=== PATIENT | female | born 1985 | race Caucasian/White ===

== ENCOUNTER 2023-01-08 09:32 | Outpatient (OUT) | payer OTHER, SELFPAY ==
[2023-01-08 10:30] LABS: Free T4 0.72 ng/dL (0.76-1.46)
[2023-01-08 10:34] LABS: Thyroid Stimulating Hormone 1.223 uIU/mL (0.358-3.740)
== END 2023-01-08 09:33 ==
PROVIDERS: PCP Obstetrics & Gynecology; Visit Provider Obstetrics & Gynecology
DX: N92.0 Excessive and frequent menstruation with regular cycle (principal)
CPT/HCPCS: 36415; 84439; 84443

== ENCOUNTER 2023-01-09 14:28 | Outpatient (REF) | payer OTHER, SELFPAY | END 2023-06-14 14:29 | disposition home or self-care (01) | LOC: LAB 14:28 | PROVIDERS: PCP Obstetrics & Gynecology; Visit Provider Obstetrics & Gynecology | DX: N92.0 Excessive and frequent menstruation with regular cycle (principal) | CPT/HCPCS: 88305 ==

== ENCOUNTER 2023-01-17 12:12 | Outpatient (OUT) | payer OTHER, SELFPAY ==
--- NOTE | 2023-01-17 13:17 | PM.PRESUREVA ---
History of Present Illness History of Present Illness Chief complaint: menorrhagia, abnormal uterine bleeding, pelvic abigail Narrative: Patient presents for preadmission testing. The patient states she has heavy painful menstrual periods. She states this started after she had her tubes tied and stopped taking control about 2-1/2 years ago. She denies fever, nausea, vomiting, or any other complaints. Review of Systems ROS Narrative REVIEW OF SYSTEMS: Negative except as stated in HPI, ten or more systems reviewed. Constitutional: No fever , chills, weakness ENT: No sore throat or epistaxis Cardiovascular: No edema, chest pain, palpitations, or activity intolerance Respiratory: No shortness of breath, cough, or wheezing Musculoskeletal: No joint pain or swelling Genitourinary: No dysuria or hematuria Neurological: No numbness, tingling, weakness, or headache Psychiatric: No mood changes PFSH PFSH Medical History (Updated 01/17/23 @ 12:57 by Torie Savage NP) Surgical History (Updated 01/17/23 @ 12:57 by Torie Savage NP) Family History (Updated 01/17/23 @ 12:57 by Torie Savage NP) Other Bladder cancer Delayed recovery from anesthesia Family history of aneurysm Family history of colon cancer Family history of diabetes mellitus Family history of heart disease Family history of hypertension Family history of liver cancer Family history of myocardial infarction Family history of stroke Social History (Updated 01/17/23 @ 12:49 by Torie Savage NP) Within the past year, how often did you have a drink containing alcohol: monthly or less Smoking status: Former smoker Non-prescribed substance use: denies use Previous occupational history: Teacher Highest level of school completed/degree received: Master's degree Meds Home Medications and Allergies Home Medications Medication Instructions Recorded Confirmed Type cetirizine 10 mg tablet (24Hour 10 mg PO DAILY PRN allergy symptoms 01/17/23 01/17/23 History Allergy) escitalopram oxalate 20 mg tablet 20 mg PO QDAY 01/17/23 01/17/23 History metformin 500 mg tablet,extended 500 mg PO QDAY 01/17/23 01/17/23 History release 24 hr montelukast 10 mg tablet 10 mg PO QDAY 01/17/23 01/17/23 History Allergies Allergy/AdvReac Type Severity Reaction Status Date / Time alcohol Allergy skin Verified 01/17/23 12:46 [From Mastisol Adhesive] infection gum mastic Allergy skin Verified 01/17/23 12:46 [From Mastisol Adhesive] infection methyl salicylate Allergy skin Verified 01/17/23 12:46 [From Mastisol Adhesive] infection prochlorperazine Allergy tremor Verified 01/17/23 12:46 [From Compazine] storax Allergy skin Verified 01/17/23 12:46 [From Mastisol Adhesive] infection Exam Narrative Exam Narrative: Constitutional: Awake, alert, comfortable, well-appearing, nontoxic, interactive, vital signs as charted Head: Normocephalic, atraumatic Neck: Supple, normal appearance, normal range of motion, no meningeal signs, no lymphadenopathy Respiratory: No respiratory distress, breath sounds clear Cardiovascular: Regular rate and rhythm, strong and regular heart tones Abdomen: Nontender, normal bowel sounds, soft, no CVA tenderness Musculoskeletal: Normal gait, no swelling or edema Skin: No rashes or induration, no lesions, only visible skin inspected Neuro: No neurological deficits, normal sensation Psychiatric: Oriented ?3, normal affect Assessment and Plan Assessment and Plan (1) Abnormal uterine bleeding (AUB): (2) Menorrhagia: (3) Pelvic pain: Plan Endometrial ablation/Krupa scheduled with Dr. Conde 01/31/2023.
== END 2023-01-17 12:13 ==
LOC: PST 12:13
PROVIDERS: PCP Obstetrics & Gynecology
DX: Z01.818 Encounter for other preprocedural examination (principal); N92.1 Excessive and frequent menstruation with irregular cycle; N93.9 Abnormal uterine and vaginal bleeding, unspecified; R10.2 Pelvic and perineal pain
CPT/HCPCS: G0463

== ENCOUNTER 2023-01-31 07:04 | Day surgery (SDC) | payer OTHER, SELFPAY ==
[2023-01-17 12:50] VITALS: BP 140/95; PULSE 75; RESP 18; TEMP 36.4; O2SAT 98; BMI 34.2
[2023-01-31] VITALS (10 sets, daily range): BP systolic 106–137; BP diastolic 64–87; PULSE 69–86; RESP 12–22; TEMP 36.4–36.6; O2SAT 96–98; BMI 34.7
[2023-01-31 07:13] LABS: Basophils Absolute Auto 0.1 10^3/uL (0.0-0.1); Basophils Percent Auto 0.9 % (0.2-2.0); Eosinophils Absolute Auto 0.3 10^3/uL (0.0-0.7); Eosinophils Percent Auto 4.3 % (0.9-7.0); Hematocrit 38.8 % (36.0-48.0); Hemoglobin 12.7 g/dL (12.0-16.0); Immature Granulocytes Abs Auto 0.02 10^3/uL (0.00-0.03); Immature Granulocytes Pct Auto 0.3 % (0.0-0.5); Lymphocytes Absolute Auto 2.5 10^3/uL (1.2-3.8); Lymphocytes Percent Auto 37.4 % (20.5-60.0); Mean Corpuscular HGB Conc 32.7 g/dL (29.9-35.2); Mean Corpuscular Hemoglobin 27.9 pg (26.7-34.0); Mean Corpuscular Volume 85.1 fL (81.0-99.0); Mean Platelet Volume 9.9 fL (9.5-13.5); Monocytes Absolute Auto 0.6 10^3/uL (0.3-0.8); Monocytes Percent Auto 9.5 % (1.7-12.0); Neutrophils Absolute Auto 3.2 10^3/uL (1.4-6.5); Neutrophils Percent Auto 47.6 % (43.0-75.0); Platelet Count 217 10^3/uL (150-450); Red Blood Count 4.56 10^6/uL (4.20-5.40); Red Cell Distribution Width 12.8 % (11.0-15.0); White Blood Count 6.7 10^3/uL (4.0-11.0)
[2023-01-31 07:34] LABS: HCG Quantitative <1 mIU/mL
[2023-01-31] MEDS: LACTATED RINGER'S SOLUTION 1,000 ML 50 ML IV (08:03)
--- NOTE | 2023-01-31 09:34 | PM.ONB ---
Brief Operative Note Date of procedure: 01/31/23 Pre-op diagnosis: menorrhagia Post-op diagnosis: same Procedure: The patient was taken back to the OR where she was prepped and draped in the normal sterile fashion after being placed in the dorsal lithotomy position, after being placed under general anesthesia without difficulty. The anterior lip was grasped with a single tooth tenaculum. The patient was then gently sounds. The patient was gently sounded using Hegar dilators and the hysteroscope was passed through the cervix into the uterus where both ostia were seen. No gross evidence of polyps, fibroids or malignancy. A weighted speculum was placed in the patient?s vagina, the anterior tip of the cervix was identified and grasped with a single tooth tenaculum. The patient was gently sounded to roughly 10 cm. The cervical length was noted to be 5 cm. The Krupa ablation apparatus was set to approximately 5 in length. This was placed in through the cervix and into the uterus. After the seal was tested, at that time the total ablation of 120 seconds was performed with the Krupa without difficulty. All instruments were removed from the vagina. Surgeon: Justice Conde Estimated blood loss (mL): 5 Pathology: none sent Condition: stable Disposition: PACU
--- NOTE | 2023-01-31 09:42 | PC.NURSE ---
PATIENT HAD A 16 RUSSIAN RED RUBBER INSERTED AND HER BLADDER WAS DRAINED. PATIENT HAD CATHETER REMOVED PRIOR TO CASE STARTING. PATIENT HAD 200 ML DRAINED FROM HER BLADDER.
--- NOTE | 2023-01-31 09:53 | PC.NURSE ---
Peripad dry and intact; heat pack applied to abdomen
[2023-01-31] MEDS: LACTATED RINGER'S SOLUTION 1,000 ML 100 ML IV (10:08)
== END 2023-01-31 11:52 | disposition home or self-care (01) ==
PROVIDERS: PCP Obstetrics & Gynecology; Visit Provider Obstetrics & Gynecology
PROC: (CPT 58563; principal; 2023-01-31 08:20)
DX: N92.1 Excessive and frequent menstruation with irregular cycle (principal); N93.9 Abnormal uterine and vaginal bleeding, unspecified; R10.2 Pelvic and perineal pain; Z87.891 Personal history of nicotine dependence; J45.909 Unspecified asthma, uncomplicated; K21.9 Gastro-esophageal reflux disease without esophagitis
CPT/HCPCS: 58563; 36415; 84702; 85025; J2704

== ENCOUNTER 2024-03-17 09:57 | Outpatient (OUT) | payer OTHER, SELFPAY ==
[2024-03-17 10:17] LABS: Basophils Percent Auto 0.5 % (0.2-2.0); Eosinophils Absolute Auto 0.1 10^3/uL (0.0-0.7); Eosinophils Percent Auto 1.2 % (0.9-7.0); Hematocrit 43.5 % (36.0-48.0); Hemoglobin 14.3 g/dL (12.0-16.0); Immature Granulocytes Abs Auto 0.02 10^3/uL (0.00-0.03); Immature Granulocytes Pct Auto 0.3 % (0.0-0.5); Lymphocytes Absolute Auto 2.1 10^3/uL (1.2-3.8); Lymphocytes Percent Auto 35.6 % (20.5-60.0); Mean Corpuscular HGB Conc 32.9 g/dL (29.9-35.2); Mean Corpuscular Hemoglobin 28.9 pg (26.7-34.0); Mean Corpuscular Volume 88.1 fL (81.0-99.0); Mean Platelet Volume 9.6 fL (9.5-13.5); Monocytes Absolute Auto 0.6 10^3/uL (0.3-0.8); Monocytes Percent Auto 10.1 % (1.7-12.0); Neutrophils Absolute Auto 3.1 10^3/uL (1.4-6.5); Neutrophils Percent Auto 52.3 % (43.0-75.0); Platelet Count 201 10^3/uL (150-450); Red Blood Count 4.94 10^6/uL (4.20-5.40); Red Cell Distribution Width 12.1 % (11.0-15.0)
--- OUTSIDE RECORDS SUMMARY | 2024-03-17 10:18 | XMS_ITS | CCD ---
Author Organization [facility] Care Team Providers Care Host Name Role Phone DONTRELL RAMON Unavailable Unavailable DONTRELLDAVIDEA Unavailable Unavailable NONE, XXXX Unavailable Unavailable MD Flores Jha Attending Provider DONTRELL ., RAMON Primary Care Unavailable [facility] [place], DR BERNSTEIN Consulting Unavailable DIAN JAVIER Admitting Unavailable DIAN JAVIER Attending Unavailable FAMILIA ., DR ANTOINE Consulting Unavailable FAMILIA ., DR ANTOINE Admitting Unavailable FAMILIA ., DR ANTOINE Attending Unavailable JON ., RAMON Primary Care Unavailable FAMILIA ., DR ANTOINE Consulting Unavailable FAMILIA ., DR ANTOINE Admitting Unavailable FAMILIA ., DR ANTOINE Attending Unavailable JON ., RAMON Primary Care Unavailable ANTOINE, DR VALENTINA Oliveira Consulting Unavailable JON ., RAMON Primary Care Unavailable JAVIER, DIAN Attending Unavailable [facility] [place], DR BERNSTEIN Consulting Unavailable DIAN JAVIER Admitting Unavailable Catia Mcdowell Unavailable Filomena Delgado Unavailable CAMILLE GALLAGHER Attending Unavailable RITESH DORANTES Attending Unavailable CAMILLE GALLAGHER Attending Unavailable RITESH DORANTES Referring Unavailable CAMILLE GALLAGHER Attending Unavailable FLORES JHA Attending Unavailable ELINA BARBOSA Attending Unavailable SY FERREIRA Attending Unavailable WONDERLY, LAURY B Referring Unavailable WONDERLY, LAURY B Primary Care Unavailable DMITRIY WATKINS Attending Unavailable DMITRIY WATKINS Referring Unavailable WONDERLY, LAURY B Primary Care Unavailable DMITRIY WATKINS Admitting Unavailable DMITRIY WATKINS Attending Unavailable WONDERLY, LAURY B Referring Unavailable WONDERLY, LAURY B Primary Care Unavailable GADIEL CARLOS Attending Unavailable WONDERLY, LAURY B Primary Care Unavailable SY FERREIRA Attending Unavailable LAURY MARTINEZ Referring Unavailable LAURY MARTINEZ Primary Care Unavailable Allergies Allergy Classification Reported Allergen(s) Allergy Type Date of Onset Reaction(s) Facility (3 sources) Prochlorperazine Drug Allergy [address] [facility] Repository (1 source) Prochlorperazine; Translations: [PROCHLORPERAZINE] Drug Allergy 05-20-20 [facility] Repository (1 source) OTHER; Translations: [OTHER] Propensity to adverse reactions (disorder) 11-30-19 [facility] Repository (1 source) GUM [id number]-[id number]- ALCOHOL; Translations: [GUM FPLRUA-UOGCNO-EVDZ- ALCOHOL] Propensity to adverse reactions to drug (disorder) 05-20-20 [facility] Repository Medications Current Medications Medication Drug Class(es) Dates Sig (Normalized) Sig (Original) cetirizine hydrochloride 10 mg oral tablet (2 sources) Histamine-1 Receptor Antagonist take 1 tablet by mouth once daily ZyrTEC 10 MG 1 tablet Orally Once a day Active escitalopram 20 mg oral tablet (2 sources) Serotonin Reuptake Inhibitor take 1 tablet by mouth every twenty-four hours Lexapro 20 MG 1 tablet Orally Once a day Active metFORMIN hydrochloride 500 mg oral tablet (2 sources) Biguanide take 1 tablet by mouth every twenty-four hours metFORMIN HCl 500 MG 1 tablet with a meal Orally Once a day Active montelukast (2 sources) Leukotriene Receptor Antagonist Singulair Active olopatadine 2 mg/ml ophthalmic solution (2 sources) Histamine-1 Receptor Inhibitor take 1 drop(s) into the eye(s) once daily Pataday 0.2 % 1 drop(s) each eye Once a day for 7 days Active phentermine hydrochloride 37.5 mg oral tablet (2 sources) Sympathomimetic Amine Anorectic take 1 tablet by mouth once daily before breakfast Adipex-P 37.5 MG 1 tablet before breakfast Orally Once a day Active predniSONE 20 mg oral tablet (1 source) Start: 05-08-2023 take 1 tablet by mouth every twelve hours prednisone 20 MG 1 tablet Orally BID for 5 Apr, Active Completed/Discontinued Medications Medication Drug Class(es) Dates Sig (Normalized) Sig (Original) [id number] 200 actuat albuterol 0.09 mg/actuat metered dose inhaler (2 sources) beta2-Adrenergic Agonist Ventolin HFA 108 (90 Base) MCG/ACT 2 puffs as needed Inhalation PRN Not-Taking gabapentin 100 mg oral capsule (2 sources) Anti-epileptic Agent Start: 04-01-2020 take 1 capsule by mouth three times daily as needed Gabapentin 100 MG 1 capsule Orally three times a day as needed for 7 days Mar, Not-Taking loratadine 10 mg oral tablet (2 sources) take 1 tablet by mouth once daily Loratadine 10 MG 1 tablet Orally Once a day for 30 day(s) Not-Taking sertraline 50 mg oral tablet (2 sources) Serotonin Reuptake Inhibitor take 1 tablet by mouth every twenty-four hours Zoloft 50 MG 1 tablet Orally Once a day for 30 day(s) Not-Taking valACYclovir 1000 mg oral tablet (2 sources) Herpesvirus Nucleoside Analog DNA Polymerase Inhibitor, Herpes Simplex Virus Nucleoside Analog DNA Polymerase Inhibitor, Herpes Zoster Virus Nucleoside Analog DNA Polymerase Inhibitor Start: 04-01-2020 take 1 tablet by mouth every eight hours valACYclovir HCl 1 GM 1 tablet Orally three times a day for 7 days Mar, Not-Taking Problems Active Problems Problem Classification Problem Date Documented Da te Episodic/Chronic Abdominal pain (4 sources) Abdominal pain; Translations: [Abdominal pain] Onset: 02-22-2024 Episodic Asthma (1 source) Unspecified asthma, uncomplicated; Translations: [UNSPECIFIED ASTHMA UNCOMPLICATED] Onset: 01-07-2022 Chronic Inflammation; infection of eye (except that caused by tuberculosis or sexually transmitteddisease) (1 source) Acute atopic conjunctivitis, bilateral Episodic Menstrual disorders (4 sources) Excessive and frequent menstruation with regular cycle; Translations: [EXCESS FREQ MENSTRUATION W/REG CYCL] Onset: 11-01-2022 Chronic Nausea and vomiting (2 sources) Nausea; Translations: [Nausea] Episodic Other gastrointestinal disorders (2 sources) Irritable bowel syndrome; Translations: [Irritable bowel syndrome] Chronic Other gastrointestinal disorders (2 sources) Constipation; Translations: [Constipation] Episodic Other gastrointestinal disorders (2 sources) Diarrhea; Translations: [Diarrhea] Episodic Other nutritional; endocrine; and metabolic disorders (1 source) Obesity, unspecified; Translations: [OBESITY UNSPECIFIED] Onset: 01-07-2022 Chronic Other screening for suspected conditions (not mental disorders or infectious disease) (4 sources) Encounter for screening for malignant neoplasm of cervix; Translations: [ENC SCREENING MALIG NEOPLASM CERV] Onset: 10-30-2022 Episodic Other upper respiratory disease (2 sources) Allergic rhinitis; Translations: [Allergic rhinitis, unspecified] Chronic Other upper respiratory infections (2 sources) Acute pharyngitis, unspecified; Translations: [Acute sinusitis, unspecified] Episodic Residual codes; unclassified (4 sources) Obstructive sleep apnea (adult) (pediatric); Translations: [OBSTRUCTIVE SLEEP APNEA] Onset: 01-31-2022 Chronic Spondylosis; intervertebral disc disorders; other back problems (2 sources) Sacrococcygeal disorders, not elsewhere classified; Translations: [Backache] Onset: 01-02-2024 Episodic Viral infection (1 source) Other viral agents as the cause of diseases classified elsewhere Episodic Past or Other Problems Problem Classification Problem Date Documented Da te Episodic/Chronic Other lower respiratory disease (1 source) Snoring; Translations: [SNORING] Onset: 01-07-2022 Episodic Results Test Name Value Interpretation Reference Range Facility US THYROIDon 11-20-2023 US THYROID FINDINGS: Right Lobe: 4.7 x 1.3 x 1.6 cm Left Lobe: 5.2 x 1.4 x 1.1 cm Isthmus (Thickness) 2mm Normal echotexture involves the thyroid gland. No significant enlargement is identified. No suspicious cystic or solid mass lesions are seen. IMPRESSION: Normal thyroid ultrasound. RECOMMENDATIONS CANCER RISK (ACR TI-RADS 2018) TR1: no FNA required TR1: 0.3% TR2: no FNA required TR2: 1.5 % TR3>: 1.5 cm follow up, >2.5 cm FNA TR3: 4.8 % Follow up 1, 3, 5 years TR4:>1.0 cm follow up >1.5 cm FNA TR4: 9.1 % Follow up: 1, 2, 3 and 5 years TR5:> 0.5 cm follow up, >1.0 cm FNA TR5: 35% Annual follow up for up to 5 years Biopsy is recommended for suspicious lesions (TR3-TR5) with the above size criteria. If there are multiple nodules, the two with the highest ACR TI-RADS grades should be sampled (rather than the two largest) Interval enlargement on follow up is felt to be significant if there is a increase of 20% and 2 mm in two dimensions, or a 50% increase in volume. If the ACR TI-RAD level increases between scans, and interval scan the following year is again recommended. TRANSCRIBED BY: ELECTRONICALLY SIGNED BY: Edmond Conway MD Normal Not Available Quick Strepon 05-08-2023 S. pyogenes Org specific cx Ql (Throat) Negative Precision Biopsy [facility] [employer] Other Quick Strep Precision Biopsy [facility] [employer] Other PAP ACOG PANEL 2: 30 to 65on 11-06-2022 . . Normal [facility] Comment on above: Result Comment: Perf ormed at: WB Performed By: #### [id number] #### [facility] [address] [address] [address] Emanuel Castillo Age Gdln ACOG Testing - [facility] Comment on above: Performed By: #### [id number] #### [facility] [address] [address] [address] Emanuel Castillo DIAGNOSIS: Comment Normal [facility] Comment on above: Result Comment: NEGA TIVE FOR INTRAEPITHELIAL LESION OR MALIGNANCY. Performed at: WB Performed By: #### [id number] #### [facility] [address] [address] [address] Emanuel Castillo HPV Aptima Negative Normal Negative [facility] Comment on above: Result Comment: This nucleic acid amplification test detects fourteen high-risk HPV types (16,18,31,33,35,39,45,51,52,56,58,59,66,68) without differentiation. Performed at: =G Performed By: #### [id number] #### [facility] [address] [address] [address] Emanuel Castillo HPV Genotype Reflex Comment Normal [facility] Comment on above: Result Comment: Crit eria not met, HPV Genotype not performed. Performed at: WB Performed By: #### [id number] #### [facility] [address] [address] [address] Emanuel Castillo Methodology: Comment Normal [facility] Comment on above: Result Comment: This liquid based ThinPrep(R) pap test was screened with the use of an image guided system. Performed at: WB Performed By: #### [id number] #### [facility] [address] [place] [address] Dr. Emanuel Castillo Note: Comment Normal [facility] Comment on above: Result Comment: The Pap smear is a screening test designed to aid in the detection of premalignant and malignant conditions of the uterine cervix. It is not a diagnostic procedure and should not be used as the sole means of detecting cervical cancer. Both false-positive and false-negative reports do occur. . Performed at: WB Performed By: #### [id number] #### [facility] [address] [place] [address] Dr. Emanuel Castillo Performed by: Comment Normal [facility] Comment on above: Result Comment: Jennifer Vallecillo, Metrology Specialist (ASCP) Performed at: WB Performed By: #### [id number] #### [facility] [address] [place] [address] Dr. Emanuel Castillo Specimen adequacy: Comment Normal [facility] Comment on above: Result Comment: Sati sfactory for evaluation. Performed at: WB Performed By: #### [id number] #### [facility] [address] [place] [address] Dr. Emanuel Castillo CBC AUTO DIFFon 11-01-2022 BASO # 0.0 103/ul Normal 0.0-0.1 [facility] Comment on above: Performed By: #### C BC #### [facility] [address] [place] [address] Dr. Emanuel Castillo Basophils/100 WBC (Bld) 0.6 % Normal 0.2-2.0 [facility] Comment on above: Performed By: #### C BC #### [facility] [address] [place] [address] Dr. Emanuel Castillo EO # 0.3 103/ul Normal 0.0-0.7 [facility] Comment on above: Performed By: #### C BC #### [facility] [address] [place] [address] Dr. Emanuel Castillo Eosinophils/100 WBC (Bld) 3.7 % Normal 0.9-7.0 [facility] Comment on above: Performed By: #### C BC #### [facility] [address] [place] [address] Dr. Emanuel Castillo Erythrocyte distribution width (RBC) [Ratio] 12.9 % Normal 11.0-15.0 [facility] Comment on above: Performed By: #### C BC #### [facility] [address] [place] [address] Dr. Emanuel Castillo Hematocrit (Bld) [Volume fraction] 42.1 % Normal 36.0-48.0 [facility] Comment on above: Performed By: #### C BC #### [facility] [address] [place] [address] Dr. Emanuel Castillo Hemoglobin (Bld) [Mass/Vol] 13.8 g/dL Normal 12.0-16.0 [facility] Comment on above: Performed By: #### C BC #### [facility] [address] [place] [address] Dr. Emanuel Castillo IG # 0.02 10e3/ul Normal 0.00-0.03 [facility] Comment on above: Performed By: #### C BC #### [facility] [address] [place] [address] Dr. Emanuel Castillo IG % 0.3 % Normal 0.0-0.5 [facility] Comment on above: Performed By: #### C BC #### [facility] [address] [place] [address] Dr. Emanuel Castillo LYMPH # 2.4 103/ul Normal 1.2-3.8 [facility] Comment on above: Performed By: #### C BC #### [facility] [address] [place] [address] Dr. Emanuel Castillo Lymphocytes/100 WBC (Bld) 35.0 % Normal 20.5-60.0 [facility] Comment on above: Performed By: #### C BC #### [facility] [address] [place] [address] Dr. Emanuel Castillo MANUAL DIFF REQ NO Normal [facility] Comment on above: Performed By: #### C BC #### [facility] [address] [address] [address] Emanuel Castillo MCH (RBC) [Entitic mass] 27.8 pg Normal 26.7-34.0 [facility] Comment on above: Performed By: #### C BC #### [facility] [address] [place] [address] Dr. Emanuel Castillo MCHC (RBC) [Mass/Vol] 32.8 g/dL Normal 29.9-35.2 [facility] Comment on above: Performed By: #### C BC #### [facility] [address] [place] [address] Dr. Emanuel Castillo MCV (RBC) [Entitic vol] 84.9 fL Normal 81.0-99.0 [facility] Comment on above: Performed By: #### C BC #### [facility] [address] [place] [address] Dr. Emanuel Castillo MONO # 0.6 103/ul Normal 0.3-0.8 [facility] Comment on above: Performed By: #### C BC #### [facility] [address] [place] [address] Dr. Emanuel Castillo Monocytes/100 WBC (Bld) 9.2 % Normal 1.7-12.0 [facility] Comment on above: Performed By: #### C BC #### [facility] [address] [place] [address] Dr. Emanuel Castillo NEUT # 3.4 103/ul Normal 1.4-6.5 [facility] Comment on above: Performed By: #### C BC #### [facility] [address] [place] [address] Dr. Emanuel Castillo Neutrophils/100 WBC (Bld) 51.2 % Normal 43.0-75.[address] [facility] Comment on above: Performed By: #### C BC #### [facility] [address] [place] [address] Dr. Emanuel Castillo Platelet mean volume (Bld) [Entitic vol] 10.0 fL Normal 9.5-13.5 [facility] Comment on above: Performed By: #### C BC #### [facility] [address] [place] [address] Dr. Emanuel Castillo PLT 214 103/ul Normal 150-450 [facility] Comment on above: Performed By: #### C BC #### [facility] [address] [place] [address] Dr. Emanuel Castillo RBC 4.96 106/ul Normal 4.20-5.40 [facility] Comment on above: Performed By: #### C BC #### [facility] [address] [place] [address] Dr. Emanuel Castillo WBC 6.7 103/ul Normal 4.0-11.0 [facility] Comment on above: Performed By: #### C BC #### [facility] [address] [place] [address] Dr. Emanuel Castillo FREE T4on 11-01-2022 Free T4 [Mass/Vol] 0.72 ng/dL Critically low 0.76-1.[address] [facility] Comment on above: Performed By: #### F T4 #### [facility] [address] [place] [address] Dr. Emanuel Castillo GLYCOHEMOGLOBIN A1Con 2022 ADA RECOMMENDATION SEE BELOW Normal [facility] Comment on above: Result Comment: ADA RECOMMENDED LIMIT 4.0 - 6.0 ADA THERAPEUTIC TARGET < 7.0 ACTION SUGGESTED > 7.0 Performed By: #### A 1C #### [facility] [address] [place] [address] Dr. Emanuel Castillo Glucose [Mass/Vol] 108 mg/dL Normal [facility] Comment on above: Performed By: #### A 1C #### [facility] [address] [place] [address] Dr. Emanuel Castillo HbA1c (Bld) [Mass fraction] 5.4 % Normal 4.5-6.2 [facility] Comment on above: Performed By: #### A 1C #### [facility] [address] [place] [address] Dr. Emanuel Castillo PREG QUANT HCGon 11-01-2022 HCG QUANT <[address] [facility] Comment on above: Performed By: #### T SH, PREGQNT #### [facility] [address] [place] [address] Dr. Emanuel Castillo HCG RANGE SEE BELOW Normal [facility] Comment on above: Result Comment: 5-50 0.2-1 WEEK 50-500 1-2 WEEKS 100-5,000 2-3 WEEKS 500-10,000 3-4 WEEKS 1,000-50,000 4-5 WEEKS 10,000-100,000 5-6 WEEKS 15,000-200,000 6-8 WEEKS 10,000-100,000 2-3 MONTHS Performed By: #### T SH, PREGQNT #### [facility] [address] [place] [address] Dr. Emanuel Castillo PROTIMEon 11-01-2022 INR Coag (PPP) [Relative time] 0.95 {INR} Normal [facility] Comment on above: Performed By: #### P TT, PT #### [facility] [address] [place] [address] Dr. Emanuel Castillo INR GUIDELINES SEE BELOW Normal [facility] Comment on above: Result Comment: DOT RED INR: 2.0 - 3.0 CONDITIONS NOT LISTED BELOW 2.5 - 3.5 FOR PROSTHETIC HEART VALVE REPLACEMENT 2.5 - 3.5 RECURRENT THROMBOSIS Performed By: #### P TT, PT #### [facility] [address] [place] [address] Dr. Emanuel Castillo PT Coag (PPP) [Time] 10.1 s Normal 9.0-11.6 [facility] Comment on above: Performed By: #### P TT, PT #### [facility] [address] [place] [address] Dr. Emanuel Castillo PTTon 11-01-2022 aPTT Coag (Bld) [Time] 31.3 s Normal 22.3-36.2 [facility] Comment on above: Performed By: #### P TT, PT #### [facility] [address] [place] [address] Dr. Emanuel Castillo TSHon 11-01-2022 TSH 2.217 uIU/mL Normal 0.358-3.740 [facility] Comment on above: Performed By: #### T SH, PREGQNT #### [facility] [address] [address] [address] Emanuel Castillo US PELVIS AND TRANSVAGon US PELVIS AND TRANSVAG EXAMINATION: US PELVIS AND TRANSVAG HISTORY: Excessive and frequent menstruation ; menorrhagia COMPARISON: No relevant comparison available. TECHNIQUE: Transabdominal and transvaginal sonographic examination. FINDINGS: UTERUS: Normal size and appearance. Uterus size: 8.5 x 5.2 x 3.9 cm ENDOMETRIUM: Normal homogeneous appearance. Endometrial thickness: 13 mm RIGHT OVARY: Contains a 1.9 cm dominant follicle versus benign-appearing cyst. Duplex Doppler demonstrates normal waveform and flow; resistive index 0.5. Ovary size: 3.2 x 3.0 x 2.5 cm LEFT OVARY: Normal size and appearance. Duplex Doppler demonstrates normal waveform and flow; resistive index 0.6. Ovary size: 3.2 x 2.4 x 1.8 cm CUL-DE-SAC: Unremarkable. No significant free fluid. BLADDER: Unremarkable. OTHER: None. IMPRESSION: 1. No abnormal or suspicious findings to account for patient's symptoms. Electronically authenticated by: VALENTINA SCHULTZ Date: 2022-11-01 10:40 Normal [facility] Complete Blood Counton 11-11 Erythrocyte distribution width (RBC) [Ratio] 12.2 % Normal 11.0-15.0 [facility] Comment on above: Performed By: #### F T4, CMP, TSH, LIPD, CBC #### [facility] [address], [place] [id number] Hematocrit (Bld) [Volume fraction] 43.6 % Normal 35.0-47.0 [facility] Comment on above: Performed By: #### F T4, CMP, TSH, LIPD, CBC #### [facility] [address], [place] [id number] Hemoglobin (Bld) [Mass/Vol] 13.8 g/dL Normal 11.6-15.5 [facility] Comment on above: Performed By: #### F T4, CMP, TSH, LIPD, CBC #### [facility] [address], [place] [id number] MCH (RBC) [Entitic mass] 27.5 pg Normal 27.0-33.0 [facility] Comment on above: Performed By: #### F T4, CMP, TSH, LIPD, CBC #### [facility] [address], [place] [id number] MCHC (RBC) [Mass/Vol] 31.7 g/dL Low 32.0-36.0 [facility] Comment on above: Performed By: #### F T4, CMP, TSH, LIPD, CBC #### [facility] [address], [place] [id number] MCV (RBC) [Entitic vol] 87 fL Normal 80-100 [facility] Comment on above: Performed By: #### F T4, CMP, TSH, LIPD, CBC #### [facility] [address], [place] [id number] Platelet mean volume (Bld) [Entitic vol] 10.70 fL Normal 7.50-12.50 [facility] Comment on above: Performed By: #### F T4, CMP, TSH, LIPD, CBC #### [facility] [address], [place] [id number] Platelets (Bld) [#/Vol] 206 10*3/uL Normal 140-400 [facility] Comment on above: Performed By: #### F T4, CMP, TSH, LIPD, CBC #### [facility] [address], [place] [id number] RBC (Bld) [#/Vol] 5.02 10*6/uL Normal 3.90-5.20 [facility] Comment on above: Performed By: #### F T4, CMP, TSH, LIPD, CBC #### [facility] [address], [place] [id number] RDW-SD 39.0 fL Normal 37.0-50.0 [facility] Comment on above: Performed By: #### F T4, CMP, TSH, LIPD, CBC #### [facility] [address], [place] [id number] WBC (Bld) [#/Vol] 5.8 10*3/uL Normal 3.8-11.0 Yoselin hernandez [place] [facility] Comment on above: Performed By: #### F T4, CMP, TSH, LIPD, CBC #### [facility] [address], [place] [id number] Comprehensive Metabolic Pane misty 11-11-2021 Albumin [Mass/Vol] 4.7 g/dL Normal 3.6-5.1 Yoselin rn [place] [facility] Comment on above: Performed By: #### F T4, CMP, TSH, LIPD, CBC #### [facility] [address], [place] [id number] Albumin/Globulin [Mass ratio] 2.4 {ratio} Normal 1.0-2.5 [facility] Comment on above: Performed By: #### F T4, CMP, TSH, LIPD, CBC #### [facility] [address], [place] [id number] ALP [Catalytic activity/Vol] 48 U/L Normal 35-119 [facility] Comment on above: Performed By: #### F T4, CMP, TSH, LIPD, CBC #### [facility] [address], [place] [id number] ALT [Catalytic activity/Vol] 19 U/L Normal 6-33 [facility] Comment on above: Result Comment: 06/29 Female reference range changed. Performed By: #### F T4, CMP, TSH, LIPD, CBC #### [facility] [address], [place] [id number] Anion gap [Moles/Vol] 17 mmol/L Normal 12-20 [facility] Comment on above: Result Comment: Effe ctive 08/04/2019 reference range changed. Performed By: #### F T4, CMP, TSH, LIPD, CBC #### [facility] [address], [place] [id number] AST [Catalytic activity/Vol] 17 U/L Normal 9-34 [facility] Comment on above: Performed By: #### F T4, CMP, TSH, LIPD, CBC #### [facility] [address], [place] [id number] BUN/CREA 16 Ratio Normal 6-22 [facility] [facility] Comment on above: Performed By: #### F T4, CMP, TSH, LIPD, CBC #### [facility] [address], [place] [id number] Calcium [Mass/Vol] 9.5 mg/dL Normal 8.6-10.2 [facility] Comment on above: Performed By: #### F T4, CMP, TSH, LIPD, CBC #### [facility] [address], [place] [id number] Chloride [Moles/Vol] 104 mmol/L Normal 98-107 [facility] Comment on above: Performed By: #### F T4, CMP, TSH, LIPD, CBC #### [facility] [address], [place] [id number] CO2 [Moles/Vol] 23 mmol/L Normal 20-31 [facility] Comment on above: Performed By: #### F T4, CMP, TSH, LIPD, CBC #### [facility] [address], [place] [id number] Creatinine [Mass/Vol] 0.6 mg/dL Normal 0.6-1.4 [facility] Comment on above: Performed By: #### F T4, CMP, TSH, LIPD, CBC #### [facility] [address], [place] [id number] eGFRAA 137 mL/min/1.73m2 Normal >60 [facility] Comment on above: Performed By: #### F T4, CMP, TSH, LIPD, CBC #### [facility] [address], [place] [id number] eGFRNAA 113 mL/min/1.73m2 Normal >60 [facility] Comment on above: Performed By: #### F T4, CMP, TSH, LIPD, CBC #### [facility] [address], [place] [id number] Globulin (S) [Mass/Vol] 2.0 g/dL Normal 1.9-3.7 [facility] Comment on above: Performed By: #### F T4, CMP, TSH, LIPD, CBC #### [facility] [address], [place] [id number] Glucose [Mass/Vol] 95 mg/dL Normal 65-99 Yoselin hernandez [place] [facility] Comment on above: Result Comment: For FASTING Glucose --- ADA reference ranges: Normal 65-99 mg/dl Prediabetes 100-125 Diabetes >/= 126 Performed By: #### F T4, CMP, TSH, LIPD, CBC #### [facility] [address], [place] [id number] Potassium [Moles/Vol] 4.4 mmol/L Normal 3.5-5.5 [facility] Comment on above: Performed By: #### F T4, CMP, TSH, LIPD, CBC #### [facility] [address], [place] [id number] Protein [Mass/Vol] 6.7 g/dL Normal 6.1-8.1 [facility] Comment on above: Performed By: #### F T4, CMP, TSH, LIPD, CBC #### [facility] [address], [place] [id number] Sodium [Moles/Vol] 140 mmol/L Normal 135-146 [facility] [place] [facility] Comment on above: Performed By: #### F T4, CMP, TSH, LIPD, CBC #### [facility] [address], [place] [id number] TBIL <0.3 Normal [facility] Comment on above: Performed By: #### F T4, CMP, TSH, LIPD, CBC #### [facility] [address], [place] [id number] Urea nitrogen [Mass/Vol] 10 mg/dL Normal 7-25 [facility] Comment on above: Performed By: #### F T4, CMP, TSH, LIPD, CBC #### [facility] [address], [place] [id number] Free T4on 11-11-2021 Free T4 [Mass/Vol] 0.98 ng/dL Normal 0.80-1.80 [facility] Comment on above: Performed By: #### F T4, CMP, TSH, LIPD, CBC #### [facility] [address], [place] [id number] Lipid Panelon 11-11-2021 Cholesterol [Mass/Vol] 189 mg/dL Normal 125-200 [facility] Comment on above: Result Comment: Low risk < 200mg/dL Borderline risk 201-239 mg/dl High risk > or equal to 240 Performed By: #### F T4, CMP, TSH, LIPD, CBC #### [facility] [address], [place] [id number] Cholesterol in HDL [Mass/Vol] 55 mg/dL Normal >40 [facility] Comment on above: Result Comment: High Cardiovascular Risk HDL <40 mg/dL Low Cardiovascular Risk HDL > or equal to 60 mg/dl Performed By: #### F T4, CMP, TSH, LIPD, CBC #### [facility] [address], [place] [id number] Cholesterol in LDL [Mass/Vol] 110 mg/dL Normal [facility] Comment on above: Result Comment: LDL ATP III CLASSIFICATION LDL less than 100 mg/dl Optimal LDL 100-129 mg/dl Near or above optimal LDL 130-159 Borderline high LDL 160-189 High LDL greater than 189 mg/dl Very High Performed By: #### F T4, CMP, TSH, LIPD, CBC #### [facility] [address], [place] [id number] Cholesterol in VLDL [Mass/Vol] 24 mg/dL Normal [facility] Comment on above: Performed By: #### F T4, CMP, TSH, LIPD, CBC #### [facility] [address], [place] [id number] Cholesterol.total/Ch olesterol in HDL [Mass ratio] 3 {ratio} Normal [facility] Comment on above: Performed By: #### F T4, CMP, TSH, LIPD, CBC #### [facility] [address], [place] [id number] Triglyceride [Mass/Vol] 120 mg/dL Normal 30-150 [facility] Comment on above: Result Comment: TRIG ATPIII CLASSIFICATIONS TRIG less than 150 mg/dl Normal TRIG 150-199 mg/dl Borderline High TRIG 200-500 mg/dl High TRIG greather than 500 mg/dl Very High Performed By: #### F T4, CMP, TSH, LIPD, CBC #### [facility] [address], [place] [id number] TSHon 11-11-2021 TSH 2.100 uIU/mL Normal 0.400-4.500 [facility] Comment on above: Performed By: #### F T4, CMP, TSH, LIPD, CBC #### [facility] [address], [place] [id number] Superficial Wound Cultureon 03-10-2021 Superficial Wound Culture RIGHT NASAL ALA ORGANISM: Staphylococcus aureus (O:STAAUR) Quantity of Growth Moderate Growth Aerobic SUE Charge (PC45) ---- SUSCEPTIBILITY --- ORGANISM: O:STAAUR ANTIBIOTIC INTERPRETATION SUE Amoxacillin/K Clavulanate S <4/2 Ampicillin FORREST >8 Ampicillin/Sulbactam S <8/4 Azithromycin R >4 Cefazolin S <8 Ceftaroline S <0.5 Ceftriaxone S <8 Ciprofloxacin S <1 Clindamycin R <0.5 Daptomycin S <1 Erythromycin R >4 Levofloxacin S <1 Linezolid S <2 Meropenem S <4 Oxacillin S 0.5 Penicillin FORREST >8 Piperacillin/Tazobact am S <4 Rifampin S <1 Tetracycline S <4 Trimethoprim/Sulfamet hoxazole S <0.5/9.5 Vancomycin S 1 S = SUSCEPTIBLE I = INTERMEDIATE R = RESISTANT BLANK = DATA NOT AVAILABLE, OR DRUG NOT ADVISABLE OR TESTED R* = RESISTANCE DUE TO EXTENDED SPECTRUM BETA-LACTAMASES ESBL = EXTENDED SPECTRUM BETA-LACTAMASE TFG = THYMIDINE-DEPENDENT STRAIN FORREST = BETA-LACTAMASE POSITIVE IB = INDUCIBLE BETA-LACTAMASE. APPEARS IN PLACE OF 'S' WITH SPECIES KNOWN TO POSSESS INDUCIBLE BETA-LACTAMASES. POTENTIALLY THEY MAY BECOME RESISTANT TO ALL B-LACTAM DRUGS. PERFORMED BY: [facility] [address] [place] [address] PATHOLOGIST GOLF BALL MARKER SP TRUJILLO M.D. Normal [facility] Comment on above: Performed By: #### C USUP #### [place] [id number] [facility] Vital Signs Date Time Vital Sign Value Performing Clinician Facility 05-08-2023 18:00-0400 Body height 162.56 cm Filomena Delgado Other [facility] Other 05-08-2023 18:00-0400 Body mass index (BMI) [Ratio] 33.33 kg/m2 Filomena Delgado Other [facility] Other 05-08-2023 18:00-0400 Body temperature 98 [degF] Filomena Delgado Other [facility] Other 05-08-2023 18:00-0400 Body weight 88.09 kg Filomena Delgado Other [facility] Other 05-08-2023 18:00-0400 Respiratory rate 18 /min Filomena Delgado Other [facility] Other 05-08-2023 18:00-0400 SaO2% (BldA) [Mass fraction] 97 % Filomena Delgado Other [facility] Other 05-02-2023 15:45-0400 Body height 162.56 cm Catia Mcdowell Other [facility] Other 05-02-2023 15:45-0400 Body mass index (BMI) [Ratio] 33.47 kg/m2 Catia Mcdowell Other [facility] Other 05-02-2023 15:45-0400 Body temperature 97.4 [degF] Catia Mcdowell Other [facility] Other 05-02-2023 15:45-0400 Body weight 88.45 kg Catia Mcdowell Other [facility] Other 05-02-2023 15:45-0400 Respiratory rate 18 /min Catia Mcdowell Other [facility] Other 05-02-2023 15:45-0400 SaO2% (BldA) [Mass fraction] 98 % Catia Mcdowell Other [facility] Other Encounters Encounter Date Encounter Type Care Provider Facility Start: 03-12-2024 End: 03-12-2024 ambulatory [facility] Start: 02-23-2024 End: 02-23-2024 ambulatory GADIEL CARLOS [facility] Start: 02-22-2024 End: 02-22-2024 ambulatory DMITRIY Snyder WATKINS [facility] Start: 01-23-2024 End: 01-23-2024 ambulatory ELINA FINLEYZIO Not Available Start: 01-14-2024 End: 01-14-2024 ambulatory FLORES Harris PETNATALIEI Not Available Start: 01-02-2024 End: 01-02-2024 ambulatory [facility] Start: 01-01-2024 End: 01-01-2024 ambulatory CAMILLE AILEEN Not Available Start: 11-20-2023 End: 11-20-2023 ambulatory RITESH A JOSE E Not Available Start: 11-13-2023 End: 11-13-2023 ambulatory RITESH A JOSE E Not Available Start: 07-26-2023 End: 07-26-2023 ambulatory CAMILLE AILEEN Not Available Start: 06-27-2023 End: 06-27-2023 ambulatory CAMILLE AILEEN Not Available Start: 05-08-2023 End: 05-08-2023 ambulatory Filomena Delgado Other [facility] Other Start: 05-08-2023 Office outpatient visit 25 minutes Filomena Delgado [facility] [place] Start: 05-02-2023 End: 05-02-2023 ambulatory Catia Mcdowell Other [facility] Other Start: 05-02-2023 Office outpatient ne w 20 minutes Catia Mcdowell [facility] [place] Start: 11-01-2022 End: 11-02-[address] ELINA BARBOSA . Facility:[facility] Start: 10-30-2022 End: 10-30-[address] ELINA BARBOSA . Facility:[facility] Start: 01-31-2022 End: 02-01-2022 ambulatory RAMON JON . Facility:[facility] Start: 01-04-2022 End: 01-05-2022 ambulatory RAMON JON . Facility:[facility] Start: 03-10-2021 End: 03-10-2021 Departed Referred MD Flores Jha Work Phone: [facility] [address] [place] Start: 10-21-2017 End: 10-22-2017 Ambulatory RAMON JON Facility:[facility] Start: 10-14-2017 End: 10-15-2017 Ambulatory RAMON JON Facility:[facility] Plan of Treatment Date Care Activity Detail Author Start: 03-10-2021 Superficial Wound Culture Superficial Wound Culture [facility] Payers Date Payer Category Payer Unknown [id number] 2.16.84 [id number] 1985 Unknown [id number] 1985 Unknown [id number] .16.84 [id number] 1985 Unknown [id number] 2.16.84 0.1.361563.3.579.2.593 1985 Unknown [id number] 2.16.84 0.1.577399.3.579.2.1259 1985 Unknown [id number] .16.84 0.1.966257.3.579.2.1259 1985 Unknown [id number] 2.16.84 0.1.255708.3.579.2.1259 1985 Unknown [id number] 2.16.84 0.1.075772.3.579.2.1259 1985 Unknown [id number] 2.16.84 0.1.518112.3.579.2.1259 1985 Unknown [id number] 2.16.840 .1.516583.3.579.2.9 1985 Unknown [id number] 2.16.840 .1.192772.3.579.2.1259 1985 Unknown [id number] 2.16.8 40.1.611034.3.579.2.1285 1985 Unknown [id number] 2.16.8 40.1.294382.3.579.2.1285 1985 Unknown [id number] 2.16.8 40.1.610994.3.579.2.1285 1985 Unknown [id number] 2.16.8 40.1.374527.3.579.2.128 1985 Unknown [id number] 2.16.8 40.1.704068.3.579.2.1285 1985 Unknown [id number] 2.16.8 40.1.226964.3.579.2.1286 1959 Unknown [id number] Self-pay Self Pay [id number] Social History Date Type Detail Facility Tobacco smoking status OHIS Unknown if ever smoked [facility] Start: 1985 Sex Assigned At Female F [facility] Sex Assigned At Sex Assigned At [facility] th [facility] Other Evaluation note 05-08-2023 Note Date & Type Note Facility 05-08-2023 Evaluation note Encounter Date Diagnosis Assessment Notes Apr, Sore throat (ICD-10 - J02.9) Apr, Acute sinusitis, unspecified (ICD-10 - J01.90) Advised patient that rapid strep test was negative today in office. No other testing performed at this time. Discussed diagnosis with patient today. Will treat as viral at this time based on physical exam and duration of symptoms. Advised patient viral syndromes last 7-10 days. If symptoms do not improve in the next 3-4 days patient may call UC and I will send antibiotic. Use Rx of prednisone as directed. Encouraged supportive care as directed today. Push fluids/rest, nasal saline washes as directed, may use Tylenol as needed for discomfort, OTC plain Mucinex D. Patient to follow up with PCP or UC for any new or worsening symptoms. Immediate eval if SOB, wheezing, difficulty breathing, or other concerning symptoms. Patient verbalizes understanding and is agreeable to treatment plan Apr, Other viral agents as the cause of diseases classified elsewhere (ICD-10 - B97.89) [facility] Other Evaluation note 05-02-2023 Note Date & Type Note Facility 05-02-2023 Evaluation note Encounter Date Diagnosis Assessment Notes Apr, Allergic conjunctiviti s, bilateral (ICD-10 - H10.13) Eye allergic reaction home care material was printed Drink plenty fluids, get plenty of rest. Continue home medications as prescribed. Use the eyedrops as prescribed until your symptoms improved. You may take a dose of Benadryl at bedtime for itching and swelling of your eyes. You may return to school tomorrow. Follow-up with your family physician or eye doctor if no improvement in 2 to 3 days [facility] Other Evaluation note Note Date & Type Note Facility Evaluation note No assessment information availa [facility] History general Narrative - Reported Note Date & Type Note Facility History general Narrative - Reported Type Medical History depression Medical History IBS Medical History seasonal allergies Medical History insulin resistant Surgical History C section x2 Surgical History tubal ligation Surgical History uterine ablation [facility] Other Summary Purpose Family History No Family History Records FoundNo Family History Records FoundNo Family History Records FoundNo Family History Records FoundNo Family History Records FoundNo Family History Records Found Advance Directives No Advanced Directives Records FoundNo Advanced Directives Records FoundNo Advanced Directives Records FoundNo Advanced Directives Records FoundNo Advanced Directives Records FoundNo Advanced Directives Records Found Additional Source Comments INFORMATION SOURCE (unrecogn ized section and content) DATE CREATED AUTHOR 01/31/2018 Juwan Yap [facility] DATE CREATED AUTHOR AUTHOR'S ORGANIZ ATION 03/20/2021 [facility] DATE CREATED AUTHOR AUTHOR'S ORGANIZ ATION 11/12/2021 [facility] DATE CREATED AUTHOR AUTHOR'S ORGANIZ ATION 11/11/2022 [facility] DATE CREATED AUTHOR AUTHOR'S ORGANIZ ATION 01/24/2024 [facility] DATE CREATED AUTHOR AUTHOR'S ORGANIZ ATION 03/14/2024 [facility] Goals (unrecognized section and content) Goals may be documented in a n alternate sectionNo InformationNo Information REASON FOR VISIT (unrecogniz ed section and content) PINK EYE? ITCHYPLUGGED EARS, SORE THROAT FOR RECORDS PERTAINING TO PATIENTS WHO ARE OR HAVE BEEN ENROLLED IN A CHEMICAL DEPENDENCY/SUBSTANCEABUSE PROGRAM, SOME INFORMATION MAY BE OMITTED. This clinical summary was aggregated from multiple sources. Caution should be exercised in using it in the provision of clinical care. This summary normalizes information from multiple sources, and as a consequence, information in this document may materially change the coding, format and clinical context of patient data. In addition, data may be omitted in some cases. CLINICAL DECISIONS SHOULD BE BASED ON THE PRIMARY CLINICAL RECORDS. [employer] provides no warranty or guarantee of the accuracy or completeness of information in this document.
[2024-03-17 11:17] LABS: Alanine Aminotransferase 33 U/L (14-59); Albumin Level 3.5 g/dL (3.4-5.0); Alkaline Phosphatase 54 U/L (46-116); Anion Gap 7.6; Aspartate Amino Transferase 15 U/L (15-37); BUN Creatinine Ratio 18.1; Bilirubin Total 0.4 mg/dL (0.2-1.0); Calcium 8.7 mg/dL (8.5-10.1); Carbon Dioxide 32.3 mmol/L (21.0-32.0); Chloride 101 mmol/L (98-107); Estimated GFR (African America >60 (>=60); Estimated GFR (Non-African Ame >60 (>=60); Globulin 3.4 g/dL; Glucose 84 mg/dL (74-106); Potassium 3.9 mmol/L (3.5-5.1); Sodium 137 mmol/L (136-145); Total Protein 6.9 g/dL (6.4-8.2)
== END 2024-03-17 09:58 | disposition home or self-care (01) ==
LOC: LAB 10:00
PROVIDERS: PCP Obstetrics & Gynecology; Visit Provider Physician Assistant
DX: Z79.899 Other long term (current) drug therapy (principal)
CPT/HCPCS: 36415; 80053; 85025

== ENCOUNTER 2024-05-17 09:23 | Emergency (ER) | payer OTHER, SELFPAY ==
[2024-05-17 09:33] VITALS: BP 128/100; PULSE 105; TEMP 36.7; O2SAT 98
[2024-05-17] MEDS: ONDANSETRON PF 4 MG/2 ML VIAL IV (10:11)
[2024-05-17] MEDS: FAMOTIDINE/PF 20 MG/2 ML VIAL IV (10:11)
[2024-05-17 10:14] LABS: Basophils Percent Auto 0.1 % (0.2-2.0); Eosinophils Absolute Auto 0.2 10^3/uL (0.0-0.7); Eosinophils Percent Auto 2.4 % (0.9-7.0); Hematocrit 42.4 % (36.0-48.0); Hemoglobin 14.2 g/dL (12.0-16.0); Immature Granulocytes Abs Auto 0.01 10^3/uL (0.00-0.03); Immature Granulocytes Pct Auto 0.1 % (0.0-0.5); Lymphocytes Absolute Auto 1.7 10^3/uL (1.2-3.8); Lymphocytes Percent Auto 23.1 % (20.5-60.0); Mean Corpuscular HGB Conc 33.5 g/dL (29.9-35.2); Mean Corpuscular Hemoglobin 29.3 pg (26.7-34.0); Mean Corpuscular Volume 87.4 fL (81.0-99.0); Mean Platelet Volume 10.1 fL (9.5-13.5); Monocytes Absolute Auto 0.7 10^3/uL (0.3-0.8); Monocytes Percent Auto 9.3 % (1.7-12.0); Neutrophils Absolute Auto 4.7 10^3/uL (1.4-6.5); Platelet Count 207 10^3/uL (150-450); Red Blood Count 4.85 10^6/uL (4.20-5.40); Red Cell Distribution Width 11.8 % (11.0-15.0); White Blood Count 7.2 10^3/uL (4.0-11.0)
[2024-05-17 10:27] LABS: Bilirubin Urine NEGATIVE (NEGATIVE); Blood Urine NEGATIVE (NEGATIVE); Clarity Urine CLEAR (CLEAR); Color Urine YELLOW (YELLOW); Glucose Urine UA NEGATIVE (NEGATIVE); Ketones Urine NEGATIVE (NEGATIVE); Leukocyte Esterase Urine NEGATIVE (NEGATIVE); Nitrite Urine NEGATIVE (NEGATIVE); Protein Urine NEGATIVE (NEG/TRACE); Urobilinogen Urine 0.2 EU/dL (0.2-1.0)
[2024-05-17 10:27] LABS: HCG Qualitative NEGATIVE (NEGATIVE); Internal Control Within Normal Limits
[2024-05-17 10:28] LABS: Urine Microscopic Indicated NO
[2024-05-17 10:33] LABS: Alanine Aminotransferase 22 U/L (14-59); Albumin Level 3.4 g/dL (3.4-5.0); Alkaline Phosphatase 47 U/L (46-116); Anion Gap 12.3; Aspartate Amino Transferase 14 U/L (15-37); BUN Creatinine Ratio 8.8; Bilirubin Total 0.4 mg/dL (0.2-1.0); Calcium 8.9 mg/dL (8.5-10.1); Carbon Dioxide 26.3 mmol/L (21.0-32.0); Chloride 106 mmol/L (98-107); Estimated GFR (African America >60 (>=60 mL/min/1.73m^2); Estimated GFR (Non-African Ame >60 (>=60 mL/min/1.73m^2); Globulin 3.5 g/dL; Glucose 100 mg/dL (74-106); Potassium 3.6 mmol/L (3.5-5.1); Sodium 141 mmol/L (136-145); Total Protein 6.9 g/dL (6.4-8.2)
--- NOTE | 2024-05-17 10:38 | ED_ITS ---
HPI - Abdominal Pain General Chief Complaint: Abdominal Pain Stated Complaint: EPIGASTRIC PAIN, N&V Time Seen by Provider: 05/17/24 09:54 Source: patient Mode of arrival: walk-in History of Present Illness HPI narrative: The patient is coming to the ER with epigastric discomfort associate with nausea vomiting and diarrhea for the last 2 to 3 days She mentioned that he have a history of IBS and she have sometimes episode like this where she have diarrhea but she did had some nausea vomiting with that to and she is wondering because she had some rash on her left breast as well as the face that was itchy that she could be having allergic reaction The patient denies any other complaints or any exposure to any new medication or any new foods Related Data Home Medications ?Medication ?Instructions ?Recorded ?Confirmed escitalopram oxalate 20 mg tablet 20 mg PO QDAY 01/17/23 05/17/24 metformin 500 mg tablet,extended 500 mg PO QDAY 01/17/23 05/17/24 release 24 hr montelukast 10 mg tablet 10 mg PO QDAY 01/17/23 05/17/24 semaglutide (weight loss) 0.25 mg subcut 05/17/24 mg/0.5 mL subcutaneous pen injector (Arungovelisabeth) Previous Rx's ?Medication ?Instructions ?Recorded diphenhydramine HCl 25 mg tablet 25 mg PO Q8H PRN allergic reaction 05/17/24 (Benadryl Allergy) #10 tabs famotidine 20 mg tablet (Pepcid) 20 mg PO BID #20 tabs 05/17/24 Allergies Allergy/AdvReac Type Severity Reaction Status Date / Time alcohol (From Mastisol Allergy skin Verified 01/17/23 12:46 Adhesive) infection gum mastic (From Mastisol Allergy skin Verified 01/17/23 12:46 Adhesive) infection methyl salicylate (From Allergy skin Verified 01/17/23 12:46 Mastisol Adhesive) infection prochlorperazine (From Allergy tremor Verified 01/17/23 12:46 Compazine) storax (From Mastisol Allergy skin Verified 01/17/23 12:46 Adhesive) infection Review of Systems ROS Status of ROS 10 or more systems reviewed and unremark able except as noted in history and below [facility] Medical History (Updated 05/17/24 @ 10:44 by Constance Blanco MD) Anemia ?D64.9 - Anemia, unspecified (ICD-10) Depression ?F32.A - Depression, unspecified (ICD-10) Anxiety ?F41.9 - Anxiety disorder, unspecified (ICD-10) COVID-19 ?U07.1 - COVID-19 (ICD-10) Sleep apnea ?G47.30 - Sleep apnea, unspecified (ICD-10) Migraine ?G43.909 - Migraine, unspecified, not intractable, without status migrainosus (ICD-10) IBS (irritable bowel syndrome) ?K58.9 - Irritable bowel syndrome without diarrhea (ICD-10) Insulin resistance ?E88.81 - Metabolic syndrome (ICD-10) Abnormal uterine bleeding (AUB) ?N93.9 - Abnormal uterine and vaginal bleeding, unspecified (ICD-10) Menorrhagia ?N92.0 - Excessive and frequent menstruation with regular cycle (ICD-10) Pelvic pain ?R10.2 - Pelvic and perineal pain (ICD-10) Pre-eclampsia ?O14.90 - Unspecified pre-eclampsia, unspecified trimester (ICD-10) Staph infection ?B95.8 - Unspecified staphylococcus as the cause of diseases classified elsewhere (ICD-10) Seasonal allergic rhinitis ?J30.2 - Other seasonal allergic rhinitis (ICD-10) Surgical History (Updated 01/17/23 @ 12:57 by Torie Savage NP) H/O oral surgery ?Z98.890 - Other specified postprocedural states (ICD-10) History of colonoscopy ?Z98.890 - Other specified postprocedural states (ICD-10) History of section ?Z98.891 - History of uterine scar from previous surgery (ICD-10) History of section ?Z98.891 - History of uterine scar from previous surgery (ICD-10) History of wisdom tooth extraction ?K08.409 - Partial loss of teeth, unspecified cause, unspecified class (ICD- 10) History of bilateral salpingectomy ?Z90.79 - Acquired absence of other genital organ(s) (ICD-10) Family History (Updated 01/17/23 @ 12:57 by Torie Savage NP) Other Bladder cancer Delayed recovery from anesthesia Family history of aneurysm Family history of colon cancer Family history of diabetes mellitus Family history of heart disease Family history of hypertension Family history of liver cancer Family history of myocardial infarction Family history of stroke Social History (Updated 01/31/23 @ 07:44 by Stephanie Sandhu) Within the past year, how often did you have a drink containing alcohol: monthly or less Smoking status: Never smoker Non-prescribed substance use: denies use Previous occupational history: Teacher Highest level of school completed/degree received: Master's degree Little interest or pleasure in doing things: not at all Feeling down, depressed, or hopeless: not at all Exam Narrative Exam Narrative: Nurses notes and vital signs reviewed and patient is not hypoxic. General: Well-appearing and in no apparent distress. Skin: Warm, dry, no pallor noted. No rash. Head: Normocephalic, atraumatic. Neck: Supple, non-tender. Eye: Pupils are equal, round and EOMI. No scleral icterus. Ears, Nose, Mouth, and Throat: TM are clear, no nasal mucosal hypertrophy. Oral mucosa is moist, no posterior oropharynx erythema, uvula is mid-line Cardiovascular: Regular Rate and Rhythm without murmur, gallop or rub. Respiratory: No accessory muscle use or respiratory distress. Lungs are clear to auscultation, no wheezing, rales or rhonchi Chest Wall: no tenderness Back: No midline thoracic or lumbar vertebral tenderness. No CVA tenderness Musculoskeletal: normal ROM, no calf or popliteal tenderness, no lower extremity edema/swelling GI: Abdomen is soft, non-distended. Normal bowel sounds. No masses appreciated. No tenderness to palpation. No rebound, guarding, or rigidity noted. Neurological: A&O x4. No cranial nerve dysfunction observed. No truncal ataxia. Moves all extremities. Sensation intact. Psychiatric: Cooperative and interactive. Normal mood and affect. Constitutional Vital Signs, click to edit/add: Last Vital Signs Temp 98.1 F 05/17/24 09:33 Pulse 97 H 05/17/24 11:08 Resp 18 05/17/24 11:08 BP 127/96 H 05/17/24 11:08 Pulse Ox 98 05/17/24 11:08 O2 Del Method Room Air 05/17/24 11:08 Course Vital Signs Vital signs: Vital Signs Temperature 98.1 F 05/17/24 09:33 Pulse Rate 105 H 05/17/24 09:33 Respiratory Rate 20 05/17/24 09:33 Blood Pressure 128/100 H 05/17/24 09:33 Pulse Oximetry 98 05/17/24 09:33 Oxygen Delivery Method Room Air 05/17/24 09:33 Temperature 98.1 F 05/17/24 09:33 Pulse Rate 97 H 05/17/24 11:08 Respiratory Rate 18 05/17/24 11:08 Blood Pressure 127/96 H 05/17/24 11:08 Pulse Oximetry 98 05/17/24 11:08 Oxygen Delivery Method Room Air 05/17/24 11:08 MDM - Abdominal Pain MDM Narrative Medical decision making narrative: The patient CBC and chemistry showed no acute pathology and her presentation was mostly secondary to gastroenteritis Did had this rash that look like allergic and she recently increased her weight loss medication she was instructed that right now hydration and rest and the she need to monitor his symptoms in case of continuous symptoms or increasing rash she is to come back to the ER The patient also had to take Benadryl for the allergic reaction when she gets home as she was driving home and no one to give her the Benadryl in the ER In case of continuous rash the patient to discuss this with her primary care doctor regarding the increase in her weight loss medications The patient is to follow up with primary care physician in next 2-3 days or to return to the emergency department should any of the signs or symptoms worsen or new symptoms develop. The patient agrees with the following Diagnosis and Treatment plan and the patient will be discharged home. Lab Data Labs: Lab Results 05/17/24 05/17/24 Range/Units 10:04 10:16 WBC 7.2 (4.0-11.0) 10^3/uL RBC 4.85 (4.20-5.40) 10^6/uL Hgb 14.2 (12.0-16.0) g/dL Hct 42.4 (36.0-48.0) % MCV 87.4 (81.0-99.0) fL MCH 29.3 (26.7-34.0) pg MCHC 33.5 (29.9-35.2) g/dL RDW 11.8 (11.0-15.0) % Plt Count 207 (150-450) 10^3/uL MPV 10.1 (9.5-13.5) fL Neut % (Auto) 65.0 (43.0-75.0) % Lymph % (Auto) 23.1 (20.5-60.0) % [place] % (Auto) 9.3 (1.7-12.0) % Eos % (Auto) 2.4 (0.9-7.0) % Baso % (Auto) 0.1 L (0.2-2.0) % Neut # (Auto) 4.7 (1.4-6.5) 10^3/uL Lymph # (Auto) 1.7 (1.2-3.8) 10^3/uL [place] # (Auto) 0.7 (0.3-0.8) 10^3/uL Eos # (Auto) 0.2 (0.0-0.7) 10^3/uL Baso # (Auto) 0.0 (0.0-0.1) 10^3/uL Abs Immat Gran (auto) 0.01 (0.00-0.03) 10^3/uL Imm/Tot Granulo (auto) 0.1 (0.0-0.5) % Sodium 141 (136-145) mmol/L Potassium 3.6 (3.5-5.1) mmol/L Chloride 106 (98-107) mmol/L Carbon Dioxide 26.3 (21.0-32.0) mmol/L Anion Gap 12.3 BUN 7.0 (7.0-18.0) mg/dL Creatinine 0.80 (0.55-1.02) mg/dL Est GFR ( Amer) >60 (>=60 mL/min/1.73m^2) Est GFR (Non-Af Amer) >60 (>=60 mL/min/1.73m^2) BUN/Creatinine Ratio 8.8 Glucose 100 (74-106) mg/dL Calcium 8.9 (8.5-10.1) mg/dL Total Bilirubin 0.4 (0.2-1.0) mg/dL AST 14 L (15-37) U/L ALT 22 (14-59) U/L Alkaline Phosphatase 47 (46-116) U/L Total Protein 6.9 (6.4-8.2) g/dL Albumin 3.4 (3.4-5.0) g/dL Globulin 3.5 g/dL Albumin/Globulin Ratio 1.0 Lipase 27.0 (16.0-77.0) U/L Serum HCG, Qual Negative (NEGATIVE) Urine Color Yellow (YELLOW) Urine Clarity Clear (CLEAR) Urine pH 6.0 (5.0-9.0) Ur Specific [place] 1.020 (1.005-1.025) Urine Protein Negative (NEG/TRACE) mg/dL Urine Glucose (UA) Negative (NEGATIVE) mg/dL Urine Ketones Negative (NEGATIVE) mg/dL Urine Occult Blood Negative (NEGATIVE) Urine Nitrite Negative (NEGATIVE) Urine Bilirubin Negative (NEGATIVE) Urine Urobilinogen 0.2 (0.2-1.0) EU/dL Ur Leukocyte Esterase Negative (NEGATIVE) Discharge Plan Discharge Chief Complaint: Abdominal Pain Clinical Impression: Gastroenteritis, Rash Patient Disposition: Home, Self-Care Time of Disposition Decision: 10:44 Condition: Good Prescriptions / Home Meds: New diphenhydramine HCl [Benadryl Allergy] 25 mg tablet 25 mg PO Q8H PRN (Reason: allergic reaction) Qty: 10 0RF famotidine [Pepcid] 20 mg tablet 20 mg PO BID Qty: 20 0RF Discontinued cetirizine [24Hour Allergy] 10 mg tablet 10 mg PO DAILY PRN (Reason: allergy symptoms) No Action metformin 500 mg tablet extended release 24 hr 500 mg PO QDAY montelukast 10 mg tablet 10 mg PO QDAY escitalopram oxalate 20 mg tablet 20 mg PO QDAY Wegovy 0.25 mg/0.5 mL pen injector SUBCUT Print Language: Frisian Instructions: Acute Nausea and Vomiting (DC), Acute Rash (ED) Referrals: LAURY MARTINEZ [Primary Care Provider] - 1 week Discharge Date/Time: 05/17/24 11:11
--- OUTSIDE RECORDS SUMMARY | 2024-05-17 11:04 | XMS_ITS | CCD ---
Author Organization [facility] Care Team Providers Care Senior Data Integration Developer Name Role Phone RAMON JON Unavailable Unavailable RAMON JON Unavailable Unavailable NONE, XXXX Unavailable Unavailable MD Flores Jha Attending Provider RAMON VASQUEZ Primary Care Unavailable [facility], DR BERNSTEIN Consulting Unavailable DIAN JAVIER Admitting [...] Unavailable ANTOINE, DR VALENTINA Oliveira Consulting Unavailable DONTRELL ., RAMON Primary Care Unavailable DIAN JAVIER Attending Unavailable DANIEL, DR BERNSTEIN Consulting Unavailable YAYA DIAN Admitting Unavailable Catia Mcdowell Unavailable Filomena Delgado Unavailable SY FERREIRA Attending Unavailable WONDERLY, SAMANTHA B Referring Unavailable WONDERLY, SAMANTHA B Primary Care Unavailable WATKINS, DMITRIY E Attending Unavailable WATKINS, DMITRIY E Referring Unavailable WONDERLY, SAMANTHA B Primary Care Unavailable WATKINS, DMITRIY E Admitting Unavailable WATKINS, DMITRIY E Attending Unavailable WONDERLY, SAMANTHA B Referring Unavailable WONDERLY, SAMANTHA B Primary Care Unavailable GADIEL CARLOS Attending Unavailable WONDERLY, SAMANTHA B Primary Care Unavailable SY FERREIRA Attending Unavailable WONDERLY, SAMANTHA B Referring Unavailable WONDERLY, SAMANTHA B Primary Care Unavailable TAMARA GALLAGHER Attending Unavailable RITESH DORANTES Attending Unavailable TAMARA GALLAGHER Attending Unavailable RITESH DORANTES Referring Unavailable TAMARA GALLAGHER Attending Unavailable FLORES JHA Attending Unavailable ELINA BARBOSA Attending Unavailable TAMARA GALLAGHER Attending Unavailable TAMARA GALLAGHER Attending Unavailable Samantha Posey MD Primary Care Provider Samantha Posey MD Unavailable Allergies Allergy Classification Reported Allergen(s) Allergy Type Date of Onset Reaction(s) Facility (3 sources) Prochlorperazine Drug Allergy 24 hour parkinsons [facility] Repository (4 sources) Prochlorperazine; Translations: [PROCHLORPERAZINE] Drug Allergy 05-20-20 19 [facility] Repository (1 source) OTHER; Translations: [OTHER] Propensity to adverse reactions (disorder) 11-30-19 [facility] Repository (1 source) GUM [id number]- ALCOHOL; Translations: [GUM FLUDFH-[id number]-BUCL- ALCOHOL] Propensity to adverse reactions to drug (disorder) 05-20-20 [facility] Repository (3 sources) Doxycycline Drug Allergy 01-14-20 24 GI intolerance [facility] Healthcare (3 sources) Wound Dressing Adhesive Propensity to adverse reactions 01-10-20 23 [facility] Healthcare Medications Current Medications Medication Drug Class(es) Dates Sig (Normalized) Sig (Original) cetirizine hydrochloride 5 mg oral tablet (5 sources) Histamine-1 Receptor Antagonist take 2 tablets by mouth in the morning cetirizine (ZyrTEC) 5 MG tablet Take 10 mg by mouth in the morning. Active take 1 tablet by mouth once asuncion y ZyrTEC 10 MG 1 tablet Orally Once a day Active chlorhexidine gluconate 40 mg/ml medicated liquid soap (3 sources) Start: 01-14-2024 Chlorhexidine Gluconate (Hibiclens) 4 % solution Indications: Bacterial folliculitis Apply from the neck down as body wash, use 2-3 times a weeks, 30 day supply 473 mL 01/14/2024 Active clindamycin 10 mg/ml topical lotion (3 sources) Lincosamide Antibacterial Start: 01-14-2024 clindamycin (Cleocin T) 1 % lotion Indications: Bacterial folliculitis Apply thin later to affected areas on the body during flares, 30 day supply 60 mL 01/14/2024 Active escitalopram 20 mg oral tablet (5 sources) Serotonin Reuptake Inhibitor Start: 02-10-2024 take 1 tablet by mouth once daily escitalopram (Lexapro) 20 MG tablet Indications: Major depressive disorder, single episode, moderate (HCC) (CMS/HCC) take 1 tablet by mouth once daily 90 tablet 02/10/2024 Active take 1 tablet by momo th every twenty-four hours Lexapro 20 MG 1 tablet Orally Once a day Active 24 hr metFORMIN hydrochloride 500 mg extended release oral tablet (5 sources) Biguanide Start: 03-11-2024 take 1 tablet by mouth once daily metFORMIN XR (Glucophage-XR) 500 MG 24 hr tablet Indications: Insulin resistance Take 1 tablet by mouth daily 30 tablet 11 03/11/2024 Active take 1 tablet by momo th every twenty-four hours metFORMIN HCl 500 MG 1 tablet with a meal Orally Once a day Active montelukast 10 mg oral tablet (5 sources) Leukotriene Receptor Antagonist take 1 tablet by mouth in the morning montelukast (Singulair) 10 MG tablet Take 10 mg by mouth in the morning. Active Singulair Active olopatadine 2 mg/ml ophthalmic solution [...] 20 mg oral tablet (1 source) Start: 023 take 1 tablet by mouth every twelve hours prednisone 20 MG 1 tablet Orally BID for 5 Apr, Active Semaglutide-Weight Management (Wegovy) 1 MG/0.5ML solution auto-injector (3 sources) Start: 024 inject 1 mg by subcutaneous injection every week Semaglutide-Weigh t Management (Wegovy) 1 MG/0.5ML solution auto-injector Indications: Encounter for weight management Inject 1 mg under the skin 1 (one) time per week 4 mL 04/29/2024 Active Completed/Discontinued Medications Medication Drug Class(es) Dates Sig (Normalized) Sig (Original) [id number] 200 actuat albuterol 0.09 mg/actuat metered dose [...] sources) Abdominal pain; Translations: [Abdominal pain] Onset: 4 Episodic Anxiety disorders (3 sources) Generalized anxiety disorder; Translations: [Generalized anxiety disorder] Onset: 4 11-13-2023 Chronic Asthma (4 sources) Unspecified asthma, uncomplicated; Translations: [Asthma] Onset: 2 05-16-2023 Chronic Esophageal disorders (3 sources) Gastroesophageal reflux disease; Translations: [Gastro-esophageal reflux disease without esophagitis] Onset: 3 05-16-2023 Chronic Essential hypertension (3 sources) Hypertensive disorder; Translations: [Essential (primary) hypertension] Onset: 8 05-16-2023 Chronic Inflammation; infection of eye (except that caused by tuberculosis or sexually transmitteddisease) (1 source) Acute atopic conjunctivitis, bilateral Episodic Menstrual disorders (4 sources) Excessive and frequent menstruation with regular cycle; Translations: [EXCESS FREQ MENSTRUATION W/REG CYCL] Onset: 3 Chronic Mood disorders (3 sources) Moderate major depression, single episode; Translations: [Major depressive disorder, single episode, moderate] Onset: 3 05-16-2023 Chronic Nausea and vomiting (2 sources) Nausea; Translations: [Nausea] Episodic Other gastrointestinal disorders (2 sources) Irritable bowel syndrome; Translations: [Irritable bowel syndrome] Chronic Other gastrointestinal disorders (2 sources) Constipation; Translations: [Constipation] Episodic Other gastrointestinal disorders (2 sources) Diarrhea; Translations: [Diarrhea] Episodic Other nutritional; endocrine; and metabolic disorders (1 source) Obesity, unspecified; Translations: [OBESITY UNSPECIFIED] Onset: 2 Chronic Other nutritional; endocrine; and metabolic disorders (2 sources) Weight increased; Translations: [Abnormal weight gain] 05-14-2024 Episodic Other screening for suspected conditions (not mental disorders or infectious disease) (4 sources) Encounter for screening for malignant neoplasm of cervix; Translations: [ENC SCREENING MALIG NEOPLASM CERV] Onset: 3 Episodic Other upper respiratory disease (5 sources) Allergic rhinitis; Translations: [Allergic rhinitis, unspecified] Onset: 3 11-02-2023 Chronic Other upper respiratory disease (3 sources) Chronic rhinitis; Translations: [Chronic rhinitis] Onset: 4 11-02-2023 Chronic Other upper respiratory infections (2 sources) Acute pharyngitis, unspecified; Translations: [Acute sinusitis, unspecified] Episodic Residual codes; unclassified (4 sources) Obstructive sleep apnea (adult) (pediatric); Translations: [OBSTRUCTIVE SLEEP APNEA] Onset: 2 Chronic Residual codes; unclassified (3 sources) Obstructive sleep apnea syndrome; Translations: [Obstructive sleep apnea (adult) (pediatric)] Onset: 3 05-16-2023 Chronic Spondylosis; intervertebral disc disorders; other back problems (2 sources) Sacrococcygeal disorders, not elsewhere classified; Translations: [Backache] Onset: 4 Episodic Viral infection (1 source) Other viral agents as the cause of diseases classified elsewhere Episodic Past or Other Problems Problem Classification Problem Date Documented Da te Episodic/Chronic Cancer of cervix (3 sources) Atypical squamous cells of undetermined significance on cervical Papanicolaou smear; Translations: [Atypical squamous cells of undetermined significance on cytologic smear of cervix (ASC-US)] Onset: 05-16-2023 3 Episodic Mood disorders (3 sources) Mood disorders Onset: 11-13-2023 11-13-2023 Other lower respiratory disease (1 source) Snoring; Translations: [SNORING] Onset: 01-07-2022 Episodic Polyhydramnios and other problems of amniotic cavity (3 sources) Oligohydramnios; Translations: [Oligohydramnios, unspecified trimester, not applicable or unspecified] Onset: 11-20-2017 05-16-2023 Episodic Results Test Name Value Interpretation Reference [...] pyogenes Org specific cx Ql (Throat) Negative [employer] Other Quick Strep [employer] Other PAP ACOG PANEL 2: 30 to 65on 11-06-2022 . . Normal [facility] Comment on above: Result Comment: Perf ormed at: WB Performed By: #### [id number] #### [facility] [address] [place] [address] Dr. Emanuel Castillo Age Gdln ACOG Testing 30-65 Normal [facility] Comment on above: Performed By: #### [id number] #### [facility] [address] [address] [address] Emanuel Castillo DIAGNOSIS: Comment Normal [facility] Comment on above: Result Comment: NEGA TIVE FOR INTRAEPITHELIAL LESION OR MALIGNANCY. Performed at: WB Performed By: #### [id number] #### [facility] [address] [place] [address] Dr. Emanuel Castillo HPV Aptima Negative Normal Negative [facility] Comment on above: Result Comment: This nucleic acid amplification test detects fourteen high-risk HPV types (16,18,31,33,35,39,45,51,52,56,58,59,66,68) without differentiation. Performed at: =G Performed By: #### [id number] #### [facility] [address] [place] [address] Dr. Emanuel Castillo HPV Genotype Reflex Comment Normal [facility] Comment on above: Result Comment: Crit eria not met, HPV Genotype not performed. Performed at: WB Performed By: #### [id number] #### [facility] [address] [place] [address] Dr. Emanuel Castillo Methodology: Comment Normal [facility] Comment on above: Result Comment: This liquid based ThinPrep(R) pap test was screened with the use of an image guided system. Performed at: WB Performed By: #### [id number] #### [facility] [address] [place] [address] Dr. Emanuel Castillo Note: Comment Normal [facility] Comment on above: Result Comment: The Pap smear is a screening test designed to aid in the detection of premalignant and malignant conditions of the uterine cervix. It is not a diagnostic procedure and should not be used as the sole means of detecting cervical cancer. Both false-positive and false-negative reports do occur. . Performed at: WB Performed By: #### [id number] #### [facility] [address] [place] [address] Dr. Emanuel Castillo Performed by: Comment Normal [facility] Comment on above: Result Comment: Jennifer Vallecillo, Sales Outfitter (ASCP) Performed at: WB Performed By: #### [id number] #### [facility] [address] [place] [address] Dr. Emanuel Castillo Specimen adequacy: Comment Normal [facility] Comment on above: Result Comment: Sati sfactory for evaluation. Performed at: WB Performed By: #### [id number] #### [facility] [address] [place] [address] Dr. Emanuel Castillo CBC AUTO DIFFon 11-01-2022 BASO # 0.0 103/ul Normal 0.0-0.1 [facility] Comment on above: Performed By: #### C BC #### [facility] [address] [place] [address] Dr. Emanuel Castillo Basophils/100 WBC (Bld) 0.6 % Normal 0.2-2.0 [facility] Comment on above: Performed By: #### C BC #### [facility] [address] [place] [address] Dr. Emanuel Castillo EO # 0.3 103/ul Normal 0.0-0.7 [facility] Comment on above: Performed By: #### C BC #### [facility] [address] [place] [address] Dr. Emanuel Castillo Eosinophils/100 WBC (Bld) 3.7 % Normal 0.9-7.0 [facility] Comment on above: Performed By: #### C BC #### [facility] [address] [place] [address] Dr. Emanuel Castillo Erythrocyte distribution width (RBC) [Ratio] 12.9 % Normal 11.0-15.0 [facility] Comment on above: Performed By: #### C BC #### [facility] [address] [place] [address] Dr. Emanuel Castillo Hematocrit (Bld) [Volume fraction] 42.1 % Normal 36.0-48.0 [facility] Comment on above: Performed By: #### C BC #### [facility] [address] [place] [address] Dr. Emanuel Castillo Hemoglobin (Bld) [Mass/Vol] 13.8 g/dL Normal 12.0-16.0 [facility] Comment on above: Performed By: #### C BC #### [facility] [address] [place] [address] Dr. Emanuel Castillo IG # 0.02 10e3/ul Normal 0.00-0.03 [facility] Comment on above: Performed By: #### C BC #### [facility] [address] [place] [address] Dr. Emanuel Castillo IG % 0.3 % Normal 0.0-0.5 [facility] Comment on above: Performed By: #### C BC #### [facility] [address] [place] [address] Dr. Emanuel Castillo LYMPH # 2.4 103/ul Normal 1.2-3.8 [facility] Comment on above: Performed By: #### C BC #### [facility] [address] [place] [address] Dr. Emanuel Castillo Lymphocytes/100 WBC (Bld) 35.0 % Normal 20.5-60.0 [facility] Comment on above: Performed By: #### C BC #### [facility] [address] [place] [address] Dr. Emanuel Castillo MANUAL DIFF REQ NO Normal [facility] Comment on above: Performed By: #### C BC #### [facility] [address] [place] [address] Dr. Emanuel Castillo MCH (RBC) [Entitic mass] 27.8 pg Normal 26.7-34.0 [facility] Comment on above: Performed By: #### C BC #### [facility] [address] [place] [address] Dr. Emanuel Castillo MCHC (RBC) [Mass/Vol] 32.8 g/dL Normal 29.9-35.[address] [facility] Comment on above: Performed By: #### C BC #### [facility] [address] [place] [address] Dr. Emanuel Castillo MCV (RBC) [Entitic vol] 84.9 fL Normal 81.0-99.0 [facility] Comment on above: Performed By: #### C BC #### [facility] [address] [place] [address] Dr. Emanuel Castillo MONO # 0.6 103/ul Normal 0.3-0.[address] [facility] Comment on above: Performed By: #### C BC #### [facility] [address] [place] [address] Dr. Emanuel Castillo Monocytes/100 WBC (Bld) 9.2 % Normal 1.7-12.0 [facility] Comment on above: Performed By: #### C BC #### [facility] [address] [place] [address] Dr. Emanuel Castillo NEUT # 3.4 103/ul Normal 1.4-6.5 [facility] Comment on above: Performed By: #### C BC #### [facility] [address] [place] [address] Dr. Emanuel Castillo Neutrophils/100 WBC (Bld) 51.2 % Normal 43.0-75.[address] [facility] Comment on above: Performed By: #### C BC #### [facility] [address] [place] [address] Dr. Emanuel Castillo Platelet mean volume (Bld) [Entitic vol] 10.0 fL Normal 9.5-13.[address] [facility] Comment on above: Performed By: #### C BC #### [facility] [address] [place] [address] Dr. Emanuel Castillo PLT 214 103/ul Normal 150-[address] [facility] Comment on above: Performed By: #### C BC #### [facility] [address] [place] [address] Dr. Emanuel Castillo RBC 4.96 106/ul Normal 4.20-5.40 [facility] Comment on above: Performed By: #### C BC #### [facility] [address] [place] [address] Dr. Emanuel Castillo WBC 6.7 103/ul Normal 4.0-11.0 [facility] Comment on above: Performed By: #### C BC #### [facility] [address] [place] [address] Dr. Emanuel Castillo FREE T4on 11-01-2022 Free T4 [Mass/Vol] 0.72 ng/dL Critically low 0.76-1.[address] [facility] Comment on above: Performed By: #### F T4 #### [facility] [address] [place] [address] Dr. Emanuel Castillo GLYCOHEMOGLOBIN A1Con 2022 ADA RECOMMENDATION SEE BELOW Normal [facility] Comment on above: Result Comment: ADA RECOMMENDED LIMIT 4.0 - 6.0 ADA THERAPEUTIC TARGET < 7.0 ACTION SUGGESTED > 7.0 Performed By: #### A 1C #### [facility] [address] [place] [address] Dr. Emanuel Castillo Glucose [Mass/Vol] 108 mg/dL Normal [facility] Comment on above: Performed By: #### A 1C #### [facility] [address] [place] [address] Dr. Emanuel Castillo HbA1c (Bld) [Mass fraction] 5.4 % Normal 4.5-6.2 [facility] Comment on above: Performed By: #### A 1C #### [facility] [address] [place] [address] Dr. Emanuel Castillo PREG QUANT HCGon 11-01-2022 HCG QUANT <1 Normal [facility] Comment on above: Performed By: #### T SH, PREGQNT #### [facility] [address] [place] [address] Dr. Emanuel Castillo HCG RANGE SEE BELOW Normal [facility] Comment on above: Result Comment: 5-50 0.2-1 WEEK 50-500 1-2 WEEKS 100-5,000 2-3 WEEKS 500-10,000 3-4 WEEKS 1,000-50,000 4-5 WEEKS 10,000-100,000 5-6 WEEKS 15,000-200,000 6-8 WEEKS 10,000-100,000 2-3 MONTHS Performed By: #### T SH, PREGQNT #### [facility] [address] [place] [address] Dr. Emanuel Castillo PROTIMEon 11-01-2022 INR Coag (PPP) [Relative time] 0.95 {INR} Normal [facility] Comment on above: Performed By: #### P TT, PT #### [facility] [address] [place] [address] Dr. Emanuel Castillo INR GUIDELINES SEE BELOW Normal [facility] Comment on above: Result Comment: DOT RED INR: 2.0 - 3.0 CONDITIONS NOT LISTED BELOW 2.5 - 3.5 FOR PROSTHETIC HEART VALVE REPLACEMENT 2.5 - 3.5 RECURRENT THROMBOSIS Performed By: #### P TT, PT #### [facility] [address] [place] [address] Dr. Emanuel Castillo PT Coag (PPP) [Time] 10.1 s Normal 9.0-11.[address] [facility] Comment on above: Performed By: #### P TT, PT #### [facility] [address] [place] [address] Dr. Emanuel Castillo PTTon 11-01-2022 aPTT Coag (Bld) [Time] 31.3 s Normal 22.3-36.2 [facility] Comment on above: Performed By: #### P TT, PT #### [facility] [address] [place] [address] Dr. Emanuel Castillo TSHon 11-01-2022 TSH 2.217 uIU/mL Normal 0.358-3.740 [facility] Comment on above: Performed By: #### T SH, PREGQNT #### [facility] [address] [place] [address] Dr. Emanuel Castillo US PELVIS AND TRANSVAGon [...] by: VALENTINA SCHULTZ Date: 2022-11-01 10:[address] [facility] Complete Blood Counton 11-11 Erythrocyte distribution width (RBC) [Ratio] 12.2 % Normal 11.0-15.0 [facility] Comment on above: Performed By: #### F T4, CMP, TSH, LIPD, CBC #### [facility] [address], [place] [id number] Hematocrit (Bld) [Volume fraction] 43.6 % Normal 35.0-47.0 [facility] Comment on above: Performed By: #### F T4, CMP, TSH, LIPD, CBC #### [facility] [address], [place] [id number] Hemoglobin (Bld) [Mass/Vol] 13.8 g/dL Normal 11.6-15.5 [facility] Comment on above: Performed By: #### F T4, CMP, TSH, LIPD, CBC #### [facility] [address], [place] [id number] MCH (RBC) [Entitic mass] 27.5 pg Normal 27.0-33.0 [facility] Comment on above: Performed By: #### F T4, CMP, TSH, LIPD, CBC #### [facility] [address], [place] [id number] MCHC (RBC) [Mass/Vol] 31.7 g/dL Low 32.0-36.0 [facility] Comment on above: Performed By: #### F T4, CMP, TSH, LIPD, CBC #### [facility] [address], [place] [id number] MCV (RBC) [Entitic vol] 87 fL Normal 80-100 [facility] Comment on above: Performed By: #### F T4, CMP, TSH, LIPD, CBC #### [facility] [address], [place] [id number] Platelet mean volume (Bld) [Entitic vol] 10.70 fL Normal 7.50-12.50 [facility] Comment on above: Performed By: #### F T4, CMP, TSH, LIPD, CBC #### [facility] [address], [place] [id number] Platelets (Bld) [#/Vol] 206 10*3/uL Normal 140-400 [facility] Comment on above: Performed By: #### F T4, CMP, TSH, LIPD, CBC #### [facility] [address], [place] [id number] RBC (Bld) [#/Vol] 5.02 10*6/uL Normal 3.90-5.20 [facility] Comment on above: Performed By: #### F T4, CMP, TSH, LIPD, CBC #### [facility] [address], [place] [id number] RDW-SD 39.0 fL Normal 37.0-50.0 [facility] Comment on above: Performed By: #### F T4, CMP, TSH, LIPD, CBC #### [facility] [address], [place] [id number] WBC (Bld) [#/Vol] 5.8 10*3/uL Normal 3.8-11.0 [facility] Comment on above: Performed By: #### F T4, CMP, TSH, LIPD, CBC #### [facility] [address], [place] [id number] Comprehensive Metabolic Pane misty 11-11-2021 Albumin [Mass/Vol] 4.7 g/dL Normal 3.6-5.1 Yoselin hernandez [place] [employer] Comment on above: Performed By: #### F T4, CMP, TSH, LIPD, CBC #### [facility] [address], [place] [id number] Albumin/Globulin [Mass ratio] 2.4 {ratio} Normal 1.0-2.5 [facility] [employer] Comment on above: Performed By: #### F T4, CMP, TSH, LIPD, CBC #### [facility] [address], [place] [id number] ALP [Catalytic activity/Vol] 48 U/L Normal 35-119 [facility] [employer] Comment on above: Performed By: #### F T4, CMP, TSH, LIPD, CBC #### [facility] [address], [place] [id number] ALT [Catalytic activity/Vol] 19 U/L Normal 6-33 [facility] [employer] Comment on above: Result Comment: 06/29 Female reference range changed. Performed By: #### F T4, CMP, TSH, LIPD, CBC #### [facility] [address], [place] [id number] Anion gap [Moles/Vol] 17 mmol/L Normal 12-20 [facility] [employer] Comment on above: Result Comment: Effe ctive 08/04/2019 reference range changed. Performed By: #### F T4, CMP, TSH, LIPD, CBC #### [facility] [address], [place] [id number] AST [Catalytic activity/Vol] 17 U/L Normal 9-34 [facility] [employer] Comment on above: Performed By: #### F T4, CMP, TSH, LIPD, CBC #### [facility] [address], [place] [id number] BUN/CREA 16 Ratio Normal 6-22 [facility] [employer] Comment on above: Performed By: #### F T4, CMP, TSH, LIPD, CBC #### [facility] [address], [place] [id number] Calcium [Mass/Vol] 9.5 mg/dL Normal 8.6-10.2 Yoselin hernandez [place] [employer] Comment on above: Performed By: #### F T4, CMP, TSH, LIPD, CBC #### [facility] [address], [place] [id number] Chloride [Moles/Vol] 104 mmol/L Normal 98-107 [facility] Comment on above: Performed By: #### F T4, CMP, TSH, LIPD, CBC #### [facility] [address], [place] [id number] CO2 [Moles/Vol] 23 mmol/L Normal 20-31 [facility] Comment on above: Performed By: #### F T4, CMP, TSH, LIPD, CBC #### [facility] [address], [place] [id number] Creatinine [Mass/Vol] 0.6 mg/dL Normal 0.6-1.4 [facility] Comment on above: Performed By: #### F T4, CMP, TSH, LIPD, CBC #### [facility] [address], [place] [id number] eGFRAA 137 mL/min/1.73m2 Normal >60 [facility] Comment on above: Performed By: #### F T4, CMP, TSH, LIPD, CBC #### [facility] [address] [place], [place] [id number] eGFRNAA 113 mL/min/1.73m2 Normal >60 [facility] Comment on above: Performed By: #### F T4, CMP, TSH, LIPD, CBC #### [facility] [address] [place], [place] [id number] Globulin (S) [Mass/Vol] 2.0 g/dL Normal 1.9-3.7 [facility] Comment on above: Performed By: #### F T4, CMP, TSH, LIPD, CBC #### [facility] [address] [place], [place] [id number] Glucose [Mass/Vol] 95 mg/dL Normal 65-99 [facility] Comment on above: Result Comment: For FASTING Glucose --- ADA reference ranges: Normal 65-99 mg/dl Prediabetes 100-125 Diabetes >/= 126 Performed By: #### F T4, CMP, TSH, LIPD, CBC #### [facility] [address] [place], [place] [id number] Potassium [Moles/Vol] 4.4 mmol/L Normal 3.5-5.5 [facility] [employer] Comment on above: Performed By: #### F T4, CMP, TSH, LIPD, CBC #### [facility] [address] [place], [place] [id number] Protein [Mass/Vol] 6.7 g/dL Normal 6.1-8.1 [place] [employer] Comment on above: Performed By: #### F T4, CMP, TSH, LIPD, CBC #### [facility] [address] [place], [place] [id number] Sodium [Moles/Vol] 140 mmol/L Normal 135-146 [place] [employer] Comment on above: Performed By: #### F T4, CMP, TSH, LIPD, CBC #### [facility] [address] [place], [place] [id number] TBIL <0.3 Normal [facility] [employer] Comment on above: Performed By: #### F T4, CMP, TSH, LIPD, CBC #### [facility] [address] [place], [place] [id number] Urea nitrogen [Mass/Vol] 10 mg/dL Normal 7-25 [facility] [employer] Comment on above: Performed By: #### F T4, CMP, TSH, LIPD, CBC #### [facility] [address] [place], [place] [id number] Free T4on 11-11-2021 Free T4 [Mass/Vol] 0.98 ng/dL Normal 0.80-1.80 [place] [employer] Comment on above: Performed By: #### F T4, CMP, TSH, LIPD, CBC #### [facility] [address] [place], [place] [id number] Lipid Panelon 11-11-2021 Cholesterol [Mass/Vol] 189 mg/dL Normal 125-200 [facility] [employer] Comment on above: Result Comment: Low risk < 200mg/dL Borderline risk 201-239 mg/dl High risk > or equal to 240 Performed By: #### F T4, CMP, TSH, LIPD, CBC #### [facility] [address] [place], [place] [id number] Cholesterol in HDL [Mass/Vol] 55 mg/dL Normal >40 [facility] Comment on above: Result Comment: High Cardiovascular Risk HDL <40 mg/dL Low Cardiovascular Risk HDL > or equal to 60 mg/dl Performed By: #### F T4, CMP, TSH, LIPD, CBC #### [facility] [address] [place], [place] [id number] Cholesterol in LDL [Mass/Vol] 110 mg/dL Normal [facility] Comment on above: Result Comment: LDL ATP III CLASSIFICATION LDL less than 100 mg/dl Optimal LDL 100-129 mg/dl Near or above optimal LDL 130-159 Borderline high LDL 160-189 High LDL greater than 189 mg/dl Very High Performed By: #### F T4, CMP, TSH, LIPD, CBC #### [facility] [address] [place], [place] [id number] Cholesterol in VLDL [Mass/Vol] 24 mg/dL Normal [facility] Comment on above: Performed By: #### F T4, CMP, TSH, LIPD, CBC #### [facility] [address] [place], [place] [id number] Cholesterol.total/Ch olesterol in HDL [Mass ratio] 3 {ratio} Normal [facility] Comment on above: Performed By: #### F T4, CMP, TSH, LIPD, CBC #### [facility] [address] [place], [place] [id number] Triglyceride [Mass/Vol] 120 mg/dL Normal 30-150 [facility] Comment on above: Result Comment: TRIG ATPIII CLASSIFICATIONS TRIG less than 150 mg/dl Normal TRIG 150-199 mg/dl Borderline High TRIG 200-500 mg/dl High TRIG greather than 500 mg/dl Very High Performed By: #### F T4, CMP, TSH, LIPD, CBC #### [facility] [address] [place], [place] [id number] TSHon 11-11-2021 TSH 2.100 uIU/mL Normal 0.400-4.500 [facility] Comment on above: Performed By: #### F T4, CMP, TSH, LIPD, CBC #### [facility] [address] [place], [place] [id number] Superficial Wound Cultureon 03-10-2021 Superficial Wound Culture [...] RESISTANT TO ALL B-LACTAM DRUGS. PERFORMED BY: [place] [address] PATHOLOGIST MULTINEEDLE SHIRRER SP TRUJILLO M.D. [facility] Comment on above: Performed By: #### C USUP #### [address] Vital Signs Date Time Vital Sign Value Performing Clinician Facility 05-12-2024 16:22-0400 Body mass index (BMI) [Ratio] 31.41 kg/m2 Tamara TAYLOR Work Phone: [facility] 05-12-2024 16:22-0400 Body weight 83.01 kg Tamara TAYLOR Work Phone: [facility] 05-12-2024 16:22-0400 Diastolic blood pressure 76 mm[Hg] Tamara TAYLOR Work Phone: [facility] 05-12-2024 16:22-0400 Systolic blood pressure 122 mm[Hg] Tamara TAYLOR Work Phone: [facility] 05-08-2023 18:00-0400 Body height 162.56 cm Filomena Delgado Other [employer] Other 05-08-2023 18:00-0400 Body mass index (BMI) [Ratio] 33.33 kg/m2 Filomena Delgado Other [employer] Other 05-08-2023 18:00-0400 Body temperature 98 [degF] Filomena Delgado Other [employer] Other 05-08-2023 18:00-0400 Body weight 88.09 kg Filomena Delgado Other [employer] Other 05-08-2023 18:00-0400 Respiratory rate 18 /min Filomena Delgado Other [employer] Other 05-08-2023 18:00-0400 SaO2% (BldA) [Mass fraction] 97 % Filomena Delgado Other [facility] Other 05-02-2023 15:45-0400 Body height 162.56 cm Catia Mcdowell Other [facility] Other 05-02-2023 15:45-0400 Body mass index (BMI) [Ratio] 33.47 kg/m2 Catia Mcdowell Other [facility] Other 05-02-2023 15:45-0400 Body temperature 97.4 [degF] Catia Mcdowell Other [employer] Other 05-02-2023 15:45-0400 Body weight 88.45 kg Catia Mcdowell Other [facility] Other 05-02-2023 15:45-0400 Respiratory rate 18 /min Catia Mcdowell Other [employer] Other 05-02-2023 15:45-0400 SaO2% (BldA) [Mass fraction] 98 % Catia Mcdowell Other [employer] Other Encounters Encounter Date Encounter Type Care Provider Facility Start: 05-12-2024 End: 05-12-2024 Office outpatient visit 15 minutes Tamara TAYLOR Work Phone: [facility] Comment on above: Weight gain (Primary Dx) Start: 05-12-2024 End: 05-12-2024 ambulatory TAMARA GALLAGHER Not Available Start: 05-12-2024 End: 05-12-2024 Bamboo flowsheet Tamara TAYLOR Work Phone: [facility] Start: 05-12-2024 End: 05-12-2024 Bamboo flowsheet Tamara TAYLOR Work Phone: [facility] Start: 03-17-2024 End: 03-17-2024 ambulatory TAMARA GALLAGHER Not Available Start: 03-12-2024 End: 03-12-2024 ambulatory SY FERREIRA [facility] Start: 02-23-2024 End: 02-23-2024 ambulatory GADIEL CARLOS [facility] Start: 02-22-2024 End: 02-22-2024 ambulatory DMITRIY WATKINS [facility] Start: 01-23-2024 End: 01-23-2024 ambulatory ELINA BARBOSA Not Available Start: 01-14-2024 End: 01-14-2024 ambulatory FLORES JHA Not Available Start: 01-02-2024 End: 01-02-2024 ambulatory SY FERREIRA [facility] Start: 01-01-2024 End: 01-01-2024 ambulatory TAMARA GALLAGHER Not Available Start: 11-20-2023 End: 11-20-2023 ambulatory RITESH DORANTES Not Available Start: 11-13-2023 End: 11-13-2023 ambulatory RITESH Harris JOSE E Not Available Start: 07-26-2023 End: 07-26-2023 ambulatory TAMARA GALLAGHER Not Available Start: 06-27-2023 End: 06-27-2023 ambulatory TAMARA CANCHOLAEY Not Available Start: 05-08-2023 End: 05-08-2023 ambulatory Filomena Delgado Other [employer] Other Start: 05-08-2023 Office outpatient visit 25 minutes Filomena Delgado [facility] Start: 05-02-2023 End: 05-02-2023 ambulatory Catia Mcdowell Other [employer] Other Start: 05-02-2023 Office outpatient ne w 20 minutes Catia Mcdowell [facility] Start: 11-01-2022 End: 11-02-[address] ELINA BARBOSA . Facility: Start: 10-30-2022 End: 10-30-[address] ELINA BARBOSA . Facility: Start: 01-31-2022 End: 02-01-2022 ambulatory RAMON JON . Facility:[facility] Start: 01-04-2022 End: 01-05-2022 ambulatory RAMON JON . Facility: Start: 03-10-2021 End: 03-10-2021 Departed Referred MD Flores Jha Work Phone: [facility] [place] Start: 10-21-2017 End: 10-22-2017 Ambulatory [place] JON [place] Start: 10-14-2017 End: 10-15-2017 Ambulatory RAMON JON [place] Procedures Date Procedure Procedure Detail Performing Clinician Start: 07-05-2023 Microscopic observat ion [Identifier] in Cervix by Cyto stain Tamara TAYLOR Work Phone: Plan of Treatment Date Care Activity Detail Author Start: 10-31-2027 Screening for malign ant neoplasm of cervix [facility] Start: 01-31-2026 Screening for malign ant neoplasm of cervix Pap Smear [facility] Start: 01-13-2025 End: 01-13-2025 Patient encounter procedure 01/13/2025 10:15 AM EDT [facility] [address] [place] [address] Flores Jha MD [address] [place] [address] [facility] Start: 08-18-2024 End: 08-18-2024 Patient encounter procedure 08/18/2024 8:30 AM EST Office Visit [facility] [address] [place] [address] Tamara Gallagher PA [address] [place], [place] [address] [facility] Start: 05-12-2024 End: 05-12-2024 Patient encounter procedure 05/12/2024 4:00 PM EDT Office Visit [facility] [address] [place] [address] Tamara Gallagher PA [address] [place] [address] Arrived [facility] Comment on above: Arrived Start: 03-30-2024 Influenza vaccination Influenza Vacc ine (#1) [facility] Start: 03-10-2021 Superficial Wound Culture Superficial Wound Culture [facility] Immunizations Immunization Date Immunization Notes Care Provider Fa [facility] 07-22-2018 influenza, injectabl e, quadrivalent, preservative free Tamara TAYLOR Work Phone: [facility] 07-22-2018 influenza virus vacc ine, unspecified formulation Tamara TAYLOR Work Phone: [facility] 11-22-2017 tetanus toxoid, redu otis diphtheria toxoid, and acellular pertussis vaccine, adsorbed Tamara TAYLOR Work Phone: [facility] Payers Date Payer Category Payer Private Health Insurance [employer] [id number] 1985 Unknown [id number] 2.16.840.1.214497.3.579.2. 593 1985 Unknown [id number] 2.16.840.1.178435.3.579.2. 593 1985 Unknown [id number] 2.16.840.1.153586.3.579.2. 59 1985 Unknown [id number] 2.16.840.1.679290.3.579.2. 593 1985 Unknown [id number] 2.16.840.1.057213.3.579.2. 1285 1985 Unknown [id number] 2.16.840.1.088685.3.579.2. 1285 1985 Unknown [id number] 2.16.840.1.259196.3.579.2. 1285 1985 Unknown [id number] 2.16.840.1.416447.3.579.2. 1285 1985 Unknown [id number] 2.16.840.1.552766.3.579.2. 1285 1985 Unknown [id number] 2.16.840.1.283698.3.579.2. 1286 1985 Unknown [id number] 2.16.840.1.172962.3.579.2. 9 1985 Unknown [id number] 2.16.840.1.023854.3.579.2. 9 1985 Unknown [id number] 2.16.840.1.883020.3.579.2. 1258 1985 Unknown [id number] 2.16.840.1.680210.3.579.2. 1258 1985 Unknown [id number] 2.16.840.1.705268.3.579.2. 1258 1985 Unknown [id number] 2.16.840.1.856946.3.579.2. 9 1985 Unknown [id number] 2.16.840.1.672210.3.579.2. 1258 1985 Unknown [id number] 2.16.840.1.033849.3.579.2. 1258 1985 Unknown [id number] 2.16.840.1.402090.3.579.2. 9 1959 Unknown [id number] Self-pay Self Pay [id number] Social History Date Type Detail Facility Tobacco smoking status NMIS Unknown if ever smoked [facility] Start: 1985 Sex Assigned At Female F [facility] Start: 06-25-2023 End: 11-13-2023 Sex Assigned At [facility] Start: 05-16-2023 Tobacco smoking status NHIS Never smoked tobacco [facility] Start: 05-16-2023 Tobacco use and exposure Smokeless tobacco non-user [facility] Start: 03-17-2024 End: 05-12-2024 Alcoholic beverage intake Current drinker of alcohol (finding) [facility] Start: 06-25-2023 End: 11-13-2023 History of Social function [facility] How often to you hav e a drink containing alcohol? Monthly or less [facility] How many standard drinks containing alcohol do you have on a typical day? 1 or 2 [facility] How often do you hav e 6 or more drinks on 1 occasion? Never [facility] Start: 01-06-2023 Alcohol Comment Alcohol: 1-2 drinks/monthly or less [facility] Start: 1985 Sex assigned at Not on file [facility] NEGATED: Highlighted rowStart: NINF History of tobacco use Passive smoker [facility] History of Present illness Narrative 05-12-2024 BRANDON Christina - 05/12/2024 4:00 PM EDT Note Date & Type Note Facility 05-12-2024 History of Presen t illness Narrative Reason for Appointment: Patient ID: Mariya Orosco is a 39 y.o. female who presents for Weight Management Patient presents today for Weight Management Consult. MEDICATIONS Current Outpatient Medications Medication Instructions cetirizine (ZYRTEC) 10 mg, Oral, Daily Chlorhexidine Gluconate (Hibiclens) 4 % solution Apply from the neck down as body wash, use 2-3 times a weeks, 30 day supply clindamycin (Cleocin T) 1 % lotion Apply thin later to affected areas on the body during flares, 30 day supply escitalopram (LEXAPRO) 20 mg, Oral, Daily metFORMIN XR (Glucophage-XR) 500 MG 24 hr tablet Take 1 tablet by mouth daily montelukast (SINGULAIR) 10 mg, Oral, Every morning Wegovy 1 mg, Subcutaneous, Weekly ALLERGIES Allergies Allergen Reactions Compazine [Prochlorperazine] Doxycycline GI intolerance Mastisol Adhesive [Wound Dressing Adhesive] PROBLEMS Active Ambulatory Problems Diagnosis Date Noted Allergic rhinitis 05/16/2023 Asthma ([facility]) 05/16/2023 Atypical squamous cells of undetermined significance (ASCUS) on Papanicolaou smear of cervix 05/16/2023 Chronic hypertension ([facility]) 10/27/2017 Gastroesophageal reflux disease 05/16/2023 Major depressive disorder, single episode, moderate (HCC) ([facility]) 05/16/2023 Obstructive sleep apnea 05/16/2023 Oligohydramnios 11/20/2017 Chronic rhinitis 11/02/2023 AVA (generalized anxiety disorder) ([facility]) 11/13/2023 Resolved Ambulatory Problems Diagnosis Date Noted No Resolved Ambulatory Problems Past Medical History: Diagnosis Date Asthma, chronic, unspecified asthma severity, uncomplicated (CMS/HCC) Atypical nevi Chronic allergic rhinitis Elevated BP without diagnosis of hypertension Generalized anxiety disorder (CMS/HCC) History of section History of melanoma excision 03/07/2017 Major depression, chronic (CMS/HCC) Major depression, chronic (CMS/HCC) Nonintractable migraine, unspecified migraine type (CMS/HCC) Other abnormal findings in specimens from female genital organs Papanicolaou smear of cervix with atypical squamous cells of undetermined significance (ASC-US) Patient overweight Skin disorder 2017 Tension-type headache, not intractable, unspecified chronicity pattern Thyroid enlargement (CMS/HCC) Thyroid enlargement (CMS/HCC) Unsocialized aggressive disorder (CMS/HCC) HISTORY PAST MEDICAL HISTORY SOCIAL HISTORY Past Medical History: Diagnosis Date Asthma, chronic, unspecified asthma severity, uncomplicated (CMS/HCC) Atypical nevi Chronic allergic rhinitis Elevated BP without diagnosis of hypertension Gastroesophageal reflux disease esophagitis presence not specified Generalized anxiety disorder (CMS/HCC) History of section x2 History of melanoma excision 03/07/2017 Atypical melanocytic proliferation, concerning for evolving melanoma in situ, left cheek, excised Major depression, chronic (CMS/HCC) Major depression, chronic (CMS/HCC) Nonintractable migraine, unspecified migraine type (CMS/HCC) Other abnormal findings in specimens from female genital organs Papanicolaou smear of cervix with atypical squamous cells of undetermined significance (ASC-US) Patient overweight Skin disorder 2017 Intraepidermal melanocytic proliferation with atypia, worrisome for early evolving melanoma in situ on left cheek Tension-type headache, not intractable, unspecified chronicity pattern Thyroid enlargement (CMS/HCC) Thyroid enlargement (CMS/HCC) Unsocialized aggressive disorder (CMS/HCC) Social History Tobacco Use Smoking status: Never Passive exposure: Never Smokeless tobacco: Never Vaping Use Vaping status: Never Used Substance Use Topics Alcohol use: Yes Comment: Alcohol: 1-2 drinks/monthly or less Drug use: Not on file FAMILY HISTORY Family History Problem Relation Name Age of Onset Hypertension Mother Heart disease Mother Other (prediabetes) Father Hypertension Father Cancer Father bladder No Known Problems Daughter No Known Problems Daughter Melanoma Neg Hx SURGICAL HISTORY Past Surgical History: Procedure Laterality Date SECTION, CLASSIC 11/21/2017 SECTION, CLASSIC 04/16/[address] Cruz ENDOMETRIAL ABLATION 01/31/2023 SKIN BIOPSY TUBAL LIGATION WISDOM TOOTH EXTRACTION [place] teeth REVIEW OF SYSTEMS Review of Systems: Review of Systems Constitutional: Negative. HENT: Negative. Eyes: Negative. Respiratory: Negative. Cardiovascular: Negative. Gastrointestinal: Negative. Genitourinary: Negative. Musculoskeletal: Negative. Skin: Negative. Neurological: Negative. All other systems reviewed and are negative. Hematological: Negative. Endocrine: Negative. Allergic/Immunologic: Negative. OBJECTIVE Objective: Physical Exam Constitutional: Appearance: Normal appearance. She is normal weight. HENT: Head: Normocephalic. Cardiovascular: Rate and Rhythm: Normal rate. Pulses: Normal pulses. Pulmonary: Effort: Pulmonary effort is normal. Breath sounds: Normal breath sounds. Abdominal: Palpations: Abdomen is soft. Musculoskeletal: General: Normal range of motion. Neurological: General: No focal deficit present. Mental Status: She is alert and oriented to person, place, and time. Psychiatric: Mood and Affect: Mood normal. Behavior: Behavior normal. Thought Content: Thought content normal. Judgment: Judgment normal. Vitals and nursing note reviewed. Vitals: Estimated body mass index is 31.41 kg/m as calculated from the following: Height as of 05/30/23: 5' 4 . Weight as of this encounter: 183 lb. BP: 122/76 No LMP recorded. ASSESSMENT & PLAN No diagnosis found. Patient presents today for wegovy medication follow up. Weight and blood pressure has been captured and it has been discussed/reiterated the importance of keeping a food journal, proper nutrition/diet, and exercise regimen. Patient verbalized understanding. Patient recent blood work is within normal limits and pt is tolerating well Follow Up: Patient will follow up in 3 month for blood work check Documented by BRANDON Christina on behalf of: BRANDON Christina documented in this encounter [facility] Evaluation note 05-08-2023 Note Date & Type [...] of diseases classified elsewhere (ICD-10 - B97.89) [employer] Other Evaluation note 05-02-2023 Note Date & [...] no improvement in 2 to 3 days [employer] Other Evaluation note Note Date & Type Note Facility Evaluation note No assessment information availa [facility] Evaluation note Note Date & Type Note Facility Evaluation note Diagnosis Weight gain- Primary Other symptoms concerning nutrition, metabolism, and development documented in this encounter [facility] History general Narrative - Reported Note Date & Type Note Facility History general Narrative - Reported Type Medical History depression Medical History IBS Medical History seasonal allergies Medical History insulin resistant Surgical History C section x2 Surgical History tubal ligation Surgical History uterine ablation [employer] Other Summary Purpose Family History No Family [...] content) DATE CREATED AUTHOR 01/31/2018 Juwan Yap [facility] DATE CREATED AUTHOR AUTHOR'S ORGANIZ ATION 03/20/2021 [facility] DATE CREATED AUTHOR AUTHOR'S ORGANIZ ATION 11/12/2021 [facility] dical Specialist DATE CREATED AUTHOR AUTHOR'S ORGANIZ ATION 11/11/2022 [facility] DATE CREATED AUTHOR AUTHOR'S ORGANIZ ATION 03/14/2024 [facility] DATE CREATED AUTHOR AUTHOR'S ORGANIZ ATION 05/14/2024 [facility] dical Specialists EPIC Goals (unrecognized section and content) Goals may be documented in a n alternate sectionNo InformationNo Information REASON FOR VISIT (unrecogniz ed section and content) Reason Comments Weight Management Care Teams (unrecognized sec tion and content) Senior Data Integration Developer Relationship Specialty Start Date End Date Samantha Posey MD [address] [place] [address] PCP - General Family Medicine 01/09/23 Samantha Posey MD [address] [place] [address] PCP - [facility] 07/30/12 07/29/99 [employer] Developer Relationship Specialty Start Date End Date Samantha Posey MD [address] [place] [address] PCP - General Family Medicine 01/09/23 Samantha Posey MD [address] [place] [address] PCP - [facility] [employer] 07/30/12 07/29/99 FOR RECORDS PERTAINING TO PATIENTS WHO ARE [...] BE BASED ON THE PRIMARY CLINICAL RECORDS. [facility] [employer] [facility]. provides no warranty or guarantee of the accuracy or completeness of information in this document.
[2024-05-17 11:08] VITALS: BP 127/96; PULSE 97; O2SAT 98
== END 2024-05-17 11:11 | disposition home or self-care (01) ==
LOC: ER 11:02
PROVIDERS: Emergency Provider Emergency Medicine; PCP Family Medicine
DX: K52.9 Noninfective gastroenteritis and colitis, unspecified (principal); R21 Rash and other nonspecific skin eruption
CPT/HCPCS: 36415; 80053; 81003; 83690; 84703; 85025; 96374; 96375; 99285; J2405

== ENCOUNTER 2024-08-18 09:16 | Outpatient (OUT) | payer OTHER, SELFPAY ==
--- OUTSIDE RECORDS SUMMARY | 2024-08-18 09:22 | XMS_ITS | CCD ---
Author Organization [facility] Care Team Providers Care Assembler Final Name Role Phone RAMON JON Unavailable Unavailable RAMON JON Unavailable Unavailable NONE, XXXX Unavailable Unavailable MD Flores Jha Attending Provider [phone] RAMON VASQUEZ [facility]ERN[facility]IN Consulting Unavailable DIAN JAVIER Admitting [...] Attending Unavailable DANIEL, DR BERNSTEIN Consulting Unavailable DIAN JAVIER Admitting Unavailable Catia Mcdowell Unavailable Filomena Delgado Unavailable SY FERREIRA Attending Unavailable WONDERLY, SAMANTHA B Referring Unavailable WONDERLY, SAMANTHA B Primary Care Unavailable JUNE, DMITRIY E Attending Unavailable WATKINS, DMITRIY E Referring Unavailable WONDERLY, SAMANTHA B Primary Care Unavailable WATKINS, DMITRIY E Admitting Unavailable WATKINS, DMITRIY E Attending Unavailable WONDERLY, SAMANTHA B Referring Unavailable WONDERLY, SAMANTHA B Primary Care Unavailable GADIEL CARLOS Attending Unavailable WONDERLY, SAMANTHA B Primary Care Unavailable SY FERREIRA Attending Unavailable WONDERLY, SAMANTHA B Referring Unavailable WONDERLY, SAMANTHA B Primary Care Unavailable Samantha Posey MD Primary Care Provider Samantha Posey MD Unavailable [phone] TAMARA GALLAGHER Attending Unavailable RITESH DORANTES Attending Unavailable RITESH DORANTES Referring Unavailable TAMARA GALLAGHER Attending Unavailable FLORES JHA Attending Unavailable ELINA BARBOSA Attending Unavailable TAMARA GALLAGHER Attending Unavailable TAMARA GALLAGHER Attending Unavailable DIAN JAVIER Attending Unavailable DIAN JAVIER Referring Unavailable DIAN JAVIER Attending Unavailable Allergies Allergy Classification Reported Allergen(s) Allergy Type Date of Onset Reaction(s) Facility (3 sources) Prochlorperazine Drug Allergy 24 hour parkinsons [facility] Repository (14 sources) Prochlorperazine; Translations: [PROCHLORPERAZINE] Drug Allergy 05-20-20 19 24 hour parkinsons [facility] Repository (1 source) OTHER; Translations: [OTHER] Propensity to adverse reactions (disorder) 11-30-19 18 [facility] Repository (1 source) GUM [id number]- ALCOHOL; Translations: [GUM [id number]- ALCOHOL] Propensity to adverse reactions to drug (disorder) 05-20-20 19 [facility] Repository (12 sources) Doxycycline Drug Allergy 01-14-20 24 GI intolerance [facility] (12 sources) Wound Dressing Adhesive Propensity to adverse reactions 01-10-20 23 [facility] (1 source) methyl salicylate Drug Allergy 07-31-[address] [facility] (1 source) alcohol Allergy to substance 07-31-[address] [facility] gum mastic Allergy to substance 07-31-[address] [facility] (1 source) storax Allergy to substance 07-31-19 25 [facility] Medications Current Medications Medication Drug Class(es) Dates Sig (Normalized) Sig (Original) amoxicillin 875 mg oral tablet (2 sources) Penicillin-class Antibacterial Start: 07-24-2024 End: 08-03-2024 take 1 tablet by mouth in the morning amoxicillin (Amoxil) 875 MG tablet Indications: Acute non-recurrent pansinusitis Take 1 tablet (875 mg) by mouth in the morning and 1 tablet (875 mg) before bedtime. Do all this for 10 days. 20 tablet 07/24/2024 08/03/2024 Active cetirizine hydrochloride 10 mg oral capsule (15 sources) Histamine-1 Receptor Antagonist Start: 07-31-2024 take 1 capsule by mouth once daily as needed Cetirizine (Zyrtec) 10 mg capsule Active 10 MG PO Daily as needed July 31, 2024 12:00am take 2 tablets by mouth in the m orning cetirizine (ZyrTEC) 5 MG tablet Take 10 mg by mouth in the morning. Active take 1 tablet by mouth once asuncion y ZyrTEC 10 MG 1 tablet Orally Once a day Active chlorhexidine gluconate 40 mg/ml medicated liquid soap (12 sources) Start: 01-14-2024 Chlorhexidine Gluconate (Hibiclens) 4 % solution Indications: Bacterial folliculitis Apply from the neck down as body wash, use 2-3 times a weeks, 30 day supply 473 mL 01/14/2024 Active clindamycin 10 mg/ml topical lotion (12 sources) Lincosamide Antibacterial Start: 01-14-2024 clindamycin (Cleocin T) 1 % lotion Indications: Bacterial folliculitis Apply thin later to affected areas on the body during flares, 30 day supply 60 mL 01/14/2024 Active diphenhydrAMINE hydrochloride 25 mg oral tablet (8 sources) Histamine-1 Receptor Antagonist Start: 05-17-2024 take 1 tablet by mouth every eight hours as needed diphenhydrAMINE (BENADryl) 25 MG tablet Take 25 mg by mouth every 8 (eight) hours if needed 05/17/2024 Active escitalopram 20 mg oral tablet (17 sources) Serotonin Reuptake Inhibitor Start: 02-10-2024 End: 05-27-2024 take 1 tablet by mouth once daily Escitalopram Oxalate 20 mg tablet Active 20 MG PO Daily July 31, 2024 12:00am take 1 tablet by momo th every twenty-four hours Lexapro 20 MG 1 tablet Orally Once a day Active famotidine 20 mg oral tablet (11 sources) Histamine-2 Receptor Antagonist Start: 05-17-2024 End: 08-25-2024 take 1 tablet by mouth in the morning famotidine (Pepcid) 20 MG tablet Indications: Gastroesophageal reflux disease without esophagitis Take 1 tablet (20 mg) by mouth in the morning and 1 tablet (20 mg) before bedtime. 180 tablet 05/27/2024 08/25/2024 Active metFORMIN hydrochloride 500 mg oral tablet (15 sources) Biguanide Start: 07-31-2024 take 1 tablet by mouth once daily Metformin 500 mg tablet Active 500 MG PO Daily July 31, 2024 12:00am Start: 03-11-2024 take 1 tablet by momo th once daily metFORMIN XR (Glucophage-XR) 500 MG 24 hr tablet Indications: Insulin resistance Take 1 tablet by mouth daily 30 tablet 11 03/11/2024 Active take 1 tablet by momo th every twenty-four hours metFORMIN HCl 500 MG 1 tablet with a meal Orally Once a day Active montelukast 10 mg oral tablet (15 sources) Leukotriene Receptor Antagonist Start: 07-31-2024 take 1 tablet by mouth once daily Montelukast 10 mg tablet Active 10 MG PO Daily July 31, 2024 12:00am Singulair Active olopatadine 2 mg/ml ophthalmic solution [...] tablet Orally BID for 5 Apr, Active Semaglutide (Weight Loss) (1 source) Start: 025 Semaglutide (Weight Loss) (Wegovy) 2.4 mg/0.75 mL pen injector Active 2.4 MG SUBCUT every week July 31, 2024 12:00am Semaglutide-Weight Management (Wegovy) 1 MG/0.5ML solution auto-injector (8 sources) Start: 024 inject 1 mg by subcutaneous injection every week Semaglutide-Weigh t Management (Wegovy) 1 MG/0.5ML solution auto-injector Indications: Encounter for weight management Inject 1 mg under the skin 1 (one) time per week 4 mL 04/29/2024 Active Semaglutide-Weight Management (Wegovy) 1.7 MG/0.75ML solution auto-injector (4 sources) Start: inject 1.7 mg by subcutaneous injection every week Semaglutide-Weigh t Management (Wegovy) 1.7 MG/0.75ML solution auto-injector Indications: Encounter for long-term (current) use of medications , Encounter for weight management Inject 1.7 mg under the skin 1 (one) time per week 3 mL 06/20/2024 Active Semaglutide-Weight Management (Wegovy) 2.4 MG/0.75ML solution auto-injector (3 sources) Start: End: inject 2.4 mg by subcutaneous injection every week Semaglutide-Weigh t Management (Wegovy) 2.4 MG/0.75ML solution auto-injector Indications: Encounter for weight management , Insulin resistance , Metabolic syndrome Inject 2.4 mg under the skin 1 (one) time per week 0.75 mL 07/16/2024 08/15/2024 Active Completed/Discontinued Medications Medication Drug Class(es) Dates Sig (Normalized) Sig (Original) [id number] 200 actuat albuterol 0.09 mg/actuat metered dose [...] Date Documented Da te Episodic/Chronic Abdominal pain (8 sources) Abdominal pain; Translations: [Abdominal pain] Onset: 4 05-27-2024 Episodic Anxiety disorders (12 sources) Generalized anxiety disorder; Translations: [Generalized anxiety disorder] Onset: 4 11-13-2023 Chronic Asthma (13 sources) Unspecified asthma, uncomplicated; Translations: [Asthma] Onset: 2 05-16-2023 Chronic Esophageal disorders (14 sources) Gastroesophageal reflux disease; Translations: [Gastro-esophageal reflux disease without esophagitis] Onset: 3 05-16-2023 Chronic Essential hypertension (12 sources) Hypertensive disorder; Translations: [Essential (primary) hypertension] Onset: 8 05-16-2023 Chronic Inflammation; infection of eye (except that caused by tuberculosis or sexually transmitteddisease) (1 source) Acute atopic conjunctivitis, bilateral Episodic Malaise and fatigue (2 sources) Fatigue; Translations: [Other fatigue] 07-24-2024 Episodic Menstrual disorders (4 sources) Excessive and frequent menstruation with regular cycle; Translations: [EXCESS FREQ MENSTRUATION W/REG CYCL] Onset: 3 Chronic Mood disorders (14 sources) Moderate major depression, single episode; Translations: [Major depressive disorder, single episode, moderate] Onset: 3 05-16-2023 Chronic Nausea and vomiting (2 sources) Nausea; Translations: [Nausea] Episodic Other gastrointestinal disorders (2 sources) Irritable bowel syndrome; Translations: [Irritable bowel syndrome] Chronic Other gastrointestinal disorders (2 sources) Constipation; Translations: [Constipation] Episodic Other gastrointestinal disorders (2 sources) Diarrhea; Translations: [Diarrhea] Episodic Other gastrointestinal disorders (4 sources) Burping; Translations: [Eructation] 05-27-2024 Episodic Other lower respiratory disease (2 sources) Cough; Translations: [Acute cough] 07-24-2024 Episodic Other nutritional; endocrine; and metabolic disorders [...] Onset: 3 Episodic Other upper respiratory disease (14 sources) Allergic rhinitis; Translations: [Allergic rhinitis, unspecified] Onset: 3 11-02-2023 Chronic Other upper respiratory disease (12 sources) Chronic rhinitis; Translations: [Chronic rhinitis] Onset: 4 11-02-2023 Chronic Other upper respiratory disease (2 sources) Other specified disorders of nose and nasal sinuses; Translations: [Other disease of nasal cavity and sinuses] 07-24-2024 Episodic Other upper respiratory infections (6 sources) Acute pharyngitis, unspecified; Translations: [Acute sinusitis, unspecified] Episodic Residual codes; unclassified (4 sources) Obstructive sleep apnea (adult) (pediatric); Translations: [OBSTRUCTIVE SLEEP APNEA] Onset: 2 Chronic Residual codes; unclassified (12 sources) Obstructive sleep apnea syndrome; Translations: [Obstructive sleep apnea (adult) (pediatric)] Onset: 3 05-16-2023 Chronic Spondylosis; intervertebral disc disorders; other back problems (2 sources) Sacrococcygeal disorders, not elsewhere classified; Translations: [Backache] Onset: 4 Episodic Unclassified (8 sources) Patient on antidepressant monitoring plan Onset: 4 05-27-2024 Viral infection (1 source) Other viral agents as the cause of diseases classified elsewhere Episodic Past or Other Problems Problem Classification Problem Date Documented Da te Episodic/Chronic Cancer of cervix (12 sources) Atypical squamous cells of undetermined significance on cervical Papanicolaou smear; Translations: [Atypical squamous cells of undetermined significance on cytologic smear of cervix (ASC-US)] Onset: 05-16-2023 05-16-2023 Episodic Mood disorders (12 sources) Mood disorders Onset: 11-13-2023 11-13-2023 Other lower respiratory disease (1 source) Snoring; Translations: [SNORING] Onset: 01-07-2022 Episodic Polyhydramnios and other problems of amniotic cavity (12 sources) Oligohydramnios; Translations: [Oligohydramnios, unspecified trimester, not applicable or unspecified] Onset: 11-20-2017 05-16-2023 Episodic Results Test Name Value Interpretation Reference Range Facility CT ABDOMEN PELVIS WO IV CONT [place] 06-05-2024 CT ABDOMEN PELVIS WO IV CONTRAST EXAM: CT ABDOMEN PELVIS WO IV CONTRAST Clinical History: Abdominal pain, nausea, vomiting, diarrhea. Reference Exam: No comparison Imaging technique: Helically acquired axial source imaging of the abdomen, then the pelvis provided from above the hemidiaphragms, through the symphysis pubis. No IV contrast material. Findings: Lung bases: The lung bases are clear. No pleural effusion. No basilar pneumothorax. What is seen of the heart and pericardium unremarkable. Genitourinary system: Both kidneys are present. The kidneys contain no stones. Negative for hydroureterectasis. The urinary bladder contains no stones.The kidneys contain no stones. Negative for hydroureterectasis. The urinary bladder contains no stones. Visceral analysis: Hepatic parenchymal attenuation is normal, without evidence of space-occupying mass or intrahepatic biliary ductal dilatation by this noncontrasted test. The gallbladder is present. It contains no abnormal density. Negative for extrahepatic biliary ductal dilatation. The adrenal glands, pancreas, and spleen are unremarkable. Retroperitoneum: The abdominal aorta is nonaneurysmal. The IVC is unremarkable. No para-aortic or retrocrural lymphadenopathy. The central mesentery is unremarkable. Bowel: Gastric morphology is normal. The caliber of loops of small bowel and colon unremarkable. The right colon. No pericecal inflammatory phlegmon. The appendix is not identified. Abdominal and pelvic wall: No regional hernia of the anterior abdominal wall identified. Noncontrast CT pelvis: The uterus is present. Negative adnexal cyst or mass. The urinary bladder is unremarkable. Pelvic sidewalls are symmetrical. No pelvic or inguinal lymphadenopathy, mass, hernia, or ascites. Osseous analysis: Negative. Impression: 1. Negative for urolithiasis. 2. Negative for inflammatory phlegmon in the abdomen or pelvis 3. Fecal loading of the right colon; no small bowel stasis. Normal Not Available Comment on above: Order Comment: MAXIME HINTONN, NAUSEA, VOMITING, DIARRHEA X 3 MOS US THYROIDon 11-20-2023 US THYROID FINDINGS: Right [...] pyogenes Org specific cx Ql (Throat) Negative Perpetu Other Quick Strep Perpetu Other PAP ACOG PANEL 2: 30 to 65on 11-06-2022 . . Normal [facility] Comment on above: Result Comment: Perf ormed at: WB Performed By: #### [id number] #### [facility] [address] [place] [address] Dr. Emanuel Castillo Age Gdln ACOG Testing 30-65 Normal [facility] Comment on above: Performed By: #### [id number] #### [facility] [address] [place], [place] [address] Dr. Emanuel Castillo DIAGNOSIS: Comment Normal [facility] Comment on above: Result Comment: NEGA TIVE FOR INTRAEPITHELIAL LESION OR MALIGNANCY. Performed at: WB Performed By: #### [id number] #### [facility] [address] [place] [address] Dr. Emanuel Castillo HPV Aptima Negative Normal Negative [facility] Comment on above: Result Comment: This nucleic acid amplification test detects fourteen high-risk HPV types (16,18,31,33,35,39,45,51,52,56,58,59,66,68) without differentiation. Performed at: =G Performed By: #### [id number] #### [facility] [address] [place] [address] Dr. Emanuel Castillo HPV Genotype Reflex Comment Normal [facility] Comment on above: Result Comment: Crit eria not met, HPV Genotype not performed. Performed at: WB Performed By: #### [id number] #### [facility] [address] [place] [address] Dr. Emanuel Castillo Methodology: Comment Normal [facility] Comment on above: Result Comment: This liquid based ThinPrep(R) pap test was screened with the use of an image guided system. Performed at: WB Performed By: #### [id number] #### [facility] [address] [place] [address] Dr. Emanuel Castillo Note: Comment Normal [facility] Comment on above: Result Comment: The Pap smear is a screening test designed to aid in the detection of premalignant and malignant conditions of the uterine cervix. It is not a diagnostic procedure and should not be used as the sole means of detecting cervical cancer. Both false-positive and false-negative reports do occur. . Performed at: WB Performed By: #### [id number] #### [facility] [address] [place] [address] Dr. Emanuel Castillo Performed by: Comment Normal [facility] Comment on above: Result Comment: Jennifer Vallecillo, Global Supply Chain Director (ASCP) Performed at: WB Performed By: #### [id number] #### [facility] [address] [place] [address] Dr. Emanuel Castillo Specimen adequacy: Comment Normal [facility] Comment on above: Result Comment: Sati sfactory for evaluation. Performed at: WB Performed By: #### [id number] #### [facility] [address] [place] [address] Dr. Emanuel Castillo CBC AUTO DIFFon 11-01-2022 BASO # 0.0 103/ul Normal 0.0-0.1 [facility] Comment on above: Performed By: #### C BC #### [facility] [address] [place] [address] Dr. Emanuel Castillo Basophils/100 WBC (Bld) 0.6 % Normal 0.2-2.0 [facility] Comment on above: Performed By: #### C BC #### [facility] [address] [place] [address] Dr. Emanuel Castillo EO # 0.3 103/ul Normal 0.0-0.7 [facility] Comment on above: Performed By: #### C BC #### [facility] [address] [place] [address] Dr. Emanuel Castillo Eosinophils/100 WBC (Bld) 3.7 % Normal 0.9-7.0 [facility] Comment on above: Performed By: #### C BC #### [facility] [address] [place] [address] Dr. Emanuel Castillo Erythrocyte distribution width (RBC) [Ratio] 12.9 % Normal 11.0-15.0 [facility] Comment on above: Performed By: #### C BC #### [facility] [address] [place] [address] Dr. Emanuel Castillo Hematocrit (Bld) [Volume fraction] 42.1 % Normal 36.0-48.0 [facility] Comment on above: Performed By: #### C BC #### [facility] [address] [place] [address] Dr. Emanuel Castillo Hemoglobin (Bld) [Mass/Vol] 13.8 g/dL Normal 12.0-16.0 [facility] Comment on above: Performed By: #### C BC #### [facility] [address] [place] [address] Dr. Emanuel Castillo IG # 0.02 10e3/ul Normal 0.00-0.03 [facility] Comment on above: Performed By: #### C BC #### [facility] [address] [place] [address] Dr. Emanuel Castillo IG % 0.3 % Normal 0.0-0.5 [facility] Comment on above: Performed By: #### C BC #### [facility] [address] [place] [address] Dr. Emanuel Castillo LYMPH # 2.4 103/ul Normal 1.2-3.8 [facility] Comment on above: Performed By: #### C BC #### [facility] [address] [place] [address] Dr. Emanuel Castillo Lymphocytes/100 WBC (Bld) 35.0 % Normal 20.5-60.0 [facility] Comment on above: Performed By: #### C BC #### [facility] [address] [place] [address] Dr. Emanuel Castillo MANUAL DIFF REQ NO Normal [facility] Comment on above: Performed By: #### C BC #### [facility] [address] [place] [address] Dr. Emanuel Castillo MCH (RBC) [Entitic mass] 27.8 pg Normal 26.7-34.0 [facility] Comment on above: Performed By: #### C BC #### [facility] [address] [place] [address] Dr. Emanuel Castillo MCHC (RBC) [Mass/Vol] 32.8 g/dL Normal 29.9-35.2 [facility] Comment on above: Performed By: #### C BC #### [facility] [address] [place] [address] Dr. Emanuel Castillo MCV (RBC) [Entitic vol] 84.9 fL Normal 81.0-99.0 [facility] Comment on above: Performed By: #### C BC #### [facility] [address] [place] [address] Dr. Emanuel Castillo MONO # 0.6 103/ul Normal 0.3-0.8 [facility] Comment on above: Performed By: #### C BC #### [facility] [address] [place] [address] Dr. Emanuel Castillo Monocytes/100 WBC (Bld) 9.2 % Normal 1.7-12.0 [facility] Comment on above: Performed By: #### C BC #### [facility] [address] [place] [address] Dr. Emanuel Castillo NEUT # 3.4 103/ul Normal 1.4-6.5 [facility] Comment on above: Performed By: #### C BC #### [facility] [address] [place] [address] Dr. Emanuel Castillo Neutrophils/100 WBC (Bld) 51.2 % Normal 43.0-75.0 [facility] Comment on above: Performed By: #### C BC #### [facility] [address] [place] [address] Dr. Emanuel Castillo Platelet mean volume (Bld) [Entitic vol] 10.0 fL Normal 9.5-13.5 [facility] Comment on above: Performed By: #### C BC #### [facility] [address] [place] [address] Dr. Emanuel Castillo PLT 214 103/ul Normal 150-450 [facility] Comment on above: Performed By: #### C BC #### [facility] [address] [place] [address] Dr. Emanuel Castillo RBC 4.96 106/ul Normal 4.20-5.40 [facility] Comment on above: Performed By: #### C BC #### [facility] [address] [place] [address] Dr. Emanuel Castillo WBC 6.7 103/ul Normal 4.0-11.0 [facility] Comment on above: Performed By: #### C BC #### [facility] [address] [place] [address] Dr. Emanuel Castillo FREE T4on 11-01-2022 Free T4 [Mass/Vol] 0.72 ng/dL Critically low 0.76-1.46 [facility] Comment on above: Performed By: #### F T4 #### [facility] [address] [place], [place] [id number] Dr. Emanuel Castillo GLYCOHEMOGLOBIN A1Con 2022 ADA RECOMMENDATION SEE BELOW Normal [facility] Comment on above: Result Comment: ADA RECOMMENDED LIMIT 4.0 - 6.0 ADA THERAPEUTIC TARGET < 7.0 ACTION SUGGESTED > 7.0 Performed By: #### A 1C #### [facility] [address] [place] [address] Dr. Emanuel Castillo Glucose [Mass/Vol] 108 mg/dL Normal [facility] Comment on above: Performed By: #### A 1C #### [facility] [address] [place] [address] Dr. Emanuel Castillo HbA1c (Bld) [Mass fraction] 5.4 % Normal 4.5-6.2 [facility] Comment on above: Performed By: #### A 1C #### [facility] [address] [place] [address] Dr. Emanuel Castillo PREG QUANT HCGon 11-01-2022 HCG QUANT <1 Normal [facility] Comment on above: Performed By: #### T SH, PREGQNT #### [facility] [address] [place] [address] Dr. Emanuel Castillo HCG RANGE SEE BELOW Normal [facility] Comment on above: Result Comment: 5-50 0.2-1 WEEK 50-500 1-2 WEEKS 100-5,000 2-3 WEEKS 500-10,000 3-4 WEEKS 1,000-50,000 4-5 WEEKS 10,000-100,000 5-6 WEEKS 15,000-200,000 6-8 WEEKS 10,000-100,000 2-3 MONTHS Performed By: #### T SH, PREGQNT #### [facility] [address] [place] [address] Dr. Emanuel Castillo PROTIMEon 11-01-2022 INR Coag (PPP) [Relative time] 0.95 {INR} Normal [facility] Comment on above: Performed By: #### P TT, PT #### [facility] [address] [place] [address] Dr. Emanuel Castillo INR GUIDELINES SEE BELOW Normal [facility] Comment on above: Result Comment: DOT RED INR: 2.0 - 3.0 CONDITIONS NOT LISTED BELOW 2.5 - 3.5 FOR PROSTHETIC HEART VALVE REPLACEMENT 2.5 - 3.5 RECURRENT THROMBOSIS Performed By: #### P TT, PT #### [facility] [address] [place] [address] Dr. Emanuel Castillo PT Coag (PPP) [Time] 10.1 s Normal 9.0-11.6 [facility] Comment on above: Performed By: #### P TT, PT #### [facility] [address] [place] [address] Dr. Emanuel Castillo PTTon 11-01-2022 aPTT Coag (Bld) [Time] 31.3 s Normal 22.3-36.2 [facility] Comment on above: Performed By: #### P TT, PT #### [facility] [address] [place] [address] Dr. Emanuel Castillo TSHon 11-01-2022 TSH 2.217 uIU/mL Normal 0.358-3.740 [facility] Comment on above: Performed By: #### T SH, PREGQNT #### [facility] [address] [place] [address] Dr. Emanuel Castillo US PELVIS AND TRANSVAGon [...] VALENTINA SCHULTZ Date: 2022-11-01 10:40 Normal [facility] Complete Blood Counton 11-11 Erythrocyte distribution width (RBC) [Ratio] 12.2 % Normal 11.0-15.0 [facility] Special[facility] Comment on above: Performed By: #### F T4, CMP, TSH, LIPD, CBC #### [facility] [address], [place] [id number] Hematocrit (Bld) [Volume fraction] 43.6 % Normal 35.0-47.0 [facility] Comment on above: Performed By: #### F T4, CMP, TSH, LIPD, CBC #### [facility] [address], [place] [id number] Hemoglobin (Bld) [Mass/Vol] 13.8 g/dL Normal 11.6-15.5 [facility] Comment on above: Performed By: #### F T4, CMP, TSH, LIPD, CBC #### [facility] [address], [place] [id number] MCH (RBC) [Entitic mass] 27.5 pg Normal 27.0-33.0 [facility] Special[facility] Comment on above: Performed By: #### F T4, CMP, TSH, LIPD, CBC #### [facility] [address], [place] [id number] MCHC (RBC) [Mass/Vol] 31.7 g/dL Low 32.0-36.0 [facility] Special[facility] Comment on above: Performed By: #### F T4, CMP, TSH, LIPD, CBC #### [facility] [address], [place] [id number] MCV (RBC) [Entitic vol] 87 fL Normal 80-100 [facility] Special[facility] Comment on above: Performed By: #### F T4, CMP, TSH, LIPD, CBC #### [facility] [address], [place] [id number] Platelet mean volume (Bld) [Entitic vol] 10.70 fL Normal 7.50-12.50 [facility] Specialist Comment on above: Performed By: #### F T4, CMP, TSH, LIPD, CBC #### [facility] [address], [place] [id number] Platelets (Bld) [#/Vol] 206 10*3/uL Normal 140-400 [facility] Special[facility] Comment on above: Performed By: #### F T4, CMP, TSH, LIPD, CBC #### [facility] [address], [place] [id number] RBC (Bld) [#/Vol] 5.02 10*6/uL Normal 3.90-5.20 [facility] Comment on above: Performed By: #### F T4, CMP, TSH, LIPD, CBC #### [facility] [address], [place] [id number] RDW-SD 39.0 fL Normal 37.0-50.0 [facility] Special[facility] Comment on above: Performed By: #### F T4, CMP, TSH, LIPD, CBC #### [facility] [address], [place] [id number] WBC (Bld) [#/Vol] 5.8 10*3/uL Normal 3.8-11.0 [facility] Civil Litigation Attorney Comment on above: Performed By: #### F T4, CMP, TSH, LIPD, CBC #### [facility] [address], [place] [id number] Comprehensive Metabolic Pane [facility] 11-11-2021 Albumin [Mass/Vol] 4.7 g/dL Normal 3.6-5.1 [facility] Civil Litigation Attorney Comment on above: Performed By: #### F T4, CMP, TSH, LIPD, CBC #### [facility] [address], [place] [id number] Albumin/Globulin [Mass ratio] 2.4 {ratio} Normal 1.0-2.5 [facility] Specialist Comment on above: Performed By: #### F T4, CMP, TSH, LIPD, CBC #### [facility] [address], [place] [id number] ALP [Catalytic activity/Vol] 48 U/L Normal 35-119 [facility] Civil Litigation Attorney Comment on above: Performed By: #### F T4, CMP, TSH, LIPD, CBC #### [facility] [address], [place] [id number] ALT [Catalytic activity/Vol] 19 U/L Normal 6-33 [facility] Comment on above: Result Comment: 06/29 Female reference range changed. Performed By: #### F T4, CMP, TSH, LIPD, CBC #### [facility] [address], [place] [id number] Anion gap [Moles/Vol] 17 mmol/L Normal 12-20 [facility] Comment on above: Result Comment: Effe ctive 08/04/2019 reference range changed. Performed By: #### F T4, CMP, TSH, LIPD, CBC #### [facility] [address], [place] [id number] AST [Catalytic activity/Vol] 17 U/L Normal 9-34 [facility] Comment on above: Performed By: #### F T4, CMP, TSH, LIPD, CBC #### [facility] [address], [place] [id number] BUN/CREA 16 Ratio Normal 6-22 [facility] Comment on above: Performed By: #### F T4, CMP, TSH, LIPD, CBC #### [facility] [address], [place] [id number] Calcium [Mass/Vol] 9.5 mg/dL Normal 8.6-10.2 [facility] Comment on above: Performed By: #### F T4, CMP, TSH, LIPD, CBC #### [facility] [address], [place] [id number] Chloride [Moles/Vol] 104 mmol/L Normal 98-107 [facility] Comment on above: Performed By: #### F T4, CMP, TSH, LIPD, CBC #### [facility] [address], [place] [id number] CO2 [Moles/Vol] 23 mmol/L Normal 20-31 [facility] Comment on above: Performed By: #### F T4, CMP, TSH, LIPD, CBC #### [facility] [address], [place] [id number] Creatinine [Mass/Vol] 0.6 mg/dL Normal 0.6-1.4 [facility] Civil Litigation Attorney Comment on above: Performed By: #### F T4, CMP, TSH, LIPD, CBC #### [facility] [address], [place] [id number] eGFRAA 137 mL/min/1.73m2 Normal >60 [facility] Specialist Comment on above: Performed By: #### F T4, CMP, TSH, LIPD, CBC #### [facility] [address], [place] [id number] eGFRNAA 113 mL/min/1.73m2 Normal >60 [facility] Specialist Comment on above: Performed By: #### F T4, CMP, TSH, LIPD, CBC #### [facility] [address], [place] [id number] Globulin (S) [Mass/Vol] 2.0 g/dL Normal 1.9-3.7 [facility] Specialist Comment on above: Performed By: #### F T4, CMP, TSH, LIPD, CBC #### [facility] [address], [place] [id number] Glucose [Mass/Vol] 95 mg/dL Normal 65-99 [facility] Civil Litigation Attorney Comment on above: Result Comment: For FASTING Glucose --- ADA reference ranges: Normal 65-99 mg/dl Prediabetes 100-125 Diabetes >/= 126 Performed By: #### F T4, CMP, TSH, LIPD, CBC #### [facility] [address], [place] [id number] Potassium [Moles/Vol] 4.4 mmol/L Normal 3.5-5.5 [facility] Civil Litigation Attorney Comment on above: Performed By: #### F T4, CMP, TSH, LIPD, CBC #### [facility] [address], [place] [id number] Protein [Mass/Vol] 6.7 g/dL Normal 6.1-8.1 [facility] Civil Litigation Attorney Comment on above: Performed By: #### F T4, CMP, TSH, LIPD, CBC #### [facility] [address], [place] [id number] Sodium [Moles/Vol] 140 mmol/L Normal 135-146 [facility] [place] Civil Litigation Attorney Comment on above: Performed By: #### F T4, CMP, TSH, LIPD, CBC #### [facility] [address], [place] [id number] TBIL <0.3 Normal [facility] Specialist Comment on above: Performed By: #### F T4, CMP, TSH, LIPD, CBC #### [facility] [address], [place] [id number] Urea nitrogen [Mass/Vol] 10 mg/dL Normal 7-25 [facility] Specialist Comment on above: Performed By: #### F T4, CMP, TSH, LIPD, CBC #### [facility] [address], [place] [id number] Free T4on 11-11-2021 Free T4 [Mass/Vol] 0.98 ng/dL Normal 0.80-1.80 [facility] Comment on above: Performed By: #### F T4, CMP, TSH, LIPD, CBC #### [facility] [address], [place] [id number] Lipid Panelon 11-11-2021 Cholesterol [Mass/Vol] 189 mg/dL Normal 125-200 [facility] Specialist Comment on above: Result Comment: Low risk < 200mg/dL Borderline risk 201-239 mg/dl High risk > or equal to 240 Performed By: #### F T4, CMP, TSH, LIPD, CBC #### [facility] [address], [place] [id number] Cholesterol in HDL [Mass/Vol] 55 mg/dL Normal >40 [facility] Specialist Comment on above: Result Comment: High Cardiovascular Risk HDL <40 mg/dL Low Cardiovascular Risk HDL > or equal to 60 mg/dl Performed By: #### F T4, CMP, TSH, LIPD, CBC #### [facility] [address], [place] [id number] Cholesterol in LDL [Mass/Vol] 110 mg/dL Normal [facility] Specialist Comment on above: Result Comment: LDL ATP III CLASSIFICATION LDL less than 100 mg/dl Optimal LDL 100-129 mg/dl Near or above optimal LDL 130-159 Borderline high LDL 160-189 High LDL greater than 189 mg/dl Very High Performed By: #### F T4, CMP, TSH, LIPD, CBC #### [facility] [address], [place] [id number] Cholesterol in VLDL [Mass/Vol] 24 mg/dL Normal [facility] Comment on above: Performed By: #### F T4, CMP, TSH, LIPD, CBC #### [facility] [address], [place] [id number] Cholesterol.total/Ch olesterol in HDL [Mass ratio] 3 {ratio} Normal [facility] Comment on above: Performed By: #### F T4, CMP, TSH, LIPD, CBC #### [facility] [address], [place] [id number] Triglyceride [Mass/Vol] 120 mg/dL Normal 30-150 [facility] Specialist Comment on above: Result Comment: TRIG ATPIII CLASSIFICATIONS TRIG less than 150 mg/dl Normal TRIG 150-199 mg/dl Borderline High TRIG 200-500 mg/dl High TRIG greather than 500 mg/dl Very High Performed By: #### F T4, CMP, TSH, LIPD, CBC #### [facility] [address], [place] [id number] TSHon 11-11-2021 TSH 2.100 uIU/mL Normal 0.400-4.500 [facility] Civil Litigation Attorney Comment on above: Performed By: #### F T4, CMP, TSH, LIPD, CBC #### [facility] [address], [place] [id number] Superficial Wound Cultureon 03-10-2021 Superficial Wound Culture [...] RESISTANT TO ALL B-LACTAM DRUGS. PERFORMED BY: [place] [address] PATHOLOGIST [employer]EARCH [employer] SUPERVISOR SP TRUJILLO M.D. [facility] Comment on above: Performed By: #### C USUP #### [address] Vital Signs Date Time Vital Sign Value Performing Clinician Facility 07-31-2024 11:45-0500 Body height 162.56 cm [facility] 07-31-2024 11:45-0500 Body mass index (BMI) [Ratio] 28.6 kg/m2 [facility] 07-31-2024 11:45-0500 Body weight 75.74 kg [facility] 07-24-2024 11:03-0500 Body mass index (BMI) [Ratio] 28.67 kg/m2 Dian Javier NP Work Phone: [facility] 07-24-2024 11:03-0500 Body weight 75.75 kg Dian Javier NP Work Phone: [facility] 07-24-2024 11:03-0500 Diastolic blood pressure 84 mm[Hg] Dian Javier NP Work Phone: [facility] 07-24-2024 11:03-0500 Heart rate 84 /min Dian Javier NP Work Phone: [facility] 07-24-2024 11:03-0500 Systolic blood pressure 110 mm[Hg] Dian Javier [employer] Work Phone: [facility] 05-27-2024 16:12-0400 Body mass index (BMI) [Ratio] 30.55 kg/m2 Dian Javier [employer] Work Phone: [facility] 05-27-2024 16:12-0400 Body weight 80.74 kg Dian Javier [employer] Work Phone: [facility] 05-27-2024 16:12-0400 Diastolic blood pressure 92 mm[Hg] Dian Javier [employer] Work Phone: [facility] 05-27-2024 16:12-0400 Heart rate 76 /min Dian Javier [employer] Work Phone: [facility] 05-27-2024 16:12-0400 Systolic blood pressure 134 mm[Hg] Dian Javier [employer] Work Phone: [facility] 05-12-2024 16:22-0400 Body mass index (BMI) [Ratio] 31.41 kg/m2 Tamara Columbus PA Work Phone: [facility] 05-12-2024 16:22-0400 Body weight 83.01 kg Tamara Columbus PA Work Phone: [facility] 05-12-2024 16:22-0400 Diastolic blood pressure 76 mm[Hg] Tamara Roxi PA Work Phone: [facility] 05-12-2024 16:22-0400 Systolic blood pressure 122 mm[Hg] Tamara Columbus PA Work Phone: [facility] 05-08-2023 18:00-0400 Body height 162.56 cm Filomena Delgado Other [facility] 05-08-2023 18:00-0400 Body mass index (BMI) [Ratio] 33.33 kg/m2 Filomena Delgado Other [facility] 05-08-2023 18:00-0400 Body temperature 98 [degF] Filomena Delgado Other [facility] 05-08-2023 18:00-0400 Body weight 88.09 kg Filomena Delgado Other [facility] 05-08-2023 18:00-0400 Respiratory rate 18 /min Filomena Delgado Other [facility] 05-08-2023 18:00-0400 SaO2% (BldA) [Mass fraction] 97 % Filomena Delgado Other [facility] 05-02-2023 15:45-0400 Body height 162.56 cm Catia Dumasmond Other [facility] 05-02-2023 15:45-0400 Body mass index (BMI) [Ratio] 33.47 kg/m2 Catia Dumasmond Other [facility] 05-02-2023 15:45-0400 Body temperature 97.4 [degF] Catia Dumasmond Other [facility] 05-02-2023 15:45-0400 Body weight 88.45 kg Catia Dumasmond Other [facility] Other 05-02-2023 15:45-0400 Respiratory rate 18 /min Catia Dumasmond Other [facility] 05-02-2023 15:45-0400 SaO2% (BldA) [Mass fraction] 98 % Catia July Other [facility] Other Encounters Encounter Date Encounter Type Care Provider Facility Start: 08-18-2024 End: 08-18-2024 Bamboo flowsheet Tamara TAYLOR Work Phone: [facility] Start: 08-18-2024 End: 08-18-2024 Bamboo flowsheet Tamara TAYLOR Work Phone: [facility] Start: 07-31-2024 End: 07-31-2024 ambulatory [facility] Work Phone: Start: 07-31-2024 End: 07-31-2024 Patient encounter procedure [facility] Work Phone: Start: 07-24-2024 End: 07-24-2024 Bamboo flowsheet Dian Javier [employer] Work Phone: [facility] Start: 07-24-2024 End: 07-24-2024 Bamboo flowsheet Dian Javier [employer] Work Phone: [facility] Start: 07-24-2024 End: 07-24-2024 Office outpatient visit 15 minutes Dian Javier [employer] Work Phone: [facility] Comment on above: Acute non-recurrent pansinusitis (Primary Dx); Sinus pressure; Acute cough; Other fatigue; Sore throat Start: 07-24-2024 End: 07-24-2024 ambulatory DIAN JAVIER Not Available Start: 06-20-2024 End: 06-20-2024 Telephone encounter Samantha Posey MD Work Phone: [facility] Start: 06-06-2024 End: 06-06-2024 Telephone encounter Dian Javier NP Work Phone: [facility] Comment on above: Results Start: 06-05-2024 End: 06-05-2024 ambulatory DIAN JAVIER Not Available Start: 05-27-2024 End: 05-27-2024 ambulatory DIAN JAVIER Not Available Start: 05-27-2024 End: 05-27-2024 Office outpatient visit 25 minutes Dian Javier NP Work Phone: [facility] Comment on above: RUQ pain (Primary Dx ); Belching; Major depressive disorder, single episode, moderate (HCC) (CMS/HCC); Gastroesophageal reflux disease without esophagitis Start: 05-19-2024 End: 05-19-2024 Telephone encounter Dian Javier NP Work Phone: [facility] Start: 05-12-2024 End: 05-12-2024 Office outpatient visit 15 minutes Tamara TAYLOR Work Phone: [facility] Comment on above: Weight gain (Primary Dx) Start: 05-12-2024 End: 05-12-2024 ambulatory TAMARA GALLAGHER Not Available Start: 05-12-2024 End: 05-12-2024 Bamboo flowsheet Tamara TAYLOR Work Phone: [facility] Start: 05-12-2024 End: 05-12-2024 Bamboo flowsheet Tamara TAYLOR Work Phone: [facility] Start: 03-17-2024 End: 03-17-2024 ambulatory TAMARA GALLAGHER Not Available Start: 03-12-2024 End: 03-12-2024 ambulatory [facility] Start: 02-23-2024 End: 02-23-2024 ambulatory GADIEL CARLOS [facility] Start: 02-22-2024 End: 02-22-2024 ambulatory DMITRIY WATKINS [facility] Start: 01-23-2024 End: 01-23-2024 ambulatory ELINA BARBOSA Not Available Start: 01-14-2024 End: 01-14-2024 ambulatory FLORES JHA Not Available Start: 01-02-2024 End: 01-02-2024 ambulatory [facility] Start: 01-01-2024 End: 01-01-2024 ambulatory TAMARA GALLAGHER Not Available Start: 11-20-2023 End: 11-20-2023 ambulatory RITESH DORANTES Not Available Start: 11-13-2023 End: 11-13-2023 ambulatory RITESHREGLA DORANTES Not Available Start: 07-26-2023 End: 07-26-2023 ambulatory TAMARA GALLAGHER Not Available Start: 05-08-2023 End: 05-08-2023 ambulatory Filomena Delgado Other [facility] Other Start: 05-08-2023 Office outpatient vi sit 25 minutes Filomena Delgado [facility] Start: 05-02-2023 End: 05-02-2023 ambulatory Catia Mcdowell Other [facility] Other Start: 05-02-2023 Office outpatient ne w 20 minutes Catia Mcdowell [facility] Start: 11-01-2022 End: 11-02-[address] ELINA BARBOSA . Facility: Start: 10-30-2022 End: 10-30-[address] ELINA BARBOSA . Facility: Start: 01-31-2022 End: 02-01-2022 ambulatory RAMON JON . Facility: Start: 01-04-2022 End: 01-05-2022 ambulatory RAMON JON . Facility: Start: 03-10-2021 End: 03-10-2021 Departed Referred MD Flores Jha Work Phone: [facility] [place] Start: 10-21-2017 End: 10-22-2017 Ambulatory RAMON JON Facility:[facility] Start: 10-14-2017 End: 10-15-2017 Ambulatory RAMON JON Facility:[facility] Procedures Date Procedure Procedure Detail Performing Clinician Start: 01-31-2023 Microscopic observat ion [Identifier] in Cervix by Cyto stain Tamara TAYLOR Work Phone: Plan of Treatment Date Care Activity Detail Author Start: 10-31-2027 Screening for malign ant neoplasm of cervix [facility] Start: 01-31-2026 Screening for malign ant neoplasm of cervix Pap Smear [facility] Start: 01-13-2025 End: 01-13-2025 Patient encounter procedure 01/13/2025 10:15 AM EDT Office Visit [facility] [address] [place] [id number] Flores Jha MD [address] [facility] [address] [place] [address] [facility] Start: 09-18-2024 Influenza vaccination Influenza Vacc ine (#1) [facility] Comment on above: Postponed from 03/30 (Patient Refused) Start: 08-18-2024 End: 08-18-2024 Patient encounter procedure 08/18/2024 8:30 AM EST Office Visit [facility] [address] [place] [address] Tamara Gallagher PA [address] [place] [address] [facility] Start: 07-24-2024 End: 07-24-2024 Patient encounter procedure 07/24/2024 11:00 AM EST Office Visit [facility] [address] [place] [address] Dian Javier NP [address] [place], [place] [id number] Arrived [facility] Comment on above: Arrived Start: 05-27-2024 End: 05-27-2025 CT Abdomen and Pelvis WO contrast CT abdomen pelvis wo IV contrast Imaging Routine RUQ pain Belching Expected: 05/27/2024, Expires: 05/27/2025 [facility] Work Phone: Comment on above: Expected: 05/27/2024 , Expires: 05/27/2025 Start: 05-12-2024 End: 05-12-2024 Patient encounter procedure 05/12/2024 4:00 PM EDT Office Visit [facility] [address] [place] [address] Tamara Gallagher, PA [address] [place] [address] Arrived [facility] Comment on above: Arrived Start: 03-30-2024 Influenza vaccination Influenza Vacc ine (#1) [facility] Start: 03-10-2021 Superficial Wound Culture Superficial Wound Culture [facility] Immunizations Immunization Date Immunization Notes Care Provider Fa leannety 02-12-2024 Hepatitis B vaccine (recombinant), CpG adjuvanted Dian Javier [employer] Work Phone: [facility] 12-23-2023 Hepatitis B vaccine (recombinant), CpG adjuvanted Dian Javier [employer] Work Phone: [facility] 07-22-2018 influenza, injectabl e, quadrivalent, preservative free Tamara TAYLOR Work Phone: [facility] 07-22-2018 influenza virus vacc ine, unspecified formulation Tamara TAYLOR Work Phone: [facility] 11-22-2017 tetanus toxoid, redu otis diphtheria toxoid, and acellular pertussis vaccine, adsorbed Tamara TAYLOR Work Phone: [facility] Healthcare Payers Date Payer Category Payer Private Health Insurance [id number] 2021 Private Health Insurance [id number] 1985 Unknown [id number] 2.16.84 0.1.037503.3.579.2.593 1985 Unknown [id number] 2.16.84 0.1.585514.3.579.2.593 1985 Unknown [id number] 2.16.84 0.1.004281.3.579.2.593 1985 Unknown [id number] 2.16.84 0.1.819165.3.579.2.593 1985 Unknown [id number] 2.16.8 40.1.221513.3.579.2.1286 1985 Unknown [id number] 2.16.8 40.1.375464.3.579.2.128 1985 Unknown [id number] 2.16.8 40.1.400323.3.579.2.1285 1985 Unknown [id number] 2.16.8 40.1.213722.3.579.2.1285 1985 Unknown [id number] 2.16.8 40.1.869073.3.579.2.1285 1985 Unknown [id number] 2.16.8 40.1.300019.3.579.2.1285 1985 Unknown [id number] 2.16.84 0.1.156731.3.579.2.1258 1985 Unknown [id number] 2.16.84 0.1.811750.3.579.2.1258 1985 Unknown [id number] 2.16.84 0.1.343015.3.579.2.1258 1985 Unknown [id number] 2.16.84 0.1.019743.3.579.2.1258 1985 Unknown [id number] 2.16.84 0.1.673699.3.579.2.1258 1985 Unknown [id number] 2.16.84 0.1.129072.3.579.2.1258 1985 Unknown [id number] 2.16.84 0.1.388894.3.579.2.1258 1985 Unknown [id number] 2.16.84 0.1.971031.3.579.2.1258 1985 Unknown [id number] 2.16.84 0.1.679882.3.579.2.1258 1985 Unknown [id number] 2.16.84 0.1.110975.3.579.2.1258 1985 Unknown [id number] 2.16.840 .1.244602.3.579.2.9 1959 Unknown [id number] Self-pay Self Pay [id number] Social History Date Type Detail Facility Tobacco smoking status NHIS Unknown if ever smoked [facility] Start: 1985 Sex Assigned At Female F [facility] Start: 06-25-2023 End: 11-13-2023 Sex Assigned At [facility] Start: 08-10-2018 End: 05-16-2023 Tobacco smoking status NHIS Never smoked tobacco [facility] Start: 05-16-2023 Tobacco use and exposure Smokeless tobacco non-user [facility] Start: 03-17-2024 End: 07-24-2024 Alcoholic beverage intake Current drinker of alcohol [...] at Not on file [facility] Start: 07-31-2024 Sex Female (finding) [facility] NEGATED: Highlighted rowStart: NINF History of tobacco use Passive smoker [facility] Goals Date Patient Goal Desired Activity /State Personal health goal Clinical Notes 05-02-2023 to 07-24-2024 Dian Javier, KONRAD - 07/24/2024 11:00 AM ESTTelephone Encounter - Nery Fairbanks - 06/20/2024 8:28 AM ESTTelephone Encounter - Nery Fairbanks - 06/20/2024 8:28 AM EST Note Date & Type Note Facility 07-24-2024 History of Presen t illness Narrative Images from the original note were not included. Maryia Orosco is a 39 y.o. female presents with chief complaint of Sinus Problem (Pressure, thick green mucous) and Sore Throat (In mornings) HPI: Sinus Problem Associated symptoms include congestion, coughing, ear pain, headaches, sinus pressure and a sore throat. Pertinent negatives include no shortness of breath. Sore Throat Associated symptoms include congestion, coughing, ear pain and headaches. Pertinent negatives include no abdominal pain, diarrhea, shortness of breath or vomiting. Patient presents to the office today with acute concerns. Symptoms started a couple days ago with sinus pressure and drainage. Patient admit her and children had similar symptoms. She denies fever, body aches or chills. Admits headaches from the pressure. Slight ear pain. Feels more pressure under to eyes. Admits nasal congestion and drainage, green and yellow. Admits to having sore throat in the morning. No chest pain or dizziness. Slight cough that is dry. Trying to get the phlegm up. No SOB or wheezing. No abd pain, no NVD. Sleeping normal but feeling more tired. Declines covid/flu testing today. SUBJECTIVE: MEDICATIONS: Current Outpatient Medications Medication Instructions amoxicillin (AMOXIL) 875 mg, Oral, 2 times daily cetirizine (ZYRTEC) 10 mg, Daily Chlorhexidine Gluconate (Hibiclens) 4 % solution Apply from the neck down as body wash, use 2-3 times a weeks, 30 day supply clindamycin (Cleocin T) 1 % lotion Apply thin later to affected areas on the body during flares, 30 day supply diphenhydrAMINE (BENADRYL) 25 mg, Every 8 hours PRN escitalopram (LEXAPRO) 20 mg, Oral, Daily famotidine (PEPCID) 20 mg, Oral, 2 times daily metFORMIN XR (Glucophage-XR) 500 MG 24 hr tablet Take 1 tablet by mouth daily montelukast (SINGULAIR) 10 mg, Every morning Wegovy 1.7 mg, Subcutaneous, Weekly Wegovy 2.4 mg, Subcutaneous, Weekly ALLERGIES: Allergies Allergen Reactions Compazine [Prochlorperazine] Doxycycline GI intolerance Mastisol Adhesive [Wound Dressing Adhesive] History: Past Medical History: Diagnosis Date Asthma, chronic, [...] Thyroid enlargement (CMS/HCC) Unsocialized aggressive disorder (CMS/HCC) Past Surgical History: Procedure Laterality Date SECTION, CLASSIC 11/21/2017 SECTION, CLASSIC 04/16/[address] Cruz ENDOMETRIAL ABLATION 01/31/2023 SKIN BIOPSY TUBAL LIGATION WISDOM TOOTH EXTRACTION [place] teeth Family History Problem Relation Name Age of Onset Hypertension Mother Heart disease Mother Other (prediabetes) Father Hypertension Father Cancer Father bladder No Known Problems Daughter No Known Problems Daughter Melanoma Neg Hx Social History Socioeconomic History Marital status: Spouse name: Not on file Number of children: Not on file Years of education: Not on file Highest education level: Not on file Occupational History Not on file Tobacco Use Smoking status: Never Passive exposure: Never Smokeless tobacco: Never Vaping Use Vaping status: Never Used Substance and Sexual Activity Alcohol use: Yes Comment: Alcohol: 1-2 drinks/monthly or less Drug use: Not on file Sexual activity: Yes control/protection: Surgical Comment: Bilateral tubal ligation Other Topics Concern Not on file Social History Narrative Not on file Social Drivers of Health Financial Resource Strain: Not on file Food Insecurity: No Food Insecurity (03/12/2024) Received from [facility] Hunger Screening Within the past 12 months we worried whether our food would run out before we got money to buy more.: Never True Within the past 12 months the food we bought just didn't last and we didn't have money to get more.: Never True Transportation Needs: Not on file Physical Activity: Not on file Stress: Not on file Social Connections: Not on file Intimate Partner Violence: Not on file Housing Stability: Not on file I have reviewed and reconciled the history and medication list with the patient today. REVIEW OF SYMPTOMS: Review of Systems Constitutional: Positive for fatigue. Negative for activity change and appetite change. HENT: Positive for congestion, ear pain, sinus pressure and sore throat. Respiratory: Positive for cough. Negative for shortness of breath and wheezing. Cardiovascular: Negative for chest pain and palpitations. Gastrointestinal: Negative for abdominal pain, diarrhea, nausea and vomiting. Genitourinary: Negative. Musculoskeletal: Negative. Skin: Negative for color change, rash and wound. Neurological: Positive for headaches. Psychiatric/Behavioral: Negative. OBJECTIVE: 11/13/2023 4:09 PM 11/13/2023 5:06 PM 01/01/2024 10:05 AM 03/17/2024 9:23 AM 05/12/2024 4:22 PM 05/27/2024 4:12 PM 07/24/2024 11:03 AM Vitals BMI 33.33 kg/m2 32.46 kg/m2 31.24 kg/m2 31.41 kg/m2 30.55 kg/m2 28.67 kg/m2 BSA (m2) 1.99 m2 1.97 m2 1.93 m2 1.94 m2 1.91 m2 1.85 m2 Systolic 150 138 120 120 122 134 110 Diastolic 92 84 78 70 76 92 84 Heart Rate 72 76 84 Weight (lb) 194.2 189.12 182 183 178 167 Visit Report Report Report Report Report Report Report Report Physical Exam Vitals reviewed. Constitutional: General: She is not in acute distress. Appearance: Normal appearance. She is ill-appearing. HENT: Right Ear: Tympanic membrane, ear canal and external ear normal. Left Ear: Tympanic membrane, ear canal and external ear normal. Nose: Congestion and rhinorrhea present. Rhinorrhea is purulent. Right Turbinates: Enlarged. Left Turbinates: Enlarged. Right Sinus: Maxillary sinus tenderness and frontal sinus tenderness present. Left Sinus: Maxillary sinus tenderness and frontal sinus tenderness present. Comments: Maxillary greater than frontal Mouth/Throat: Mouth: Mucous membranes are moist. Pharynx: Oropharynx is clear. No oropharyngeal exudate or posterior oropharyngeal erythema. Cardiovascular: Rate and Rhythm: Normal rate and regular rhythm. Heart sounds: No murmur heard. Pulmonary: Effort: Pulmonary effort is normal. No respiratory distress. Breath sounds: Normal breath sounds. No wheezing or rhonchi. Comments: No cough on exam Abdominal: General: Bowel sounds are normal. There is no distension. Palpations: Abdomen is soft. Tenderness: There is no abdominal tenderness. Musculoskeletal: Cervical back: Normal range of motion. No rigidity or tenderness. Lymphadenopathy: Cervical: No cervical adenopathy. Skin: General: Skin is warm and dry. Findings: No rash. Neurological: Mental Status: She is alert. Psychiatric: Mood and Affect: Mood normal. Behavior: Behavior normal. ASSESSMENT AND PLAN: Assessment/Plan Diagnoses and all orders for this visit: Acute non-recurrent pansinusitis - amoxicillin (Amoxil) 875 MG tablet; Take 1 tablet (875 mg) by mouth in the morning and 1 tablet (875 mg) before bedtime. Do all this for 10 days. -Advised patient to take antibiotic with food to avoid GI upset and encouraged fluids. Follow up if not improving. -Continue allergy medication. Sinus pressure -Recommend Flonase nasal spray OTC, 1 spray to each nare twice a day or 2 sprays to each nare once a day. Educated patient on importance of not overusing medication as it can cause rebound symptoms. PVU. Acute cough -May take OTC cough syrup such as Robitussin or Delsym. Encourage throat lozagenes and warm fluids like warm tea with honey. Other fatigue Sore throat -Encouraged warm fluids like tea with honey, throat lozagenes, Chloraseptic throat spray and tylenol or motrin PRN for pain control. Follow up if symptoms worsen or fail to improve. documented in this encounter [facility] 06-20-2024 Telephone encounter Note Form atting of this note might be different from the original. Patient called to let you know that her stomach is still cramping and she is having diarrhea again. Ty [facility] 06-20-2024 Miscellaneous Notes Formattin g of this note might be different from the original. Patient called to let you know that her stomach is still cramping and she is having diarrhea again. Ty documented in this encounter [facility] 06-06-2024 Telephone encounter Note Form atting of this note might be different from the original. Please let patient know other than some stool to right colon, CT is negative. I do recommend staying away from pork and high fatty foods. If she continues to have issues, she may benefit from seeing GI. [facility] 06-06-2024 Miscellaneous Notes Formattin g of this note might be different from the original. Please let patient know other than some stool to right colon, CT is negative. I do recommend staying away from pork and high fatty foods. If she continues to have issues, she may benefit from seeing GI. documented in this encounter [facility] 05-27-2024 History of Presen t illness Narrative Images from the original note were not included. Mariya Orosco is a 39 y.o. female presents with chief complaint of Follow-up (Cramping abdominal pain, yeasty burps . Projectile vomited, diarrhea 04/09/24. Had again 05/15/24, had rash in addition to pain/vomiting. Went to [facility] 05/17/24) HPI: HPI Patient presents to the hospital today for ER follow up. She recently went to the ER on 05/17 for RUQ pain. Patient has noticed this twice after eating pork. Labs and urine were unremarkable from the ER. Patient denies pain now but admits pain to be RUQ and eipigastric. She admits to have a yeasty belching. Admits pain to abdomen feels like someone is stabbing her. She's noticed this only after eating pork, once in March and once this month. She is also on Wegovy for weight loss. Patient is concerned for her gallbladder. She was prescribed pepcid that she's been taking twice a day. She also had diarrhea that was yellow bile. Decreased appetite but now back to her normal. She denies fever, body aches or chills. Admits occasional sharp pain inbetween shoulder blades. Had rash and now it's gone. She has not had a normal BM since. She did eat spaghetti last night and tolerated well. SUBJECTIVE: MEDICATIONS: Current Outpatient Medications Medication Instructions cetirizine (ZYRTEC) 10 mg, Daily Chlorhexidine Gluconate (Hibiclens) 4 % solution Apply from the neck down as body wash, use 2-3 times a weeks, 30 day supply clindamycin (Cleocin T) 1 % lotion Apply thin later to affected areas on the body during flares, 30 day supply diphenhydrAMINE (BENADRYL) 25 mg, Every 8 hours PRN escitalopram (LEXAPRO) 20 mg, Oral, Daily famotidine (PEPCID) 20 mg, Oral, 2 times daily metFORMIN XR (Glucophage-XR) 500 MG 24 hr tablet Take 1 tablet by mouth daily montelukast (SINGULAIR) 10 mg, Every morning Wegovy 1 mg, Subcutaneous, Weekly ALLERGIES: Allergies Allergen Reactions Compazine [Prochlorperazine] Doxycycline GI intolerance Mastisol Adhesive [Wound Dressing Adhesive] History: Past Medical History: Diagnosis Date Asthma, chronic, [...] Thyroid enlargement (CMS/HCC) Unsocialized aggressive disorder (CMS/HCC) Past Surgical History: Procedure Laterality Date SECTION, CLASSIC 11/21/2017 SECTION, CLASSIC 04/16/[address] Cruz ENDOMETRIAL ABLATION 01/31/2023 SKIN BIOPSY TUBAL LIGATION WISDOM TOOTH EXTRACTION [place] teeth Family History Problem Relation Name Age of Onset Hypertension Mother Heart disease Mother Other (prediabetes) Father Hypertension Father Cancer Father bladder No Known Problems Daughter No Known Problems Daughter Melanoma Neg Hx Social History Socioeconomic History Marital status: Spouse name: Not on file Number of children: Not on file Years of education: Not on file Highest education level: Not on file Occupational History Not on file Tobacco Use Smoking status: Never Passive exposure: Never Smokeless tobacco: Never Vaping Use Vaping status: Never Used Substance and Sexual Activity Alcohol use: Yes Comment: Alcohol: 1-2 drinks/monthly or less Drug use: Not on file Sexual activity: Yes control/protection: Surgical Comment: Bilateral tubal ligation Other Topics Concern Not on file Social History Narrative Not on file Social Drivers of Health Financial Resource Strain: Not on file Food Insecurity: No Food Insecurity (03/12/2024) Received from [facility] Hunger Screening Within the past 12 months we worried whether our food would run out before we got money to buy more.: Never True Within the past 12 months the food we bought just didn't last and we didn't have money to get more.: Never True Transportation Needs: Not on file Physical Activity: Not on file Stress: Not on file Social Connections: Not on file Intimate Partner Violence: Not on file Housing Stability: Not on file I have reviewed and reconciled the history and medication list with the patient today. REVIEW OF SYMPTOMS: Review of Systems Constitutional: Negative for activity change, appetite change and fatigue. HENT: Negative. Respiratory: Negative for cough, shortness of breath and wheezing. Cardiovascular: Negative for chest pain and palpitations. Gastrointestinal: Negative for abdominal pain, diarrhea and nausea. Genitourinary: Negative. Musculoskeletal: Negative. Skin: Negative for color change, rash and wound. Psychiatric/Behavioral: Negative. OBJECTIVE: 07/26/2023 8:41 AM 11/13/2023 4:09 PM 11/13/2023 5:06 PM 01/01/2024 10:05 AM 03/17/2024 9:23 AM 05/12/2024 4:22 PM 05/27/2024 4:12 PM Vitals BMI 32.27 kg/m2 33.33 kg/m2 32.46 kg/m2 31.24 kg/m2 31.41 kg/m2 30.55 kg/m2 BSA (m2) 1.96 m2 1.99 m2 1.97 m2 1.93 m2 1.94 m2 1.91 m2 Systolic 118 150 138 120 120 122 134 Diastolic 74 92 84 78 70 76 92 Heart Rate 72 76 Weight (lb) 188 194.2 189.12 182 183 178 Visit Report Report Report Report Report Report Report Report Physical Exam Vitals reviewed. Constitutional: General: She is not in acute distress. Appearance: Normal appearance. Cardiovascular: Rate and Rhythm: Normal rate and regular rhythm. Heart sounds: No murmur heard. Pulmonary: Effort: Pulmonary effort is normal. No respiratory distress. Breath sounds: Normal breath sounds. No wheezing or rhonchi. Abdominal: General: Bowel sounds are decreased. There is no distension. Palpations: Abdomen is soft. Tenderness: There is abdominal tenderness in the right lower quadrant. Musculoskeletal: Right lower leg: No edema. Left lower leg: No edema. Skin: General: Skin is warm and dry. Findings: No rash. Neurological: Mental Status: She is alert. Mental status is at baseline. Psychiatric: Mood and Affect: Mood normal. Behavior: Behavior normal. Thought Content: Thought content normal. Judgment: Judgment normal. ASSESSMENT AND PLAN: Assessment/Plan Diagnoses and all orders for this visit: RUQ pain - CT abdomen pelvis wo IV contrast; Future Belching - CT abdomen pelvis wo IV contrast; Future Major depressive disorder, single episode, moderate (HCC) (CMS/HCC) - escitalopram (Lexapro) 20 MG tablet; Take 1 tablet (20 mg) by mouth Daily Gastroesophageal reflux disease without esophagitis - famotidine (Pepcid) 20 MG tablet; Take 1 tablet (20 mg) by mouth in the morning and 1 tablet (20 mg) before bedtime. -Reviewed ER records. -Will get CT abdomen to rule out gallbladder involvement. -Continue pepcid for 2 weeks total twice a day then may back down to daily, if improving may take PRN. -Follow up pending CT results, may need to see GI. PVU. Follow up if symptoms worsen or fail to improve, for pending test results. documented in this encounter [facility] 05-19-2024 Telephone encounter Note Form atting of this note might be different from the original. Pt was in [facility] ER and patient spoke with you this weekend. Patient needs a follow up visit, but can only come at 345 or 4pm, and you don't have those openings. Suggestions, she wanted this note sent for your opionon. I did offer at 2:30 but patient said she was at work and could not come then. [facility] 05-19-2024 Miscellaneous Notes Formattin g of this note might be different from the original. Pt was in [facility] ER and patient spoke with you this weekend. Patient needs a follow up visit, but can only come at 345 or 4pm, and you don't have those openings. Suggestions, she wanted this note sent for your opionon. I did offer at 2:30 but patient said she was at work and could not come then. documented in this encounter [facility] 05-12-2024 History of Presen t illness Narrative [...] Diagnosis Date Noted Allergic rhinitis 05/16/2023 Asthma ([facility]) 05/16/2023 Atypical squamous cells of undetermined significance (ASCUS) on Papanicolaou smear of cervix 05/16/2023 Chronic hypertension ([facility]) 10/27/2017 Gastroesophageal reflux disease 05/16/2023 Major depressive disorder, single episode, moderate (HCC) ([facility]) 05/16/2023 Obstructive sleep apnea 05/16/2023 Oligohydramnios 11/20/2017 Chronic rhinitis 11/02/2023 AVA (generalized anxiety disorder) ([facility]) 11/13/2023 Resolved Ambulatory Problems Diagnosis [...] SKIN BIOPSY TUBAL LIGATION WISDOM TOOTH EXTRACTION [place] teeth REVIEW OF SYSTEMS Review of Systems: [...] of: BRANDON Christina documented in this encounter [facility] 05-08-2023 Evaluation note Encounter Date Diagnosis Assessment [...] of diseases classified elsewhere (ICD-10 - B97.89) [facility] Other 10-04-2023 Evaluation note* Encounter Date Diagnosis Assessment Notes Treatment Notes Treatment Clinical Notes Apr, Allergic conjunctivitis, bilateral (ICD-10 - H10.13) Eye allergic reaction [...] no improvement in 2 to 3 days [facility] Other Evaluation noteNo assessment information available [facility] Weight gain- Primary Other symptoms concerning nutrition, metabolism, and development documented in this encounter [facility] HealthcareEvaluation note* Diagnosis RUQ pain- Primary Abdominal pain, right upper quadrant Belching Flatulence, eructation, and gas pain Major depressive disorder, single episode, moderate (HCC) ([facility]/HCC) Major depressive disorder, single episode, moderate Gastroesophageal reflux disease without esophagitis Esophageal reflux documented in this encounter [facility] HealthcareEvaluation [facility]* Diagnosis Acute non-recurrent pansinusitis- Primary Sinus pressure Other diseases of nasal cavity and sinuses Acute cough Other fatigue Sore throat Acute pharyngitis documented in this encounter [facility] HealthcareHistory general Narrative - Reported* Type Description Date Medical History depression Medical History IBS Medical History seasonal allergies Medical History insulin resistant Surgical History C section x2 Surgical History tubal ligation Surgical History uterine ablation [facility] Other Summary Purpose Family History Relationship Condition Age at Onset Recorded Date/T mary father Diabetes mellitus Unknown mother Depression Unknown Advance Directives Advance Directive Response Recorded Date/ Time Advance Directives No March 11, 2021 9:56am Chief Complaint and Reason for Visit Chief Complaint Admit Date Refer: RUQ pain, belching, diarrhea Jonathan stanton 2024 11:38am Additional Source Comments INFORMATION SOURCE (unrecogn ized section and content) DATE CREATED AUTHOR 01/31/2018 [facility] DATE CREATED AUTHOR AUTHOR'S ORGANIZ ATION 03/20/2021 [facility] DATE CREATED AUTHOR AUTHOR'S ORGANIZ ATION 11/12/[address] [facility] dical Specialist DATE CREATED AUTHOR AUTHOR'S ORGANIZ ATION 11/11/2022 [facility] DATE CREATED AUTHOR AUTHOR'S ORGANIZ ATION 03/14/2024 [facility] DATE CREATED AUTHOR AUTHOR'S ORGANIZ ATION 07/25/[address] [facility] dical Specialists EPIC Goals (unrecognized section and content) Goals may be documented in a n alternate sectionNo InformationNo InformationGoals may be documented in an alternate section REASON FOR VISIT (unrecogniz ed section and content) Reason Comments Weight Management Reason Comments Follow-up Cramping abdominal p ain, yeasty burps . Projectile vomited, diarrhea 04/09/24. Had again 05/15/24, had rash in addition to pain/vomiting. Went to [facility] 05/17/24 Reason Onset Date Comments Results 06/06/2024 Reason Comments Sinus Problem Pressure, thick gree n mucous Sore Throat In mornings Care Teams (unrecognized sec tion and content) Assembler Final Relationship Specialty Start Date End Date Samantha Posey MD [address] [place] [address] PCP - General Family Medicine 01/09/23 Samantha Posey MD [address] [place] [address] PCP - Medical [employer] 07/30/12 07/29/99 Assembler Final Relationship Specialty Start Date End Date Samantha Posey MD [address] [place] [address] PCP - General Family Medicine 01/09/23 Samantha Posey MD [address] [place] [address] PCP - Medical [employer] 07/30/12 07/29/99 Assembler Final Relationship Specialty Start Date End Date Samantha Posey MD [address] [place] [address] PCP - General Family Medicine 01/09/23 Samantha Posey MD [address] [place] [address] PCP - Medical [employer] 07/30/12 07/29/99 Assembler Final Relationship Specialty Start Date End Date Samantha Posey MD [address] [place] [address] PCP - General Family Medicine 01/09/23 Samantha Posey MD [address] [place] [address] PCP - Medical [employer] 07/30/12 07/29/99 Assembler Final Relationship Specialty Start Date End Date Samantha Posey MD [address] [place] [address] PCP - General Family Medicine 01/09/23 Samantha Posey MD [address] [place] [address] PCP - Medical [employer] 07/30/12 07/29/99 Assembler Final Relationship Specialty Start Date End Date Samantha Posey MD [address] [facility] [place] [address] PCP - General Family Medicine 01/09/23 Samantha Posey MD [address] [facility] [place] [address] PCP - Medical [employer] 07/30/12 07/29/99 Assembler Final Relationship Specialty Start Date End Date Samantha Posey MD [address] [facility] [place] [address] PCP - General Family Medicine 01/09/23 Samantha Posey MD [address] [facility] [place] [address] PCP - Medical [employer] 07/30/12 07/29/99 Assembler Final Relationship Specialty Start Date End Date Samantha Posey MD [address] [facility] [place] [address] PCP - General Family Medicine 01/09/23 Samantha Posey MD [address] [facility] [place] [address] PCP - Medical [employer] 07/30/12 07/29/99 Team Status: Active Member Role Status Rosamaria Posey MD Primary Care Provider Active Team Status: Inactive Member Role Status Rosamaria Posey MD Primary Care Provider Active Start: July 31, 2024 End: July 31, 2024 Cecy Tovar DO Attending Provider Active St art: July 31, 2024 End: July 31, 2024 Dian Javier NP-C Referring Provider Active Start: July 31, 2024 End: July 31, 2024 Assembler Final Relationship Specialty Start Date End Date Samantha Posey MD [address] [facility] [place] [address] PCP - General Family Medicine 01/09/23 Samantha Posey MD [address] [place] [address] PCP - Medical [employer] 07/30/12 07/29/99 FOR RECORDS PERTAINING TO [...] BE BASED ON THE PRIMARY CLINICAL RECORDS. [employer] [facility]. provides no warranty or guarantee of the accuracy or completeness of information in this document.
[2024-08-18 10:46] LABS: Alanine Aminotransferase 28 U/L (14-59); Albumin Globulin Ratio 1.1; Albumin Level 3.7 g/dL (3.4-5.0); Alkaline Phosphatase 49 U/L (46-116); Anion Gap 10.5; Aspartate Amino Transferase 14 U/L (15-37); BUN Creatinine Ratio 16.5; Bilirubin Total 0.3 mg/dL (0.2-1.0); Calcium 8.9 mg/dL (8.5-10.1); Carbon Dioxide 30.7 mmol/L (21.0-32.0); Chloride 102 mmol/L (98-107); Estimated GFR (African America >60 (>=60 mL/min/1.73m^2); Estimated GFR (Non-African Ame >60 (>=60 mL/min/1.73m^2); Globulin 3.3 g/dL; Glucose 94 mg/dL (74-106); Potassium 4.2 mmol/L (3.5-5.1); Sodium 139 mmol/L (136-145)
== END 2024-08-18 09:17 | disposition home or self-care (01) ==
PROVIDERS: PCP Family Medicine; Visit Provider Physician Assistant
DX: Z79.899 Other long term (current) drug therapy (principal)
CPT/HCPCS: 36415; 80053

== ENCOUNTER 2024-11-10 09:36 | Outpatient (OUT) | payer OTHER, SELFPAY ==
--- OUTSIDE RECORDS SUMMARY | 2024-11-10 09:57 | XMS_ITS | CCD ---
Author Organization [facility] Care Team Providers Care Image Processing Engineer Name Role Phone RAMON BULLARD Unavailable Unavailable RAMON BULLARD Unavailable Unavailable NONE, XXXX Unavailable Unavailable MD Agustín Jha Attending Provider RAMON VASQUEZ Primary Care [facility] DR BERNSTEIN Consulting Unavailable LILY JAVIER Admitting Unavailable LILY JAVIER Attending Unavailable FAMILIA ., DR ANTOINE Consulting Unavailable FAMILIA ., DR ANTOINE Admitting Unavailable FAMILIA ., DR ANTOINE Attending Unavailable BULLARD ., RAMON Primary Care Unavailable FAMILIA ., DR ANTOINE Consulting Unavailable FAMILIA ., DR ANTOINE Admitting Unavailable FAMILIA ., DR ANTOINE Attending Unavailable BULLARD ., RAMON Primary Care Unavailable ANTOINE, DR VALENTINA Oliveira Consulting Unavailable DONTRELL ., RAMON Primary Care Unavailable LILY JAVIER Attending Unavailable DANIEL, DR BERNSTEIN Consulting Unavailable LILY JAVIER Admitting Unavailable Catia Mcdowell Unavailable Filomena Delgado Unavailable SY CARL Attending Unavailable WONDERLY, SAMANTHA B Referring Unavailable WONDERLY, SAMANTHA B Primary Care Unavailable BEAVERS, ARIEL E Attending Unavailable BEAVERS, ARIEL E Referring Unavailable WONDERLY, SAMANTHA B Primary Care Unavailable BEAVERS, ARIEL E Admitting Unavailable BEAVERS, ARIEL E Attending Unavailable WONDERLY, SAMANTHA B Referring Unavailable WONDERLY, SAMANTHA B Primary Care Unavailable GADIEL CARLOS Attending Unavailable WONDERLY, SAMANTHA B Primary Care Unavailable SY CARL Attending Unavailable WONDERLY, SAMANTHA B Referring Unavailable WONDERLY, SAMANTHA B Primary Care Unavailable Samantha Posey MD Primary Care Provider Samantha Posey MD Unavailable RITESH DORANTES Attending Unavailable RITESH DORANTES Referring Unavailable TAMARA GALLAGHER Attending Unavailable AGUSTÍN JHA Attending Unavailable ELINA BARBOSA Attending Unavailable TAMARA GALLAGHER Attending Unavailable TAMARA GALLAGHER Attending Unavailable LILY JAVIER Attending Unavailable LILY JAVIER Referring Unavailable LILY JAVIER Attending Unavailable TAMARA GALLAGHER Attending Unavailable Samantha Posey MD Primary Care Provider Allergies Allergy Classification Reported Allergen(s) Allergy Type Date of Onset Reaction(s) Facility (3 sources) Prochlorperazine Drug Allergy 24 hour parkinsons [facility] Repository (20 sources) Prochlorperazine; Translations: [PROCHLORPERAZINE] Drug Allergy 05-20-20 19 Other (See Comments) [facility] Repository (4 sources) OTHER; Translations: [OTHER] Propensity to adverse reactions (disorder) 11-30-19 18 [facility] (4 sources) GUM [id number]- ALCOHOL; Translations: [GUM [id number]- ALCOHOL] Propensity to adverse reactions to drug (disorder) 05-20-20 19 Rash [facility] (18 sources) Doxycycline Drug Allergy 01-14-20 24 GI intolerance [facility] (18 sources) Wound Dressing Adhesive Propensity to adverse reactions 01-10-20 23 [facility] (1 source) methyl salicylate Drug Allergy 07-31-19 25 Itching [facility] (1 source) alcohol Allergy to substance 07-31-19 25 [facility] (1 source) gum mastic Allergy to substance 07-31-19 25 [facility] (1 source) storax Allergy to substance 07-31-19 25 [facility] Medications Current Medications Medication Drug Class(es) Dates [...] 10 days. 20 tablet 07/24/2024 08/03/2024 Active aspirin 81 mg chewable tablet (3 sources) Platelet Aggregation Inhibitor, Nonsteroidal Anti-inflammatory Drug aspirin 81 mg chewable tablet Chew 1 tablet (81 mg total) and swallow in the morning. TAKING 2 TABS DAILY. . Active aspirin 81 mg ch ewable tablet Chew 81 mg and swallow daily. TAKING 2 TABS DAILY. Active cetirizine hydrochloride 10 mg oral capsule (20 sources) Histamine-1 Receptor Antagonist Start: 07-31-2024 take 1 capsule by mouth once daily as needed Cetirizine (Zyrtec) 10 mg capsule Active 10 MG PO Daily as needed July 31, 2024 12:00am take 2 tablets by mouth in the m orning cetirizine (ZyrTEC) 5 MG tablet Take 10 mg by mouth in the morning. Active take 1 tablet by mouth in the mo rning cetirizine (ZyrTEC) 5 mg tablet Take 1 tablet (5 mg total) by mouth in the morning. Active take 1 tablet by mouth once asuncion y ZyrTEC 10 MG 1 tablet Orally Once a day Active chlorhexidine gluconate 40 mg/ml medicated liquid soap (18 sources) Start: 01-14-2024 Chlorhexidine Gluconate (Hibiclens) 4 % solution Indications: Bacterial folliculitis Apply from the neck down as body wash, use 2-3 times a weeks, 30 day supply 473 mL 01/14/2024 Active clindamycin 10 mg/ml topical lotion (18 sources) Lincosamide Antibacterial Start: 01-14-2024 clindamycin (Cleocin T) 1 % lotion Indications: Bacterial folliculitis Apply thin later to affected areas on the body during flares, 30 day supply 60 mL 01/14/2024 Active diphenhydrAMINE hydrochloride 25 mg oral tablet (14 sources) Histamine-1 Receptor Antagonist Start: 05-17-2024 take 1 tablet by mouth every eight hours as needed diphenhydrAMINE (BENADryl) 25 MG tablet Take 25 mg by mouth every 8 (eight) hours if needed 05/17/2024 Active docusate sodium 100 mg oral capsule (3 sources) take 1 capsule by mouth once docusate sodium (COLACE) 100 mg capsule Take 1 capsule (100 mg total) by mouth once. Active escitalopram 20 mg oral tablet (20 sources) Serotonin Reuptake Inhibitor Start: 02-10-2024 End: 05-27-2024 take 1 tablet by mouth once daily escitalopram (Lexapro) 20 MG tablet Indications: Major depressive disorder, single episode, moderate (HCC) (CMS/HCC) Take 1 tablet (20 mg) by mouth Daily 90 tablet 3 05/27/2024 Active famotidine 20 mg oral tablet (17 sources) Histamine-2 Receptor Antagonist Start: 11-03-2024 take 1 tablet by mouth twice daily at bedtime famotidine (Pepcid) 20 MG tablet Indications: Gastroesophageal reflux disease without esophagitis TAKE 1 TABLET BY MOUTH TWICE DAILY (IN THE MORNING and BEFORE bedtime) 180 tablet 11/03/2024 Active Start: 11-03-2024 take 1 tablet by momo th twice daily at bedtime famotidine (Pepcid) 20 MG tablet Indications: Gastroesophageal reflux disease without esophagitis TAKE 1 TABLET BY MOUTH TWICE DAILY (IN THE MORNING and BEFORE bedtime) 180 tablet 11/03/2024 Active Start: 05-17-2024 End: 08-25-2024 take 1 tablet by mouth in the morning famotidine (Pepcid) 20 MG tablet Indications: Gastroesophageal reflux disease without esophagitis Take 1 tablet (20 mg) by mouth in the morning and 1 tablet (20 mg) before bedtime. 180 tablet 05/27/2024 08/25/2024 Active labetalol hydrochloride 200 mg oral tablet (3 sources) beta-Adrenergic Surjit take 1 tablet by mouth in the morning, then take 1 tablet by mouth at bedtime labetalol (NORMODYNE) 200 mg tablet Take 1 tablet (200 mg total) by mouth in the morning and 1 tablet (200 mg total) before bedtime. Active loratadine 5 mg chewable tablet (5 sources) loratadine (CLARITIN) 5 mg chewable tablet Chew 2 tablets (10 mg total) and swallow in the morning. Active take 1 tablet by mouth once asuncion y Loratadine 10 MG 1 tablet Orally Once a day for 30 day(s) Not-Taking metFORMIN hydrochloride 500 mg oral tablet (20 sources) Biguanide Start: 07-31-2024 take 1 tablet by mouth once daily Metformin 500 mg tablet Active 500 MG PO Daily July 31, 2024 12:00am Start: 03-11-2024 End: 08-18-2024 take 1 tablet by mouth once daily metFORMIN XR (Glucophage-XR) 500 MG 24 hr tablet Indications: Insulin resistance Take 1 tablet by mouth daily 30 tablet 11 03/11/2024 08/18/2024 Discontinued take 1 tablet by momo in the morning, then take 1 tablet by mouth at bedtime metFORMIN (GLUCOPHAGE) 500 mg tablet Take 1 tablet (500 mg total) by mouth in the morning and 1 tablet (500 mg total) before bedtime. Active montelukast 10 mg oral tablet (20 sources) Leukotriene Receptor Antagonist Start: 07-31-2024 take [...] 20 mg oral tablet (1 source) Start: 05-08-20 take 1 tablet by mouth every twelve hours prednisone 20 MG 1 tablet Orally BID for 5 Apr, Active VIT CALC,IRON,FOLIC ( VITAMIN ORAL) (3 sources) take 1 tablet by mouth in the morning VIT CALC,IRON,FOLIC ( VITAMIN ORAL) Take 1 tablet by mouth in the morning. Active take 1 tablet by mouth once asuncion y VIT CALC,IRON,FOLIC ( VITAMIN ORAL) Take 1 tablet by mouth daily. Active vit37/iron/folic ac id (PRENATA ORAL) (3 sources) take 1 tablet by mouth in the morning vit37/iron/folic acid (PRENATA ORAL) Take 1 tablet by mouth in the morning. Active take 1 tablet by mouth once asuncion y vit37/iron/folic acid (PRENATA ORAL) Take 1 tablet by mouth daily. Active raNITIdine 150 mg oral tablet (3 sources) Histamine-2 Receptor Antagonist take 1 tablet by mouth in the morning, then take 1 tablet by mouth at bedtime raNITIdine (ZANTAC) 150 mg tablet Take 1 tablet (150 mg total) by mouth in the morning and 1 tablet (150 mg total) before bedtime. Active Semaglutide (Weight Loss) (1 source) Start: 07-31-19 25 Semaglutide (Weight Loss) (Wegovy) 2.4 mg/0.75 mL pen injector Active 2.4 MG SUBCUT every week July 31, 2024 12:00am semaglutide, weight loss, (WEGOVY) 0.5 mg/0.5 mL pen injector (3 sources) Start: 01-01-20 24 inject 0.5 mL by subcutaneous injection every week semaglutide, weight loss, (WEGOVY) 0.5 mg/0.5 mL pen injector Inject 0.5 mL (0.5 mg total) under the skin once a week. 01/01/2024 Active Semaglutide-Weight Management (Wegovy) 1 MG/0.5ML solution auto-injector (8 sources) Start: 04-29-20 inject 1 mg by subcutaneous injection every week Semaglutide-Weight Management (Wegovy) 1 MG/0.5ML solution auto-injector Indications: Encounter for weight management Inject 1 mg under the skin 1 (one) time per week 4 mL 04/29/2024 Active Semaglutide-Weight Management (Wegovy) 1.7 MG/0.75ML solution auto-injector (6 sources) Start: 06-20-20 End: 08-18-19 25 inject 1.7 mg by subcutaneous injection every week Semaglutide-Weight Management (Wegovy) 1.7 MG/0.75ML solution auto-injector Indications: Encounter for long-term (current) use of medications , Encounter for weight management Inject 1.7 mg under the skin 1 (one) time per week 3 mL 06/20/2024 08/18/2024 Discontinued (Other) Start: 06-20-2024 inject 1.7 mg by sub cutaneous injection every week Semaglutide-Weight Management (Wegovy) 1.7 MG/0.75ML solution auto-injector Indications: Encounter for long-term (current) use of medications , Encounter for weight management Inject 1.7 mg under the skin 1 (one) time per week 3 mL 06/20/2024 Active Semaglutide-Weight Management (Wegovy) 2.4 MG/0.75ML solution auto-injector (8 sources) Start: 08-18-2024 End: 09-17-2024 inject 2.4 mg by subcutaneous injection every week Semaglutide-Weight Management (Wegovy) 2.4 MG/0.75ML solution auto-injector Indications: Encounter for weight management , Insulin resistance , Metabolic syndrome Inject 2.4 mg under the skin 1 (one) time per week 0.75 mL 08/18/2024 09/17/2024 Active Start: 07-16-2024 End: 08-18-2024 inject 2.4 mg by subcutaneous injection every week Semaglutide-Weight Management (Wegovy) 2.4 MG/0.75ML solution auto-injector Indications: Encounter for weight management , Insulin resistance , Metabolic syndrome Inject 2.4 mg under the skin 1 (one) time per week 0.75 mL 07/16/2024 08/18/2024 Discontinued (Reorder) Start: 07-16-2024 End: 08-15-2024 inject 2.4 mg by subcutaneous injection every week Semaglutide-Weight Management (Wegovy) 2.4 MG/0.75ML solution auto-injector Indications: Encounter for weight management , Insulin resistance , Metabolic syndrome Inject 2.4 mg under the skin 1 (one) time per week 0.75 mL 07/16/2024 08/15/2024 Active sertraline 50 mg oral tablet (5 sources) Serotonin Reuptake Inhibitor take 1 tablet by mouth in the morning sertraline (ZOLOFT) 50 mg tablet Take 1 tablet (50 mg total) by mouth in the morning. Active Completed/Discontinued Medications Medication Drug Class(es) Dates Sig (Normalized) Sig (Original) [id number] 200 actuat albuterol 0.09 mg/actuat metered dose inhaler (2 sources) beta2-Adrenergic Agonist Ventolin HFA 108 (90 Base) MCG/ACT 2 puffs as needed Inhalation PRN Not-Taking gabapentin 100 mg oral capsule (2 sources) Anti-epileptic Agent Start: 04-01-2020 take 1 capsule by mouth three times daily as needed Gabapentin 100 MG 1 capsule Orally three times a day as needed for 7 days Mar, Not-Taking valACYclovir 1000 mg oral tablet (2 [...] Date Documented Da te Episodic/Chronic Abdominal pain (12 sources) Abdominal pain; Translations: [Abdominal pain] Onset: 3 05-27-2024 Episodic Anxiety disorders (18 sources) Generalized anxiety disorder; Translations: [Generalized anxiety disorder] Onset: 4 11-13-2023 Chronic Asthma (19 sources) Unspecified asthma, uncomplicated; Translations: [Asthma] Onset: 2 05-16-2023 Chronic Contraceptive and procreative management (5 sources) Patient encounter status; Translations: [Persons encountering health services in other specified circumstances] Onset: 8 08-18-2024 Episodic Esophageal disorders (20 sources) Gastroesophageal reflux disease; Translations: [Gastro-esophageal reflux disease without esophagitis] Onset: 3 05-16-2023 Chronic Essential hypertension (20 sources) Hypertensive disorder; Translations: [Essential (primary) hypertension] Onset: 8 05-16-2023 Chronic Hypertension complicating ; childbirth and the puerperium (3 sources) Chronic hypertension in obstetric context; Translations: [Unspecified pre-existing hypertension complicating , second trimester] Onset: 9 12-08-2018 Chronic Inflammation; infection of eye (except that caused by tuberculosis or sexually transmitteddisease) (1 source) Acute atopic conjunctivitis, bilateral Episodic Malaise and fatigue (2 sources) Fatigue; Translations: [Other fatigue] 07-24-2024 Episodic Menstrual disorders (4 sources) Excessive and frequent menstruation with regular cycle; Translations: [EXCESS FREQ MENSTRUATION W/REG CYCL] Onset: 3 Chronic Mood disorders (20 sources) Moderate major depression, single episode; Translations: [Major depressive disorder, single episode, moderate] Onset: 3 05-16-2023 Chronic Nausea and vomiting (2 sources) Nausea; Translations: [Nausea] Episodic Other aftercare (2 sources) Long-term current use of drug therapy; Translations: [Other fci (current) drug therapy] 08-18-2024 Episodic Other complications of (3 sources) Maternal obesity complicating , childbirth and the puerperium, antepartum; Translations: [Obesity complicating , second trimester] Onset: 9 12-09-2018 Chronic Other gastrointestinal disorders (2 sources) Irritable bowel [...] nutritional; endocrine; and metabolic disorders (2 sources) Insulin resistance; Translations: [Insulin resistance] 08-18-2024 Chronic Other nutritional; endocrine; and metabolic disorders (2 sources) Metabolic syndrome X; Translations: [Metabolic syndrome] 08-18-2024 Chronic Other nutritional; endocrine; and metabolic disorders (2 sources) Weight increased; Translations: [Abnormal weight gain] 05-14-2024 Episodic Other screening for suspected conditions (not mental disorders or infectious disease) (4 sources) Encounter for screening for malignant neoplasm of cervix; Translations: [ENC SCREENING MALIG NEOPLASM CERV] Onset: 3 Episodic Other upper respiratory disease (20 sources) Allergic rhinitis; Translations: [Allergic rhinitis, unspecified] Onset: 3 11-02-2023 Chronic Other upper respiratory disease (18 sources) Chronic rhinitis; Translations: [Chronic rhinitis] Onset: [...] APNEA] Onset: 2 Chronic Residual codes; unclassified (18 sources) Obstructive sleep apnea syndrome; Translations: [Obstructive sleep apnea (adult) (pediatric)] Onset: 3 05-16-2023 Chronic Spondylosis; intervertebral disc disorders; other back problems (7 sources) Sacrococcygeal disorders, not elsewhere classified; Translations: [Backache] Onset: 3 01-02-2024 Episodic Unclassified (14 sources) Patient on antidepressant monitoring plan Onset: 4 05-27-2024 Viral infection (1 source) Other viral agents as the cause of diseases classified elsewhere Episodic Past or Other Problems Problem Classification Problem Date Documented Da te Episodic/Chronic Cancer of cervix (18 sources) Atypical squamous cells of undetermined significance on cervical Papanicolaou smear; Translations: [Atypical squamous cells of undetermined significance on cytologic smear of cervix (ASC-US)] Onset: 05-16-2023 05-16-2023 Episodic Hemorrhage during ; abruptio placenta; placenta previa (3 sources) Low lying placenta; Translations: [Low lying placenta NOS or without hemorrhage, second trimester] Onset: 12-09-2018 12-09-2018 Episodic Hemorrhoids (6 sources) Bleeding external hemorrhoids; Translations: [Residual hemorrhoidal skin tags] Onset: 05-20-2019 05-20-2019 Episodic Hypertension complicating ; childbirth and the puerperium (3 sources) Pre-eclampsia; Translations: [Unspecified pre-eclampsia, third trimester] Onset: 11-21-2017 11-21-2017 Episodic Mood disorders (18 sources) Mood disorders Onset: 11-13-2023 11-13-2023 Other complications of (3 sources) History of pre-eclampsia; Translations: [Supervision of with other poor reproductive or obstetric history, second trimester] Onset: 12-09-2018 12-09-2018 Episodic Other complications of (3 sources) High risk ; Translations: [Supervision of other high risk pregnancies, second trimester] Onset: 12-09-2018 12-09-2018 Episodic Other complications of (3 sources) Single umbilical artery; Translations: [Supervision of other high risk pregnancies, unspecified trimester] Onset: 12-09-2018 12-09-2018 Episodic Other complications of (3 sources) Poor growth affecting management; Translations: [Maternal care for other known or suspected poor growth, third trimester, not applicable or unspecified] Onset: 11-21-2017 Resolved: 11-29-2017 11-29-2017 Episodic Other lower respiratory disease (1 source) Snoring; Translations: [SNORING] Onset: 01-07-2022 Episodic Other and delivery including normal (3 sources) care status; Translations: [Encounter for routine follow-up] Onset: 11-23-2017 11-23-2017 Episodic Polyhydramnios and other problems of amniotic cavity (20 sources) Oligohydramnios; Translations: [Oligohydramnios, unspecified trimester, not applicable or unspecified] Onset: 11-20-2017 05-16-2023 Episodic Unclassified (3 sources) Onset: 05-20-2019 05-20-2019 Results Test Name Value Interpretation Reference Range Facility [facility] CMP (CMP) (FOR REMOTE [facility] C USE)on 08-18-2024 Albumin [Mass/Vol] 3.7 g/dL 3.4 - 5.0 g/dL [facility] ALBUMIN GLOBULIN RATIO 1.1 [facility] ALP [Catalytic activity/Vol] 49 U/L 46 - 116 U/L [facility] ALT [Catalytic activity/Vol] 28 U/L 14 - 59 U/L [facility] Anion gap [Moles/Vol] 10.5 mmol/L [facility] AST [Catalytic activity/Vol] 14 U/L Low 15 - 37 U/L [facility] Bilirubin [Mass/Vol] 0.3 mg/dL 0.2 - 1 .0 mg/dL [facility] Calcium [Mass/Vol] 8.9 mg/dL 8.5 - 10. 1 mg/dL [facility] Chloride [Moles/Vol] 102 mmol/L 98 - 10 7 mmol/L [facility] CO2 [Moles/Vol] 30.7 mmol/L 21.0 - 32.0 mmol/L [facility] Creatinine [Mass/Vol] 0.91 mg/dL 0.55 - 1.02 mg/dL [facility] GFR/1.73 sq M.predicted CKD-EPI (S/P/Bld) [Vol rate/Area] >60 >=60 mL/min/1.73m 2 [facility] Globulin (S) [Mass/Vol] 3.3 g/dL [facility] Glucose [Mass/Vol] 94 mg/dL 74 - 106 mg/dL [facility] Interpretation and review of laboratory results Abnormal [facility] Potassium [Moles/Vol] 4.2 mmol/L 3.5 - 5.1 mmol/L [facility] Protein [Mass/Vol] 7 g/dL 6.4 - 8.2 g/dL [facility] Sodium [Moles/Vol] 139 mmol/L 136 - 145 mmol/L [facility] TBH EGFR-NON AF UGANDAN >60 >=60 mL/min/1.73m 2 [facility] Urea nitrogen [Mass/Vol] 15 mg/dL 7.0 - 18.0 mg/dL [facility] Urea nitrogen/Creatinine [Mass ratio] 16.5 mg/mg [facility] ABDOMEN PELVIS WO IV CONT Cedrick [...] Not Available Comment on above: Order Comment: ABD P AIN, NAUSEA, VOMITING, DIARRHEA X 3 MOS US [...] pyogenes Org specific cx Ql (Throat) Negative [facility] Other Quick Strep [facility] Other PAP ACOG PANEL 2: 30 to 65on 11-06-2022 . . Normal [facility] Comment on above: Result Comment: Perf ormed at: WB Performed By: #### [id number] #### [facility] [address] [place] [address] Dr. Emanuel Castillo Age Gdln ACOG Testing 30-65 [facility] Comment on above: Performed By: #### [id number] #### [facility] [address] [address] [address] Emanuel Castillo DIAGNOSIS: Comment Normal [facility] Comment on above: Result Comment: NEGA TIVE FOR INTRAEPITHELIAL LESION OR MALIGNANCY. Performed at: WB Performed By: #### [id number] #### [facility] [address] [place] [address] Dr. Emanuel Castillo HPV Aptima Negative Normal Negative [facility] Comment on above: Result Comment: This nucleic acid amplification test detects fourteen high-risk HPV types (16,18,31,33,35,39,45,51,52,56,58,59,66,68) without differentiation. Performed at: =G Performed By: #### [id number] #### [facility] [address] [address] [address] Emanuel Castillo HPV Genotype Reflex Comment Normal [facility] Comment on above: Result Comment: Crit eria not met, HPV Genotype not performed. Performed at: WB Performed By: #### [id number] #### [facility] [address] [place] [address] Dr. Emanuel Castillo Methodology: Comment [facility] Comment on above: Result Comment: This liquid based ThinPrep(R) pap test was screened with the use of an image guided system. Performed at: WB Performed By: #### [id number] #### [facility] [address] [place] [address] Dr. Emanuel Castillo Note: Comment Normal [facility] Comment on above: Result Comment: The Pap smear is a screening test designed to aid in the detection of premalignant and malignant conditions of the uterine cervix. It is not a diagnostic procedure and should not be used as the sole means of detecting cervical cancer. Both false-positive and false-negative reports do occur. . Performed at: WB Performed By: #### [id number] #### [facility] [address] [place] [address] Dr. Emanuel Castillo Performed by: Comment Normal [facility] Comment on above: Result Comment: Jennifer Vallecillo, [employer] Technician (ASCP) Performed at: WB Performed By: #### [id number] #### [facility] [address] [place] [address] Dr. Emanuel Castillo Specimen adequacy: Comment Normal [facility] Comment on above: Result Comment: Sati sfactory for evaluation. Performed at: WB Performed By: #### [id number] #### [facility] [address] [place] [address] Dr. Emanuel Castillo CBC AUTO DIFFon 11-01-2022 BASO # 0.0 103/ul Normal 0.0-0.1 [facility] Comment on above: Performed By: #### C BC #### [facility] [address] [place] [address] Dr. Emanuel Castillo Basophils/100 WBC (Bld) 0.6 % Normal 0.2-2.0 [facility] Comment on above: Performed By: #### C BC #### [facility] [address] [place] [address] Dr. Emanuel Castillo EO # 0.3 103/ul Normal 0.0-0.7 [facility] Comment on above: Performed By: #### C BC #### [facility] [address] [place] [address] Dr. Emanuel Castillo Eosinophils/100 WBC (Bld) 3.7 % Normal 0.9-7.0 [facility] Comment on above: Performed By: #### C BC #### [facility] [address] [place] [address] Dr. Emanuel Castillo Erythrocyte distribution width (RBC) [Ratio] 12.9 % Normal 11.0-15.0 [facility] Comment on above: Performed By: #### C BC #### [facility] [address] [place] [address] Dr. Emanuel Castillo Hematocrit (Bld) [Volume fraction] 42.1 % Normal 36.0-48.0 [facility] Comment on above: Performed By: #### C BC #### [facility] [address] [place] [address] Dr. Emanuel Castillo Hemoglobin (Bld) [Mass/Vol] 13.8 g/dL Normal 12.0-16.0 [facility] Comment on above: Performed By: #### C BC #### [facility] [address] [place] [address] Dr. Emanuel Castillo IG # 0.02 10e3/ul Normal 0.00-0.03 [facility] Comment on above: Performed By: #### C BC #### [facility] [address] [place] [address] Dr. Emanuel Castillo IG % 0.3 % Normal 0.0-0.5 [facility] Comment on above: Performed By: #### C BC #### [facility] [address] [place] [address] Dr. Emanuel Castillo LYMPH # 2.4 103/ul Normal 1.2-3.8 [facility] Comment on above: Performed By: #### C BC #### [facility] [address] [place] [address] Dr. Emanuel Castillo Lymphocytes/100 WBC (Bld) 35.0 % Normal 20.5-60.0 [facility] Comment on above: Performed By: #### C BC #### [facility] [address] [place] [address] Dr. Emanuel Castillo MANUAL DIFF REQ NO Normal [facility] Comment on above: Performed By: #### C BC #### [facility] [address] [place] [address] Dr. Emanuel Castillo MCH (RBC) [Entitic mass] 27.8 pg Normal 26.7-34.0 [facility] Comment on above: Performed By: #### C BC #### [facility] [address] [place] [address] Dr. Emanuel Castillo MCHC (RBC) [Mass/Vol] 32.8 g/dL Normal 29.9-35.2 [facility] Comment on above: Performed By: #### C BC #### [facility] [address] [place] [address] Dr. Emanuel Castillo MCV (RBC) [Entitic vol] 84.9 fL Normal 81.0-99.0 [facility] Comment on above: Performed By: #### C BC #### [facility] [address] [place] [address] Dr. Emanuel Castillo MONO # 0.6 103/ul Normal 0.3-0.8 [facility] Comment on above: Performed By: #### C BC #### [facility] [address] [place] [address] Dr. Emanuel Castillo Monocytes/100 WBC (Bld) 9.2 % Normal 1.7-12.0 [facility] Comment on above: Performed By: #### C BC #### [facility] [address] [place] [address] Dr. Emanuel Castillo NEUT # 3.4 103/ul Normal 1.4-6.5 [facility] Comment on above: Performed By: #### C BC #### [facility] [address] [place] [address] Dr. Emanuel Castillo Neutrophils/100 WBC (Bld) 51.2 % Normal 43.0-75.0 [facility] Comment on above: Performed By: #### C BC #### [facility] [address] [place] [address] Dr. Emanuel Castillo Platelet mean volume (Bld) [Entitic vol] 10.0 fL Normal 9.5-13.5 [facility] Comment on above: Performed By: #### C BC #### [facility] [address] [place] [address] Dr. Emanuel Castillo PLT 214 103/ul Normal 150-450 [facility] Comment on above: Performed By: #### C BC #### [facility] [address] [place] [address] Dr. Emanuel Castillo RBC 4.96 106/ul Normal 4.20-5.40 [facility] Comment on above: Performed By: #### C BC #### [facility] [address] [place] [address] Dr. Emanuel Castillo WBC 6.7 103/ul Normal 4.0-11.0 [facility] Comment on above: Performed By: #### C BC #### [facility] [address] [place] [address] Dr. Emanuel Castillo FREE T4on 11-01-2022 Free T4 [Mass/Vol] 0.72 ng/dL Critically low 0.76-1.46 [facility] Comment on above: Performed By: #### F T4 #### [facility] [address] [place] [address] Dr. Emanuel Castillo GLYCOHEMOGLOBIN A1Con 2022 ADA RECOMMENDATION SEE BELOW Normal [facility] Comment on above: Result Comment: ADA RECOMMENDED LIMIT 4.0 - 6.0 ADA THERAPEUTIC TARGET < 7.0 ACTION SUGGESTED > 7.0 Performed By: #### A 1C #### [facility] [address] [place] [address] Dr. Emanuel Castillo Glucose [Mass/Vol] 108 mg/dL Normal [facility] Comment on above: Performed By: #### A 1C #### [facility] [address] [place] [address] Dr. Emanuel Castillo HbA1c (Bld) [Mass fraction] 5.4 % Normal 4.5-6.2 [facility] Comment on above: Performed By: #### A 1C #### [facility] [address] [place] [address] Dr. Emanuel Castillo PREG QUANT HCGon 11-01-2022 HCG QUANT <1 Normal [facility] Comment on above: Performed By: #### T SH, PREGQNT #### [facility] [address] [place] [address] Dr. Emanuel Castillo HCG RANGE SEE BELOW Normal [facility] Comment on above: Result Comment: 5-50 0.2-1 WEEK 50-500 1-2 WEEKS 100-5,000 2-3 WEEKS 500-10,000 3-4 WEEKS 1,000-50,000 4-5 WEEKS 10,000-100,000 5-6 WEEKS 15,000-200,000 6-8 WEEKS 10,000-100,000 2-3 MONTHS Performed By: #### T SH, PREGQNT #### [facility] [address] [place] [address] Dr. Emanuel Castillo PROTIMEon 11-01-2022 INR Coag (PPP) [Relative time] 0.95 {INR} Normal [facility] Comment on above: Performed By: #### P TT, PT #### [facility] [address] [place] [address] Dr. Emanuel Castillo INR GUIDELINES SEE BELOW Normal [facility] Comment on above: Result Comment: DOT RED INR: 2.0 - 3.0 CONDITIONS NOT LISTED BELOW 2.5 - 3.5 FOR PROSTHETIC HEART VALVE REPLACEMENT 2.5 - 3.5 RECURRENT THROMBOSIS Performed By: #### P TT, PT #### [facility] [address] [place] [address] Dr. Emanuel Castillo PT Coag (PPP) [Time] 10.1 s Normal 9.0-11.6 [facility] Comment on above: Performed By: #### P TT, PT #### [facility] [address] [place] [address] Dr. Emanuel Catsillo PTTon 11-01-2022 aPTT Coag (Bld) [Time] 31.3 s Normal 22.3-36.2 [facility] Comment on above: Performed By: #### P TT, PT #### [facility] [address] [place] [address] Dr. Emanuel Castillo TSHon 11-01-2022 TSH 2.217 uIU/mL Normal 0.358-3.740 [facility] Comment on above: Performed By: #### T SH, PREGQNT #### [facility] [address] [place] [address] Dr. Emanuel Castillo US PELVIS AND TRANSVAGon [...] VALENTINA SCHULTZ Date: 2022-11-01 10:40 Normal [facility] Complete Blood Counton 11-11 Erythrocyte distribution width (RBC) [Ratio] 12.2 % Normal 11.0-15.0 [facility] Comment on above: Performed By: #### F T4, CMP, TSH, LIPD, CBC #### [facility] [address], [place] [id number] Hematocrit (Bld) [Volume fraction] 43.6 % Normal 35.0-47.0 [facility] Comment on above: Performed By: #### F T4, CMP, TSH, LIPD, CBC #### [facility] [address], [place] [id number] Hemoglobin (Bld) [Mass/Vol] 13.8 g/dL Normal 11.6-15.5 [facility] Comment on above: Performed By: #### F T4, CMP, TSH, LIPD, CBC #### [facility] [address], [place] [id number] MCH (RBC) [Entitic mass] 27.5 pg Normal 27.0-33.0 [facility] Comment on above: Performed By: #### F T4, CMP, TSH, LIPD, CBC #### [facility] [address], [place] [id number] MCHC (RBC) [Mass/Vol] 31.7 g/dL Low 32.0-36.0 [facility] Comment on above: Performed By: #### F T4, CMP, TSH, LIPD, CBC #### [facility] [address], [place] [id number] MCV (RBC) [Entitic vol] 87 fL Normal 80-100 [facility] Comment on above: Performed By: #### F T4, CMP, TSH, LIPD, CBC #### [facility] [address], [place] [id number] Platelet mean volume (Bld) [Entitic vol] 10.70 fL Normal 7.50-12.50 [facility] Comment on above: Performed By: #### F T4, CMP, TSH, LIPD, CBC #### [facility] [address], [place] [id number] Platelets (Bld) [#/Vol] 206 10*3/uL Normal 140-400 [facility] Comment on above: Performed By: #### F T4, CMP, TSH, LIPD, CBC #### [facility] [address], [place] [id number] RBC (Bld) [#/Vol] 5.02 10*6/uL Normal 3.90-5.20 [facility] Comment on above: Performed By: #### F T4, CMP, TSH, LIPD, CBC #### [facility] [address], [place] [id number] RDW-SD 39.0 fL Normal 37.0-50.0 [facility] Comment on above: Performed By: #### F T4, CMP, TSH, LIPD, CBC #### [facility] [address], [place] [id number] WBC (Bld) [#/Vol] 5.8 10*3/uL Normal 3.8-11.0 [facility] Specialist Comment on above: Performed By: #### F T4, CMP, TSH, LIPD, CBC #### [facility] [address], [place] [id number] Comprehensive Metabolic Pane misty 11-11-2021 Albumin [Mass/Vol] 4.7 g/dL Normal 3.6-5.1 Yoselin hernandez [employer] Comment on above: Performed By: #### F T4, CMP, TSH, LIPD, CBC #### [facility] [address], [place] [id number] Albumin/Globulin [Mass ratio] 2.4 {ratio} Normal 1.0-2.5 [facility] [employer] Comment on above: Performed By: #### F T4, CMP, TSH, LIPD, CBC #### [facility] [address], [place] [id number] ALP [Catalytic activity/Vol] 48 U/L Normal 35-119 [facility] [employer] Comment on above: Performed By: #### F T4, CMP, TSH, LIPD, CBC #### [facility] [address], [place] [id number] ALT [Catalytic activity/Vol] 19 U/L Normal 6-33 [facility] [employer] Comment on above: Result Comment: 06/29 Female reference range changed. Performed By: #### F T4, CMP, TSH, LIPD, CBC #### [facility] [address], [place] [id number] Anion gap [Moles/Vol] 17 mmol/L Normal 12-20 [facility] [employer] Comment on above: Result Comment: Effe ctive 08/04/2019 reference range changed. Performed By: #### F T4, CMP, TSH, LIPD, CBC #### [facility] [address], [place] [id number] AST [Catalytic activity/Vol] 17 U/L Normal 9-34 [facility] [employer] Comment on above: Performed By: #### F T4, CMP, TSH, LIPD, CBC #### [facility] [address], [place] [id number] BUN/CREA 16 Ratio Normal 6-22 [facility] [employer] Comment on above: Performed By: #### F T4, CMP, TSH, LIPD, CBC #### [facility] [address], [place] [id number] Calcium [Mass/Vol] 9.5 mg/dL Normal 8.6-10.2 Yoselin hernandez [employer] Comment on above: Performed By: #### F T4, CMP, TSH, LIPD, CBC #### [facility] [address], [place] [id number] Chloride [Moles/Vol] 104 mmol/L Normal 98-107 [facility] Comment on above: Performed By: #### F T4, CMP, TSH, LIPD, CBC #### [facility] [address], [place] [id number] CO2 [Moles/Vol] 23 mmol/L Normal 20-31 [facility] Comment on above: Performed By: #### F T4, CMP, TSH, LIPD, CBC #### [facility] [address], [place] [id number] Creatinine [Mass/Vol] 0.6 mg/dL Normal 0.6-1.4 [facility] Comment on above: Performed By: #### F T4, CMP, TSH, LIPD, CBC #### [facility] [address], [place] [id number] eGFRAA 137 mL/min/1.73m2 Normal >60 [facility] Comment on above: Performed By: #### F T4, CMP, TSH, LIPD, CBC #### [facility] [address], [place] [id number] eGFRNAA 113 mL/min/1.73m2 Normal >60 [facility] Comment on above: Performed By: #### F T4, CMP, TSH, LIPD, CBC #### [facility] [address], [place] [id number] Globulin (S) [Mass/Vol] 2.0 g/dL Normal 1.9-3.7 [facility] Comment on above: Performed By: #### F T4, CMP, TSH, LIPD, CBC #### [facility] [address], [place] [id number] Glucose [Mass/Vol] 95 mg/dL Normal 65-99 [facility] Comment on above: Result Comment: For FASTING Glucose --- ADA reference ranges: Normal 65-99 mg/dl Prediabetes 100-125 Diabetes >/= 126 Performed By: #### F T4, CMP, TSH, LIPD, CBC #### [facility] [address], [place] [id number] Potassium [Moles/Vol] 4.4 mmol/L Normal 3.5-5.5 [facility] [employer] Comment on above: Performed By: #### F T4, CMP, TSH, LIPD, CBC #### [facility] [address], [place] [id number] Protein [Mass/Vol] 6.7 g/dL Normal 6.1-8.1 Yoselin hernandez [employer] Comment on above: Performed By: #### F T4, CMP, TSH, LIPD, CBC #### [facility] [address], [place] [id number] Sodium [Moles/Vol] 140 mmol/L Normal 135-146 Yoselin hernandez [employer] Comment on above: Performed By: #### F T4, CMP, TSH, LIPD, CBC #### [facility] [address], [place] [id number] TBIL <0.3 Normal [facility] [employer] Comment on above: Performed By: #### F T4, CMP, TSH, LIPD, CBC #### [facility] [address], [place] [id number] Urea nitrogen [Mass/Vol] 10 mg/dL Normal 7-25 [facility] [employer] Comment on above: Performed By: #### F T4, CMP, TSH, LIPD, CBC #### [facility] [address], [place] [id number] Free T4on 11-11-2021 Free T4 [Mass/Vol] 0.98 ng/dL Normal 0.80-1.80 Yoselin hernandez [employer] Comment on above: Performed By: #### F T4, CMP, TSH, LIPD, CBC #### [facility] [address], [place] [id number] Lipid Panelon 11-11-2021 Cholesterol [Mass/Vol] 189 mg/dL Normal 125-200 [facility] [employer] Comment on above: Result Comment: Low risk < 200mg/dL Borderline risk 201-239 mg/dl High risk > or equal to 240 Performed By: #### F T4, CMP, TSH, LIPD, CBC #### [facility] [address], [place] [id number] Cholesterol in HDL [Mass/Vol] 55 mg/dL Normal >40 [facility] Specialist Comment on above: Result Comment: High Cardiovascular Risk HDL <40 mg/dL Low Cardiovascular Risk HDL > or equal to 60 mg/dl Performed By: #### F T4, CMP, TSH, LIPD, CBC #### [facility] [address], [place] [id number] Cholesterol in LDL [Mass/Vol] 110 mg/dL Normal [facility] Specialist Comment on above: Result Comment: LDL ATP III CLASSIFICATION LDL less than 100 mg/dl Optimal LDL 100-129 mg/dl Near or above optimal LDL 130-159 Borderline high LDL 160-189 High LDL greater than 189 mg/dl Very High Performed By: #### F T4, CMP, TSH, LIPD, CBC #### [facility] [address], [place] [id number] Cholesterol in VLDL [Mass/Vol] 24 mg/dL Normal [facility] Specialist Comment on above: Performed By: #### F T4, CMP, TSH, LIPD, CBC #### [facility] [address], [place] [id number] Cholesterol.total/Ch olesterol in HDL [Mass ratio] 3 {ratio} Normal [facility] Comment on above: Performed By: #### F T4, CMP, TSH, LIPD, CBC #### [facility] [address], [place] [id number] Triglyceride [Mass/Vol] 120 mg/dL Normal 30-150 [facility] Special[facility] Comment on above: Result Comment: TRIG ATPIII CLASSIFICATIONS TRIG less than 150 mg/dl Normal TRIG 150-199 mg/dl Borderline High TRIG 200-500 mg/dl High TRIG greather than 500 mg/dl Very High Performed By: #### F T4, CMP, TSH, LIPD, CBC #### [facility] [address], [place] [id number] TSHon 11-11-2021 TSH 2.100 uIU/mL Normal 0.400-4.500 [facility] Specialist Comment on above: Performed By: #### F T4, CMP, TSH, LIPD, CBC #### [facility] [address], [place] [id number] Superficial Wound Cultureon 03-10-2021 Superficial Wound Culture [...] RESISTANT TO ALL B-LACTAM DRUGS. PERFORMED BY: [place] [address] PATHOLOGIST [employer] FINISH[employer] APPRENTICE SP TRUJILLO M.D. [facility] Comment on above: Performed By: #### C USUP #### [address] Vital Signs Date Time Vital Sign Value Performing Clinician Facility 08-18-2024 08:42-0500 Body mass index (BMI) [Ratio] 28.46 kg/m2 Tamara TAYLOR Work Phone: [facility] 08-18-2024 08:42-0500 Body weight 75.21 kg Tamara TAYLOR Work Phone: [facility] 08-18-2024 08:42-0500 Diastolic blood pressure 76 mm[Hg] Tamara TAYLOR Work Phone: [facility] 08-18-2024 08:42-0500 Systolic blood pressure 120 mm[Hg] Tamara TAYLOR Work Phone: [facility] 07-31-2024 11:45-0500 Body height 162.56 cm [facility] 07-31-2024 11:45-0500 Body mass index (BMI) [Ratio] 28.6 kg/m2 [facility] 07-31-2024 11:45-0500 Body weight 75.74 kg [facility] 07-24-2024 11:03-0500 Body mass index (BMI) [Ratio] 28.67 kg/m2 Lily Javier [employer]INE[employer] Work Phone: [facility] 07-24-2024 11:03-0500 Body weight 75.75 kg Lily Javier NP Work Phone: [facility] 07-24-2024 11:03-0500 Diastolic blood pressure 84 mm[Hg] Lily Javier [employer] ENGINEER Work Phone: [facility] 07-24-2024 11:03-0500 Heart rate 84 /min Lily Javier [employer] ENGINE[employer] Work Phone: [facility] 07-24-2024 11:03-0500 Systolic blood pressure 110 mm[Hg] Lily Javier [employer] ENGINE[employer] Work Phone: [facility] 05-27-2024 16:12-0400 Body mass index (BMI) [Ratio] 30.55 kg/m2 Lily Javier [employer] ENGINEER Work Phone: [facility] 05-27-2024 16:12-0400 Body weight 80.74 kg Lily Javier [employer] ENGINEER Work Phone: [facility] 05-27-2024 16:12-0400 Diastolic blood pressure 92 mm[Hg] Lily Javier [employer] ENGINEER Work Phone: [facility] 05-27-2024 16:12-0400 Heart rate 76 /min Lily Javier NP Work Phone: [facility] 05-27-2024 16:12-0400 Systolic blood pressure 134 mm[Hg] Lily Javier [employer] ENGINE[employer] Work Phone: [facility] 05-12-2024 16:22-0400 Body mass index (BMI) [Ratio] 31.41 kg/m2 Tamara Roxi PA Work Phone: [facility] 05-12-2024 16:22-0400 Body weight 83.01 kg Tamara Thornton PA Work Phone: [facility] 05-12-2024 16:22-0400 Diastolic blood pressure 76 mm[Hg] Tamara Roxi PA Work Phone: [facility] 05-12-2024 16:22-0400 Systolic blood pressure 122 mm[Hg] Tamara Thornton PA Work Phone: [facility] 03-12-2024 09:00-0400 Diastolic blood pressure 108 mm[Hg] Sy Verhoff PA-C Work Phone: [facility] 03-12-2024 09:00-0400 Heart rate 83 /min Sy Verhoff PA-C Work Phone: [facility] 03-12-2024 09:00-0400 Respiratory rate 18 /min Sy Verhoff PA-C Work Phone: [facility] 03-12-2024 09:00-0400 SaO2% (BldA) [Mass fraction] 98 % Sy Verhoff PA-C Work Phone: [facility] 03-12-2024 09:00-0400 Systolic blood pressure 135 mm[Hg] Sy Verhoff PA-C Work Phone: [facility] 01-02-2024 09:44-0400 Body height 162.6 cm Sy Verhoff PA-C Work Phone: [facility] 01-02-2024 09:44-0400 Body mass index (BMI) [Ratio] 32.1 kg/m2 Sy Verhoff PA-C Work Phone: [facility] 01-02-2024 09:44-0400 Body weight 84.82 kg Sy Verhoff PA-C Work Phone: [facility] 01-02-2024 09:44-0400 Diastolic blood pressure 92 mm[Hg] Sy Verhoff PA-C Work Phone: [facility] 01-02-2024 09:44-0400 Heart rate 95 /min Sy Verhoff PA-C Work Phone: [facility] 01-02-2024 09:44-0400 Respiratory rate 16 /min Sy Verhoff PA-C Work Phone: [facility] 01-02-2024 09:44-0400 SaO2% (BldA) [Mass fraction] 98 % Sy Verhoff PA-C Work Phone: [facility] 01-02-2024 09:44-0400 Systolic blood pressure 121 mm[Hg] Sy Verhoff PA-C Work Phone: [facility] 05-08-2023 18:00-0400 Body height 162.56 cm Filomena Delgado Other [facility] Other 05-08-2023 18:00-0400 Body mass index (BMI) [Ratio] 33.33 kg/m2 Filomena Delgado Other [facility] Other 05-08-2023 18:00-0400 Body temperature 98 [degF] Filomena Delgado Other [facility] Other 05-08-2023 18:00-0400 Body weight 88.09 kg Filomena Delgado Other [facility] Other 05-08-2023 18:00-0400 Respiratory rate 18 /min Filomena Delgado Other [facility] Other 05-08-2023 18:00-0400 SaO2% (BldA) [Mass fraction] 97 % Filomena Delgado Other [facility] Other 05-02-2023 15:45-0400 Body height 162.56 cm Catia Mcdowell Other [facility] Other 05-02-2023 15:45-0400 Body mass index (BMI) [Ratio] 33.47 kg/m2 Catia Mcdowell Other [facility] Other 05-02-2023 15:45-0400 Body temperature 97.4 [degF] Catia Mcdowell Other [facility] Other 05-02-2023 15:45-0400 Body weight 88.45 kg Catia Mcdowell Other [facility] Other 05-02-2023 15:45-0400 Respiratory rate 18 /min Catia Mcdowell Other [facility] Other 05-02-2023 15:45-0400 SaO2% (BldA) [Mass fraction] 98 % Catia Mcdowell Other [facility] Other Encounters Encounter Date Encounter Type Care Provider Facility Start: 11-10-2024 End: 11-10-2024 Erlin flowsjt TAYLOR Work Phone: [facility] Start: 11-10-2024 End: 11-10-2024 Basilboo flowsjt TAYLOR Work Phone: [facility] Start: 11-01-2024 End: 11-03-2024 Kaveh Javier NP Work Phone: [facility] Comment on above: Gastroesophageal ref lux disease without esophagitis Start: 11-01-2024 End: 11-03-2024 Refill Lily Javier [employer] ENGINE[employer] Work Phone: [facility] Comment on above: Gastroesophageal ref lux disease without esophagitis Start: 08-18-2024 End: 08-18-2024 Bamboo flowsheet Tamara TAYLOR Work Phone: [facility] Start: 08-18-2024 End: 08-18-2024 Bamboo flowsheet Tamara Gallagher PA Work Phone: [facility] Start: 08-18-2024 End: 08-18-2024 Clinisync Result Encounter Generic External Data Provider [facility] External Department Unsolicited Start: 08-18-2024 End: 08-18-2024 ambulatory TAMARA GALLAGHER Not Available Start: 08-18-2024 End: 08-18-2024 Office outpatient visit 15 minutes Tamara TAYLOR Work Phone: [facility] Comment on above: Encounter for weight management; Encounter for long-term (current) use of medications; Insulin resistance; Metabolic syndrome Start: 07-31-2024 End: 07-31-2024 ambulatory [facility] Work Phone: Start: 07-31-2024 End: 07-31-2024 Patient encounter procedure [facility] Work Phone: Start: 07-24-2024 End: 07-24-2024 Bamboo flowsheet Lily Javier NP Work Phone: [facility] Start: 07-24-2024 End: 07-24-2024 Bamboo flowsheet Lily Javier NP Work Phone: [facility] Start: 07-24-2024 End: 07-24-2024 Office outpatient visit 15 minutes Lily Javier NP Work Phone: [facility] Comment on above: Acute non-recurrent pansinusitis (Primary Dx); Sinus pressure; Acute cough; Other fatigue; Sore throat Start: 07-24-2024 End: 07-24-2024 ambulatory LILY JAVIER Not Available Start: 06-20-2024 End: 06-20-2024 Telephone encounter Samantha Posey MD Work Phone: [facility] Start: 06-06-2024 End: 06-06-2024 Telephone encounter Lily Javier NP Work Phone: [facility] Comment on above: Results Start: 06-05-2024 End: 06-05-2024 ambulatory LILY JAVIER Not Available Start: 05-27-2024 End: 05-27-2024 ambulatory LILY JAVIER Not Available Start: 05-27-2024 End: 05-27-2024 Office outpatient visit 25 minutes Lily Javier NP Work Phone: [facility] Comment on above: RUQ pain (Primary Dx ); Belching; Major depressive disorder, single episode, moderate (HCC) ([facility]/HCC); Gastroesophageal reflux disease without esophagitis Start: 05-19-2024 End: 05-19-2024 Telephone encounter Lily Javier NP Work Phone: [facility] Start: 05-12-2024 End: 05-12-2024 Office outpatient visit 15 minutes Tamara TAYLOR Work Phone: [facility] Comment on above: Weight gain (Primary Dx) Start: 05-12-2024 End: 05-12-2024 ambulatory TAMARA GALLAGHER Not Available Start: 05-12-2024 End: 05-12-2024 Bamboo flowsheet Tamara ATYLOR Work Phone: [facility] Start: 05-12-2024 End: 05-12-2024 Bamboo flowsheet Tamara TAYLOR Work Phone: [facility] Start: 03-17-2024 End: 03-17-2024 ambulatory TAMARA GALLAGHER Not Available Start: 03-12-2024 End: 03-12-2024 ambulatory SY [facility] Start: 03-12-2024 End: 03-12-2024 Office outpatient visit 15 minutes Sy Carl PA-C Work Phone: [facility] Comment on above: Coccydynia (Primary Dx) Start: 02-23-2024 End: 02-23-2024 ambulatory GADIEL CARLOS [facility] Start: 02-22-2024 End: 02-22-2024 ambulatory ARIEL BEAVERS [facility] Start: 01-23-2024 End: 01-23-2024 ambulatory ELINA BARBOSA Not Available Start: 01-14-2024 End: 01-14-2024 ambulatory AGUSTÍN JHA Not Available Start: 01-11-2024 End: 02-26-2024 Telephone encounter Xochilt Horne RN [facility] Start: 01-02-2024 End: 01-02-2024 Office outpatient visit 15 minutes Sy Carl PA-C Work Phone: [facility] Comment on above: Pelvic pain (Primary Dx); Coccydynia Start: 01-02-2024 End: 01-02-2024 ambulatory SY N [facility] Start: 01-01-2024 End: 01-01-2024 ambulatory TAMARA GALLAGHER Not Available Start: 11-20-2023 End: 11-20-2023 ambulatory RITESH A JOSE E Not Available Start: 11-13-2023 End: 11-13-2023 ambulatory RITESH A JOSE E Not Available Start: 05-08-2023 End: 05-08-2023 ambulatory Filomena Delgado [facility] Start: 05-08-2023 Office outpatient vi sit 25 minutes Filomena Delgado [facility] Start: 05-02-2023 End: 05-02-2023 ambulatory Catia Mcdowell Other [facility] Other Start: 05-02-2023 Office outpatient ne w 20 minutes Catia Mcdowell [facility] Start: 11-01-2022 End: 11-02-[address] ELINA BARBOSA . Facility: Start: 10-30-2022 End: 10-30-[address] ELINA BARBOSA . Facility: Start: 01-31-2022 End: 02-01-2022 ambulatory RAMON BULLARD . Facility: Start: 01-04-2022 End: 01-05-2022 ambulatory RAMON BULLARD . Facility: Start: 03-10-2021 End: 03-10-2021 Departed Referred MD Agustín Jha Work Phone: [facility] [place] Start: 10-21-2017 End: 10-22-2017 Ambulatory RAMON BULLARD Facility:[facility] Start: 10-14-2017 End: 10-15-2017 Ambulatory RAMON BULLARD Facility:[facility] Procedures Date Procedure Procedure Detail Performing Clinician Start: 08-18-2024 [facility] CMP (CMP) (FOR REMOTE [facility] USE) Tamara TAYLOR Work Phone: Start: 01-31-2023 Microscopic observat ion [Identifier] in Cervix by Cyto stain Sy Carl PA-C Work Phone: Start: 12-08-2018 H/O: section Previous delivery affecting , antepartum Sy Carl PA-C Work Phone: Plan of Treatment Date Care Activity Detail Author Start: 11-23-2027 DTaP,Tdap and Td Vaccines (2 - Td or Tdap) DTaP,Tdap and Td Vaccines (2 - Td or Tdap) [facility] Start: 10-31-2027 Screening for malign ant neoplasm of cervix [facility] Start: 01-31-2026 Screening for malign ant neoplasm of cervix Pap Smear [facility] Start: 03-30-2025 Influenza vaccination Influenz a Vaccine (Season Ended) [facility] Start: 03-12-2025 Tobacco Screening Tobacco Screening [facility] Start: 02-21-2025 Tobacco Screening Tobacco Screening [facility] Start: 01-13-2025 End: 01-13-2025 Patient encounter procedure 01/13/2025 10:15 AM EDT Office Visit [facility] [address] [place] [id number] Agustín Jha MD [address] [place] [address] [facility] Start: 01-01-2025 Adult BMI Screening Adult BMI Screen [facility] Start: 01-01-2025 Tobacco Screening Tobacco Screening [facility] Start: 11-10-2024 End: 11-10-2024 Patient encounter procedure [facility] Comment on above: Arrived Start: 09-18-2024 Influenza vaccination Influenza Vacc ine (#1) [facility] Comment on above: Postponed from 03/30 (Patient Refused) Start: 08-18-2024 End: 08-18-2024 Patient encounter procedure 08/18/2024 8:30 AM EST Office Visit [facility] [address] [phone] Tamara Gallagher PA [address] [place] [address] [facility] Start: 07-24-2024 End: 07-24-2024 Patient encounter procedure 07/24/2024 11:00 AM EST Office Visit [facility] [address] [place] [address] Lily Javier, KONRAD [address] [place] [address] Arrived [facility] Comment on above: Arrived Start: 05-27-2024 End: 05-27-2025 CT Abdomen and Pelvis WO contrast CT abdomen pelvis wo IV contrast Imaging Routine RUQ pain Belching Expected: 05/27/2024, Expires: 05/27/2025 [facility] Work Phone: Comment on above: Expected: 05/27/2024 , Expires: 05/27/2025 Start: 05-12-2024 End: 05-12-2024 Patient encounter procedure 05/12/2024 4:00 PM EDT Office Visit [facility] [address] [place] [address] Tamara Gallagher PA [address] [place] [address] Arrived [facility] Comment on above: Arrived Start: 03-30-2024 Influenza vaccination N [facility] Start: 03-12-2024 End: 03-12-2024 Patient encounter procedure 03/12/2024 8:45 AM EDT Office Visit [facility] [address] [place] [id number] Sy Carl PA-C [address] [place] [address] [facility] Start: 10-31-2023 Screening for malign ant neoplasm of cervix [facility] Start: 03-30-2023 COVID-19 Vaccine ( season) COVID-19 Vaccine ( season) [facility] Start: 03-10-2021 Superficial Wound Culture Superficial Wound Culture [facility] Start: 2003 Adult BMI Follow Up Plan Adult BMI Follow Up Plan [facility] Start: 1997 Depression Screening Depression Scre ening [facility] Comprehensive metabo lic 2000 panel - Serum or Plasma Comprehensive metabolic panel Lab Routine Encounter for long-term (current) use of medications Ordered: 08/18/2024 [facility] Work Phone: Comment on above: Ordered: 08/18/2024 Injection anes super ior hypogastric plexus INJECTION HYPOGASTRIC Pelvic pain Coccydynia [facility] Immunizations Immunization Date Immunization Notes Care Provider Diego perdomo 02-12-2024 Hepatitis B vaccine (recombinant), CpG adjuvanted Lily Javier NP Work Phone: [facility] 12-23-2023 Hepatitis B vaccine (recombinant), CpG adjuvanted Lily Javier NP Work Phone: [facility] 07-22-2018 influenza, injectable, quadrivalent, preservative free Tamara Gallagher PA Work Phone: [facility] 07-22-2018 influenza virus vaccine, unspecified formulation Sy Carl PA-C Work Phone: [facility] 11-22-2017 tetanus toxoid, reduced diphtheria toxoid, and acellular pertussis vaccine, adsorbed Sy Carl PA-C Work Phone: [facility] [employer] NEGATED: Highlighted row has not occurred!11-21-2017 measles, mumps and rubella virus vaccine Sy Sernaff PA-C Work Phone: [facility] NEGATED: Highlighted row has not occurred!11-21-2017 varicella virus vaccine Sy Hydrobeerichard PA-C Work Phone: [facility] [employer] Payers Date Payer Category Payer Private Health Insurance [id number] 2021 Private Health Insurance [id number] 2016 Unknown [employer] [facility] [id number] 2016-Present [phone] [address] [place] [address] [id number] 1985 Unknown [id number] [id number] 3 1985 Unknown [id number] 2.16.840.1.096723.3.579.2.59 3 1985 Unknown [id number] 2.16.840.1.009487.3.579.2.59 3 1985 Unknown [id number] 2.16.840.1.227743.3.579.2.59 3 1985 Unknown [id number] 2.16.840.1.114189.3.579.2.12 86 1985 Unknown [id number] 2.16.840.1.783123.3.579.2.12 86 1985 Unknown [id number] 2.16.840.1.544044.3.579.2.12 86 1985 Unknown [id number] 2.16.840.1.549973.3.579.2.12 86 1985 Unknown [id number] 2.16.840.1.653795.3.579.2.12 86 1985 Unknown [id number] 2.16.840.1.470881.3.579.2.12 86 1985 Unknown [id number] 2.16.840.1.906788.3.579.2.12 59 1985 Unknown [id number] 2.16.840.1.007982.3.579.2.12 59 1985 Unknown [id number] 2.16.840.1.552130.3.579.2.12 59 1985 Unknown [id number] 2.16.840.1.889887.3.579.2.12 59 1985 Unknown [id number] 2.16.840.1.762906.3.579.2.12 59 1985 Unknown [id number] 2.16.840.1.757989.3.579.2.12 59 1985 Unknown [id number] 2.16.840.1.018069.3.579.2.12 59 1985 Unknown [id number] 2.16.840.1.592940.3.579.2.12 59 1985 Unknown [id number] 2.16.840.1.506300.3.579.2.12 59 1985 Unknown [id number] 2.16.840.1.960580.3.579.2.12 59 1985 Unknown [id number] 2.16.840.1.763418.3.579.2.12 59 1959 Unknown [id number] Self-pay Self Pay [id number] Social History Date Type Detail Facility Tobacco smoking status NHIS Unknown if ever smoked [facility] Start: 1985 Sex Assigned At Female F [facility] Start: 06-25-2023 End: 11-13-2023 Sex Assigned At [facility] Start: 03-08-2023 End: 05-16-2023 Tobacco smoking status NHIS Never smoked tobacco [facility] Start: 03-08-2023 End: 05-16-2023 Tobacco use and exposure Smokeless tobacco non-user [facility] Start: 03-17-2024 End: 07-24-2024 Alcoholic beverage intake Current drinker of alcohol (finding) [facility] Start: 06-25-2023 End: 11-13-2023 History of Social [...] 1985 Sex assigned at Not on file P [facility] Start: 07-31-2024 Sex Female (finding) [facility] Childcare Unknown [facility] Start: 01-02-2024 Alcohol Comment rarely [facility] NEGATED: Highlighted rowStart: NINF History of tobacco use Passive smoker [facility] Goals Date Patient Goal Desired Activity /State Personal health goal Clinical Notes 05-02-2023 to 08-18-2024 BRANDON Christina - 08/18/2024 8:30 AM Yoav Javier NP - 07/24/2024 11:00 AM ESTTelejohnna Gallagher - Nery [place] - 06/20/2024 8:28 AM Yoav Javier NP - 05/27/2024 4:00 PM EDT Note Date & Type Note Facility 08-18-2024 History of Presen t illness Narrative Reason [...] (PEPCID) 20 mg, Oral, 2 times daily montelukast (SINGULAIR) 10 mg, Every morning Wegovy 2.4 mg, Subcutaneous, Weekly ALLERGIES Allergies Allergen Reactions Compazine [Prochlorperazine] Doxycycline GI intolerance Mastisol Adhesive [Wound Dressing Adhesive] PROBLEMS Active Ambulatory Problems Diagnosis Date Noted Allergic rhinitis 05/16/2023 Asthma ([facility]) 05/16/2023 Atypical squamous cells of undetermined significance (ASCUS) on Papanicolaou smear of cervix 05/16/2023 Chronic hypertension ([facility]) 10/27/2017 Gastroesophageal reflux disease 05/16/2023 Major depressive disorder, single episode, moderate (HCC) ([facility]) 05/16/2023 Obstructive sleep apnea 05/16/2023 Oligohydramnios 11/20/2017 Chronic rhinitis 11/02/2023 AVA (generalized anxiety disorder) ([facility]) 11/13/2023 Resolved Ambulatory Problems Diagnosis Date Noted No Resolved Ambulatory Problems Past Medical History: Diagnosis Date Asthma, chronic, unspecified asthma severity, uncomplicated ([facility]) Atypical nevi Chronic allergic rhinitis Elevated BP without diagnosis of hypertension Generalized anxiety disorder ([facility]/HCC) History of section History of melanoma excision 03/07/2017 Major depression, chronic (CMS/HCC) Major depression, chronic ([facility]) Nonintractable migraine, unspecified migraine type ([facility]) Other abnormal findings in specimens from female [...] SKIN BIOPSY TUBAL LIGATION WISDOM TOOTH EXTRACTION [place] teeth REVIEW OF SYSTEMS Review of Systems: [...] reviewed. Vitals: Estimated body mass index is 28.46 kg/m as calculated from the following: Height as of 05/30/23: 5' 4 . Weight as of this encounter: 165 lb 12.8 oz. BP: 120/76 No LMP recorded. ASSESSMENT & PLAN ICD-10-CM 1. Encounter for weight management Z76.89 Semaglutide-Weight Management (Wegovy) 2.4 MG/0.75ML solution auto-injector 2. Encounter for long-term (current) use of medications Z79.899 Comprehensive metabolic panel CANCELED: CBC and differential 3. Insulin resistance E88.819 Semaglutide-Weight Management (Wegovy) 2.4 MG/0.75ML solution auto-injector 4. Metabolic syndrome E88.810 Semaglutide-Weight Management (Wegovy) 2.4 MG/0.75ML solution auto-injector Patient presents for wegovy refill and blood work. Patient is due to have CMP drawn. States she is uncertain if insurance will further cover her medication. If they do not, pt wishes to continue with semiglutide through [facility]. Patient labs will be reviewed and pt will notify office if ins no longer covers medication Documented by BRANDON Christina on behalf of: BRANDON Christina documented in this encounter [facility] 07-24-2024 History of Presen t illness Narrative [...] SKIN BIOPSY TUBAL LIGATION WISDOM TOOTH EXTRACTION [place] teeth Family History Problem Relation Name Age [...] Insecurity: No Food Insecurity (03/12/2024) Received from [facility] Hunger Screening Within the past 12 [...] fail to improve. documented in this encounter [facility] 06-20-2024 Telephone encounter Note Patient called to let you know that her stomach is still cramping and she is having diarrhea again. Ty [facility] 06-20-2024 Miscellaneous Notes Patient called to let you know that her stomach is still cramping and she is having diarrhea again. Ty documented in this encounter [facility] 06-06-2024 Telephone encounter Note Please let patient know other than some stool to right colon, CT is negative. I do recommend staying away from pork and high fatty foods. If she continues to have issues, she may benefit from seeing GI. [facility] 06-06-2024 Miscellaneous Notes Please let patient know other than some stool to right colon, CT is negative. I do recommend staying away from pork and high fatty foods. If she continues to have issues, she may benefit from seeing GI. documented in this encounter [facility] 05-27-2024 History of Presen t illness Narrative Images from the original note were not included. Mariya Orosco is a 39 y.o. female presents with chief complaint of Follow-up (Cramping abdominal pain, yeasty burps . Projectile vomited, diarrhea 04/09/24. Had again 05/15/24, had rash in addition to pain/vomiting. Went to [facility] 05/17/24) HPI: HPI Patient presents to [...] SKIN BIOPSY TUBAL LIGATION WISDOM TOOTH EXTRACTION [place] teeth Family History Problem Relation Name Age [...] Insecurity: No Food Insecurity (03/12/2024) Received from [facility] Hunger Screening Within the past 12 months [...] pending test results. documented in this encounter [facility] 05-19-2024 Telephone encounter Note Pt was in [facility] ER and patient spoke with you this weekend. Patient needs a follow up visit, but can only come at 345 or 4pm, and you don't have those openings. Suggestions, she wanted this note sent for your opionon. I did offer at 2:30 but patient said she was at work and could not come then. [facility] 05-19-2024 Miscellaneous Notes Pt was in [facility] ER and patient spoke with you this weekend. Patient needs a follow up visit, but can only come at 345 or 4pm, and you don't have those openings. Suggestions, she wanted this note sent for your opionon. I did offer at 2:30 but patient said she was at work and could not come then. documented in this encounter [facility] 05-12-2024 History of Presen t illness [...] Diagnosis Date Noted Allergic rhinitis 05/16/2023 Asthma ([facility]) 05/16/2023 Atypical squamous cells of undetermined significance (ASCUS) on Papanicolaou smear of cervix 05/16/2023 Chronic hypertension ([facility]) 10/27/2017 Gastroesophageal reflux disease 05/16/2023 Major depressive disorder, single episode, moderate (HCC) ([facility]) 05/16/2023 Obstructive sleep apnea 05/16/2023 Oligohydramnios 11/20/2017 Chronic rhinitis 11/02/2023 AVA (generalized anxiety disorder) (CMS/HCC) 11/13/2023 Resolved Ambulatory Problems Diagnosis Date Noted [...] SKIN BIOPSY TUBAL LIGATION WISDOM TOOTH EXTRACTION [place] teeth REVIEW OF SYSTEMS Review of Systems: [...] of: BRANDON Christina documented in this encounter [facility] 03-12-2024 History of Presen t illness Narrative [facility] [address] [place] [address] Patient: Mariya Orosco Sex: female : 1985 Age: 38 y.o. PCP: Samantha Posey MD 03/12/2024 Mariya Orosco is here for a(n) post procedure follow up 02/22/2024 Superior Hyper Plexus Block with 95%- 100% relief continuing. . Date of onset of pain: 2022 , pain has lasted greater than 3 months. Pain scale before treatment: 7/10 Pre-op pain score: 7/10 Percentage of relief after and duration: 95%-100% relief continuing Pain scale after treatment: 0/10 Chief Complaint Patient presents with Back Pain HPI: Patient goes for monthly massages and Chiropractor to Dr Mckeon that provides relief. 03/23/23 Superior Hyper Plexus Block with 85% 02/22/2024 Superior Hyper Plexus Block with 95%-100% relief continuing. Pre procedure pain 7/10. Post procedure pain 0/10 Back Pain This is a chronic problem. The current episode started more than 1 year ago (07/2022, fell and hit tailbone). The problem occurs rarely. The problem has been gradually improving since onset. The pain is present in the lumbar spine (coccyx). The quality of the pain is described as aching (dull, annoying, intermittely sharp). The pain does not radiate. The pain is at a severity of 1/10. The pain is mild. The pain is Worse during the day. The symptoms are aggravated by sitting, standing, bending and lying down (walking, lifting, pushing, pulling). Stiffness is present All day. Pertinent negatives include no bladder incontinence, bowel incontinence, chest pain, fever, leg pain, numbness, tingling or weakness. (Pain is the worst with sitting) Risk factors include obesity. She has tried chiropractic manipulation, NSAIDs, ice, heat and home exercises (Ibuprofen) for the symptoms. The treatment provided mild relief. The effect of pain on patient's ADLS: Moderate Impairment. Past Medical History: Diagnosis Date Abnormal Pap smear of cervix Anxiety CPAP (continuous positive airway pressure) dependence Depression Depression H/O pre-eclampsia in prior , currently H/O delivery, currently Hemorrhoids History of colposcopy Hypertension Irritable bowel syndrome (IBS) Low back pain Palpitations Sleep apnea Past Surgical History: Procedure Laterality Date N/A 11/21/2017 Performed by Negra Harrington MD at [facility] OR SECTION [address] Nancy Barber [place] ENDOMETRIAL ABLATION W/ NOVASURE 01/31/2023 GUM SURGERY INJECTION HYPOGASTRIC Bilat SHPB Bilateral 03/23/2023 Performed by Ariel Beavers MD at [facility] INJECTION HYPOGASTRIC SHPB Bilateral 02/22/2024 Performed by Ariel Beavers MD at [facility] SKIN LESION EXCISION 2016 Dr. Magdaleno TUBAL LIGATION 2018 Dr. Dontrell Melgoza [place] WISDOM TOOTH EXTRACTION Allergies Allergen Reactions Compazine [Prochlorperazine] Other (See Comments) Tremors, shaking Seasonal Allergy [Other] Mastisol Adhesive [Gum Cttvoo-Cehyxi-Benr-Alcohol] Rash Family History Problem Relation Age of Onset Depression Mother Hypertension Mother Hyperlipidemia Mother Heart disease Mother Cancer Father Hypertension Father Diabetes Father Learning disabilities Brother Depression Brother No Known Problems Daughter No Known Problems Daughter Cancer Maternal Grandmother Diabetes Maternal Grandmother Heart disease Maternal Grandmother Hypertension Maternal Grandmother Stroke Maternal Grandfather Heart disease Maternal Grandfather Diabetes Paternal Grandmother Hypertension Paternal Grandmother Diabetes Paternal Grandfather Stroke Paternal Grandfather Colon cancer Maternal great-grandfather Kidney disease Cousin Social History Socioeconomic History Marital status: Spouse name: Not on file Number of children: Not on file Years of education: Not on file Highest education level: Not on file Occupational History Not on file Tobacco Use Smoking status: Never Smokeless tobacco: Never Vaping Use Vaping status: Never Used Substance and Sexual Activity Alcohol use: Yes Comment: rarely Drug use: No Sexual activity: Defer Partners: Male control/protection: Surgical Other Topics Concern Not on file Social History Narrative Not on file Social Determinants of Health Financial Resource Strain: Not on file Food Insecurity: No Food Insecurity (03/12/2024) Hunger Screening Food Insecurity - Worry: Never True Food Insecurity - Inability: Never True Transportation Needs: Not on file Physical Activity: Not on file Stress: Not on file Social Connections: Not on file Interpersonal Safety: Not on file Housing Instability: Not on file Review of Systems Constitutional: Negative for fever. HENT: Negative. Eyes: Negative. Respiratory: Negative. Cardiovascular: Negative for chest pain. Gastrointestinal: Negative. Negative for bowel incontinence. Genitourinary: Negative. Negative for bladder incontinence. Musculoskeletal: Positive for back pain. Skin: Negative. Neurological: Negative for tingling, weakness and numbness. Vital Signs: BP (!) 135/108 (BP Site: Left Arm, BP Postition: Sitting) Pulse 83 Resp 18 SpO2 98% Physical Exam: GENERAL - Healthy patient that appears stated age. HEENT - Normocephalic / Atraumatic, Extraoccular movements intact, trachea midline, thyroid within normal limits. CV - pulse regular, Warm extremities with appropriate color of nailbeds. RESP - No obvious wheezing, No Shortness of Breath, No overexertion response to exam maneuvers. COORDINATION - remains intact. PSYCH - Alert and Oriented x4, Attentive and appropriate, constitutionally normal, displays normal mood and affect per situation, answered questions appropriately during examination, demonstrated appropriate attention during discussion, demonstrated appropriate cognitive reasoning and understanding of the medical condition by asking appropriate questions regarding the diagnosis and risks/benefits/alternatives of treatment modalities. No obvious deficits in memory, reasoning, or intellect. Lumbar: SKIN - No rashes or bruising in the area of the patient s pain. LYMPH NODES - demonstrate no obvious enlargement. EXTREMITIES - Lower extremities are warm, with minimal edema and palpable pulses. No significant tenderness to palpation noted in the lumbar spine and paraspinal musculature. Mild pain is elicited with flexion, extension, and lateral rotation of the lumbar spine. Range of motion is not diminished with these motions. Facet palpation is negative for significant pain and facet loading maneuvers elicit only mild pain that is not concordant with the patient s normal pain complaints. STRENGTH - noted to be 5 out of 5 all muscle groups bilateral lower extremities including muscles involving hip flexion and abduction, knee flexion and extension, as well as foot dorsiflexion and plantarflexion. No notable atrophy, fasciculations or spasm. SENSORY - No notable sensory deficits in the bilateral lower extremities to touch or pinprick in all dermatomal distributions. Straight Leg Raise is negative bilaterally. Notable point tenderness at the sacro-coccygeal ligament and coccyx. Gait is normal. Assessment/Treatment Plan: Mariya was seen today for back pain. Diagnoses and all orders for this visit: Coccydynia Monitor Follow up PRN The medications prescribed have been reviewed for medication interactions/contraindications and/or for upcoming procedures: continue current medication regimen without any changes. DISCUSSION: Treatment options discussed with patient and all questions answered to patient's satisfaction. Discussed the rules and regulations surrounding prescription of opioids and compliance at length. Failure to follow the rules and regulation will result in tapering and discontinuation of medications if applicable. Prescribed medication that requires intensive monitoring for toxicity We do not currently prescribe any controlled substance from this practice. It does appear that the patient benefited from the previous injection and the benefit has continued through this visit. At this time, we will monitor the patient s symptoms from an interventional standpoint and consider another injection in the future if the patient s symptoms return or intensify severely. The patient was made aware that they should call if symptoms worsen or if their pain begins to have a negative impact on their quality of life and activities of daily living again. The spine model was demonstrated and MRI was reviewed and used to explain the condition. OARRS: Reviewed. Scribe Statement: Scribed for and in the presence of SY CARL PA-C by Perri Patel CNA. Provider Statement: ISY PA-C, personally performed the services described in the documentation, as scribed by Perri Patel CNA in my presence, and it is both accurate and complete. Perri Patel CNA 03/12/24 0938 Sy Carl PA-C 03/12/24 0955 documented in this encounter [facility] 01-11-2024 Miscellaneous Notes Received approval to hold wegovy x14 days Needs insurance auth Needs scheduled Mariya is scheduled for 02/21. She will hold her 02/15 dose of Wegovy Wegovy is for weight loss. Patient is to hold for 14 days prior to ordered procedure. Her last dose prior to procedure will have to be on or before 02/07/2024. Call placed to patient to inform her that she is not to take Wegovy for 14 days prior to 02/22/2024 procedure with sedation. Patient informed that she is not to take any Wegovy after 02/07/2024. Patient verbalized understanding and states that she has it marked on her calendar. She may resume Wegovy post procedure on 02/22/2024. documented in this encounter [facility] 01-11-2024 Telephone encounter Note Received approval to hold wegovy x14 days Needs insurance auth Needs scheduled [facility] 01-11-2024 Telephone encounter Note Mariya is scheduled for 02/21. She will hold her 02/15 dose of Wegovy [facility] 01-11-2024 Telephone encounter Note Wegovy is for weight loss. Patient is to hold for 14 days prior to ordered procedure. Her last dose prior to procedure will have to be on or before 02/07/2024. [facility] 01-11-2024 Telephone encounter Note Call placed to patient to inform her that she is not to take Wegovy for 14 days prior to 02/22/2024 procedure with sedation. Patient informed that she is not to take any Wegovy after 02/07/2024. Patient verbalized understanding and states that she has it marked on her calendar. She may resume Wegovy post procedure on 02/22/2024. [facility] 01-02-2024 History of Presen t illness Narrative [facility] [address] [place] [address] Patient: Mariya Orosco Sex: female : 1985 Age: 38 y.o. PCP: Samantha Posey MD 01/02/2024 Mariya Orosco is here for a(n) follow up for low back pain. She reports her tailbone pain returned about a month ago. Chief Complaint Patient presents with Back Pain HPI: Back Pain This is a chronic problem. The current episode started more than 1 year ago (07/2022, fell and hit tailbone). The problem occurs constantly. The problem has been gradually worsening since onset. The pain is present in the lumbar spine (coccyx). The quality of the pain is described as aching (dull, annoying, intermittely sharp). The pain does not radiate. The pain is at a severity of 7/10. The pain is severe. The pain is Worse during the day. The symptoms are aggravated by sitting, standing, bending and lying down (walking, lifting, pushing, pulling). Stiffness is present All day. Pertinent negatives include no bladder incontinence, bowel incontinence, chest pain, fever, leg pain, numbness, tingling or weakness. (Pain is the worst with sitting) Risk factors include obesity. She has tried chiropractic manipulation, NSAIDs, ice, heat and home exercises (Ibuprofen) for the symptoms. The treatment provided mild relief. The effect of pain on patient's ADLS: Moderate Impairment. Past Medical History: Diagnosis Date Abnormal Pap smear of cervix Anxiety CPAP (continuous positive airway pressure) dependence Depression Depression H/O pre-eclampsia in prior , currently H/O delivery, currently Hemorrhoids History of colposcopy Hypertension Irritable bowel syndrome (IBS) Low back pain Palpitations Sleep apnea Past Surgical History: Procedure Laterality Date N/A 11/21/2017 Performed by Negra Harrington MD at [facility] OR SECTION [address] Nancy Barber [place] ENDOMETRIAL ABLATION W/ NOVCJ 01/31/2023 GUM SURGERY INJECTION HYPOGASTRIC Bilat SHPB Bilateral 03/23/2023 Performed by Ariel Beavers MD at [facility] SKIN LESION EXCISION 2017 Dr. Magdaleno TUBAL LIGATION 2018 Dr. Bullard Abad [place] WISDOM TOOTH EXTRACTION Allergies Allergen Reactions Compazine [Prochlorperazine] Other (See Comments) Tremors, shaking Seasonal Allergy [Other] Mastisol Adhesive [Gum Zgjmhz-Nvfzli-Piib-Alcohol] Rash Family History Problem Relation Age of Onset Depression Mother Hypertension Mother Hyperlipidemia Mother Heart disease Mother Cancer Father Hypertension Father Diabetes Father Learning disabilities Brother Depression Brother No Known Problems Daughter No Known Problems Daughter Cancer Maternal Grandmother Diabetes Maternal Grandmother Heart disease Maternal Grandmother Hypertension Maternal Grandmother Stroke Maternal Grandfather Heart disease Maternal Grandfather Diabetes Paternal Grandmother Hypertension Paternal Grandmother Diabetes Paternal Grandfather Stroke Paternal Grandfather Colon cancer Maternal great-grandfather Kidney disease Cousin Social History Socioeconomic History Marital status: Spouse name: Not on file Number of children: Not on file Years of education: Not on file Highest education level: Not on file Occupational History Not on file Tobacco Use Smoking status: Never Smokeless tobacco: Never Vaping Use Vaping status: Never Used Substance and Sexual Activity Alcohol use: Yes Comment: rarely Drug use: No Sexual activity: Defer Partners: Male control/protection: Surgical Other Topics Concern Not on file Social History Narrative Not on file Social Determinants of Health Financial Resource Strain: Not on file Food Insecurity: No Food Insecurity (01/02/2024) Hunger Screening Food Insecurity - Worry: Never True Food Insecurity - Inability: Never True Transportation Needs: Not on file Physical Activity: Not on file Stress: Not on file Social Connections: Not on file Interpersonal Safety: Not on file Housing Instability: Not on file Review of Systems Constitutional: Negative for fever. Respiratory: Negative. Cardiovascular: Negative for chest pain. Gastrointestinal: Negative. Negative for bowel incontinence. Genitourinary: Negative. Negative for bladder incontinence. Musculoskeletal: Positive for back pain (coccyx). Skin: Negative. Neurological: Negative for tingling, weakness and numbness. Psychiatric/Behavioral: Negative. Vital Signs: BP (!) 121/92 Pulse 95 Resp 16 Ht 162.6 cm (5' 4 ) Wt 84.8 kg (187 lb) SpO2 98% BMI 32.10 kg/m Physical Exam: GENERAL - Healthy patient that appears stated age. HEENT - Normocephalic / Atraumatic, Extraoccular movements intact, trachea midline, thyroid within normal limits. CV - pulse regular, Warm extremities with appropriate color of nailbeds. RESP - No obvious wheezing, No Shortness of Breath, No overexertion response to exam maneuvers. COORDINATION - remains intact. PSYCH - Alert and Oriented x4, Attentive and appropriate, constitutionally normal, displays normal mood and affect per situation, answered questions appropriately during examination, demonstrated appropriate attention during discussion, demonstrated appropriate cognitive reasoning and understanding of the medical condition by asking appropriate questions regarding the diagnosis and risks/benefits/alternatives of treatment modalities. No obvious deficits in memory, reasoning, or intellect. Lumbar: SKIN - No rashes or bruising in the area of the patient s pain. LYMPH NODES - demonstrate no obvious enlargement. EXTREMITIES - Lower extremities are warm, with minimal edema and palpable pulses. No significant tenderness to palpation noted in the lumbar spine and paraspinal musculature. Mild pain is elicited with flexion, extension, and lateral rotation of the lumbar spine. Range of motion is not diminished with these motions. Facet palpation is negative for significant pain and facet loading maneuvers elicit only mild pain that is not concordant with the patient s normal pain complaints. STRENGTH - noted to be 5 out of 5 all muscle groups bilateral lower extremities including muscles involving hip flexion and abduction, knee flexion and extension, as well as foot dorsiflexion and plantarflexion. No notable atrophy, fasciculations or spasm. SENSORY - No notable sensory deficits in the bilateral lower extremities to touch or pinprick in all dermatomal distributions. Straight Leg Raise is negative bilaterally. Notable point tenderness at the sacro-coccygeal ligament and coccyx. Gait is normal. Assessment/Treatment Plan: Mariya was seen today for back pain. Diagnoses and all orders for this visit: Pelvic pain - Case request operating room: INJECTION HYPOGASTRIC SHPB Coccydynia - Case request operating room: INJECTION HYPOGASTRIC SHPB Superior Hypogastric Plexus Block - under fluoroscopy with the use of contrast dye (unless contraindicated) It is hopeful that the described procedure will provide symptomatic pain relief. It is felt to be medically necessary noting that the patient has tried and failed more conservative modalities of therapy and this is the next most appropriate step. The procedure was described in detail to the patient as well as the potential benefits of pain reduction alongside risks of the procedure and alternatives. Risks were described as including, but not limited to bleeding, infection, nerve damage, spinal cord injury, paralysis, stroke, dural puncture headache, and medication reaction. The patient expressed understanding regarding the risks and benefits and wishes to proceed. It was explained that Superior Hypogastric Plexus injections often require a series of 2-3 before significant relief is noted, but we will determine after each injection if another one is indicated. Depending on the amount and duration of relief obtained from the injection, additional modalities of therapy including medications and physical therapy may need to be utilized alongside or following the injections Follow up 2 weeks after procedure The medications prescribed have been reviewed for medication interactions/contraindications and/or for upcoming procedures: continue current medication regimen without any changes. DISCUSSION: Treatment options discussed with patient and all questions answered to patient's satisfaction. Discussed the rules and regulations surrounding prescription of opioids and compliance at length. Failure to follow the rules and regulation will result in tapering and discontinuation of medications if applicable. Prescribed medication that requires intensive monitoring for toxicity We do not currently prescribe any controlled substance from this practice. Treatment plans discussed but not opted for at this time: Ganlion impar injection. Patient would like to proceed with the current outlined treatment plan before moving forward with any other options. It is noted that the patient did have good response from the previously performed procedure. It is felt that the patient would benefit from an additional procedure of the same nature in that the same symptoms have returned. It is hopeful that this additional injection will provide additional benefit and duration when combined with the previous injection. The spine model was demonstrated and MRI was reviewed and used to explain the condition. Chronic conditions not treated during this visit that affected my overall medical decision making: Comorbidity- Obesity The patient does have a comorbid condition of obesity. This will be taken into account in that obesity will contribute to certain pain conditions. It can contribute to pain from degenerative disc disease as well as osteoarthritis of the joints. Many neuropathic symptoms are also amplified due to axial spine loading. Special benefits will also need to be given to procedures. Many procedures are technically more difficult in the light of severe obesity. I will also consider the possibility of undiagnosed obstructive sleep apnea (which often accompanies obesity) when prescribing any narcotic medications. I will weigh the risks and benefits and fully discuss them with the patient for these reasons. OARRS: Reviewed. Scribe Statement: Scribed for and in the presence of SY CARL PA-C by Perri Patel CNA. Provider Statement: I, SY CARL PA-C, personally performed the services described in the documentation, as scribed by Perri Patel CNA in my presence, and it is both accurate and complete. Perri Patel CNA 01/02/24 1026 Sy Carl PA-C 01/02/24 1039 documented in this encounter [facility] [employer] 01-02-2024 Instructions Perri Patel CNA - 01/02/2024 9:30 AM EDT Epidural Steroid Injection (RAFI) / Nerve Root Injection / Nerve Block These procedure(s) involve the injection of a steroid and anesthetic into the epidural space or the nerve sheath that is both diagnostic and potentially therapeutic for alleviating discomfort of the legs and arms secondary to compression of the respective nerves due to bulging discs, bone spurs and other potential causes. Steroids are potent anti-inflammatory drugs that act to decrease the swollen and inflamed nerves thus relieving your clinical symptoms. How Long Will This Procedure Last? The extent and duration of pain relief may depend on the amount of inflammation and how many areas are involved. Other coexisting factors may be responsible for your pain. You and your physician will discuss expected results of procedure(s). After Your Injection You may experience soreness and tenderness at the area of treatment. This pain may not occur until later today after the numbing medicine wears off. The steroid can take 3-5 days to work and provide noticeable improvement. Activity You may feel temporary numbness, weakness or tingling: In the neck, arm, or fingertips (if your procedure was done in your neck) In the legs (if your procedure was done in your lower back) These symptoms are normal, and should subside within 3-4 hours. In that time, be careful to avoid falls. As a safety precaution, you must have a goat driver after a lumbar nerve root injection, even if you do not receive sedation. Resume activity as tolerated when function has returned. Medications Resume your routine medications after your procedure. You may resume blood thinners per your regular schedule after the procedure. If you received sedation: If you received sedation for your procedure, you may feel sleepy or not yourself for several hours today. For the next 24 hours avoid activities that requires alertness or coordination. This includes: Driving or operating heavy machinery Using power tools Consuming alcohol Do not make important or complex decisions or sign legal documents in the next 24 hours. Other Instructions: If you feel severe pain at the injection site with swelling and redness, increased leg weakness, a fever of 101 or higher, headache (or worsening headache), changes in vision or urinary retention: Please call the office at , or have someone take you to the nearest emergency room. Tell the emergency room staff that you recently had a spine injection. A doctor must evaluate you for bleeding and injection complications. If you lose control over bowel, bladder, or legs: Go to the nearest emergency room. If you are diabetic, the steroids used in this procedure can increase your blood sugar. If your blood sugar is 250mg/dL or higher, contact your primary care physician, or the doctor who manages your diabetes, to discuss how to get it back to normal. documented in this encounter [facility] 05-08-2023 Evaluation note Encounter Date Diagnosis Assessment [...] of diseases classified elsewhere (ICD-10 - B97.89) [facility] Other 10-04-2023 Evaluation note* Encounter Date Diagnosis [...] no improvement in 2 to 3 days [facility] Other Evaluation noteNo assessment information available [facility] Weight gain- Primary Other symptoms concerning nutrition, metabolism, and development documented in this encounter [facility] HealthcareEvaluation note* Diagnosis RUQ pain- Primary Abdominal pain, right upper quadrant Belching Flatulence, eructation, and gas pain Major depressive disorder, single episode, moderate (HCC) (CMS/HCC) Major depressive disorder, single episode, moderate Gastroesophageal reflux disease without esophagitis Esophageal reflux documented in this encounter [facility] HealthcareEvaluation note* Diagnosis Acute non-recurrent pansinusitis- Primary Sinus pressure Other diseases of nasal cavity and sinuses Acute cough Other fatigue Sore throat Acute pharyngitis documented in this encounter [facility] HealthcareEvaluation note* Diagnosis Encounter for weight management Encounter for long-term (current) use of medications Encounter for long-term (current) use of other medications Insulin resistance Other abnormal glucose Metabolic syndrome Dysmetabolic Syndrome X documented in this encounter [facility] HealthcareEvaluation note* Diagnosis Pelvic pain- Primary Coccydynia Other disorder of coccyx [facility]* Diagnosis Coccydynia- Primary Other disorder of coccyx documented in this encounter [facility] SystemEvaluation note* Diagnosis Gastroesophageal reflux disease without esophagitis Esophageal reflux documented in this encounter [facility] HealthcareHistory general Narrative - Reported* Type Description Date Medical History depression Medical History IBS Medical History seasonal allergies Medical History insulin resistant Surgical History C section x2 Surgical History tubal ligation Surgical History uterine ablation [facility] Other InstructionsNot on filedocumented in this encounter [facility] SystemInstructionsNot on filedocumented in this encounter [facility] System Summary Purpose Family History Relationship Condition Age at Onset Recorded Date/T mary father Diabetes mellitus Unknown mother Depression Unknown Advance Directives Advance Directive Response Recorded Date/ Time Advance Directives No March 11, 2021 9:56am Chief Complaint and Reason for Visit Chief Complaint Admit Date Refer: RUQ pain, belching, diarrhea Jonathan stanton 2024 11:38am Reason for Referral Specialty Diagnoses / Procedures Referred By Arabella seals Referred To Contact Diagnoses Pelvic pain Coccydynia Procedures Case request operating room: INJECTION HYPOGASTRIC SHPB Sy Carl PA-C [address] [place] [address] Referral ID Status Reason Start Date Expiration Date V isits Requested Visits Authorized [id number] Pending Review 01/02/2024 01/01/2025 1 1 Additional Source Comments INFORMATION SOURCE (unrecogn ized section and content) DATE CREATED AUTHOR 01/31/2018 [facility] DATE CREATED AUTHOR AUTHOR'S ORGANIZ ATION 03/20/2021 [facility] DATE CREATED AUTHOR AUTHOR'S ORGANIZ ATION 11/12/2021 [facility] dical Specialist DATE CREATED AUTHOR AUTHOR'S ORGANIZ ATION 11/11/2022 [facility] DATE CREATED AUTHOR AUTHOR'S ORGANIZ ATION 03/14/2024 [facility] DATE CREATED AUTHOR AUTHOR'S ORGANIZ ATION 08/19/2024 [facility] dical Specialists EPIC Goals (unrecognized section and content) Goals may be documented in a n alternate sectionNo InformationNo InformationGoals may be documented in an alternate sectionNot on filedocumented as of this encounterNot on filedocumented as of this encounterNot on filedocumented as of this encounter REASON FOR VISIT (unrecogniz ed section and content) Reason Comments Weight Management Reason Comments Follow-up Cramping abdominal p ain, yeasty burps . Projectile vomited, diarrhea 04/09/24. Had again 05/15/24, had rash in addition to pain/vomiting. Went to [facility] 05/17/24 Reason Onset Date Comments Results 06/06/2024 Reason Comments Sinus Problem Pressure, thick gree n mucous Sore Throat In mornings Reason Comments Back Pain Reason Comments Back Pain Reason Comments Med Refill Reason Onset Date Comments Med Refill 11/01/2024 Care Teams (unrecognized sec tion and content) Image Processing Engineer Relationship Specialty Start Date End Date Samantha Posey MD [address] [place] [address] PCP - General Family Medicine 01/09/23 Samantha Posey MD [address] [place] [address] PCP - Medical [employer] 07/30/12 07/29/99 Image Processing Engineer Relationship Specialty Start Date End Date Samantha Posey MD [address] [place] [address] PCP - General Family Medicine 01/09/23 Samantha Posey MD [address] [place] [address] PCP - Medical [employer] 07/30/12 07/29/99 Image Processing Engineer Relationship Specialty Start Date End Date Samantha Posey MD [address] [place] [address] PCP - General Family Medicine 01/09/23 Samantha Posey MD [address] [place] [address] PCP - Medical [employer] 07/30/12 07/29/99 Image Processing Engineer Relationship Specialty Start Date End Date Samantha Posey MD [address] [place] [address] PCP - General Family Medicine 01/09/23 Samantha Posey MD [address] [place] [address] PCP - Medical [employer] 07/30/12 07/29/99 Image Processing Engineer Relationship Specialty Start Date End Date Samantha Posey MD [address] [place] [address] PCP - General Family Medicine 01/09/23 Samantha Posey MD [address] [place] [address] PCP - Medical [employer] 07/30/12 07/29/99 Image Processing Engineer Relationship Specialty Start Date End Date Samantha Posey MD [address] [place] [address] PCP - General Family Medicine 01/09/23 Samantha Posey MD [address] [place] [address] PCP - Medical [employer] 07/30/12 07/29/99 Image Processing Engineer Relationship Specialty Start Date End Date Samantha Posey MD [address] [place] [address] PCP - General Family Medicine 01/09/23 Samantha Posey MD [address] [place] [address] PCP - Medical [employer] 07/30/12 07/29/99 Image Processing Engineer Relationship Specialty Start Date End Date Samantha Posey MD [address] [place] [address] PCP - General Family Medicine 01/09/23 Samantha Posey MD [address] [facility] [place] [address] PCP - Medical [employer] 07/30/12 07/29/99 Team Status: Active Member Role Status Dates Samantha Posey MD Primary Care Provider Active Team Status: Inactive Member Role Status Dates Samantha Posey MD Primary Care Provider Active Start: July 31, 2024 End: July 31, 2024 Cecy Tovar DO Attending Provider Active St art: July 31, 2024 End: July 31, 2024 ELENO Davila Referring Provider Active Start: July 31, 2024 End: July 31, 2024 Image Processing Engineer Relationship Specialty Start Date End Date Samantha Posey MD [address] [facility] [place] [address] PCP - General Family Medicine 01/09/23 Samantha Posey MD [address] [facility] [place] [address] PCP - Medical [facility] [employer] 07/30/12 07/29/99 Image Processing Engineer Relationship Specialty Start Date End Date Samantha Posey MD [address] [facility] [place] [address] PCP - General Family Medicine 01/09/23 Samantha Posey MD [address] [facility] [place] [address] PCP - Medical [facility] [employer] 07/30/12 07/29/99 Image Processing Engineer Relationship Specialty Start Date End Date Samantha Posey MD [address] [facility] [place] [address] PCP - General Family Medicine 12/07/17 Image Processing Engineer Relationship Specialty Start Date End Date Samantha Posey MD [address] [facility] [place] [address] PCP - General Family Medicine 12/07/17 Image Processing Engineer Relationship Specialty Start Date End Date Samantha Posey MD [address] [place] [address] PCP - General Family Medicine 12/07/17 Image Processing Engineer Relationship Specialty Start Date End Date Samantha Psoey MD [address] [place] [address] PCP - General Family Medicine 01/09/23 Samantha Posey MD [address] [place] [address] PCP - Medical [employer] 07/30/12 07/29/99 Image Processing Engineer Relationship Specialty Start Date End Date Samantha Posey MD [address] [facility] [place] [address] PCP - General Family Medicine 01/09/23 Samantha Posey MD [address] [place] [address] PCP - Medical [employer] 07/30/12 07/29/99 FOR RECORDS PERTAINING TO [...] BE BASED ON THE PRIMARY CLINICAL RECORDS. [employer] [facility]. provides no warranty or guarantee of the accuracy or completeness of information in this document.
[2024-11-10 10:40] LABS: Basophils Absolute Auto 0.1 10^3/uL (0.0-0.1); Basophils Percent Auto 0.9 % (0.2-2.0); Eosinophils Absolute Auto 0.2 10^3/uL (0.0-0.7); Eosinophils Percent Auto 2.9 % (0.9-7.0); Hemoglobin 13.5 g/dL (12.0-16.0); Immature Granulocytes Abs Auto 0.02 10^3/uL (0.00-0.03); Immature Granulocytes Pct Auto 0.4 % (0.0-0.5); Lymphocytes Absolute Auto 2.2 10^3/uL (1.2-3.8); Lymphocytes Percent Auto 39.9 % (20.5-60.0); Mean Corpuscular HGB Conc 32.9 g/dL (29.9-35.2); Mean Corpuscular Hemoglobin 29.1 pg (26.7-34.0); Mean Corpuscular Volume 88.4 fL (81.0-99.0); Monocytes Absolute Auto 0.5 10^3/uL (0.3-0.8); Monocytes Percent Auto 8.2 % (1.7-12.0); Neutrophils Absolute Auto 2.7 10^3/uL (1.4-6.5); Neutrophils Percent Auto 47.7 % (43.0-75.0); Platelet Count 191 10^3/uL (150-450); Red Blood Count 4.64 10^6/uL (4.20-5.40); Red Cell Distribution Width 11.8 % (11.0-15.0); White Blood Count 5.6 10^3/uL (4.0-11.0)
[2024-11-10 11:13] LABS: Free T4 0.75 ng/dL (0.76-1.46)
[2024-11-10 11:14] LABS: Thyroid Stimulating Hormone 1.605 uIU/mL (0.358-3.740)
== END 2024-11-10 09:37 | disposition home or self-care (01) ==
LOC: LAB 09:37
PROVIDERS: PCP Family Medicine; Visit Provider Obstetrics & Gynecology
DX: Z76.89 Persons encountering health services in other specified circumstances (principal); Z79.899 Other long term (current) drug therapy
CPT/HCPCS: 36415; 84439; 84443; 85025

== ENCOUNTER 2024-11-10 09:42 | Outpatient (OUT) | payer OTHER, SELFPAY ==
--- OUTSIDE RECORDS SUMMARY | 2024-11-10 10:07 | XMS_ITS | CCD ---
Author Organization [facility] Care Team Providers Care Triage Specialist Name Role Phone RAMON BULLARD Unavailable Unavailable RAMON BULLARD Unavailable Unavailable NONE, XXXX Unavailable Unavailable MD Agustín Jha Attending Provider RAMON VASQUEZ [facility] Consulting Unavailable LILY JAVIER Admitting [...] JAVIER Attending Unavailable TAMARA GALLAGHER Attending Unavailable Samnatha Posey MD Primary Care Provider Allergies Allergy Classification Reported Allergen(s) Allergy Type Date of Onset Reaction(s) Facility (3 sources) Prochlorperazine Drug Allergy 24 hour parkinsons [facility] Repository (20 sources) Prochlorperazine; Translations: [PROCHLORPERAZINE] Drug Allergy 05-20-20 19 Other (See Comments) [facility] Repository (4 sources) OTHER; Translations: [OTHER] Propensity to adverse reactions (disorder) 11-30-19 18 [facility] (4 sources) GUM TXUROT-TNVTEY-PDRI- ALCOHOL; Translations: [GUM IBNMPX-GLTYHH-BJES- ALCOHOL] Propensity to adverse reactions to drug (disorder) 05-20-20 19 Rash [facility] (18 sources) Doxycycline Drug Allergy 01-14-20 24 GI intolerance [facility] (18 sources) Wound Dressing Adhesive Propensity to adverse reactions 01-10-20 23 [facility] (1 source) methyl salicylate Drug Allergy 07-31-19 25 Itching [facility] (1 source) alcohol Allergy to substance 07-31-19 25 [facility] (1 source) gum mastic Allergy to substance 07-31-19 25 [facility] (1 source) storax Allergy to substance 07-31-19 25 [facility] Medications Current Medications Medication Drug Class(es) [...] Drug Class(es) Dates Sig (Normalized) Sig (Original) [id number] 200 actuat albuterol 0.09 mg/actuat metered dose [...] current use of drug therapy; Translations: [Other prison (current) drug therapy] 08-18-2024 Episodic Other complications [...] [Mass/Vol] 3.7 g/dL 3.4 - 5.0 g/dL [facility] ALBUMIN GLOBULIN RATIO 1.1 [facility] ALP [Catalytic activity/Vol] 49 U/L 46 - 116 U/L [facility] ALT [Catalytic activity/Vol] 28 U/L 14 - 59 U/L [facility] Anion gap [Moles/Vol] 10.5 mmol/L [facility] AST [Catalytic activity/Vol] 14 U/L Low 15 - 37 U/L [facility] Bilirubin [Mass/Vol] 0.3 mg/dL 0.2 - 1 .0 mg/dL [facility] Calcium [Mass/Vol] 8.9 mg/dL 8.5 - 10. 1 mg/dL [facility] Chloride [Moles/Vol] 102 mmol/L 98 - 10 7 mmol/L [facility] CO2 [Moles/Vol] 30.7 mmol/L 21.0 - 32.0 mmol/L [facility] Creatinine [Mass/Vol] 0.91 mg/dL 0.55 - 1.02 mg/dL [facility] GFR/1.73 sq M.predicted CKD-EPI (S/P/Bld) [Vol rate/Area] >60 >=60 mL/min/1.73m 2 [facility] Globulin (S) [Mass/Vol] 3.3 g/dL [facility] Glucose [Mass/Vol] 94 mg/dL 74 - 106 mg/dL [facility] Interpretation and review of laboratory results Abnormal [facility] Potassium [Moles/Vol] 4.2 mmol/L 3.5 - 5.1 mmol/L [facility] Protein [Mass/Vol] 7 g/dL 6.4 - 8.2 g/dL [facility] Sodium [Moles/Vol] 139 mmol/L 136 - 145 mmol/L [facility] TBH EGFR-NON AF [place] >60 >=60 mL/min/1.73m 2 [facility] Urea nitrogen [Mass/Vol] 15 mg/dL 7.0 - 18.0 mg/dL [facility] Urea nitrogen/Creatinine [Mass ratio] 16.5 mg/mg [facility] Healthcar e [facility] ABDOMEN PELVIS [...] pyogenes Org specific cx Ql (Throat) Negative [employer] Other Quick Strep [employer] Other PAP ACOG PANEL 2: 30 to 65on 11-06-2022 . . Normal [facility] Comment on above: Result Comment: Perf ormed at: WB Performed By: #### [id number] #### [facility] [address] [place] [address] Dr. Emanuel Castillo Age Gdln ACOG Testing 30-65 [facility] Comment on above: Performed By: #### [id number] #### [facility] [address] [address] [address] Emanuel Castillo DIAGNOSIS: Comment Normal [facility] Comment on above: Result Comment: NEGA TIVE FOR INTRAEPITHELIAL LESION OR MALIGNANCY. Performed at: WB Performed By: #### [id number] #### [facility] [address] [place] [address] Dr. Emanuel Castillo HPV Aptima Negative Normal Negative [facility] Comment on above: Result Comment: This nucleic acid amplification test detects fourteen high-risk HPV types (16,18,31,33,35,39,45,51,52,56,58,59,66,68) without differentiation. Performed at: =G Performed By: #### [id number] #### [facility] [address] [address] [address] Emanuel Castillo HPV Genotype Reflex Comment Normal [facility] Comment on above: Result Comment: Crit eria not met, HPV Genotype not performed. Performed at: WB Performed By: #### [id number] #### [facility] [address] [place] [address] Dr. Emanuel Castillo Methodology: Comment [facility] Comment on above: Result Comment: This liquid based ThinPrep(R) pap test was screened with the use of an image guided system. Performed at: WB Performed By: #### [id number] #### [facility] [address] [place] [address] Dr. Emanuel Castillo Note: Comment Normal [facility] Comment on above: Result Comment: The Pap smear is a screening test designed to aid in the detection of premalignant and malignant conditions of the uterine cervix. It is not a diagnostic procedure and should not be used as the sole means of detecting cervical cancer. Both false-positive and false-negative reports do occur. . Performed at: WB Performed By: #### [id number] #### [facility] [address] [place] [address] Dr. Emanuel Castillo Performed by: Comment Normal [facility] Comment on above: Result Comment: Jennifer Vallecillo, Depositing Machine Operator (ASCP) Performed at: WB Performed By: #### [id number] #### [facility] [address] [place] [address] Dr. Emanuel Castillo Specimen adequacy: Comment Normal [facility] Comment on above: Result Comment: Sati sfactory for evaluation. Performed at: WB Performed By: #### [id number] #### [facility] [address] [place] [address] Dr. Emanuel Castillo CBC AUTO DIFFon 11-01-2022 BASO # 0.0 103/ul Normal 0.0-0.1 [facility] Comment on above: Performed By: #### C BC #### [facility] [address] [place] [address] Dr. Emanuel Castillo Basophils/100 WBC (Bld) 0.6 % Normal 0.2-2.0 [facility] Comment on above: Performed By: #### C BC #### [facility] [address] [place] [address] Dr. Emanuel Castillo EO # 0.3 103/ul Normal 0.0-0.7 [facility] Comment on above: Performed By: #### C BC #### [facility] [address] [place] [address] Dr. Emanuel Castillo Eosinophils/100 WBC (Bld) 3.7 % Normal 0.9-7.0 [facility] Comment on above: Performed By: #### C BC #### [facility] [address] [place] [address] Dr. Emanuel Castillo Erythrocyte distribution width (RBC) [Ratio] 12.9 % Normal 11.0-15.0 [facility] Comment on above: Performed By: #### C BC #### [facility] [address] [place] [address] Dr. Emanuel Castillo Hematocrit (Bld) [Volume fraction] 42.1 % Normal 36.0-48.0 [facility] Comment on above: Performed By: #### C BC #### [facility] [address] [place] [address] Dr. Emanuel Castillo Hemoglobin (Bld) [Mass/Vol] 13.8 g/dL Normal 12.0-16.0 [facility] Comment on above: Performed By: #### C BC #### [facility] [address] [place] [address] Dr. Emanuel Castillo IG # 0.02 10e3/ul Normal 0.00-0.03 [facility] Comment on above: Performed By: #### C BC #### [facility] [address] [place] [address] Dr. Emanuel Castillo IG % 0.3 % Normal 0.0-0.5 [facility] Comment on above: Performed By: #### C BC #### [facility] [address] [place] [address] Dr. Emanuel Castillo LYMPH # 2.4 103/ul Normal 1.2-3.8 [facility] Comment on above: Performed By: #### C BC #### [facility] [address] [place] [address] Dr. Emanuel Castillo Lymphocytes/100 WBC (Bld) 35.0 % Normal 20.5-60.0 [facility] Comment on above: Performed By: #### C BC #### [facility] [address] [place] [address] Dr. Emanuel Castillo MANUAL DIFF REQ NO Normal [facility] Comment on above: Performed By: #### C BC #### [facility] [address] [place] [address] Dr. Emanuel Castillo MCH (RBC) [Entitic mass] 27.8 pg Normal 26.7-34.0 [facility] Comment on above: Performed By: #### C BC #### [facility] [address] [place] [address] Dr. Emanuel Castillo MCHC (RBC) [Mass/Vol] 32.8 g/dL Normal 29.9-35.2 [facility] Comment on above: Performed By: #### C BC #### [facility] [address] [place] [address] Dr. Emanuel Castillo MCV (RBC) [Entitic vol] 84.9 fL Normal 81.0-99.0 [facility] Comment on above: Performed By: #### C BC #### [facility] [address] [place] [address] Dr. Emanuel Castillo MONO # 0.6 103/ul Normal 0.3-0.8 [facility] Comment on above: Performed By: #### C BC #### [facility] [address] [place] [address] Dr. Emanuel Castillo Monocytes/100 WBC (Bld) 9.2 % Normal 1.7-12.0 [facility] Comment on above: Performed By: #### C BC #### [facility] [address] [place] [address] Dr. Emanuel Castillo NEUT # 3.4 103/ul Normal 1.4-6.5 [facility] Comment on above: Performed By: #### C BC #### [facility] [address] [place] [address] Dr. Emanuel Castillo Neutrophils/100 WBC (Bld) 51.2 % Normal 43.0-75.0 [facility] Comment on above: Performed By: #### C BC #### [facility] [address] [place] [address] Dr. Emanuel Castillo Platelet mean volume (Bld) [Entitic vol] 10.0 fL Normal 9.5-13.5 [facility] Comment on above: Performed By: #### C BC #### [facility] [address] [place] [address] Dr. Emanuel Castillo PLT 214 103/ul Normal 150-450 [facility] Comment on above: Performed By: #### C BC #### [facility] [address] [place] [address] Dr. Emanuel Castillo RBC 4.96 106/ul Normal 4.20-5.40 [facility] Comment on above: Performed By: #### C BC #### [facility] [address] [place] [address] Dr. Emanuel Castillo WBC 6.7 103/ul Normal 4.0-11.0 [facility] Comment on above: Performed By: #### C BC #### [facility] [address] [place] [address] Dr. Emanuel Castillo FREE T4on 11-01-2022 Free T4 [Mass/Vol] 0.72 ng/dL Critically low 0.76-1.46 [facility] Comment on above: Performed By: #### F T4 #### [facility] [address] [place] [address] Dr. Emanuel Castillo GLYCOHEMOGLOBIN A1Con 2022 ADA RECOMMENDATION SEE BELOW Normal [facility] Comment on above: Result Comment: ADA RECOMMENDED LIMIT 4.0 - 6.0 ADA THERAPEUTIC TARGET < 7.0 ACTION SUGGESTED > 7.0 Performed By: #### A 1C #### [facility] [address] [place] [address] Dr. Emanuel Castillo Glucose [Mass/Vol] 108 mg/dL Normal [facility] Comment on above: Performed By: #### A 1C #### [facility] [address] [place] [address] Dr. Emanuel Castillo HbA1c (Bld) [Mass fraction] 5.4 % Normal 4.5-6.2 [facility] Comment on above: Performed By: #### A 1C #### [facility] [address] [place] [address] Dr. Emanuel Castillo PREG QUANT HCGon 11-01-2022 HCG QUANT <1 Normal [facility] Comment on above: Performed By: #### T SH, PREGQNT #### [facility] [address] [place] [address] Dr. Emanuel Castillo HCG RANGE SEE BELOW Normal [facility] Comment on above: Result Comment: 5-50 0.2-1 WEEK 50-500 1-2 WEEKS 100-5,000 2-3 WEEKS 500-10,000 3-4 WEEKS 1,000-50,000 4-5 WEEKS 10,000-100,000 5-6 WEEKS 15,000-200,000 6-8 WEEKS 10,000-100,000 2-3 MONTHS Performed By: #### T SH, PREGQNT #### [facility] [address] [place] [address] Dr. Emanuel Castillo PROTIMEon 11-01-2022 INR Coag (PPP) [Relative time] 0.95 {INR} Normal [facility] Comment on above: Performed By: #### P TT, PT #### [facility] [address] [place] [address] Dr. Emanuel Castillo INR GUIDELINES SEE BELOW Normal [facility] Comment on above: Result Comment: DOT RED INR: 2.0 - 3.0 CONDITIONS NOT LISTED BELOW 2.5 - 3.5 FOR PROSTHETIC HEART VALVE REPLACEMENT 2.5 - 3.5 RECURRENT THROMBOSIS Performed By: #### P TT, PT #### [facility] [address] [place] [address] Dr. Emanuel Castillo PT Coag (PPP) [Time] 10.1 s Normal 9.0-11.6 [facility] Comment on above: Performed By: #### P TT, PT #### [facility] [address] [place] [address] Dr. Emanuel Castillo PTTon 11-01-2022 aPTT Coag (Bld) [Time] 31.3 s Normal 22.3-36.2 [facility] Comment on above: Performed By: #### P TT, PT #### [facility] [address] [place] [address] Dr. Emanuel Castillo TSHon 11-01-2022 TSH 2.217 uIU/mL Normal 0.358-3.740 [facility] Comment on above: Performed By: #### T SH, PREGQNT #### [facility] [address] [place] [address] Dr. Emaunel Castillo US PELVIS AND TRANSVAGon US PELVIS [...] VALENTINA SCHULTZ Date: 2022-11-01 10:40 Normal [facility] Complete Blood Counton 11-11 Erythrocyte distribution width (RBC) [Ratio] 12.2 % Normal 11.0-15.0 [facility] Specialist Comment on above: Performed By: #### F T4, CMP, TSH, LIPD, CBC #### [facility] [address], [place] [id number] Hematocrit (Bld) [Volume fraction] 43.6 % Normal 35.0-47.0 [facility] Specialist Comment on above: Performed By: #### F T4, CMP, TSH, LIPD, CBC #### [facility] [address], [place] [id number] Hemoglobin (Bld) [Mass/Vol] 13.8 g/dL Normal 11.6-15.5 [facility] Comment on above: Performed By: #### F T4, CMP, TSH, LIPD, CBC #### [facility] [address], [place] [id number] MCH (RBC) [Entitic mass] 27.5 pg Normal 27.0-33.0 [facility] Comment on above: Performed By: #### F T4, CMP, TSH, LIPD, CBC #### [facility] [address], [place] [id number] MCHC (RBC) [Mass/Vol] 31.7 g/dL Low 32.0-36.0 [facility] Specialist Comment on above: Performed By: #### F T4, CMP, TSH, LIPD, CBC #### [facility] [address], [place] [id number] MCV (RBC) [Entitic vol] 87 fL Normal 80-100 [facility] Specialist Comment on above: Performed By: #### F T4, CMP, TSH, LIPD, CBC #### [facility] [address], [place] [id number] Platelet mean volume (Bld) [Entitic vol] 10.70 fL Normal 7.50-12.50 [facility] Comment on above: Performed By: #### F T4, CMP, TSH, LIPD, CBC #### [facility] [address], [place] [id number] Platelets (Bld) [#/Vol] 206 10*3/uL Normal 140-400 [facility] Specialist Comment on above: Performed By: #### F T4, CMP, TSH, LIPD, CBC #### [facility] [address], [place] [id number] RBC (Bld) [#/Vol] 5.02 10*6/uL Normal 3.90-5.20 [facility] Specialist Comment on above: Performed By: #### F T4, CMP, TSH, LIPD, CBC #### [facility] [address], [place] [id number] RDW-SD 39.0 fL Normal 37.0-50.0 [facility] Specialist Comment on above: Performed By: #### F T4, CMP, TSH, LIPD, CBC #### [facility] [address], [place] [id number] WBC (Bld) [#/Vol] 5.8 10*3/uL Normal 3.8-11.0 [facility] Specialist Comment on above: Performed By: #### F T4, CMP, TSH, LIPD, CBC #### [facility] [address], [place] [id number] Comprehensive Metabolic Pane misty 11-11-2021 Albumin [Mass/Vol] 4.7 g/dL Normal 3.6-5.1 Yoselin hernandez [employer] Comment on above: Performed By: #### F T4, CMP, TSH, LIPD, CBC #### [facility] [address], [place] [id number] Albumin/Globulin [Mass ratio] 2.4 {ratio} Normal 1.0-2.5 [facility] [employer] Comment on above: Performed By: #### F T4, CMP, TSH, LIPD, CBC #### [facility] [address], [place] [id number] ALP [Catalytic activity/Vol] 48 U/L Normal 35-119 [facility] [employer] Comment on above: Performed By: #### F T4, CMP, TSH, LIPD, CBC #### [facility] [address], [place] [id number] ALT [Catalytic activity/Vol] 19 U/L Normal 6-33 [facility] [employer] Comment on above: Result Comment: 06/29 Female reference range changed. Performed By: #### F T4, CMP, TSH, LIPD, CBC #### [facility] [address], [place] [id number] Anion gap [Moles/Vol] 17 mmol/L Normal 12-20 [facility] [employer] Comment on above: Result Comment: Effe ctive 08/04/2019 reference range changed. Performed By: #### F T4, CMP, TSH, LIPD, CBC #### [facility] [address], [place] [id number] AST [Catalytic activity/Vol] 17 U/L Normal 9-34 [facility] [employer] Comment on above: Performed By: #### F T4, CMP, TSH, LIPD, CBC #### [facility] [address], [place] [id number] BUN/CREA 16 Ratio Normal 6-22 [facility] [employer] Comment on above: Performed By: #### F T4, CMP, TSH, LIPD, CBC #### [facility] [address], [place] [id number] Calcium [Mass/Vol] 9.5 mg/dL Normal 8.6-10.2 Yoselin hernandez [employer] Comment on above: Performed By: #### F T4, CMP, TSH, LIPD, CBC #### [facility] [address], [place] [id number] Chloride [Moles/Vol] 104 mmol/L Normal 98-107 [facility] Comment on above: Performed By: #### F T4, CMP, TSH, LIPD, CBC #### [facility] [address], [place] [id number] CO2 [Moles/Vol] 23 mmol/L Normal 20-31 [facility] Comment on above: Performed By: #### F T4, CMP, TSH, LIPD, CBC #### [facility] [address], [place] [id number] Creatinine [Mass/Vol] 0.6 mg/dL Normal 0.6-1.4 [facility] Comment on above: Performed By: #### F T4, CMP, TSH, LIPD, CBC #### [facility] [address], [place] [id number] eGFRAA 137 mL/min/1.73m2 Normal >60 [facility] Comment on above: Performed By: #### F T4, CMP, TSH, LIPD, CBC #### [facility] [address], [place] [id number] eGFRNAA 113 mL/min/1.73m2 Normal >60 [facility] Comment on above: Performed By: #### F T4, CMP, TSH, LIPD, CBC #### [facility] [address], [place] [id number] Globulin (S) [Mass/Vol] 2.0 g/dL Normal 1.9-3.7 [facility] Comment on above: Performed By: #### F T4, CMP, TSH, LIPD, CBC #### [facility] [address], [place] [id number] Glucose [Mass/Vol] 95 mg/dL Normal 65-99 [facility] Comment on above: Result Comment: For FASTING Glucose --- ADA reference ranges: Normal 65-99 mg/dl Prediabetes 100-125 Diabetes >/= 126 Performed By: #### F T4, CMP, TSH, LIPD, CBC #### [facility] [address], [place] [id number] Potassium [Moles/Vol] 4.4 mmol/L Normal 3.5-5.5 [facility] [employer] Comment on above: Performed By: #### F T4, CMP, TSH, LIPD, CBC #### [facility] [address], [place] [id number] Protein [Mass/Vol] 6.7 g/dL Normal 6.1-8.1 Yoselin hernandez [employer] Comment on above: Performed By: #### F T4, CMP, TSH, LIPD, CBC #### [facility] [address], [place] [id number] Sodium [Moles/Vol] 140 mmol/L Normal 135-146 Yoselin hernandez [employer] Comment on above: Performed By: #### F T4, CMP, TSH, LIPD, CBC #### [facility] [address], [place] [id number] TBIL <0.3 Normal [facility] [employer]ologist Comment on above: Performed By: #### F T4, CMP, TSH, LIPD, CBC #### [facility] [address], [place] [id number] Urea nitrogen [Mass/Vol] 10 mg/dL Normal 7-25 [facility] [employer] Comment on above: Performed By: #### F T4, CMP, TSH, LIPD, CBC #### [facility] [address], [place] [id number] Free T4on 11-11-2021 Free T4 [Mass/Vol] 0.98 ng/dL Normal 0.80-1.80 Yoselin hernandez [employer] Comment on above: Performed By: #### F T4, CMP, TSH, LIPD, CBC #### [facility] [address], [place] [id number] Lipid Panelon 11-11-2021 Cholesterol [Mass/Vol] 189 mg/dL Normal 125-200 [facility] [employer] Comment on above: Result Comment: Low risk < 200mg/dL Borderline risk 201-239 mg/dl High risk > or equal to 240 Performed By: #### F T4, CMP, TSH, LIPD, CBC #### [facility] [address], [place] [id number] Cholesterol in HDL [Mass/Vol] 55 mg/dL Normal >40 [facility] Specialist Comment on above: Result Comment: High Cardiovascular Risk HDL <40 mg/dL Low Cardiovascular Risk HDL > or equal to 60 mg/dl Performed By: #### F T4, CMP, TSH, LIPD, CBC #### [facility] [address], [place] [id number] Cholesterol in LDL [Mass/Vol] 110 mg/dL Normal [facility] Specialist Comment on above: Result Comment: LDL ATP III CLASSIFICATION LDL less than 100 mg/dl Optimal LDL 100-129 mg/dl Near or above optimal LDL 130-159 Borderline high LDL 160-189 High LDL greater than 189 mg/dl Very High Performed By: #### F T4, CMP, TSH, LIPD, CBC #### [facility] [address], [place] [id number] Cholesterol in VLDL [Mass/Vol] 24 mg/dL Normal [facility] Specialist Comment on above: Performed By: #### F T4, CMP, TSH, LIPD, CBC #### [facility] [address], [place] [id number] Cholesterol.total/Ch olesterol in HDL [Mass ratio] 3 {ratio} Normal [facility] Comment on above: Performed By: #### F T4, CMP, TSH, LIPD, CBC #### [facility] [address], [place] [id number] Triglyceride [Mass/Vol] 120 mg/dL Normal 30-150 [facility] Specialist Comment on above: Result Comment: TRIG ATPIII CLASSIFICATIONS TRIG less than 150 mg/dl Normal TRIG 150-199 mg/dl Borderline High TRIG 200-500 mg/dl High TRIG greather than 500 mg/dl Very High Performed By: #### F T4, CMP, TSH, LIPD, CBC #### [facility] [address], [place] [id number] TSHon 11-11-2021 TSH 2.100 uIU/mL Normal 0.400-4.500 [facility] Specialist Comment on above: Performed By: #### F T4, CMP, TSH, LIPD, CBC #### [facility] [address], [place] [id number] Superficial Wound Cultureon 03-10-2021 Superficial Wound Culture [...] RESISTANT TO ALL B-LACTAM DRUGS. PERFORMED BY: [place] [address] PATHOLOGIST FISH HATCHERY WORKER SP TRUJILLO M.D. [facility] Comment on above: Performed By: #### C USUP #### [address] Vital Signs Date Time Vital Sign Value Performing Clinician Facility 08-18-2024 08:42-0500 Body mass index (BMI) [Ratio] 28.46 kg/m2 Tamara TAYLOR Work Phone: [facility] 08-18-2024 08:42-0500 Body weight 75.21 kg Tamara TAYLOR Work Phone: [facility] 08-18-2024 08:42-0500 Diastolic blood pressure 76 mm[Hg] Tamara TAYLOR Work Phone: [facility] 08-18-2024 08:42-0500 Systolic blood pressure 120 mm[Hg] Tamara TAYLOR Work Phone: [facility] 07-31-2024 11:45-0500 Body height 162.56 cm [facility] 07-31-2024 11:45-0500 Body mass index (BMI) [Ratio] 28.6 kg/m2 [facility] 07-31-2024 11:45-0500 Body weight 75.74 kg [facility] 07-24-2024 11:03-0500 Body mass index (BMI) [Ratio] 28.67 kg/m2 Lily Javier MANAGER IMMUNOLOGY Work Phone: [facility] 07-24-2024 11:03-0500 Body weight 75.75 kg Lily Javier NP Work Phone: [facility] 07-24-2024 11:03-0500 Diastolic blood pressure 84 mm[Hg] Lily Javier MANAGER IMMUNOLOGY Work Phone: [facility] 07-24-2024 11:03-0500 Heart rate 84 /min Lily Javier MANAGER IMMUNOLOGY Work Phone: [facility] 07-24-2024 11:03-0500 Systolic blood pressure 110 mm[Hg] Lily Javier MANAGER IMMUNOLOGY Work Phone: [facility] 05-27-2024 16:12-0400 Body mass index (BMI) [Ratio] 30.55 kg/m2 Lily Javier MANAGER IMMUNOLOGY Work Phone: [facility] 05-27-2024 16:12-0400 Body weight 80.74 kg Lily Javier MANAGER IMMUNOLOGY Work Phone: [facility] 05-27-2024 16:12-0400 Diastolic blood pressure 92 mm[Hg] Lily Javier MANAGER IMMUNOLOGY Work Phone: [facility] 05-27-2024 16:12-0400 Heart rate 76 /min Lily Javier NP Work Phone: [facility] 05-27-2024 16:12-0400 Systolic blood pressure 134 mm[Hg] Lily Javier MANAGER IMMUNOLOGY Work Phone: [facility] 05-12-2024 16:22-0400 Body mass index (BMI) [Ratio] 31.41 kg/m2 Tamara Roxi PA Work Phone: [facility] 05-12-2024 16:22-0400 Body weight 83.01 kg Tamara [place] PA Work Phone: [facility] 05-12-2024 16:22-0400 Diastolic blood pressure 76 mm[Hg] Tamara Roxi PA Work Phone: [facility] 05-12-2024 16:22-0400 Systolic blood pressure 122 mm[Hg] Tamara [place] PA Work Phone: [facility] 03-12-2024 09:00-0400 Diastolic blood pressure 108 mm[Hg] Sy Verhoff PA-C Work Phone: [facility] 03-12-2024 09:00-0400 Heart rate 83 /min Sy Verhoff PA-C Work Phone: [facility] 03-12-2024 09:00-0400 Respiratory rate 18 /min Sy Verhoff PA-C Work Phone: [facility] 03-12-2024 09:00-0400 SaO2% (BldA) [Mass fraction] 98 % Sy Verhoff PA-C Work Phone: [facility] 03-12-2024 09:00-0400 Systolic blood pressure 135 mm[Hg] Sy Verhoff PA-C Work Phone: [facility] 01-02-2024 09:44-0400 Body height 162.6 cm Sy Verhoff PA-C Work Phone: [facility] 01-02-2024 09:44-0400 Body mass index (BMI) [Ratio] 32.1 kg/m2 Sy Verhoff PA-C Work Phone: [facility] 01-02-2024 09:44-0400 Body weight 84.82 kg Sy Verhoff PA-C Work Phone: [facility] 01-02-2024 09:44-0400 Diastolic blood pressure 92 mm[Hg] Sy Verhoff PA-C Work Phone: [facility] 01-02-2024 09:44-0400 Heart rate 95 /min Sy Verhoff PA-C Work Phone: [facility] 01-02-2024 09:44-0400 Respiratory rate 16 /min Sy Verhoff PA-C Work Phone: [facility] 01-02-2024 09:44-0400 SaO2% (BldA) [Mass fraction] 98 % Sy Verhoff PA-C Work Phone: [facility] 01-02-2024 09:44-0400 Systolic blood pressure 121 mm[Hg] Sy Verhoff PA-C Work Phone: [facility] 05-08-2023 18:00-0400 Body height 162.56 cm Filomena Delgado Other [employer] Other 05-08-2023 18:00-0400 Body mass index (BMI) [Ratio] 33.33 kg/m2 Filomena Delgado Other [employer] Other 05-08-2023 18:00-0400 Body temperature 98 [degF] Filomena Delgado Other [employer] Other 05-08-2023 18:00-0400 Body weight 88.09 kg Filomena Delgado Other [employer] Other 05-08-2023 18:00-0400 Respiratory rate 18 /min Filomena Delgado Other [employer] Other 05-08-2023 18:00-0400 SaO2% (BldA) [Mass fraction] 97 % Filomena Delgado Other [employer] Other 05-02-2023 15:45-0400 Body height 162.56 cm Catia Mcdowell Other [employer] Other 05-02-2023 15:45-0400 Body mass index (BMI) [Ratio] 33.47 kg/m2 Catia Mcdowell Other [employer] Other 05-02-2023 15:45-0400 Body temperature 97.4 [degF] Catia Mcdowell Other [employer] Other 05-02-2023 15:45-0400 Body weight 88.45 kg Catia Mcdowell Other [employer] Other 05-02-2023 15:45-0400 Respiratory rate 18 /min Catia Mcdowell Other [employer] Other 05-02-2023 15:45-0400 SaO2% (BldA) [Mass fraction] 98 % Catia Mcdowell Other [employer] Other Encounters Encounter Date Encounter Type Care Provider Facility Start: 11-10-2024 End: 11-10-2024 Erlin flowsjt TAYLOR Work Phone: [facility] Start: 11-10-2024 End: 11-10-2024 Basilboo flowsjt TAYLOR Work Phone: [facility] Start: 11-01-2024 End: 11-03-2024 Kaveh Javier NP Work Phone: [facility] Comment on above: Gastroesophageal ref lux disease without esophagitis Start: 11-01-2024 End: 11-03-2024 Refill Lily Javier MANAGER IMMUNOLOGY Work Phone: [facility] Comment on above: Gastroesophageal ref lux disease without esophagitis Start: 08-18-2024 End: 08-18-2024 Bamboo flowsheet Tamara TAYLOR Work Phone: [facility] Start: 08-18-2024 End: 08-18-2024 Bamboo flowsheet Tamara Gallagher PA Work Phone: [facility] Start: 08-18-2024 End: 08-18-2024 Clinisync Result Encounter Generic External Data Provider [facility] Unsolicited Start: 08-18-2024 End: 08-18-2024 ambulatory TAMARA GALLAGHRE Not Available Start: 08-18-2024 End: 08-18-2024 Office outpatient visit 15 minutes Tamara TAYLOR Work Phone: [facility] Comment on above: Encounter for weight management; Encounter for long-term (current) use of medications; Insulin resistance; Metabolic syndrome Start: 07-31-2024 End: 07-31-2024 ambulatory [facility] Work Phone: Start: 07-31-2024 End: 07-31-2024 Patient encounter procedure [facility] Work Phone: Start: 07-24-2024 End: 07-24-2024 [...] Major depressive disorder, single episode, moderate (HCC) ([facility]/HCC); Gastroesophageal reflux disease without esophagitis Start: 05-19-2024 [...] OB Start: 05-12-2024 End: 05-12-2024 Bamboo flowsheet Taamra ATYLOR Work Phone: [facility] Start: 03-17-2024 End: 03-17-2024 ambulatory TAMARA GALLAGHER Not Available Start: 03-12-2024 End: 03-12-2024 ambulatory SY [facility] Start: 03-12-2024 End: 03-12-2024 Office outpatient visit 15 minutes Sy Carl PA-C Work Phone: [facility] Comment on above: Coccydynia (Primary Dx) Start: 02-23-2024 End: 02-23-2024 ambulatory GADIEL CARLOS [facility] Start: 02-22-2024 End: 02-22-2024 ambulatory ARIEL BEAVERS [facility] Start: 01-23-2024 End: 01-23-2024 ambulatory ELINA BARBOSA Not Available Start: 01-14-2024 End: 01-14-2024 ambulatory AGUSTÍN JHA Not Available Start: 01-11-2024 End: 02-26-2024 Telephone encounter Xochilt Horne RN [facility] Start: 01-02-2024 End: 01-02-2024 Office outpatient visit 15 minutes Sy Carl PA-C Work Phone: [facility] Comment on above: Pelvic pain (Primary Dx); Coccydynia Start: 01-02-2024 End: 01-02-2024 ambulatory SY N [facility] Start: 01-01-2024 End: 01-01-2024 ambulatory TAMARA GALLAGHER Not Available Start: 11-20-2023 End: 11-20-2023 ambulatory RITESH A JOSE E Not Available Start: 11-13-2023 End: 11-13-2023 ambulatory RITESH A JOSE E Not Available Start: 05-08-2023 End: 05-08-2023 ambulatory Filomena Delgado Other [employer] Other Start: 05-08-2023 Office outpatient vi sit 25 minutes Filomena Delgado [facility] Start: 05-02-2023 End: 05-02-2023 ambulatory Catia Mcdowell Other [employer] Other Start: 05-02-2023 Office outpatient ne w 20 minutes Catia Mcdowell [facility] Start: 11-01-2022 End: 11-02-[address] ELINA BARBOSA . Facility: Start: 10-30-2022 End: 10-30-[address] ELINA BARBOSA . Facility: Start: 01-31-2022 End: 02-01-2022 ambulatory RAMON BULLARD . Facility: Start: 01-04-2022 End: 01-05-2022 ambulatory RAMON BULLARD . Facility: Start: 03-10-2021 End: 03-10-2021 Departed Referred MD Agustín Jha Work Phone: [facility] Start: 10-21-2017 End: 10-22-2017 Ambulatory RAMON BULLARD [place] Start: 10-14-2017 End: 10-15-2017 Ambulatory RAMON BULLARD [place] Procedures Date Procedure Procedure Detail Performing Clinician Start: 08-18-2024 [facility] CMP (CMP) (FOR REMOTE [facility] USE) Tamara TAYLOR Work Phone: Start: 01-31-2023 Microscopic observat ion [Identifier] in Cervix by Cyto stain Sy Carl PA-C Work Phone: Start: 12-08-2018 H/O: section Previous delivery affecting , antepartum Sy Carl PA-C Work Phone: Plan of Treatment Date Care Activity Detail Author Start: 11-23-2027 DTaP,Tdap and Td Vaccines (2 - Td or Tdap) DTaP,Tdap and Td Vaccines (2 - Td or Tdap) [facility] Start: 10-31-2027 Screening for malign ant neoplasm of cervix [facility] Start: 01-31-2026 Screening for malign ant neoplasm of cervix Pap Smear [facility] Start: 03-30-2025 Influenza vaccination Influenz a Vaccine (Season Ended) [facility] Start: 03-12-2025 Tobacco Screening Tobacco Screening [facility] Start: 02-21-2025 Tobacco Screening Tobacco Screening [facility] Start: 01-13-2025 End: 01-13-2025 Patient encounter procedure 01/13/2025 10:15 AM EDT Office Visit [facility] [address] [place] [id number] Agustín Jha MD [address] [place] [address] [facility] Start: 01-01-2025 Adult BMI Screening Adult BMI Screen [facility] Start: 01-01-2025 Tobacco Screening Tobacco Screening [facility] Start: 11-10-2024 End: 11-10-2024 Patient encounter procedure [facility] Comment on above: Arrived Start: 09-18-2024 Influenza vaccination Influenza Vacc ine (#1) [facility] Comment on above: Postponed from 03/30 (Patient Refused) Start: 08-18-2024 End: 08-18-2024 Patient encounter procedure 08/18/2024 8:30 AM EST Office Visit [facility] [address] [place] [id number] Tamara Gallagher PA [address] [place] [address] [facility] Start: 07-24-2024 End: 07-24-2024 Patient encounter procedure 07/24/2024 11:00 AM EST Office Visit [facility] [address] [place] [address] Lily Javier, KONRAD [address] [place] [address] Arrived [facility] Comment on above: Arrived Start: 05-27-2024 End: 05-27-2025 CT Abdomen and Pelvis WO contrast CT abdomen pelvis wo IV contrast Imaging Routine RUQ pain Belching Expected: 05/27/2024, Expires: 05/27/2025 [facility] Work Phone: Comment on above: Expected: 05/27/2024 , Expires: 05/27/2025 Start: 05-12-2024 End: 05-12-2024 Patient encounter procedure 05/12/2024 4:00 PM EDT Office Visit [facility] [address] [place] [address] Tamara Gallagher PA [address] [place] [address] Arrived [facility] Comment on above: Arrived Start: 03-30-2024 Influenza vaccination N [facility] Start: 03-12-2024 End: 03-12-2024 Patient encounter procedure 03/12/2024 8:45 AM EDT Office Visit [facility] [address] [place] [id number] Sy Carl PA-C [address] [place] [address] [facility] Start: 10-31-2023 Screening for malign ant neoplasm of cervix [facility] Start: 03-30-2023 COVID-19 Vaccine ( season) COVID-19 Vaccine ( season) [facility] Start: 03-10-2021 Superficial Wound Culture Superficial Wound Culture [facility] Start: 2003 Adult BMI Follow Up Plan Adult BMI Follow Up Plan [facility] Start: 1997 Depression Screening Depression Scre ening [facility] Comprehensive metabo lic 2000 panel - Serum or Plasma Comprehensive metabolic panel Lab Routine Encounter for long-term (current) use of medications Ordered: 08/18/2024 [facility] Work Phone: Comment on above: Ordered: 08/18/2024 Injection anes super ior hypogastric plexus INJECTION HYPOGASTRIC Pelvic pain Coccydynia [place] [facility] Immunizations Immunization Date Immunization Notes Care Provider Diego perdomo 02-12-2024 Hepatitis B vaccine (recombinant), CpG adjuvanted Lily Javier NP Work Phone: [facility] 12-23-2023 Hepatitis B vaccine (recombinant), CpG adjuvanted Lily Javier NP Work Phone: [facility] 07-22-2018 influenza, injectable, quadrivalent, preservative free Tamara Gallagher PA Work Phone: [facility] 07-22-2018 influenza virus vaccine, unspecified formulation Sy Carl PA-C Work Phone: [facility] 11-22-2017 tetanus toxoid, reduced diphtheria toxoid, and acellular pertussis vaccine, adsorbed Sy Carl PA-C Work Phone: [facility] [employer] NEGATED: Highlighted row has not occurred!11-21-2017 measles, mumps and rubella virus vaccine Sy Sernaff PA-C Work Phone: [facility] NEGATED: Highlighted row has not occurred!11-21-2017 varicella virus vaccine Sy [employer] PA-C Work Phone: [facility] [employer] Payers Date Payer Category Payer Private Health Insurance [id number] 2021 Private Health Insurance [id number] 2016 Unknown [employer] ELISHA [facility] [id number] 2016-Present [phone] [address] [place] [address] [id number] 1985 Unknown [id number] [id number] 3 1985 Unknown [id number] 2.16.840.1.041160.3.579.2.59 3 1985 Unknown [id number] 2.16.840.1.378883.3.579.2.59 3 1985 Unknown [id number] 2.16.840.1.344689.3.579.2.59 3 1985 Unknown [id number] 2.16.840.1.599282.3.579.2.12 86 1985 Unknown [id number] 2.16.840.1.372289.3.579.2.12 86 1985 Unknown [id number] 2.16.840.1.149899.3.579.2.12 86 1985 Unknown [id number] 2.16.840.1.735826.3.579.2.12 86 1985 Unknown [id number] 2.16.840.1.129780.3.579.2.12 86 1985 Unknown [id number] 2.16.840.1.337411.3.579.2.12 86 1985 Unknown [id number] 2.16.840.1.425757.3.579.2.12 59 1985 Unknown [id number] 2.16.840.1.470665.3.579.2.12 59 1985 Unknown [id number] 2.16.840.1.765681.3.579.2.12 59 1985 Unknown [id number] 2.16.840.1.103900.3.579.2.12 59 1985 Unknown [id number] 2.16.840.1.176952.3.579.2.12 59 1985 Unknown [id number] 2.16.840.1.518943.3.579.2.12 59 1985 Unknown [id number] 2.16.840.1.773987.3.579.2.12 59 1985 Unknown [id number] 2.16.840.1.860471.3.579.2.12 59 1985 Unknown [id number] 2.16.840.1.214671.3.579.2.12 59 1985 Unknown [id number] 2.16.840.1.552939.3.579.2.12 59 1985 Unknown [id number] 2.16.840.1.395813.3.579.2.12 59 1959 Unknown [id number] Self-pay Self Pay [id number] Social History Date Type Detail Facility Tobacco smoking status NHIS Unknown if ever smoked [facility] Start: 1985 Sex Assigned At Female F [facility] Start: 06-25-2023 End: 11-13-2023 Sex Assigned At [facility] Start: 03-08-2023 End: 05-16-2023 Tobacco smoking status NHIS Never smoked tobacco [facility] Start: 03-08-2023 End: 05-16-2023 Tobacco use and exposure Smokeless tobacco non-user [facility] Start: 03-17-2024 End: 07-24-2024 Alcoholic beverage intake Current drinker of alcohol (finding) [facility] Start: 06-25-2023 End: 11-13-2023 History of [...] Sex assigned at Not on file P [facility] Start: 07-31-2024 Sex Female (finding) [facility] Unknown [facility] Start: 01-02-2024 Alcohol Comment rarely [facility] NEGATED: Highlighted rowStart: [...] Diagnosis Date Noted Allergic rhinitis 05/16/2023 Asthma ([facility]) 05/16/2023 Atypical squamous cells of undetermined significance (ASCUS) on Papanicolaou smear of cervix 05/16/2023 Chronic hypertension ([facility]) 10/27/2017 Gastroesophageal reflux disease 05/16/2023 Major depressive disorder, single episode, moderate (HCC) ([facility]) 05/16/2023 Obstructive sleep apnea 05/16/2023 Oligohydramnios 11/20/2017 Chronic rhinitis 11/02/2023 AVA (generalized anxiety disorder) ([facility]) 11/13/2023 Resolved Ambulatory Problems Diagnosis Date Noted No Resolved Ambulatory Problems Past Medical History: Diagnosis Date Asthma, chronic, unspecified asthma severity, uncomplicated (CMS/[facility]) Atypical nevi Chronic allergic rhinitis Elevated BP without diagnosis of hypertension Generalized anxiety disorder ([facility]/HCC) History of section History of melanoma excision 03/07/2017 Major depression, chronic (CMS/HCC) Major depression, chronic (CMS/[facility]) Nonintractable migraine, unspecified migraine type (CMS/[facility]) Other abnormal findings in specimens from female [...] SKIN BIOPSY TUBAL LIGATION WISDOM TOOTH EXTRACTION [place] REVIEW OF SYSTEMS Review of Systems: [...] of: BRANDON Christina documented in this encounter [facility] 07-24-2024 History of Presen t illness Narrative [...] SKIN BIOPSY TUBAL LIGATION WISDOM TOOTH EXTRACTION [place] teeth Family History Problem Relation Name Age [...] Insecurity: No Food Insecurity (03/12/2024) Received from [facility] Hunger Screening Within the past 12 [...] fail to improve. documented in this encounter [facility] 06-20-2024 Telephone encounter Note Patient called to let you know that her stomach is still cramping and she is having diarrhea again. Ty [facility] 06-20-2024 Miscellaneous Notes Patient called to let you know that her stomach is still cramping and she is having diarrhea again. Ty documented in this encounter [facility] 06-06-2024 Telephone encounter Note Please let patient know other than some stool to right colon, CT is negative. I do recommend staying away from pork and high fatty foods. If she continues to have issues, she may benefit from seeing GI. [facility] 06-06-2024 Miscellaneous Notes Please let patient know other than some stool to right colon, CT is negative. I do recommend staying away from pork and high fatty foods. If she continues to have issues, she may benefit from seeing GI. documented in this encounter [facility] 05-27-2024 History of Presen t illness Narrative Images from the original note were not included. Mariya Orosco is a 39 y.o. female presents with chief complaint of Follow-up (Cramping abdominal pain, yeasty burps . Projectile vomited, diarrhea 04/09/24. Had again 05/15/24, had rash in addition to pain/vomiting. Went to [facility] 05/17/24) HPI: HPI Patient presents to [...] SKIN BIOPSY TUBAL LIGATION WISDOM TOOTH EXTRACTION [place] teeth Family History Problem Relation Name Age [...] Insecurity: No Food Insecurity (03/12/2024) Received from [facility] Hunger Screening Within the past 12 months [...] pending test results. documented in this encounter [facility] 05-19-2024 Telephone encounter Note Pt was in [facility] ER and patient spoke with you this weekend. Patient needs a follow up visit, but can only come at 345 or 4pm, and you don't have those openings. Suggestions, she wanted this note sent for your opionon. I did offer at 2:30 but patient said she was at work and could not come then. [facility] 05-19-2024 Miscellaneous Notes Pt was in [facility] ER and patient spoke with you this weekend. Patient needs a follow up visit, but can only come at 345 or 4pm, and you don't have those openings. Suggestions, she wanted this note sent for your opionon. I did offer at 2:30 but patient said she was at work and could not come then. documented in this encounter [facility] 05-12-2024 History of Presen t illness Narrative [...] Diagnosis Date Noted Allergic rhinitis 05/16/2023 Asthma ([facility]) 05/16/2023 Atypical squamous cells of undetermined significance (ASCUS) on Papanicolaou smear of cervix 05/16/2023 Chronic hypertension ([facility]) 10/27/2017 Gastroesophageal reflux disease 05/16/2023 Major depressive disorder, single episode, moderate (HCC) ([facility]) 05/16/2023 Obstructive sleep apnea 05/16/2023 Oligohydramnios 11/20/2017 [...] SKIN BIOPSY TUBAL LIGATION WISDOM TOOTH EXTRACTION [place] teeth REVIEW OF SYSTEMS Review of Systems: [...] of: BRANDON Christina documented in this encounter [facility] 03-12-2024 History of Presen t illness Narrative [facility] [address] [place] [address] Patient: Mariya Orosco Sex: female : 1985 [...] 11/21/2017 Performed by Negra Harrington MD at [facility] OR SECTION [address] Nancy Barber [place] ENDOMETRIAL ABLATION W/ NOVASURE 01/31/2023 GUM SURGERY INJECTION HYPOGASTRIC Bilat SHPB Bilateral 03/23/2023 Performed by Arile Beavers MD at [facility] INJECTION HYPOGASTRIC SHPB Bilateral 02/22/2024 Performed by Ariel Beavers MD at [facility] SKIN LESION EXCISION 2016 Dr. Magdaleno TUBAL LIGATION 2018 Dr. Dontrell Melgoza [place] WISDOM TOOTH EXTRACTION Allergies Allergen Reactions Compazine [Prochlorperazine] Other (See Comments) Tremors, shaking Seasonal Allergy [Other] Mastisol Adhesive [Gum Jmeype-Cedtty-Vlno-Alcohol] Rash Family History Problem Relation Age of [...] PA-C 03/12/24 0955 documented in this encounter [facility] 01-11-2024 Miscellaneous Notes Received approval to hold [...] procedure on 02/22/2024. documented in this encounter [facility] 01-11-2024 Telephone encounter Note Received approval to hold wegovy x14 days Needs insurance auth Needs scheduled [facility] 01-11-2024 Telephone encounter Note Mariya is scheduled for 02/21. She will hold her 02/15 dose of Wegovy [facility] 01-11-2024 Telephone encounter Note Wegovy is for weight loss. Patient is to hold for 14 days prior to ordered procedure. Her last dose prior to procedure will have to be on or before 02/07/2024. [facility] 01-11-2024 Telephone encounter Note Call placed to patient to inform her that she is not to take Wegovy for 14 days prior to 02/22/2024 procedure with sedation. Patient informed that she is not to take any Wegovy after 02/07/2024. Patient verbalized understanding and states that she has it marked on her calendar. She may resume Wegovy post procedure on 02/22/2024. [facility] 01-02-2024 History of Presen t illness Narrative [facility] [address] [place] [address] Patient: Mariya Orosco Sex: female : 1985 [...] 11/21/2017 Performed by Negra Harrington MD at [facility] OR SECTION [address] Nancy Barber [place] ENDOMETRIAL ABLATION W/ NOVCJ 01/31/2023 GUM SURGERY INJECTION HYPOGASTRIC Bilat SHPB Bilateral 03/23/2023 Performed by Ariel Beavers MD at [facility] SKIN LESION EXCISION 2017 Dr. Magdaleno TUBAL LIGATION 2018 Dr. Bullard Abad [place] WISDOM TOOTH EXTRACTION Allergies Allergen Reactions Compazine [Prochlorperazine] Other (See Comments) Tremors, shaking Seasonal Allergy [Other] Mastisol Adhesive [Gum Fnrnug-Uztlkg-Ttnw-Alcohol] Rash Family History Problem Relation Age of [...] PA-C 01/02/24 1039 documented in this encounter [facility]ision 01-02-2024 Instructions Perri Patel CNA - 01/02/2024 [...] a safety precaution, you must have a hack driver after a lumbar nerve root injection, [...] back to normal. documented in this encounter [facility] 05-08-2023 Evaluation note Encounter Date Diagnosis Assessment [...] of diseases classified elsewhere (ICD-10 - B97.89) [employer] Other 10-04-2023 Evaluation note* Encounter Date Diagnosis [...] no improvement in 2 to 3 days [employer] Other Evaluation noteNo assessment information available [facility]* Diagnosis Weight gain- Primary Other symptoms concerning nutrition, metabolism, and development documented in this encounter [facility] HealthcareEvaluation note* Diagnosis RUQ pain- Primary Abdominal pain, right upper quadrant Belching Flatulence, eructation, and gas pain Major depressive disorder, single episode, moderate (HCC) (CMS/HCC) Major depressive disorder, single episode, moderate Gastroesophageal reflux disease without esophagitis Esophageal reflux documented in this encounter [facility] HealthcareEvaluation note* Diagnosis Acute non-recurrent pansinusitis- Primary Sinus pressure Other diseases of nasal cavity and sinuses Acute cough Other fatigue Sore throat Acute pharyngitis documented in this encounter [facility] HealthcareEvaluation note* Diagnosis Encounter for weight management Encounter for long-term (current) use of medications Encounter for long-term (current) use of other medications Insulin resistance Other abnormal glucose Metabolic syndrome Dysmetabolic Syndrome X documented in this encounter [facility] HealthcareEvaluation note* Diagnosis Pelvic pain- Primary Coccydynia Other disorder of coccyx [facility] Diagnosis Coccydynia- Primary Other disorder of coccyx documented in this encounter [facility] SystemEvaluation note* Diagnosis Gastroesophageal reflux disease without esophagitis Esophageal reflux documented in this encounter [facility] HealthcareHistory general Narrative - Reported* Type Description Date Medical History depression Medical History IBS Medical History seasonal allergies Medical History insulin resistant Surgical History C section x2 Surgical History tubal ligation Surgical History uterine ablation [employer] Other InstructionsNot on filedocumented in this encounter [facility] SystemInstructionsNot on filedocumented in this encounter [facility] System Summary Purpose Family History Relationship Condition [...] HYPOGASTRIC [facility] Sy Carl PA-C [address] [place] [address] Referral ID Status Reason Start Date Expiration Date V isits Requested Visits Authorized [id number] Pending Review 01/02/2024 01/01/2025 1 1 Additional Source Comments INFORMATION SOURCE (unrecogn ized section and content) DATE CREATED AUTHOR 01/31/2018 [facility] DATE CREATED AUTHOR AUTHOR'S ORGANIZ ATION 03/20/2021 [facility] DATE CREATED AUTHOR AUTHOR'S ORGANIZ ATION 11/12/2021 [facility] dical Specialist DATE CREATED AUTHOR AUTHOR'S ORGANIZ ATION 11/11/2022 [facility] DATE CREATED AUTHOR AUTHOR'S ORGANIZ ATION 03/14/2024 [facility] DATE CREATED AUTHOR AUTHOR'S ORGANIZ ATION 08/19/2024 [facility] dical Specialists EPIC Goals (unrecognized section and [...] rash in addition to pain/vomiting. Went to [facility] 05/17/24 Reason Onset Date Comments Results 06/06/2024 Reason Comments Sinus Problem Pressure, thick gree n mucous Sore Throat In mornings Reason Comments Back Pain Reason Comments Back Pain Reason Comments Med Refill Reason Onset Date Comments Med Refill 11/01/2024 Care Teams (unrecognized sec tion and content) Triage Specialist Relationship Specialty Start Date End Date Samantha Posey MD [address] [place] [address] PCP - General Family Medicine 01/09/23 Samantha Posey MD [address] [place] [address] PCP - Medical [employer] 07/30/12 07/29/99 Triage Specialist Relationship Specialty Start Date End Date Samantha Posey MD [address] [place] [address] PCP - General Family Medicine 01/09/23 Samantha Posey MD [address] [place] [address] PCP - Medical [employer] 07/30/12 07/29/99 Triage Specialist Relationship Specialty Start Date End Date Samantha Posey MD [address] [place] [address] PCP - General Family Medicine 01/09/23 Samantha Posey MD [address] [place] [address] PCP - Medical [employer] 07/30/12 07/29/99 Triage Specialist Relationship Specialty Start Date End Date Samantha Posey MD [address] [place] [address] PCP - General Family Medicine 01/09/23 Samantha Posey MD [address] [place] [address] PCP - Medical [employer] 07/30/12 07/29/99 Triage Specialist Relationship Specialty Start Date End Date Samantha Posey MD [address] [place] [address] PCP - General Family Medicine 01/09/23 Samantha Posey MD [address] [place] [address] PCP - Medical [employer] 07/30/12 07/29/99 Triage Specialist Relationship Specialty Start Date End Date Samantha Posey MD [address] [place] [address] PCP - General Family Medicine 01/09/23 Samantha Posey MD [address] [place] [address] PCP - Medical [employer] 07/30/12 07/29/99 Triage Specialist Relationship Specialty Start Date End Date Samantha Posey MD [address] [place] [address] PCP - General Family Medicine 01/09/23 Samantha Posey MD [address] [place] [address] PCP - Medical [employer] 07/30/12 07/29/99 Triage Specialist Relationship Specialty Start Date End Date Samantha Posey MD [address] [place] [address] PCP - General Family Medicine 01/09/23 Samantha Posey MD [address] [place] [address] PCP - Medical [email or web address] 07/30/12 07/29/99 Team Status: Active Member [...] July 31, 2024 End: July 31, 2024 Triage Specialist Relationship Specialty Start Date End Date Samantha Posey MD [address] [facility] [place] [address] PCP - General Family Medicine 01/09/23 Samantha Posey MD [address] [facility] [place] [address] PCP - Medical [email or web address] 07/30/12 07/29/99 Triage Specialist Relationship Specialty Start Date End Date Samantha Posey MD [address] [facility] [place] [address] PCP - General Family Medicine 01/09/23 Samantha Posey MD [address] [facility] [place] [address] PCP - Medical [email or web address] 07/30/12 07/29/99 Triage Specialist Relationship Specialty Start Date End Date Samantha Posey MD [address] [facility] [place] [address] PCP - General Family Medicine 12/07/17 Triage Specialist Relationship Specialty Start Date End Date Samantha Posey MD [address] [facility] [place] [address] PCP - General Family Medicine 12/07/17 Triage Specialist Relationship Specialty Start Date End Date Samantha Posey MD [address] [place] [address] PCP - General Family Medicine 12/07/17 Triage Specialist Relationship Specialty Start Date End Date Samantha Posey MD [address] [place] [address] PCP - General Family Medicine 01/09/23 Samantha Posey MD [address] [place] [address] PCP - Medical [employer] 07/30/12 07/29/99 Triage Specialist Relationship Specialty Start Date End Date Samantha Posey MD [address] [facility] [place] [address] PCP - General Family Medicine 01/09/23 Samantha Posey MD [address] [place] [address] PCP - Medical [employer] 07/30/12 07/29/99 FOR RECORDS PERTAINING TO [...] BE BASED ON THE PRIMARY CLINICAL RECORDS. [employer] [facility]. provides no warranty or guarantee of the accuracy or completeness of information in this document.
[2024-11-10 11:03] LABS: Alanine Aminotransferase 26 U/L (14-59); Albumin Globulin Ratio 1.1; Albumin Level 3.5 g/dL (3.4-5.0); Alkaline Phosphatase 51 U/L (46-116); Anion Gap 10.2; Aspartate Amino Transferase 16 U/L (15-37); Bilirubin Total 0.3 mg/dL (0.2-1.0); Calcium 8.5 mg/dL (8.5-10.1); Carbon Dioxide 28.9 mmol/L (21.0-32.0); Chloride 105 mmol/L (98-107); Estimated GFR (African America >60 (>=60 mL/min/1.73m^2); Estimated GFR (Non-African Ame >60 (>=60 mL/min/1.73m^2); Globulin 3.1 g/dL; Glucose 85 mg/dL (74-106); Potassium 4.1 mmol/L (3.5-5.1); Sodium 140 mmol/L (136-145); Total Protein 6.6 g/dL (6.4-8.2)
== END 2024-11-10 09:43 | disposition home or self-care (01) ==
LOC: LAB 09:43
PROVIDERS: PCP Family Medicine; Visit Provider Physician Assistant
DX: Z79.899 Other long term (current) drug therapy (principal); Z76.89 Persons encountering health services in other specified circumstances
CPT/HCPCS: 36415; 80053; 84439; 84443; 85025

== ENCOUNTER 2025-02-18 15:26 | Outpatient (REF) | payer OTHER, SELFPAY ==
--- OUTSIDE RECORDS SUMMARY | 2025-02-06 08:00 | XMS_ITS | Encounter Summary ---
Author Organization [employer] tem Address [id number] [place] [address] Care Team Providers Care Pit Worker [employer] Name Role Phone Samantha Posey MD Primary Care Provider [phone] Reason for Referral * Diagnostic Imaging (Routine) - Pending Review Specialty Diagnoses / Procedures Referred By Contac t Referred To Contact Diagnoses Coccyxdynia Procedures Fluoroscopy less than one hour Ariel Beavers MD [address] [place] [address] Phone: tel: fax: Referral ID Status Reason Start Date Expiration Date V isits Requested Visits Authorized [id number] Pending Review 02/02/2025 02/02/2026 1 1 Reason for Visit * Auth/Cert Specialty Diagnoses / Procedures Referred By Arabella t Referred To Contact Diagnoses Coccydynia Coccydynia [M53.3] Procedures NH N BLOCK INJ, HYPOGAS PLXS INJECTION HYPOGASTRIC; SHPB Ariel Beavers MD [address] [place] [address] Phone: tel: fax: Referral ID Status Reason Start Date Expiration Date Visits Re quested Visits Authorized [id number] 1 1 Encounter Details Date Type Department Care Team (Latest Contact Info) Description 02/06/2025 8:00 AM EDT - 02/06/2025 11:18 AM EDT Hospital Encounter [facility] - Radiology [address] [place] [id number] Ariel Beavers MD [address] [place] [address] Coccyxdynia Discharge Disposition: Home Social History Tobacco Use Types Packs/Day Years Used Date Smoking Tobacco: Never Smokeless Tobacco: Never Alcohol Use Standard Drinks/Week Comments Yes 0 (1 standard drink = 0.6 oz pur e alcohol) rarely Childcare Answer Date Recorded Childcare Unknown 01/01/2019 Employment Answer Date Recorded Employment Unknown 01/01/2019 Hunger Screening Answer Date Recorded Within the past 12 months we worried whether our food would run out before we got money to buy more. Never True 01/14/2025 Within the past 12 months th e food we bought just didn't last and we didn't have money to get more. Never True 01/14/2025 Purpose - Life Answer Date Recorded Purpose and direction in life Unknown Comments No Sex and Gender Information Value Date Recorded Sex Assigned at Not on file Legal Sex Female 11:27 AM EDT Gender Identity Not on file Sexual Orientation Not on file documented as of this encounter Medications at Time of Discharge aspirin 81 mg chewable tablet Chew 1 tablet (81 mg total) and swallow in the morning. TAKING 2 TABS DAILY. . cetirizine (ZyrTEC) 5 mg tablet Take 1 tablet (5 mg total) by mouth in the morning. docusate sodium (COLACE) 100 mg capsule Take 1 capsule (100 mg total) by mouth once. escitalopram (LEXAPRO) 20 mg tablet Take 1 tablet (20 mg total) by mouth in the morning. famotidine (PEPCID) 20 mg tablet Take 1 tablet (20 mg total) by mouth. TAKE 1 TABLET BY MOUTH TWICE DAILY (IN THE MORNING AND BEFORE BEDTIME) 11/03/2024 labetalol (NORMODYNE) 200 mg tablet Take 1 tablet (200 mg total) by mouth in the morning and 1 tablet (200 mg total) before bedtime. loratadine (CLARITIN) 5 mg chewable tablet Chew 2 tablets (10 mg total) and swallow in the morning. metFORMIN (GLUCOPHAGE) 500 mg tablet Take 1 tablet (500 mg total) by mouth in the morning and 1 tablet (500 mg total) before bedtime. montelukast (SINGULAIR) 10 mg tablet Take 1 tablet (10 mg total) by mouth nightly. VIT CALC,IRON,FOLIC ( VITAMIN ORAL) Take 1 tablet by mouth in the morning. vit37/iron/folic acid (PRENATA ORAL) Take 1 tablet by mouth in the morning. raNITIdine (ZANTAC) 150 mg tablet Take 1 tablet (150 mg total) by mouth in the morning and 1 tablet (150 mg total) before bedtime. semaglutide, weight loss, (WEGOVY) 0.5 mg/0.5 mL pen injector Inject 1.2 mL (1.2 mg total) under the skin once a week. 01/01/2024 sertraline (ZOLOFT) 50 mg tablet Take 1 tablet (50 mg total) by mouth in the morning. documented as of this encounter Plan of Treatment Upcoming Encounters Date Type Department Care Team (Late st Contact Info) Description 03/04/2025 10:30 AM EDT Office Visit [facility] [address] [place] [id number] Regine Carl, PAAna [address] [place], [place] [id number] documented as of this encounter Procedures Procedure Name Priority Date/Time Associated Diagnosis Comments FL FLUOROSCOPY UP TO 1 HOUR Routine 02/06/2025 12:31 PM EDT Coccyxdynia documented in this encounter Results * Fluoroscopy less than one hour (02/06/2025 12:31 PM EDT) Narrative SYSTEMGENERATED, DOCUMENTATION - 02/06/2025 12:31 PM EDT No Reading Required. This procedure does not require a formal dictation. Non-Radiologist provider performed procedures can be reviewed under Post-Op, Procedure or Progress notes. For full report details, please reach out to your physician. Effective 12/14/2020 this image will be visible to you in MyChart. us Ariel Beavers MD IMG FLUOROSCOPY ORDERABLES Fi nal Result documented in this encounter Visit Diagnoses Diagnosis Coccyxdynia Other disorder of coccyx documented in this encounter Additional Health Concerns Assessment Noted Time A Body Mass Index follow-up plan has been documented for the patient 05/20/2019 3:46 PM EDT documented as of this encounter Care Teams Pit Worker [employer]vel Relationship Specialty Start Date End Date Samantha Posey MD [address] [place] [address] PCP - General Family Medicine 12/07/17 documented as of this encounter
--- OUTSIDE RECORDS SUMMARY | 2025-02-06 11:19 | XMS_ITS | Encounter Summary ---
Author Organization [facility] tem Address [id number] [address] [place] [address] Care Team Providers Care Build And Release Manager Name Role Phone Samantha Posey MD Primary Care Provider [phone] Reason for Visit * Auth/Cert Specialty Diagnoses / Procedures Referred By Arabella seals Referred To Contact Diagnoses Coccydynia Coccydynia [M53.3] Procedures OR N BLOCK INJ, HYPOGAS PLXS INJECTION HYPOGASTRIC; SHPB Ariel Beavers MD [address] [place] [address] Phone: tel: fax: Referral ID Status Reason Start Date Expiration Date Visits Re quested Visits Authorized [id number] 1 1 Encounter Details Date Type Department Care Team (Latest Contact Info) Description 02/06/2025 11:19 AM EDT - 02/06/2025 11:59 PM EDT Hospital Encounter [facility] - Pain Procedures [address] [place] [phone] Ariel Beavers MD [address] [place] [address] Discharge Disposition: Home Social History Tobacco Use [...] on file documented as of this encounter Last Filed Vital Signs Vital Sign Reading Time Taken Comments Blood Pressure 96/67 02/06/2025 12:38 PM EDT Pulse 76 02/06/2025 11:38 AM EDT Temperature 36.4 C (97.5 F) 02/06/2025 11:38 AM EDT Respiratory Rate 16 02/06/2025 12:38 PM EDT Oxygen Saturation 93% 02/06/2025 12:38 PM EDT Inhaled Oxygen Concentration - - Weight - - Height - - Body Mass Index - - documented in this encounter Discharge Instructions * Discharge Instructions* Bev Damon RN - 02/06/2025 11:19 AM EDT Restart Wegovy at 0.6 mg for 1 month then resume pre-procedural dose Epidural Steroid Injection (RAFI) / Nerve Root Injection / Nerve Block These procedure(s) involve the injection of a steroid and anesthetic into the epidural space or thenerve sheath that is both diagnostic and potentially therapeutic for alleviating discomfort of the legs and arms secondary to compression of the respective nerves due to bulging discs, bone spurs andother potential causes. Steroids are potent anti-inflammatory drugs [...] a safety precaution, you must have a driver manager after a lumbar nerve root injection, even if you do not receive sedation. Resume activity as tolerated when function has returned. Medications Resume your routine medications after your procedure. You may resume blood thinners per your regular schedule after the procedure. If you received sedation: If you received sedation for your procedure, you may feel sleepy or not ???yourself?? for several hours today. For the next [...] take you to the nearest emergency room. Tellthe emergency room staff that you recently had [...] back to normal. documented in this encounter Medications at Time of Discharge [...] the morning. documented as of this encounter H&P Notes * Ariel Beavers MD - 02/06/2025 11:19 AM EDT HISTORY AND PHYSICAL INTERVAL NOTE: Mariya Wangmarti Orosco 1985 [id number] H&P reviewed. The patient was examined and there are no changes to the H&P. Ariel Beavers Jr, MD Source Note - Sy Carl PA-C - 01/14/2025 1:30 PM EDT [facility] [address] [place] [address] Patient: Mariya Orosco Sex: female : 1985 Age: 39 y.o. PCP: Samantha Posey MD 01/14/2025 Mariya Orosco is here for a(n) follow up with increased tailbone pain. Patient reports her painbegan to return recently. Chief Complaint Patient presents with Tailbone Pain HPI: Patient goes for monthly massages and Chiropractor to Dr Mckeon that provides relief. 03/23/23 Superior Hyper Plexus Block with 85% 02/22/2024 Superior Hyper Plexus Block with 95%-100% relief continuing. Pre procedure pain 7/10. Post procedure pain 0/10 until late November 2024 Back Pain This is a chronic problem. The current episode started more than 1 year ago (07/2022, fell and hit tailbone). The problem occurs constantly. The problem has been gradually worsening since onset. The pain is present in the lumbar spine (coccyx). The quality of the pain is described as aching, shooting and stabbing (dull, nagging). The pain does not radiate. Pain scale: 7-8/10 now increases to 9/10 with sitting/ADLs. The pain is severe. The pain is Worse during the day. The symptoms are aggravatedby sitting, standing, bending and lying down (walking, lifting, pushing, pulling). Stiffness is present All day. Pertinent negatives include no bladder incontinence, bowel incontinence, chest pain, fe orly, leg pain, numbness, tingling or weakness. (Pain is the worst with sitting) Risk factors include obesity. She has tried chiropractic manipulation, NSAIDs, ice, heat and home exercises (Ibuprofen)for the symptoms. The treatment provided mild relief. [...] 11/21/2017 Performed by Negra Harrington MD at [facility] OR SECTION [address] Nancy Barber [place] ENDOMETRIAL ABLATION W/ NOVASURE 01/31/2023 GUM SURGERY INJECTION HYPOGASTRIC Bilat SHPB Bilateral 03/23/2023 Performed by Ariel Beavers MD at [facility] INJECTION HYPOGASTRIC SHPB Bilateral 02/22/2024 Performed by Ariel Beavers MD at [facility] SKIN LESION EXCISION 2016 Dr. Magdaleno TUBAL LIGATION 2018 Dr. Juan Miguel Melgoza [place] WISDOM TOOTH EXTRACTION Allergies Allergen Reactions Compazine [Prochlorperazine] Other (See Comments) Tremors, shaking Seasonal Allergy [Other] Mastisol Adhesive [Gum Esjzje-Lywifj-Ivij-Alcohol] Rash Family History Problem Relation Age of [...] on file Food Insecurity: No Food Insecurity (01/14/2025) Hunger Screening Food Insecurity - Worry: Never True Food Insecurity - Inability: Never True Transportation Needs: Not on file Physical Activity: Not on file Stress: Not on file Social Connections: Not on file Interpersonal Safety: Not on file Housing Instability: Not on file Review of Systems Constitutional: Negative. Negative for chills, fatigue and fever. HENT: Negative. Eyes: Negative. Respiratory: Negative. Cardiovascular: Negative. Negative for chest pain. Gastrointestinal: Negative. Negative for bowel incontinence. Endocrine: Negative. Genitourinary: Negative. Negative for bladder incontinence. Musculoskeletal: Positive for back pain. Skin: Negative. Allergic/Immunologic: Negative. Negative for environmental allergies. Neurological: Negative. Negative for tingling, weakness and numbness. Hematological: Negative. Psychiatric/Behavioral: Negative. Vital Signs: BP 126/85 (BP Site: Left Arm, BP Postition: Sitting) Pulse 71 Resp 20 Ht 162.6 cm (5' 4 ) Wt 76.2 kg (168 lb) BMI 28.84 kg/m?? Physical Exam: GENERAL - Healthy patient that [...] during discussion, demonstrated appropriate cognitive reasoning and understandingof the medical condition by asking appropriate questions regarding the diagnosis and risks/benefits/alternatives of treatment modalities. No obvious deficits in memory, reasoning, or intellect. Lumbar: SKIN - No rashes or bruising in the area of the patient???s pain. LYMPH NODES - demonstrate no obvious [...] pain that is not concordant with the patient???s normal pain complaint s. STRENGTH - noted to be 5 out [...] Assessment/Treatment Plan: Mariya was seen today for tailbone pain. Diagnoses and all orders for this visit: Coccydynia - Case request operating room: INJECTION HYPOGASTRIC Superior Hypogastric Plexus Block - under fluoroscopy with the use of contrast dye (unless contraindicated) It is hopeful that the described procedure will provide symptomatic pain relief. It is felt to be medically necessary noting that the patient has tried and failed more conservative modalities of therapy and this is the next most appropriate step. The procedure was described in detail to the patientas well as the potential benefits of pain [...] relief obtained from the injection, additional modalities oftherapy including medications and physical therapy may need [...] monitoring for toxicity We do not currently prescribeany controlled substance from this practice. It is noted that the patient did have good response from the previously performed procedure. It is felt that the patient would benefit from an additional procedure of the same nature in that the samesymptoms have returned. It is hopeful that this additional injection will provide additional benefit and duration when combined with the previous injection. The spine model was demonstrated and MRI was reviewed and used to explain the condition. Chronic conditions not treated during this visit that affected my overall medical decision making: Comorbidity- Depression The patient has an ongoing issue with depression and currently feels these symptoms are under control and further feels that appropriate pain management would also help these symptoms. The patient isoptimistic about the treatment plan we have laid out. We will continue to monitor these symptoms and remain cogniscent that they may affect the patients perceived improvement from the treatment and willingness to pursue further treatment. At this time the patient appears to be mentally and emotionally stable to undergo procedural and medical therapy. If any warning signs become present, I may refer the patient to a mental health professional for further evaluation. OARRS: Reviewed. Scribe Statement: IPerri CNA, scribed for and in the presence of SY CARL PA-C who performed the above service. Perri Patel CNA 01/14/25 1404 Sy Carl PA-C 01/14/25 1440 Sy Carl PA-C 02/06/25 1151 documented in this encounter Miscellaneous Notes * Op Note - Ariel Beavers MD - 02/06/2025 12:28 PM EDT Ganglion Impar Injection Procedure Performed by: Ariel Beavers M.D. Procedure: Sympathetic Blockade of the Hypogastric Plexus and Ganglion Impar under fluoroscopic guidance Procedure: Procedure(s) (LRB): INJECTION HYPOGASTRIC SHPB (Bilateral) Indication: Pain due to Coccydynia [M53.3] Anesthesia: Monitored Anesthesia Care Risks, Benefits, Alternatives were reviewed, all questions were answered appropriately, informed consent was obtained both written and verbal prior to the procedure. The patient was escorted to the procedure room and placed in the prone position. A pre-procedure time out was conducted verifying patient name, site, and side of the procedure as well as any contraindications which there were none. The area of the lumbar spine, sacrum, and coccyx was prepped with chloroprep and draped in usual sterile fashion. Fluoroscopy was used to identify the landmarks including the sacro-coccygeal ligament and the L5/S1 discspace. A 22 gauge needle was passed atraumatically into the presacral space using in termittent fluoroscopy. Placement was confirmed after injection of 3 milliliters of omnipaque dye in PA and Lateral projections. At this point a total of 40mg of Triamcinolone combined with 4 milliliters of 0.25% bupivacaine was slowly and incrementally injected after negative aspiration. The procedure was concluded with withdrawal of the needle and the patient was escorted to the recovery area in stable condition having tolerated the procedure well. The patient will follow-up as scheduled. documented in this encounter Plan of Treatment Upcoming Encounters Date Type Department Care Team (Late st Contact Info) Description 03/04/2025 10:30 AM EDT Office Visit [facility] [address] [place] [phone] Sy Carl PA-C [address] [place], [place] [phone] documented as of this encounter Procedures Procedure Name Priority Date/Time Associated Diagnosis Comments OR N BLOCK INJ, HYPOGAS PLXS 02/06/2025 12:27 PM EDT Coccydynia Special Needs Wegovy (WL) last dose 01/03 Resume Wegovy at 0.6 mg x1 month before resuming pre-proc dose documented in this encounter Visit Diagnoses Diagnosis Coccydynia- Primary Other disorder of coccyx documented in this encounter Admitting Diagnoses Diagnosis Coccydynia Other disorder of coccyx documented in this encounter Administered Medications Inactive Administered Medications - up to 3 most recent administrations Medication Order MAR Action Action Date Dose Rate Site sodium chloride 0.9 % infusion 15 mL/hr, intravenous, Continuous, Starting on Sun02/06/25 at 1130, Pre-op Continued by Anesthesia 02/06/2025 12:27 PM EDT 15 mL/hr New Bag 02/06/2025 11:40 AM EDT 15 mL/hr 15 mL/hr documented in this encounter Additional Health Concerns Assessment Noted Time A Body Mass Index follow-up plan has been documented for the patient 05/20/2019 3:46 PM EDT documented as of this encounter Care Teams Build And Release Manager Relationship Specialty Start Date End Date Samantha Posey MD [address] [place] [address] PCP - General Family Medicine 12/07/17 documented as of this encounter
--- OUTSIDE RECORDS SUMMARY | 2025-02-06 12:27 | XMS_ITS | Encounter Summary ---
Author Organization [facility] tem Address [id number] [address] [place] [address] Care Team Providers Care Customs Verifier Name Role Phone Samantha Posey MD Primary Care Provider [phone] Reason for Visit * Auth/Cert Specialty Diagnoses / Procedures Referred By Arabella t Referred To Contact Diagnoses Coccydynia Coccydynia [M53.3] Procedures ND N BLOCK INJ, HYPOGAS PLXS INJECTION HYPOGASTRIC; SHPB Ariel Beavers MD [address] [place] [address] Phone: tel: fax: Referral ID Status Reason Start Date Expiration Date Visits Re quested Visits Authorized [id number] 1 1 Encounter Details Date Type Department Care Team (Late st Contact Info) Description 02/06/2025 12:27 PM EDT Anesthesia Event [facility] - Pain Procedures [address] [place] [phone] Akshat Meza, DO [address] [place], [place] [id number] Eleazar Terrazas, TESTING AND REGULATING CHIEF-GEOSCIENCE TECHNICIAN [address] [place] [id number] Anesthesia Record Procedure Summary Procedure Name Responsible Anesthesiologist Anesthesia Start Time Anesthesia Stop Time INJECTION HYPOGASTRIC SHPB (Bilateral) Akshat Meza, 02/06/25 1227 02/06/25 1232 Events Date Time Event Comment 02/06/2025 1145 1145 AN Equip Check 1146 Quick Note ....Patient in room, assisted with positioning. See nursing flow sheet for IVF totals. Assessment: 3 lead EKG, NC O2 @ 4L/min with +ETCO2. No EBL or UO measured. PQRS: No antibiotic ordered, no active warming considered, no central line inserted. 1227 An Start 1227 An Start Data 1229 An Induction The patient was reevaluated immediately before moderate or deep sedation use and before anesthesia induction. 1229 Patient Ready for Surgeon 1229 Position 1231 an stop data 1232 Transport/Transfer From the OR 1232 Handoff to RN Transported to :Phase II, Spontaneous Ventilation, O2 per Room Air, 0 LPM Pt. Tolerated procedure well, vital signs stable and document on nursing record Care transferred to receiving RN 1232 An Stop Meds Name Total propofol (DIPRIVAN) injection 150 mg sodium chloride 0.9 % infusion 0 mL * Agents No agents on file. * Blood No blood administrations on file. Lines, Drains, and Airways Type Details Placement Removal Wound 03/23/23; 0705; Inci chris; Abdomen; Bilateral; BANDAGE ADH LF 4X2IN NADH STRP CRD FLX-FBRC STRL DISP RPL [id number]; 02/06/25; 12403/23/23 0705 by Jacey Calderon RN 02/06/25 1242 by Catia Black RN Wound 02/22/24; 0729; Inci chris; Back; N/A; 02/06/25; 1242 02/22/24 0729 by Delmy Guillory RN 02/06/25 1242 by Catia Black, OXANA Peripheral IV Placement Date: 01/27 08/23; Placement Time: 1138; Catheter Size: 22 G; Orientation: Posterior, Right; Location: Hand; Site Prep: Chlorhexadine; Inserted by: Marivel Mike RN; Insertion Attempts: 1; Patient Tolerance: Tolerated well; Removal Date: 02/06/25; Removal Time: 1242 02/06/25 1138 by Bev Damon RN 02/06/25 1242 by Catia Black RN documented in this encounter Social History Tobacco Use Types Packs/Day Years [...] on file documented as of this encounter OR Notes * Anesthesia Postprocedure Evaluation - Akshat eMza DO - 02/06/2025 1:00 PM EDT ANESTHESIA POST-EVALUATION [facility] Procedure Summary Date: 02/06/25 Room / Location: [facility] PAIN [facility] RO[facility] / [facility] Anesthesia Start: 1227 Anesthesia Stop: 1232 Procedure: INJECTION HYPOGASTRIC SHPB (Bilateral) Diagnosis: Coccydynia (Coccydynia [M53.3]) Surgeons: Ariel Beavers MD Responsible Provider: Akshat Meza DO Anesthesia Type: MAC ASA Status: 2 Vitals: 02/06/25 1238 BP: 96/67 Pulse: Resp: 16 Temp: SpO2: 93% Patient Evaluated: Phase II Patient Participation: Complete - patient participated Patient Level of Consciousness: Awake Pain Management: Adequate Airway Patency: Patent Anesthetic Complications: No Cardiovascular Status: Hemodynamically Stable Respiratory Status: Stable/Baseline Post-op Hydration: Euvolemic Final Anesthesia Type: MAC Does patient meet criteria to D/C from PACU?: Yes Post Evaluation Comments: See nursing pain assessment flowsheet No notable events documented. * Anesthesia Preprocedure Evaluation - LJ Lovett - 02/06/2025 11:44 AM EDT Images from the original note were not included. ANESTHESIA PRE-PROCEDURE EVALUATION [facility] Procedure(s): INJECTION HYPOGASTRIC SHPB ANESTHESIA PHYSICAL EXAM Patient summary reviewed and nursing notes reviewed. Airway Mallampati: II TM distance: >3 FB Neck ROM: full Patient is not intubated Patient does not have tracheostomy Dental : exam normal Pulmonary : exam normal Cardiovascular : exam normal Neuro Abdominal : exam normal Other Findings Denies chest pain and sob ANESTHESIA PLAN ASA 2 Anesthesia Type: MAC Induction: Intravenous Anesthetic risks, plan and alternatives discussed with Patient. Plan discussed with Attending. Airway Management: Awake/Sedated and Nasal Cannula Transfer to Phase II PONV: Intermediate Risk Total Score: 2 Female patient Non-smoker Criteria that do not apply: History of PONV and/or Motion Sickness Intended opioid administration RCRI: Low Risk: Score of 0 = 3.9% (2.8-5.4%) Risk of major cardiac event Score of 1 = 6.0% (4.9-7.4%) Risk of major cardiac event Total Score: 0 Criteria that do not apply: Cerebrovascular Disease Ischemic Heart Disease Congestive Heart Failure Elevated Risk Surgery Pre-operative Treatment with Insulin Pre-operative Creatinine >2 mg/dL / 176.8 mol/L Patient Active Problem List Diagnosis Chronic hypertension Oligohydramnios Pre-eclampsia in third trimester care following delivery General counseling and advice on female contraception Chronic hypertension in obstetric context, second trimester Previous delivery affecting , antepartum Hx of preeclampsia, prior , currently , second trimester H/O delivery, currently , second trimester Obesity affecting in second trimester Single umbilical artery affecting management of mother in schaeffer , antepartum Low lying placenta nos or without hemorrhage, second trimester Bleeding external hemorrhoids Thrombosed external hemorrhoid Pelvic pain Coccydynia documented in this encounter Plan of Treatment Upcoming Encounters Date Type Department Care Team (Late st Contact Info) Description 03/04/2025 10:30 AM EDT Office Visit [facility] Clinic [address] [place] [phone] Regine Carl, PAHortenciaC [address] [place] [address] documented as of this encounter Visit Diagnoses Not on filedocumented in this encounter Administered Medications Inactive Administered Medications - up to 3 most recent administrations Medication Order MAR Action Action Date Dose Rate Site propofoL (DIPRIVAN) infusion intravenous, As needed, Starting on Sun02/06/25 at 1229, Anesthesia Intra-op Given 02/06/2025 12:30 PM EDT 50 mg Given 02/06/2025 12:29 PM EDT 100 mg sodium chloride 0.9 % infusion 15 mL/hr, [...] documented as of this encounter Care Teams Customs Verifier Relationship Specialty Start Date End Date Samantha Posey MD [address] [place] [address] PCP - General Family Medicine 12/07/17 documented as of this encounter
--- OUTSIDE RECORDS SUMMARY | 2025-02-06 12:37 | XMS_ITS | Encounter Summary ---
Author Organization [facility] [employer] [facility] tem Address [id number] [address] [place] [address] Care Team Providers Care Parent Educator Name Role Phone Samantha Posey MD Primary Care Provider [phone] Reason for Visit * Auth/Cert Specialty Diagnoses / Procedures Referred By Arabella seals Referred To Contact Diagnoses Coccydynia Coccydynia [M53.3] Procedures CT N BLOCK INJ, HYPOGAS PLXS INJECTION HYPOGASTRIC; SHPB Ariel Beavers MD [address] [place] [address] Phone: tel: fax: Referral ID Status Reason Start Date Expiration Date Visits Re quested Visits Authorized [id number] 1 1 Encounter Details Date Type Department Care Team (Late st Contact Info) Description 02/06/2025 12:37 PM EDT - 02/06/2025 12:46 PM EDT Surgery [facility] - [facility] Procedures [address] [place] [phone] Ariel Beavers MD [address] [place] [address] INJECTION HYPOGASTRIC SHPB [91004 (CPT )] Surgery Details Date/Time Status Location OR Service Patient Class Case Class Case Type Trauma Case? 02/06/2025 12:37 PM Posted [facility] Pain Management Outpatient Elective Panel 1 Procedure LRB Anes Op Region Wound Class Comments INJECTION HYPOGASTRIC SHPB Bilateral Monitored Anesthesia Care Clean Surgeon Surgeon Role Service Panel Ariel Beavers MD Primary Pain Management 1 Special Needs Wegovy (WL) last dose 01/03 Resume Wegovy at 0.6 mg x1 month before resuming pre-proc dose documented in this encounter Social History Tobacco [...] a safety precaution, you must have a local bulk driver after a lumbar nerve root injection, [...] EDT HISTORY AND PHYSICAL INTERVAL NOTE: Mariya Orosco 1985 [id number] H&P reviewed. The patient was examined and there are no changes to the H&P. Ariel Beavers Jr, MD Source Note - Sy Ferreira PA-C - 01/14/2025 1:30 PM EDT [facility] Pain Management [address] [place] [address] Patient: Mariya Orosco Sex: female : 1985 [...] 11/21/2017 Performed by Negra Harrington MD at [facility] OR SECTION [address] Nancy [place] ENDOMETRIAL ABLATION W/ NOVASURE 01/31/2023 GUM SURGERY INJECTION HYPOGASTRIC Bilat SHPB Bilateral 03/23/2023 Performed by Ariel Beavers MD at [facility] INJECTION HYPOGASTRIC SHPB Bilateral 02/22/2024 Performed by Ariel Beavers MD at [facility] SKIN LESION EXCISION 2016 Dr. Magdaleno TUBAL LIGATION 2018 Dr. Juan Miguel [place] WISDOM TOOTH EXTRACTION Allergies Allergen Reactions Compazine [Prochlorperazine] Other (See Comments) Tremors, shaking Seasonal Allergy [Other] Mastisol Adhesive [Gum Qsdrpp-Qxcgym-Magg-Alcohol] Rash Family History Problem Relation Age of [...] for and in the presence of SY FERREIRA PA-C who performed the above service. Perri Patel CNA 01/14/25 1404 Sy Ferreira PA-C 01/14/25 1440 Sy Ferreira PA-C 02/06/25 1159 documented in this encounter Miscellaneous Notes * [...] Description 03/04/2025 10:30 AM EDT Office Visit [facility] [address] [place] [phone] Sy Ferreira PA-C [address] [place] [address] documented as of this encounter Procedures Procedure Name Priority Date/Time Associated Diagnosis Comments CT N BLOCK INJ, HYPOGAS PLXS 02/06/2025 12:27 PM EDT Coccydynia Special Needs Wegovy (WL) last dose 01/03 Resume Wegovy at 0.6 mg x1 month before resuming pre-proc dose documented in this encounter Visit Diagnoses Diagnosis Coccydynia- Primary Other disorder of coccyx Coccydynia Other disorder of coccyx documented in this encounter Admitting Diagnoses Diagnosis Coccydynia Other disorder of coccyx documented in this encounter Administered Medications Inactive Administered Medications - up to 3 most recent administrations Medication Order MAR Action Action Date Dose Rate Site BUPivacaine (PF) (MARCAINE) 0.25 % (2.5 mg/mL) injection As needed, Starting on Sun02/06/25 at 1231, Intra-op Given 02/06/2025 12:31 PM EDT 4 mL iohexoL (OMNIPAQUE) 300 mg iodine/mL As needed, Starting on Sun02/06/25 at 1231, Intra-op Given 02/06/2025 12:31 PM EDT 2 mL sodium chloride 0.9 % infusion 15 mL/hr, intravenous, Continuous, Starting on Sun02/06/25 at 1130, Pre-op Continued by Anesthesia 02/06/2025 12:27 PM EDT 15 mL/hr New Bag 02/06/2025 11:40 AM EDT 15 mL/hr 15 mL/hr triamcinolone acetonide (KENALOG-40) injection As needed, Starting on Sun02/06/25 at 1231, Intra-op Given 02/06/2025 12:31 PM EDT 40 mg documented in this encounter Additional Health Concerns Assessment Noted Time A Body Mass Index follow-up plan has been documented for the patient 05/20/2019 3:46 PM EDT documented as of this encounter Care Teams Parent Educator Relationship Specialty Start Date End Date Samantha Posey MD [address] [place] [address] PCP - General Family Medicine 12/07/17 documented as of this encounter
--- OUTSIDE RECORDS SUMMARY | 2025-02-18 13:00 | XMS_ITS | Encounter Summary ---
Author Organization [facility] Address [address] [place] [address] Care Team Providers Care Cardio Clinician Name Role Phone Samantha Posey MD Primary Care Provider [phone] Samantha Posey MD Unavailable [phone] Reason for Visit * Reason Comments Well Women Visit Encounter Details Date Type Department Care Team (Late st Contact Info) Description 02/18/2025 1:00 PM EDT Office Visit [facility] [address] [place] [address] Tamara Diane PA [address] [place], [facility]11 Well woman exam with routine gynecological exam; Breast cancer screening by mammogram Social History Tobacco Use Types Packs/Day Years Used Date Smoking Tobacco: Never Passive Smoke Exposure: Never Smokeless Tobacco: Never Alcohol Use Standard Drinks/Week Comments Yes 0 (1 standard drink = 0.6 oz pure alcohol) Alcohol: 1-2 drinks/monthly or less AUDIT-C Answer Date Recorded Q1: How often do you have a drink containing alc ohol? Monthly or less 06/25/2023 Q2: How many drinks containi ng alcohol do you have on a typical day when you are drinking? 1 or 2 06/25/2023 Q3: How often do you have si x or more drinks on one occasion? Never 06/25/2023 PHQ-2 Answer Date Recorded Patient Health Questionnaire-2 Score 1 11/13/2023 Comments No Sex and Gender Information Value Date Recorded Sex Assigned at Not on file Legal Sex Female 6:34 PM EDT Gender Identity Not on file Sexual Orientation Not on file documented as of this encounter Progress Notes * BRANDON Christina - 02/18/2025 1:00 PM EDT Reason for Appointment: Patient ID: Mariya Orosco is a 39 y.o. female who presents for Well Women Visit Patient presents today for Annual Exam. MEDICATIONS Current Outpatient Medications Medication Instructions cetirizine (ZYRTEC) 10 mg, Daily Chlorhexidine Gluconate (Hibiclens) 4 % solution Apply from the neck down as body wash, use 2-3 times a weeks, 30 day supply clindamycin (Cleocin T) 1 % lotion Apply thin later to affected areas on the body during flares, 30 supply escitalopram (LEXAPRO) 20 mg, Oral, Daily famotidine (Pepcid) 20 MG tablet TAKE 1 TABLET BY MOUTH TWICE DAILY (IN THE MORNING and BEFORE bedtime) montelukast (SINGULAIR) 10 mg, Every morning ALLERGIES Allergies Allergen Reactions Compazine [Prochlorperazine] Doxycycline GI intolerance Mastisol Adhesive [Wound Dressing Adhesive] PROBLEMS Active Ambulatory Problems Diagnosis Date Noted Allergic rhinitis 05/16/2023 Asthma (HCC) 05/16/2023 Atypical squamous cells of undetermined significance (ASCUS) on Papanicolaou smear of cervix 05/16/2023 Chronic hypertension 10/27/2017 Gastroesophageal reflux disease 05/16/2023 Major depressive disorder, single episode, moderate (HCC) 05/16/2023 Obstructive sleep apnea 05/16/2023 Oligohydramnios (HHS-HCC) 11/20/2017 Chronic rhinitis 11/02/2023 AVA (generalized anxiety disorder) 11/13/2023 Resolved Ambulatory Problems Diagnosis Date Noted No Resolved Ambulatory Problems Past Medical History: Diagnosis Date Asthma, chronic, unspecified asthma severity, uncomplicated (HCC) Atypical nevi Chronic allergic rhinitis Elevated BP without diagnosis of hypertension Generalized anxiety disorder History of section History of melanoma excision 03/07/2017 Major depression, chronic Major depression, chronic Nonintractable migraine, unspecified migraine type Other abnormal findings in specimens from female genital organs Papanicolaou smear of cervix with atypical squamous cells of undetermined significance (ASC-US) Patient overweight Skin disorder 2016 Tension-type headache, not intractable, unspecified chronicity pattern Thyroid enlargement Thyroid enlargement Unsocialized aggressive disorder HISTORY PAST MEDICAL HISTORY SOCIAL HISTORY Past Medical History: Diagnosis Date Asthma, chronic, unspecified asthma severity, uncomplicated (HCC) Atypical nevi Chronic allergic rhinitis Elevated BP without diagnosis of hypertension Gastroesophageal reflux disease esophagitis presence not specified Generalized anxiety disorder History of section x2 History of melanoma excision 03/07/2017 Atypical melanocytic proliferation, concerning for evolving melanoma in situ, left cheek, excised Major depression, chronic Major depression, chronic Nonintractable migraine, unspecified migraine type Other abnormal findings in specimens from female genital organs Papanicolaou smear of cervix with atypical squamous cells of undetermined significance (ASC-US) Patient overweight Skin disorder 2017 Intraepidermal melanocytic proliferation with atypia, worrisome for early evolving melanoma in situon left cheek Tension-type headache, not intractable, unspecified chronicity pattern Thyroid enlargement Thyroid enlargement Unsocialized aggressive disorder Social History Tobacco Use Smoking status: Never [...] SKIN BIOPSY TUBAL LIGATION WISDOM TOOTH EXTRACTION [place] teeth REVIEW OF SYSTEMS Review of Systems: Review of Systems Constitutional: Negative. HENT: Negative. Eyes: Negative. Respiratory: Negative. Cardiovascular: Negative. Gastrointestinal: Negative. Genitourinary: Negative. Musculoskeletal: Negative. Skin: Negative. Neurological: Negative. All other systems reviewed and are negative. Hematological: Negative. Endocrine: Negative. Allergic/Immunologic: Negative. OBJECTIVE Objective: Physical Exam Constitutional: Appearance: Normal appearance. Genitourinary: Right Adnexa: not tender and no mass present. Left Adnexa: not tender and no mass present. No cervical discharge. Breasts: Breasts are soft. Right: Normal. Left: Normal. HENT: Head: Normocephalic. Nose: Nose normal. Mouth/Throat: Mouth: Mucous membranes are moist. Cardiovascular: Rate and Rhythm: Normal rate. Pulmonary: Effort: Pulmonary effort is normal. Abdominal: General: Bowel sounds are normal. Palpations: Abdomen is soft. Musculoskeletal: General: Normal range of motion. Cervical back: Normal range of motion. Neurological: General: No focal deficit present. Mental Status: She is alert. Skin: General: Skin is warm and dry. Psychiatric: Mood and Affect: Mood normal. Vitals and nursing note reviewed. Exam conducted with a brothel keeper present. Vitals: Estimated body mass index is 30.52 kg/m?? as calculated from the following: Height as of 05/30/23: 5' 4 . Weight as of 02/02/25: 177 lb 12.8 oz. BP: No LMP recorded. Patient has had an ablation. ASSESSMENT & PLAN ICD-10-CM 1. Well woman exam with routine gynecological exam Z01.419 Pap Smear HPV DNA probe, amplified 2. Breast cancer screening by mammogram Z12.31 Bilateral screening mammogram Bilateral screening mammogram Annual Exam: Patient presents today for an annual exam. Patient states she is doing well and has no complaints. Pap was obtained without difficulty. Orders Placed This Encounter Procedures HPV DNA probe, amplified Bilateral screening mammogram Follow Up: Patient is to return in one year for annual unless needed otherwise. Documented by BRANDON Christina on behalf of: BRANDON Christina documented in this encounter Plan of Treatment Upcoming Encounters Date Type Department Care Team (Late st Contact Info) Description 01/13/2026 10:15 AM EDT Office Visit [facility] [address] [facility] [facility] [address] [place] [address] Flores Wesley MD [address] [place] [address] Scheduled Orders Name Type Priority Associated Diagnoses Orde r Schedule Pap Smear Pathology and Cytology Routine Well woman exam with routine gynecological exam Ordered: 02/18/2025 HPV DNA probe, amplified Microbiology Routine Well woman exam with routine gynecological exam Ordered: 02/18/2025 Bilateral screening mammogram Imaging Routine Breast cancer screening by mammogram Expected: 02/18/2025 (Approximate), Expires: 04/21/2026 documented as of this encounter Goals Goal Patient Goal Type Associated Problems Recent Progress Patient-Stated? Author Help patient manage antidepressant medication Care Plan Patient on antidepressant monitoring plan Lily Mcallister, GOLF CADDY documented as of this encounter Visit Diagnoses Diagnosis Well woman exam with routine gynecological exam Routine gynecological examination Breast cancer screening by mammogram documented in this encounter Additional Health Concerns Active Problems Noted Date Diagnosed Date Patient on antidepressant monitoring plan 2023 Assessment Noted Time PHQ-9 Depression Total Score: 6 11/13/19 24 5:12 PM EDT documented as of this encounter Care Teams Cardio Clinician Relationship Specialty Start Date End Date Samantha Posey MD PCP - General Family Medicine 01/09/23 Samantha Posey MD PCP - Medical [place] [employer] 07/30/12 07/29/99 documented as of this encounter
--- OUTSIDE RECORDS SUMMARY | 2025-02-18 15:29 | XMS_ITS | Encounter Summary ---
Author Organization [facility] Address [address] [place] [address] Care Team Providers Care Supervisor Forming Department Name Role Phone Samantha Posey MD Primary Care Provider [phone] Samantha Posey MD Unavailable [phone] Encounter Details Date Type Department Care Team (Late st Contact Info) Description 09/29/2024 Abstract [facility] [address] [place] [phone] Tamara Diane PA [address] [place] [address] Social History Tobacco Use Types Packs/Day Years [...] on file documented as of this encounter Plan of Treatment Upcoming Encounters Date Type Department Care Team (Late st Contact Info) Description 01/13/2026 10:15 AM EDT Office Visit [facility] [address] [place] [address] Flores Wesley MD [address] [place] [address] documented as of this encounter Goals Goal Patient Goal Type Associated Problems Recent Progress Patient-Stated? Author Help patient manage antidepressant medication Care Plan Patient on antidepressant monitoring plan No Lily Ray NP documented as of this encounter Visit Diagnoses Not on filedocumented in this encounter Additional Health Concerns Active Problems Noted Date Diagnosed Date Patient on antidepressant monitoring plan 2023 Assessment Noted Time PHQ-9 Depression Total Score: 6 11/13/19 24 5:12 PM EDT documented as of this encounter Care Teams Supervisor Forming Department Relationship Specialty Start Date End Date Samantha Posey MD PCP - General Family Medicine 01/09/23 Samantha Posey MD PCP - Medical [place] [employer] 07/30/12 07/29/99 documented as of this encounter
--- OUTSIDE RECORDS SUMMARY | 2025-02-18 15:29 | XMS_ITS | Encounter Summary ---
Author Organization [facility] Address [address] [place] [address] Care Team Providers Care Ethylene Plant Helper Name Role Phone Samantha Posey MD Primary Care Provider [phone] Samantha Posey MD Unavailable [phone] Encounter Details Date Type Department Care Team (Late st Contact Info) Description 08/08/2023 Abstract [facility] [address] [place] [address] Samantha Posey MD Social History Tobacco Use Types Packs/Day Years [...] more drinks on one occasion? Never 06/25/2023 Comments No Sex and Gender Information Value [...] DERM [address] [place] [phone] Flores Wesley MD [address] [place] [id number] documented as of this encounter Visit Diagnoses Not on filedocumented in this encounter Care Teams Ethylene Plant Helper Relationship Specialty Start Date End Date Samantha Posey MD PCP - General Family Medicine 01/09/23 Samantha Posey MD PCP - Medical [place] [employer] 07/30/12 07/29/99 documented as of this encounter
--- OUTSIDE RECORDS SUMMARY | 2025-02-18 15:29 | XMS_ITS | Encounter Summary ---
Author Organization [facility] Address [address] [place] [address] Care Team Providers Care Sweatband Perforator Name Role Phone Samantha Posey MD Primary Care Provider [phone] Samantha Posey MD Unavailable [phone] Encounter Details Date Type Department Care Team (Late st Contact Info) Description 08/28/2024 Abstract [facility] [address] [phone] Justice Conde, DO [address] [place] [address] Social History Tobacco Use Types Packs/Day Years [...] DERM [address] [place] [address] Flores Wesley MD [address] [place] [address] documented as of this encounter Goals Goal [...] documented as of this encounter Care Teams Sweatband Perforator Relationship Specialty Start Date End Date Samantha Posey MD PCP - General Family Medicine 01/09/23 Samantha Posey MD PCP - Medical [place] [employer] 07/30/12 07/29/99 documented as of this encounter
--- OUTSIDE RECORDS SUMMARY | 2025-02-18 15:29 | XMS_ITS | Encounter Summary ---
Author Organization [facility] Address [address] [place] [address] Care Team Providers Care Air Quality Manager Name Role Phone Samantha Posey MD Primary Care Provider [phone] Samantha Posey MD Unavailable [phone] Encounter Details Date Type Department Care Team (Late st Contact Info) Description 05/16/2023 Abstract [facility] [address] [place] [address] Filomena Gregory NP [address] [place], [place] [phone] Social History Tobacco Use Types Packs/Day Years Used Date Smoking Tobacco: Never Passive Smoke Exposure: Never Smokeless Tobacco: Never Alcohol Use Standard Drinks/Week Comments Yes 0 (1 standard drink = 0.6 oz pure alcohol) Alcohol: 1-2 drinks/monthly or less Comments No Sex and Gender Information Value Date Recorded Sex Assigned at Not on file Legal Sex Female 6:34 PM EDT Gender Identity Not on file Sexual Orientation Not on file documented as of this encounter Plan of Treatment Upcoming Encounters Date Type Department Care Team (Late st Contact Info) Description 01/13/2026 10:15 AM EDT Office Visit [facility] [address] [facility] [address] [place] [address] Flores Wesley MD [address] [facility] [address] [place] [address] documented as of this encounter Visit Diagnoses Not on filedocumented in this encounter Care Teams Air Quality Manager Relationship Specialty Start Date End Date Wonderly, Samantha B, MD PCP - General Family Medicine 01/09/23 Samantha Posey MD PCP - Medical [place] [employer] 07/30/12 07/29/99 documented as of this encounter
--- OUTSIDE RECORDS SUMMARY | 2025-02-18 15:29 | XMS_ITS | Encounter Summary ---
Author Organization [facility] Address [address] [place] [address] Care Team Providers Care Supervisor Farm Equipment Maintenance Name Role Phone Samantha Posey MD Primary Care Provider [phone] Samantha Posey MD Unavailable [phone] Encounter Details Date Type Department Care Team (Late st Contact Info) Description 03/19/2024 Abstract [facility] [address] [place] [phone] Tamara Diane PA [address] [place] [address] Social History Tobacco Use Types Packs/Day Years [...] DERM [address] [place] [address] Flores Wesley MD [address] [place] [address] documented as of this encounter Visit Diagnoses Not on filedocumented in this encounter Additional Health Concerns Assessment Noted Time PHQ-9 Depression Total Score: 6 11/13/19 24 5:12 PM EDT documented as of this encounter Care Teams Supervisor Farm Equipment Maintenance Relationship Specialty Start Date End Date Samantha Posey MD PCP - General Family Medicine 01/09/23 Samantha Posey MD PCP - Medical [place] [employer] 07/30/12 07/29/99 documented as of this encounter
--- OUTSIDE RECORDS SUMMARY | 2025-02-18 15:29 | XMS_ITS | Encounter Summary ---
Author Organization [facility] Address [address] [place] [address] Care Team Providers Care Production Worker Name Role Phone Samantha Posey MD Primary Care Provider [phone] Samantha Posey MD Unavailable [phone] Encounter Details Date Type Department Care Team (Late st Contact Info) Description 04/02/2024 Abstract [facility] [address] [phone] Tamara Diane PA [address] [facility] [address] [place] [address] Social History Tobacco Use Types Packs/Day Years [...] DERM [address] [place] [phone] Flores Wesley MD [address] [place] [address] documented as of this encounter Visit Diagnoses Not on filedocumented in this encounter Additional Health Concerns Assessment Noted Time PHQ-9 Depression Total Score: 6 11/13/19 24 5:12 PM EDT documented as of this encounter Care Teams Production Worker Relationship Specialty Start Date End Date Samantha Posey MD PCP - General Family Medicine 01/09/23 Samantha Posey MD PCP - Medical [place] Commercial 07/30/12 07/29/99 documented as of this encounter
--- OUTSIDE RECORDS SUMMARY | 2025-02-18 15:29 | XMS_ITS | Encounter Summary ---
Author Organization [facility] Address [address] [place] [address] Care Team Providers Care Rotary Driller Name Role Phone Samantha Posey MD Primary Care Provider Samantha Posey MD Unavailable [phone] Encounter Details Date Type Department Care Team (Late st Contact Info) Description 03/17/2024 Abstract [facility] [address] [place] [phone] Tamara Diane PA [address] [place] [address] Social History Tobacco Use Types Packs/Day Years [...] DERM [address] [place] [address] Flores Wesley MD [address] [place] [address] documented as of this encounter Visit Diagnoses Not on filedocumented in this encounter Additional Health Concerns Assessment Noted Time PHQ-9 Depression Total Score: 6 11/13/19 24 5:12 PM EDT documented as of this encounter Care Teams Rotary Driller Relationship Specialty Start Date End Date Samantha Posey MD PCP - General Family Medicine 01/09/23 Samantha Posey MD PCP - Medical [place] [employer] 07/30/12 07/29/99 documented as of this encounter
--- OUTSIDE RECORDS SUMMARY | 2025-02-18 15:29 | XMS_ITS | Encounter Summary ---
Author Organization [facility] Address [address] [place] [address] Care Team Providers Care Child And Youth Program Assistant Name Role Phone Samantha Posey MD Primary Care Provider [phone] Samantha Posey MD Unavailable [phone] Encounter Details Date Type Department Care Team (Late st Contact Info) Description 10/14/2024 Abstract [facility] [address] [place] [address] Asha Ball LPN Social History Tobacco Use Types Packs/Day Years [...] [address] [place] [address] Flores Wesley MD [address] [place] [address] documented as of this encounter Goals Goal [...] documented as of this encounter Care Teams Child And Youth Program Assistant Relationship Specialty Start Date End Date Samantha Posey MD PCP - General Family Medicine 01/09/23 Samantha Posey MD PCP - Medical [place] [employer] 07/30/12 07/29/99 documented as of this encounter
--- OUTSIDE RECORDS SUMMARY | 2025-02-18 15:29 | XMS_ITS | Encounter Summary ---
Author Organization [facility] Address [address] [place] [address] Care Team Providers Care Uke Operator Name Role Phone Samantha Posey MD Primary Care Provider [phone] Samantha Posey MD Unavailable [phone] Encounter Details Date Type Department Care Team (Late st Contact Info) Description 10/14/2024 Abstract [facility] [address] [place] [address] Asha Ball LPN Social History Tobacco [...] [address] [place] [address] Flores Wesley MD [address] [place] [address] documented as of this encounter Goals Goal [...] documented as of this encounter Care Teams Uke Operator Relationship Specialty Start Date End Date Samantha Posey MD PCP - General Family Medicine 01/09/23 Samantha Posey MD PCP - Medical [place] Commercial 07/30/12 07/29/99 documented as of this encounter
--- OUTSIDE RECORDS SUMMARY | 2025-02-18 15:29 | XMS_ITS | Encounter Summary ---
Author Organization [facility] Address [address] [place] [address] Care Team Providers Care Light Industrial Name Role Phone Samantha Posey MD Primary Care Provider Samantha Posey MD Unavailable [phone] Encounter Details Date Type Department Care Team (Late st Contact Info) Description 09/11/2023 Abstract [facility] [address] [place] [address] Vidhya Lange LPN [address] [place] [address] Social History Tobacco Use Types Packs/Day Years [...] DERM [address] [place] [address] Flores Wesley MD [address] [place] [address] documented as of this encounter Visit Diagnoses Not on filedocumented in this encounter Care Teams Light Industrial Relationship Specialty Start Date End Date Samantha Posey MD PCP - General Family Medicine 01/09/23 Samantha Posey MD PCP - Medical [place] Commercial 07/30/12 07/29/99 documented as of this encounter
--- OUTSIDE RECORDS SUMMARY | 2025-02-18 15:29 | XMS_ITS | Encounter Summary ---
Author Organization [facility] Address [address] [place] [address] Care Team Providers Care Oil Well Services Supervisor Name Role Phone Samantha Posey MD Primary Care Provider [phone] Samantha Posey MD Unavailable [phone] Encounter Details Date Type Department Care Team (Late st Contact Info) Description 03/17/2024 Abstract [facility] [address] [place] [phone] Tamara Diane PA [address] [facility] [place] [address] Social History Tobacco Use Types Packs/Day Years [...] DERM [address] [place] [address] Flores Wesley MD [address] [place] [address] documented as of this encounter Visit Diagnoses Not on filedocumented in this encounter Additional Health Concerns Assessment Noted Time PHQ-9 Depression Total Score: 6 11/13/19 24 5:12 PM EDT documented as of this encounter Care Teams Oil Well Services Supervisor Relationship Specialty Start Date End Date Samantha Posey MD PCP - General Family Medicine 01/09/23 Samantha Posey MD PCP - Medical [place] [employer] 07/30/12 07/29/99 documented as of this encounter
--- OUTSIDE RECORDS SUMMARY | 2025-02-18 15:29 | XMS_ITS | Encounter Summary ---
Author Organization [facility] Address [address] [place] [address] Care Team Providers Care General Pediatrician Name Role Phone Samantha Posey MD Primary Care Provider [phone] Samantha Posey MD Unavailable [phone] Encounter Details Date Type Department Care Team (Late st Contact Info) Description 08/18/2024 Abstract [facility] [address] [facility] [place] [phone] Tamara Dinae PA [address] [facility] [place] [address] Social History Tobacco Use Types Packs/Day Years [...] DERM [address] [place] [address] Flores Wesley MD [address] [place] [address] documented as of this encounter Goals Goal [...] documented as of this encounter Care Teams General Pediatrician Relationship Specialty Start Date End Date Samantha Posey MD PCP - General Family Medicine 01/09/23 Samantha Posey MD PCP - Medical [place] Commercial 07/30/12 07/29/99 documented as of this encounter
--- OUTSIDE RECORDS SUMMARY | 2025-02-18 15:29 | XMS_ITS | Encounter Summary ---
Author Organization [facility] Address [address] [place] [address] Care Team Providers Care Operations Recruiter Name Role Phone Samantha Posey MD Primary Care Provider [phone] Samantha Posey MD Unavailable [phone] Reason for Visit * Reason Comments Med Refill Encounter Details Date Type Department Care Team (Late st Contact Info) Description 02/10/2024 Refill [facility] [address] [place] [address] Samantha Posey MD Major depressive disorder, single episode, moderate (HCC) Social History Tobacco Use Types Packs/Day Years [...] on file documented as of this encounter Miscellaneous Notes * Telephone Encounter - Kristine Stephenson MA - 02/10/2024 2:49 PM EDT Approving, but needs appt for additional refills. documented in this encounter Plan of Treatment Upcoming Encounters Date Type Department Care Team (Late st Contact Info) Description 01/13/2026 10:15 AM EDT Office Visit [facility] [address] [place] [address] Flores Wesley MD [address] [place] [address] documented as of this encounter Visit Diagnoses Diagnosis Major depressive disorder, single episode, moderate (HCC) Major depressive disorder, single episode, moderate documented in this encounter Additional Health Concerns Assessment Noted Time PHQ-9 Depression Total Score: 6 11/13/19 24 5:12 PM EDT documented as of this encounter Care Teams Operations Recruiter Relationship Specialty Start Date End Date Samantha Posey MD PCP - General Family Medicine 01/09/23 Samantha Posey MD PCP - Medical [place] Commercial 07/30/12 07/29/99 documented as of this encounter
--- OUTSIDE RECORDS SUMMARY | 2025-02-18 15:29 | XMS_ITS | Encounter Summary ---
Author Organization [facility] Address [address] [place] [address] Care Team Providers Care Radiator Mechanic Name Role Phone Samantha Posey MD Primary Care Provider [phone] Samantha Posey MD Unavailable [phone] Encounter Details Date Type Department Care Team (Late st Contact Info) Description 09/09/2024 Abstract [facility] [address] [place] [address] Asha Ball LPN Social History Tobacco [...] [address] [place] [address] Flores Wesley MD [address] [place] [address] documented as of this encounter Goals Goal [...] documented as of this encounter Care Teams Radiator Mechanic Relationship Specialty Start Date End Date Samantha Posey MD PCP - General Family Medicine 01/09/23 Samantha Posey MD PCP - Medical [place] [employer] 07/30/12 07/29/99 documented as of this encounter
--- OUTSIDE RECORDS SUMMARY | 2025-02-18 15:29 | XMS_ITS | Encounter Summary ---
Author Organization [facility] Address [address] [place] [address] Care Team Providers Care Ton Container Shipper Name Role Phone Samantha Posey MD Primary Care Provider [phone] Samantha Posey MD Unavailable [phone] Encounter Details Date Type Department Care Team (Late st Contact Info) Description 09/02/2024 Abstract [facility] [address] [facility] [place] [phone] Tamara Diane PA [address] [facility] [place] [address] Social History Tobacco Use Types Packs/Day Years [...] DERM [address] [place] [address] Flores Wesley MD [address] [place] [address] documented as of this encounter Goals Goal [...] documented as of this encounter Care Teams Ton Container Shipper Relationship Specialty Start Date End Date Samantha Posey MD PCP - General Family Medicine 01/09/23 Samantha Posey MD PCP - Medical [place] Commercial 07/30/12 07/29/99 documented as of this encounter
--- OUTSIDE RECORDS SUMMARY | 2025-02-18 15:29 | XMS_ITS | Encounter Summary ---
Author Organization [facility] Address [address] [place] [address] Care Team Providers Care Press And Blow Machine Tender Name Role Phone Samantha Posey MD Primary Care Provider [phone] Samantha Posey MD Unavailable [phone] Encounter Details Date Type Department Care Team (Late st Contact Info) Description 01/08/2023 Abstract [facility] [address] [facility] [place] [phone] Justice Conde, DO [address] [facility] [place] [address] Social History Tobacco Use Types Packs/Day Years Used Date Smoking Tobacco: Never Alcohol Use Standard Drinks/Week Comments Yes 0 (1 standard drink = 0.6 oz pure alcohol) Alcohol: 1-2 drinks/monthly or less Comments Unknown Sex and Gender Information Value Date Recorded Sex Assigned at Not on file Legal Sex Female 6:34 PM EDT Gender Identity Not on file Sexual Orientation Not on file documented as of this encounter Plan of Treatment Upcoming Encounters Date Type Department Care Team (Late st Contact Info) Description 01/13/2026 10:15 AM EDT Office Visit [facility] [address] [facility] [address] [place] [address] Flores Wesley MD [address] [place] [address] documented as of this encounter Visit Diagnoses Not on filedocumented in this encounter Care Teams Press And Blow Machine Tender Relationship Specialty Start Date End Date Samantha Posey MD PCP - General Family Medicine 01/09/23 WonderSamantha mak MD PCP - Medical [place] Commercial 07/30/12 07/29/99 documented as of this encounter
--- OUTSIDE RECORDS SUMMARY | 2025-02-18 15:29 | XMS_ITS | Encounter Summary ---
Author Organization [facility] Address [address] [place] [address] Care Team Providers Care Dental Hygiene Administrative Assistant Name Role Phone Samantha Posey MD Primary Care Provider [phone] Samantha Posey MD Unavailable [phone] Encounter Details Date Type Department Care Team (Late st Contact Info) Description 03/19/2024 Abstract [facility] [address] [facility] [place] [address] Tamara Diane PA [address] [facility] [place] [address] Social History Tobacco Use Types Packs/Day Years [...] DERM [address] [place] [address] Flores Wesley MD [address] [place] [address] documented as of this encounter Visit Diagnoses Not on filedocumented in this encounter Additional Health Concerns Assessment Noted Time PHQ-9 Depression Total Score: 6 11/13/19 24 5:12 PM EDT documented as of this encounter Care Teams Dental Hygiene Administrative Assistant Relationship Specialty Start Date End Date Samantha Posey MD PCP - General Family Medicine 01/09/23 Samantha Posey MD PCP - Medical [place] Commercial 07/30/12 07/29/99 documented as of this encounter
--- OUTSIDE RECORDS SUMMARY | 2025-02-18 15:29 | XMS_ITS | Encounter Summary ---
Author Organization [facility] Address [address] [place] [address] Care Team Providers Care Cotton Jammer Name Role Phone Samantha Posey MD Primary Care Provider [phone] Samantha Posey MD Unavailable [phone] Reason for Visit * Reason Comments Med Refill Encounter Details Date Type Department Care Team (Late st Contact Info) Description 11/08/2023 Refill [facility] [address] [place] [address] Samantha Posey MD Major depressive [...] encounter Miscellaneous Notes * Telephone Encounter - Beverly Cardoza MA - 11/21/2023 3:23 PM EDT Posterbee message sent to pt documented in this encounter Plan of Treatment Upcoming Encounters Date Type Department Care Team (Late st Contact Info) Description 01/13/2026 10:15 AM EDT Office Visit [facility] [address] [place] [address] Flores Wesley MD [address] [place] [address] documented as of this encounter Visit Diagnoses Diagnosis Major depressive disorder, single episode, moderate (HCC) Major depressive disorder, single episode, moderate documented in this encounter Care Teams Cotton Jammer Relationship Specialty Start Date End Date Samantha Posey MD PCP - General Family Medicine 01/09/23 Samantha Posey MD PCP - Medical [place] Commercial 07/30/12 07/29/99 documented as of this encounter
--- OUTSIDE RECORDS SUMMARY | 2025-02-18 15:29 | XMS_ITS | Encounter Summary ---
Author Organization [facility] Address [address] [place] [address] Care Team Providers Care Tight Barrel Inspector Name Role Phone Samantha Posey MD Primary Care Provider [phone] Samantha Posey MD Unavailable [phone] Encounter Details Date Type Department Care Team (Late st Contact Info) Description 01/17/2023 Abstract [facility] [address] [facility] [address] [place] [address] Flores Wesley MD [address] [address] Social History Tobacco Use Types Packs/Day Years [...] Office Visit [facility] [address] [facility] [address] [place] [address] Flores Wesley MD [address] [facility] [address] [place] [address] documented as of this encounter Visit Diagnoses Not on filedocumented in this encounter Care Teams Tight Barrel Inspector Relationship Specialty Start Date End Date Samantha Posey MD PCP - General Family Medicine 01/09/23 Samantha Posey MD PCP - Medical [place] Commercial 07/30/12 07/29/99 documented as of this encounter
--- OUTSIDE RECORDS SUMMARY | 2025-02-18 15:29 | XMS_ITS | Encounter Summary ---
Author Organization [facility] Address [address] [place] [address] Care Team Providers Care Poultry Packer Name Role Phone Samantha Posey MD Primary Care Provider [phone] Samantha Posey MD Unavailable [phone] Encounter Details Date Type Department Care Team (Late st Contact Info) Description 03/18/2024 Abstract [facility] [address] [place] [address] Tamara Diane PA [address] [facility] [place] [address] Social History Tobacco Use Types Packs/Day Years [...] DERM [address] [place] [address] Flores Wesley MD [address] [place] [address] documented as of this encounter Visit Diagnoses Not on filedocumented in this encounter Additional Health Concerns Assessment Noted Time PHQ-9 Depression Total Score: 6 11/13/19 24 5:12 PM EDT documented as of this encounter Care Teams Poultry Packer Relationship Specialty Start Date End Date Samantha Posey MD PCP - General Family Medicine 01/09/23 Samantha Posey MD PCP - Medical [place] Commercial 07/30/12 07/29/99 documented as of this encounter
--- OUTSIDE RECORDS SUMMARY | 2025-02-18 15:29 | XMS_ITS | Encounter Summary ---
Author Organization [facility] Address [address] [place] [address] Care Team Providers Care Pharmacy Intake Technician Name Role Phone Samantha Posey MD Primary Care Provider [phone] Samantha Posey MD Unavailable [phone] Encounter Details Date Type Department Care Team (Late st Contact Info) Description 02/07/2023 Abstract [facility] OB [address] [facility] [address] Justice Conde, DO [address] [facility] [place] [address] Social History Tobacco Use Types Packs/Day Years [...] Office Visit [facility] [address] [facility] [address] [place] [address] Flores Wesley MD [address] [facility] [address] [place] [address] documented as of this encounter Visit Diagnoses Not on filedocumented in this encounter Care Teams Pharmacy Intake Technician Relationship Specialty Start Date End Date Samantha Posey MD PCP - General Family Medicine 01/09/23 Samantha Posey MD PCP - Medical [place] Commercial 07/30/12 07/29/99 documented as of this encounter
--- OUTSIDE RECORDS SUMMARY | 2025-02-18 15:30 | XMS_ITS | Encounter Summary ---
Author Organization [facility] Address [address] [place] [address] Care Team Providers Care Hospital Administrator Name Role Phone Samantha Posey MD Primary Care Provider [phone] Samantha Posey MD Unavailable [phone] Encounter Details Date Type Department Care Team (Late st Contact Info) Description 01/28/2025 Abstract [facility] [address] [facility] [place] [address] Tamara Diane PA [address] [facility] [place] [address] Social History Tobacco Use Types Packs/Day Years [...] DERM [address] [place] [address] Flores Wesley MD [address] [place] [address] documented as of this encounter Goals Goal [...] documented as of this encounter Care Teams Hospital Administrator Relationship Specialty Start Date End Date Samantha Posey MD PCP - General Family Medicine 01/09/23 Samantha Posey MD PCP - Medical [place] Commercial 07/30/12 07/29/99 documented as of this encounter
--- OUTSIDE RECORDS SUMMARY | 2025-02-18 15:30 | XMS_ITS | Encounter Summary ---
Author Organization [facility] Address [address] [place] [address] Care Team Providers Care Second Chef Name Role Phone Samantha Posey MD Primary Care Provider [phone] Samantha Posey MD Unavailable [phone] Encounter Details Date Type Department Care Team (Late st Contact Info) Description 01/27/2025 Abstract [facility] [address] [facility] [place] [address] Asha Ball LPN Social History Tobacco [...] [address] [place] [address] Flores Wesley MD [address] [place] [address] documented as of this encounter Goals Goal [...] documented as of this encounter Care Teams Second Chef Relationship Specialty Start Date End Date Samantha Posey MD PCP - General Family Medicine 01/09/23 Samantha Posey MD PCP - Medical [place] Commercial 07/30/12 07/29/99 documented as of this encounter
--- OUTSIDE RECORDS SUMMARY | 2025-02-18 15:30 | XMS_ITS | Encounter Summary ---
Author Organization [facility] Address [address] [place] [address] Care Team Providers Care Fast Brim Pouncer Name Role Phone Samantha Posey MD Primary Care Provider [phone] Samantha Posey MD Unavailable [phone] Encounter Details Date Type Department Care Team (Late st Contact Info) Description 01/28/2025 Abstract [facility] [address] [facility] [address] Tamara Diane PA [address] [facility] [place] [address] Social History Tobacco Use Types Packs/Day Years [...] DERM [address] [place] [address] Flores Wesley MD [address] [place] [address] documented as of this encounter Goals Goal Patient Goal Type Associated Problems Recent Progress Patient-Stated? Author Help patient manage antidepressant medication Care Plan Patient on antidepressant monitoring plan No iLly Ray NP documented as of this encounter Visit Diagnoses Not on filedocumented in this encounter Additional Health Concerns Active Problems Noted Date Diagnosed Date Patient on antidepressant monitoring plan 2023 Assessment Noted Time PHQ-9 Depression Total Score: 6 11/13/19 24 5:12 PM EDT documented as of this encounter Care Teams Fast Brim Pouncer Relationship Specialty Start Date End Date Samantha Posey MD PCP - General Family Medicine 01/09/23 Samantha Posey MD PCP - Medical [place] Commercial 07/30/12 07/29/99 documented as of this encounter
--- OUTSIDE RECORDS SUMMARY | 2025-02-18 15:30 | XMS_ITS | Encounter Summary ---
Author Organization [facility] Address [address] [place] [address] Care Team Providers Care Insulation Technician Name Role Phone Samantha Posey MD Primary Care Provider [phone] Samantha Posey MD Unavailable [phone] Encounter Details Date Type Department Care Team (Late st Contact Info) Description 12/02/2024 Abstract [facility] [address] [facility] [place] [address] Randa Joshi, ADJUNCT LATIN PROFESSOR [address] [facility] [place] [address] Social History Tobacco Use Types Packs/Day Years [...] DERM [address] [place] [address] Flores Wesley MD [address] [place] [address] documented as of this encounter Goals Goal [...] documented as of this encounter Care Teams Insulation Technician Relationship Specialty Start Date End Date Samantha Posey MD PCP - General Family Medicine 01/09/23 Samantha Posey MD PCP - Medical [place] Commercial 07/30/12 07/29/99 documented as of this encounter
--- OUTSIDE RECORDS SUMMARY | 2025-02-18 15:30 | XMS_ITS | Encounter Summary ---
Author Organization [facility] Address [address] [place] [address] Care Team Providers Care Payroll Director Name Role Phone Samantha Posey MD Primary Care Provider [phone] Samantha Posey MD Unavailable [phone] Encounter Details Date Type Department Care Team (Late st Contact Info) Description 02/14/2023 Abstract [facility] [address] [facility] [place] [phone] Justice Conde, DO [address] [facility] [place] [address] Social History Tobacco Use Types Packs/Day Years [...] on file Sexual Orientation Not on file COVID-19 Exposure Response Date Recorded In the last 10 days, have yo u been in contact with someone who was confirmed or suspected to have Coronavirus/COVID-19? No / Unsure 02/13/2023 7:35 AM EDT documented as of this encounter Plan of Treatment Upcoming Encounters Date Type Department Care Team (Late st Contact Info) Description 01/13/2026 10:15 AM EDT Office Visit [facility] [address] [place] [address] Flores Wesley MD [address] [place] [address] documented as of this encounter Visit Diagnoses Not on filedocumented in this encounter Care Teams Payroll Director Relationship Specialty Start Date End Date Samantha Posey MD PCP - General Family Medicine 01/09/23 WonderSamantha mak MD PCP - Medical [place] Commercial 07/30/12 07/29/99 documented as of this encounter
--- OUTSIDE RECORDS SUMMARY | 2025-02-18 15:30 | XMS_ITS | Encounter Summary ---
Author Organization [facility] Address [address] [place] [address] Care Team Providers Care Train Reservation Clerk Name Role Phone Samantha Posey MD Primary Care Provider [phone] Samantha Posey MD Unavailable [phone] Encounter Details Date Type Department Care Team (Late st Contact Info) Description 04/29/2024 Abstract [facility] OB [address] [facility] [place] [address] Justice Conde, DO [address] [facility] [place] [address] Social History Tobacco Use Types Packs/Day Years [...] [address] [place] [address] Flores Wesley MD [address] [place] [address] documented as of this encounter Visit Diagnoses Not on filedocumented in this encounter Additional Health Concerns Assessment Noted Time PHQ-9 Depression Total Score: 6 11/13/19 24 5:12 PM EDT documented as of this encounter Care Teams Train Reservation Clerk Relationship Specialty Start Date End Date Samantha Posey MD PCP - General Family Medicine 01/09/23 Samantha Posey MD PCP - Medical [place] Commercial 07/30/12 07/29/99 documented as of this encounter
--- OUTSIDE RECORDS SUMMARY | 2025-02-18 15:30 | XMS_ITS | Clinical Summary ---
Author Organization [facility] Healthcare Address [address] [place] [address] Care Team Providers Care Press Set Up Name Role Phone Samantha Posey MD Primary Care Provider [phone] Samantha Posey MD Unavailable [phone] Allergies Active Allergy Reactions Criticality Noted Date Comments Prochlorperazine 01/09/2023 Doxycycline GI intolerance 01/14/2024 Wound Dressing Adhesive 01/09/2023 Medications montelukast (Singulair) 10 MG tablet Take 10 mg by mouth in the morning. Active cetirizine (ZyrTEC) 5 MG tablet Take 10 mg by mouth Daily Active escitalopram (Lexapro) 20 MG tabletIndication s:Major depressive disorder, single episode, moderate (HCC) Take 1 tablet (20 mg) by mouth Daily 90 tablet 3 05/27/20 24 Active famotidine (Pepcid) 20 MG tabletIndication s:Gastroesophage al reflux disease without esophagitis TAKE 1 TABLET BY MOUTH TWICE DAILY (IN THE MORNING and BEFORE bedtime) 180 tablet 11/04/19 25 Active clindamycin (Cleocin T) 1 % lotionIndication s:Bacterial folliculitis Apply thin later to affected areas on the body during flares, 30 day supply 60 mL 11 01/14/20 25 Active Chlorhexidine Gluconate (Hibiclens) 4 % solutionIndicati ons:Bacterial folliculitis Apply from the neck down as body wash, use 2-3 times a weeks, 30 day supply 473 mL 11 01/14/20 25 Active diphenhydrAMINE (BENADryl) 25 MG tablet Take 25 mg by mouth every 8 (eight) hours if needed 10/19/20 24 025 Discontinued Zepbound 2.5 MG/0.5ML solution auto-injectorInd ications:Obesity ,Obstructive Sleep Apnea Syndrome Inject 0.5 mL under the skin 1 (one) time per week 2 mL 11/14/19 25 025 Discontinued Zepbound 5 MG/0.5ML solutionIndicati ons:Obstructive sleep apnea,Insulin resistance,Encou nter for long-term (current) use of medications,Enco unter for weight management,Metab olic syndrome Inject 5 mg under the skin 1 (one) time per week 2 mL 12/10/19 25 025 Discontinued Zepbound 7.5 MG/0.5ML solutionIndicati ons:Chronic hypertension,Enc ounter for weight management,Metab olic syndrome,Insulin resistance,Obstr uctive sleep apnea Inject 0.5 mL under the skin 1 (one) time per week for 28 days 2 mL 01/03/20 25 025 Discontinued Active Problems Problem Noted Date Diagnosed Date AVA (generalized anxiety disorder) 11/13/2023 Chronic rhinitis 11/02/2023 Overview (11/02/2023): Grass, pollens Mild cat and dog Allergic rhinitis 05/16/2023 Overview (11/02/2023): Trees grass, dust mites Asthma 05/16/2023 Atypical squamous cells of u ndetermined significance (ASCUS) on Papanicolaou smear of cervix 05/16/2023 Gastroesophageal reflux disease 05/16/2023 Major depressive disorder, single episode, moder ate 05/16/2023 Obstructive sleep apnea 05/16/2023 Oligohydramnios ([facility]) 11/20/2017 Chronic hypertension 10/27/2017 Encounters Date Type Department Care Team Description 02/18/2025 1:00 PM EDT Office Visit [facility] OB [address] [place], [place] [address] [address] Tamara Diane PA Well woman exam with routine gynecological exam; Breast cancer screening by mammogram 02/18/2025 Bamboo flowsheet [facility] OB [address] [place], [place] [address] [address] Tamara Diane PA 02/02/2025 8:30 AM EDT Office Visit [facility] [address] [place] [address] Tamara Daine PA Encounter for weight management 02/02/2025 Bamboo flowsheet [facility] [address] [place] [address] Tamara Diane PA 01/28/2025 Abstract [facility] [address] [place] [address] Tamara Diane PA 01/28/[address] [facility] [address] [place] [address] Tamara Diane PA 01/28/[address] [address] [place] [address] Tamara Diane PA 01/27/[address] [address] [place] [address] Asha Ball, WEATHER TEACHER 01/27/[address] [address] [place] [address] Asah Ball, WEATHER TEACHER 01/14/2025 Abstract [facility] [address] [place] [address] Justice Conde DO 01/13/2025 10:15 AM EDT Office Visit [facility] [address] [place] [address] [place] MD Melanocytic nevus of trunk (Primary Dx); Bacterial folliculitis; Lentigines; Capillary angioma; History of nevus excision 01/13/2025 Bamboo flowsheet [facility] [address] [place] [address] Flores [place] MD 01/13/2025 Travel 01/05/[address] [address] [place] [address] Amena Griffith MA 01/02/[address] [address] [place] [address] Justice Conde, Chronic hypertension ; Encounter for weight management; Metabolic syndrome; Insulin resistance; Obstructive sleep apnea 12/09/[address] [address] [place] [address] Vidhya Lange LPN Obstructive sleep apnea; Insulin resistance; Encounter for long-term (current) use of medications; Encounter for weight management; Metabolic syndrome 12/02/[address] [facility] [address] [place] [address] Randa Joshi, KONRAD 12/02/20[address] [facility] [address] [place] [address] Justice Conde DO 12/02/[address] [address] [place] [address] Randa Joshi, KONRAD 11/28/[address] [facility] [address] [place] [address] Randa Joshi, KONRAD from Last 3 Months Immunizations Immunization Administration Dates Next Due HepB-CpG 02/12/2024,12/23/2023 Influenza, injectable, quadrivalent, preservativ e free 07/22/2018 Tdap 11/22/2017 Family History Medical History Relation Name Comments No Known Problems Daughter 1 No Known Problems Daughter 2 Cancer Father bladder Hypertension Father prediabetes Father Heart disease Mother Hypertension Mother Melanoma Neg Hx Relation Name Status Comments Brother (1) Daughter 1 Alive Daughter 2 Alive Father Alive Mother Alive Social History Tobacco Use Types Packs/Day Years Used Date Smoking Tobacco: Never Passive Smoke Exposure: Never Smokeless Tobacco: Never Tobacco Cessation:Counseling Given: Not Answered Alcohol Use Standard Drinks/Week Comments Yes 0 [...] on file Sexual Orientation Not on file Last Filed Vital Signs Vital Sign Reading Time Taken Comments Blood Pressure 120/70 02/02/2025 8:29 AM EDT Pulse 84 07/24/2024 11:03 AM EST Temperature - - Respiratory Rate - - Oxygen Saturation - - Inhaled Oxygen Concentration - - Weight 80.6 kg (177 lb 12.8 oz) 02/02/2025 8:29 AM EDT Height 162.6 cm (5' 4 ) 05/30/2023 4:17 PM EDT Body Mass Index 30.52 05/30/2023 4:17 PM EDT Plan of Treatment Upcoming Encounters Date Type Department Care Team (Late st Contact Info) Description 01/13/2026 10:15 AM EDT Office Visit [facility] [address] [place] [address] Flores Wesley MD [address] [place] [address] Health Maintenance Due Date Last Done Comments Skin Cancer Screening 1986 Cervical Cancer Screening 10/31/2023 HPV/Cotest 10/31/2023 Influenza Vaccine (#1) 2025 07/22/2018 Pap Smear 01/31/2026 01/31/2023, 10/30/2022, 0409/2022 Goals Goal Patient Goal Type Associated Problems Recent Progress Patient-Stated? Author Help patient manage antidepressant medication Care Plan Patient on antidepressant monitoring plan No Lily Ray NP Procedures Procedure Name Priority Date/Time Associated Diagnosis Comments PAP SMEAR Routine 01/31/2023 12:00 AM EDT from Last 3 Months or Most Recently Relevant to Health Maintenance Results * Pap Smear (01/31/2023 12:00 AM EDT) Swab Cervical swab / Unknown us Historical Provider MD LAB CYTOLOGY ORDERABLES F inal Result EXTERNAL LAB from Last 3 Months or Most Recently Relevant to Health Maintenance Additional Health Concerns Active Problems Noted Date Diagnosed Date Patient on antidepressant monitoring plan 2023 Insurance [employer] Care Teams Press Set Up Relationship Specialty Start Date End Date Samantha Posey MD PCP - General Family Medicine 01/09/23 Samantha Posey MD PCP - Medical [place] [employer] 07/30/12 07/29/99
--- OUTSIDE RECORDS SUMMARY | 2025-02-18 15:30 | XMS_ITS | Encounter Summary ---
Author Organization [facility] Address [address] [place] [address] Care Team Providers Care Integrity Analyst Name Role Phone Samantha Posey MD Primary Care Provider [phone] Samantha Posey MD Unavailable [phone] Encounter Details Date Type Department Care Team (Late st Contact Info) Description 2024 Abstract [facility] [address] [facility] [place] [address] Justice Conde, DO [address] [place] [address] Social History Tobacco Use Types Packs/Day Years [...] DERM [address] [place] [address] Flores Wesley MD [address] [place] [address] documented as of this encounter Visit Diagnoses Not on filedocumented in this encounter Additional Health Concerns Assessment Noted Time PHQ-9 Depression Total Score: 6 11/13/19 24 5:12 PM EDT documented as of this encounter Care Teams Integrity Analyst Relationship Specialty Start Date End Date Samantha Posey MD PCP - General Family Medicine 01/09/23 Samantha Posey MD PCP - Medical [place] [employer] 07/30/12 07/29/99 documented as of this encounter
--- OUTSIDE RECORDS SUMMARY | 2025-02-18 15:30 | XMS_ITS | Encounter Summary ---
Author Organization [facility] Address [address] [place] [address] Care Team Providers Care Trolley Wire Installer Name Role Phone Samantha Posey MD Primary Care Provider [phone] Samantha Posey MD Unavailable [phone] Encounter Details Date Type Department Care Team (Late Contact Info) Description 02/18/2025 Bamboo flowsheet [facility] [address] [place] [address] Tamara Diane PA [address] [place], [facility] Social History Tobacco Use Types Packs/Day Years [...] STONE [address] [place] [address] Flores Wesley MD [address] [place] [address] documented as of this encounter Goals Goal [...] documented as of this encounter Care Teams Trolley Wire Installer Relationship Specialty Start Date End Date Samantha Posey MD PCP - General Family Medicine 01/09/23 Samantha Posey MD PCP - Medical [place] [employer] 07/30/12 07/29/99 documented as of this encounter
--- OUTSIDE RECORDS SUMMARY | 2025-02-18 15:30 | XMS_ITS | Clinical Summary ---
Author Organization [employer] tem Address [id number] [address] [place] [address] Care Team Providers Care Swimming Pool Salesperson Name Role Phone Samantha Posey MD Primary Care Provider [phone] Allergies Active Allergy Reactions Criticality Noted Date Comments Prochlorperazine Other (See Comments) 05/20/2019 Tremors, shaking Gum Jdtboj-Qdczrm-Tnpp-Alcohol Rash Low 05/20/2019 Other 11/29/2017 Medications vit37/iron/foli c acid (PRENATA ORAL) Take 1 tablet by mouth in the morning. Active labetalol (NORMODYNE) 200 mg tablet Take 1 tablet (200 mg total) by mouth in the morning and 1 tablet (200 mg total) before bedtime. Active sertraline (ZOLOFT) 50 mg tablet Take 1 tablet (50 mg total) by mouth in the morning. Active aspirin 81 mg chewable tablet Chew 1 tablet (81 mg total) and swallow in the morning. TAKING 2 TABS DAILY. . Active loratadine (CLARITIN) 5 mg chewable tablet Chew 2 tablets (10 mg total) and swallow in the morning. Active VIT CALC,IRON,FOLIC ( VITAMIN ORAL) Take 1 tablet by mouth in the morning. Active raNITIdine (ZANTAC) 150 mg tablet Take 1 tablet (150 mg total) by mouth in the morning and 1 tablet (150 mg total) before bedtime. Active montelukast (SINGULAIR) 10 mg tablet Take 1 tablet (10 mg total) by mouth nightly. Active docusate sodium (COLACE) 100 mg capsule Take 1 capsule (100 mg total) by mouth once. Active metFORMIN (GLUCOPHAGE) 500 mg tablet Take 1 tablet (500 mg total) by mouth in the morning and 1 tablet (500 mg total) before bedtime. Active cetirizine (ZyrTEC) 5 mg tablet Take 1 tablet (5 mg total) by mouth in the morning. Active escitalopram (LEXAPRO) 20 mg tablet Take 1 tablet (20 mg total) by mouth in the morning. Active semaglutide, weight loss, (WEGOVY) 0.5 mg/0.5 mL pen injector Inject 1.2 mL (1.2 mg total) under the skin once a week. 01/01/2024 Active famotidine (PEPCID) 20 mg tablet Take 1 tablet (20 mg total) by mouth. TAKE 1 TABLET BY MOUTH TWICE DAILY (IN THE MORNING AND BEFORE BEDTIME) 11/03/2024 Active Active Problems Problem Noted Date Diagnosed Date Pelvic pain 03/08/2023 Coccydynia 03/08/2023 Bleeding external hemorrhoids 05/20/2019 Thrombosed external hemorrhoid 05/20/2019 Hx of preeclampsia, prior pr egnancy, currently , second trimester 12/09/2018 H/O delivery, currently , second trimester 12/09/2018 Obesity affecting in second trimester 12/09/2018 Single umbilical artery affe cting management of mother in schaeffer , antepartum 12/09/2018 Low lying placenta nos or wi thout hemorrhage, second trimester 12/09/2018 Chronic hypertension in obstetric context, secon d trimester 12/08/2018 Previous delivery affecting , antepartum 12/08/2018 care following delivery 10/29 General counseling and advice on female contrace ption 11/23/2017 Pre-eclampsia in third trimester 11/21/2017 Oligohydramnios 11/20/2017 Chronic hypertension 10/27/2017 Resolved Problems Problem Noted Date Diagnosed Date Resolved Date Poor growth affecting management of mother in third trimester 11/21/2017 11/29/2017 Encounters Date Type Department Care Team Description 02/06/2025 12:37 PM EDT - 02/06/2025 12:46 PM EDT Surgery [facility] - Pain Procedures [address] [place] [address] Ariel Beavers MD INJECTION HYPOGASTRIC SHPB [57928 (CPT )] 02/06/2025 12:27 PM EDT Anesthesia Event [facility] - Pain Procedures [address] [place] [address] Akshat Meza, Eleazar Muñoz, RN GASTROENTEROLOGY-TEAR DOWN WORKER 02/06/2025 11:19 AM EDT - 02/06/2025 11:59 PM EDT Hospital Encounter [facility] - Pain Procedures [address] [place] [address] Ariel Beavers MD Discharge Disposition: Home 02/06/2025 8:00 AM EDT - 02/06/2025 11:18 AM EDT Hospital Encounter [facility] - Radiology [address] [place] [address] Ariel Beavers MD Coccyxdynia Discharge Disposition: Home 01/28/2025 Telephone [facility] [address] [place] [address] Bev Damon RN 01/14/2025 1:30 PM EDT Office Visit [facility] [address] [place] [address] Regine Carl PA-C Coccydynia (Primary Dx) 01/13/2025 Travel from Last 3 Months Immunizations Immunization Administration Dates Next Due MMR 11/21/2017() Tdap 11/22/2017 Varicella 11/21/2017() Family History Medical History Relation Name Comments Depression Brother Learning disabilities Brother Kidney disease Cousin No Known Problems Daughter 1 No Known Problems Daughter 2 Cancer Father Diabetes Father Hypertension Father Heart disease Maternal Grandfather Stroke Maternal Grandfather Cancer Maternal Grandmother Diabetes Maternal Grandmother Heart disease Maternal Grandmother Hypertension Maternal Grandmother Colon cancer Maternal great-grandfather Depression Mother Heart disease Mother Hyperlipidemia Mother Hypertension Mother Diabetes Paternal Grandfather Stroke Paternal Grandfather Diabetes Paternal Grandmother Hypertension Paternal Grandmother Relation Name Status Comments Brother Alive Cousin Alive Daughter 1 Alive Daughter 2 Alive Father Alive Maternal Grandfather Maternal Grandmother Maternal great-grandfather Mother Alive Paternal Grandfather Paternal Grandmother Social History Tobacco Use Types Packs/Day Years Used Date Smoking Tobacco: Never Smokeless Tobacco: Never Tobacco Cessation:Counseling Given: [...] EDT Inhaled Oxygen Concentration - - Weight 76.2 kg (168 lb) 01/14/2025 1:41 PM EDT Height 162.6 cm (5' 4 ) 01/14/2025 1:41 PM EDT Body Mass Index 28.84 01/14/2025 1:41 PM EDT Plan of Treatment Upcoming Encounters Date Type Department Care Team (Late st Contact Info) Description 03/04/2025 10:30 AM EDT Office Visit [facility] [address] [place] [address] Regine Carl, NATHALY [address] [place] [address] Health Maintenance Due Date Last Done Comments Depression Screening 1997 Adult BMI Follow Up Plan 2003 COVID-19 Vaccine (2023-2 5 season) 2024 07/15/2021, 10/22/2020, 09/22/2020 Influenza Vaccine 03/30/2025 07/22/2018 Adult BMI Screening 01/14/2026 01/14/2025 Pap Smear 01/31/2026 01/31/2023 Tobacco Screening 02/06/2026 02/06/2025 DTaP,Tdap and Td Vaccines (2 - Td or Tdap) 11/23/2027 11/22/2017 Medical Devices Not on file Procedures Procedure Name Priority Date/Time Associated Diagnosis Comments FL FLUOROSCOPY UP TO 1 HOUR Routine 02/06/2025 12:31 PM EDT Coccyxdynia TX N BLOCK INJ, HYPOGAS PLXS 02/06/2025 12:27 PM EDT Coccydynia Special Needs Wegovy (WL) last dose 01/03 Resume Wegovy at 0.6 mg x1 month before resuming pre-proc dose from Last 3 Months Results * Fluoroscopy less than one hour [...] MD IMG FLUOROSCOPY ORDERABLES Fi nal Result from Last 3 Months Insurance [employer] Care Teams Swimming Pool Salesperson Relationship Specialty Start Date End Date Samantha Posey MD [address] [place] [address] PCP - General Family Medicine 12/07/17
--- OUTSIDE RECORDS SUMMARY | 2025-02-18 15:30 | XMS_ITS | Encounter Summary ---
Author Organization [facility] Address [address] [place] [address] Care Team Providers Care Tube Depatcher Name Role Phone Samantah Posey MD Primary Care Provider [phone] Samantha Posey MD Unavailable [phone] Encounter Details Date Type Department Care Team (Late st Contact Info) Description 11/28/2024 Abstract [facility] [address] [place] [address] Randa Joshi, CLEANING PROFESSIONAL [address] [place] [address] Social History Tobacco Use Types Packs/Day [...] DERM [address] [place] [address] Flores Wesley MD [address] [place] [address] documented as of this encounter Goals Goal [...] documented as of this encounter Care Teams Tube Depatcher Relationship Specialty Start Date End Date Samantha Posey MD PCP - General Family Medicine 01/09/23 Samantha Posey MD PCP - Medical [place] [employer] 07/30/12 07/29/99 documented as of this encounter
--- OUTSIDE RECORDS SUMMARY | 2025-02-18 15:30 | XMS_ITS | Encounter Summary ---
Author Organization [facility] Address [address] [place] [address] Care Team Providers Care Manager Aerospace Name Role Phone Samantha Posey MD Primary Care Provider [phone] Samantha Posey MD Unavailable [phone] Encounter Details Date Type Department Care Team (Late st Contact Info) Description 12/02/2024 Abstract [facility] [address] [facility] [address] Justice Conde, DO [address] [place] [address] Social History Tobacco Use Types Packs/Day Years [...] DERM [address] [place] [address] Flores Wesley MD [address] [place] [address] documented as of this encounter Goals Goal [...] documented as of this encounter Care Teams Manager Aerospace Relationship Specialty Start Date End Date Samantha Posey MD PCP - General Family Medicine 01/09/23 Samantha Posey MD PCP - Medical [place] [employer] 07/30/12 07/29/99 documented as of this encounter
--- OUTSIDE RECORDS SUMMARY | 2025-02-18 15:30 | XMS_ITS | Encounter Summary ---
Author Organization [facility] Address [address] [place] [place] [address] Care Team Providers Care Refuge Worker Name Role Phone Samantha Posey MD Primary Care Provider [phone] Samantha Posey MD Unavailable [phone] Encounter Details Date Type Department Care Team (Late st Contact Info) Description 02/12/2023 Abstract [facility] [address] [place] [address] Tamara Diane PA [address] [address] Social History Tobacco Use Types Packs/Day Years [...] DERM [address] [place] [address] Flores Wesley MD [address] [place] [address] documented as of this encounter Visit Diagnoses Not on filedocumented in this encounter Care Teams Refuge Worker Relationship Specialty Start Date End Date Samantha Posey MD PCP - General Family Medicine 01/09/23 WonderSamantha mak MD PCP - Medical [place] [employer] 07/30/12 07/29/99 documented as of this encounter
--- OUTSIDE RECORDS SUMMARY | 2025-02-18 15:30 | XMS_ITS | Encounter Summary ---
Author Organization [facility] [employer] [facility] tem Address [id number] [address] [place] [address] Care Team Providers Care Bilingual Instructor Name Role Phone Samantha Posey MD Primary Care Provider [phone] Encounter Details Date Type Department Care Team (Late st Contact Info) Description 01/28/2025 Telephone [facility] Management [facility] [address] [place] [address] Bev Damon RN Social History Tobacco Use Types Packs/Day Years [...] encounter Miscellaneous Notes * Telephone Encounter - Bev Damon RN - 01/28/2025 10:13 AM EDT Approval received for patient to hold Wegovy x 14 days prior to ordered hypogastric SHBP with MAC sedation . Patient is scheduled for 02/13/2025. No auth required per [employer] 01/14/2025. * Telephone Encounter - Xochilt Horne RN - 01/28/2025 10:13 AM EDT Last dose wegovy was 01/03/25 and is aware she is not to take any additional doses until 02/13/2025 procedure. Reminder, if there are any cancellations pt would like to be moved up because of her pain. * Telephone Encounter - Xochilt Horne RN - 01/28/2025 10:13 AM EDT Upon review, pt was moved up to 02/06/25 documented in this encounter Plan of Treatment Upcoming Encounters Date Type Department Care Team (Late st Contact Info) Description 03/04/2025 10:30 AM EDT Office Visit [facility] Management [facility] [address] [place] [address] Regine Carl PA-C [address] [place] [address] documented as of this encounter Visit Diagnoses Not on filedocumented in this encounter Additional Health Concerns Assessment Noted Time A Body Mass Index follow-up plan has been documented for the patient 05/20/2019 3:46 PM EDT documented as of this encounter Care Teams Bilingual Instructor Relationship Specialty Start Date End Date Samantha Posey MD [address] [place] [address] PCP - General Family Medicine 12/07/17 documented as of this encounter
--- OUTSIDE RECORDS SUMMARY | 2025-02-18 15:30 | XMS_ITS | Encounter Summary ---
Author Organization [facility] Address [address] [place] [address] Care Team Providers Care Svp Marketing Name Role Phone Samantha Posey MD Primary Care Provider [phone] Samantha Posey MD Unavailable [phone] Encounter Details Date Type Department Care Team (Late st Contact Info) Description 04/23/2024 Abstract [facility] OB [address] [place] [address] Justice Conde, DO [address] [facility] [place] [address] Social History Tobacco Use Types Packs/Day Years [...] DERM [address] [place] [address] Flores Wesley MD [address] [place] [address] documented as of this encounter Visit Diagnoses Not on filedocumented in this encounter Additional Health Concerns Assessment Noted Time PHQ-9 Depression Total Score: 6 11/13/19 24 5:12 PM EDT documented as of this encounter Care Teams Svp Marketing Relationship Specialty Start Date End Date Samantha Posey MD PCP - General Family Medicine 01/09/23 Samantha Posey MD PCP - Medical [place] [employer] 07/30/12 07/29/99 documented as of this encounter
--- OUTSIDE RECORDS SUMMARY | 2025-02-18 15:30 | XMS_ITS | Encounter Summary ---
Author Organization [facility] Address [address] [place] [address] Care Team Providers Care Permaculture Contractor Name Role Phone Samantha Posey MD Primary Care Provider [phone] Samantha Posey MD Unavailable [phone] Encounter Details Date Type Department Care Team (Late st Contact Info) Description 04/28/2024 Abstract [facility] [address] [place] [id number] Jsutice Conde, DO [address] [place] [address] Social History Tobacco Use Types Packs/Day Years [...] DERM [address] [place] [phone] Flores Wesley MD [address] [place] [address] documented as of this encounter Visit Diagnoses Not on filedocumented in this encounter Additional Health Concerns Assessment Noted Time PHQ-9 Depression Total Score: 6 11/13/19 24 5:12 PM EDT documented as of this encounter Care Teams Permaculture Contractor Relationship Specialty Start Date End Date Samantha Posey MD PCP - General Family Medicine 01/09/23 Samantha Posey MD PCP - Medical [place] [employer] 07/30/12 07/29/99 documented as of this encounter
--- OUTSIDE RECORDS SUMMARY | 2025-02-18 15:30 | XMS_ITS | Encounter Summary ---
Author Organization [facility] Address [address] [place] [address] Care Team Providers Care Director Online Marketing Name Role Phone Samantha Posey MD Primary Care Provider [phone] Samantha Posey MD Unavailable [phone] Encounter Details Date Type Department Care Team (Late st Contact Info) Description 01/14/2025 Abstract [facility] [address] [place] [id number] Justice Conde, DO [address] [facility] [place] [address] Social History Tobacco Use Types Packs/Day Years [...] DERM [address] [place] [address] Flores Wesley MD [address] [place] [address] documented as of this encounter Goals Goal [...] documented as of this encounter Care Teams Director Online Marketing Relationship Specialty Start Date End Date Samantha Posey MD PCP - General Family Medicine 01/09/23 Samantha Posey MD PCP - Medical [place] [employer] 07/30/12 07/29/99 documented as of this encounter
[2025-02-20 16:09] LABS: Age Gdln ACOG Testing Note (.); IGP, Aptima HPV, rfx 16/18,45 Note (.)
== END 2025-02-18 15:27 | disposition home or self-care (01) ==
LOC: LAB 15:26
PROVIDERS: PCP Family Medicine; Visit Provider Physician Assistant
DX: Z01.419 Encounter for gynecological examination (general) (routine) without abnormal findings (principal)
CPT/HCPCS: 87624; 88175

== ENCOUNTER 2025-05-02 08:53 | Outpatient (OUT) | payer OTHER, SELFPAY ==
--- OUTSIDE RECORDS SUMMARY | 2025-05-02 08:56 | XMS_ITS | Encounter Summary ---
Author Organization [facility] Address [address] [place] [address] Care Team Providers Care Real Estate Sales Agent Name Role Phone Samantha Posey MD Primary Care Provider [phone] Samantha Posey MD Unavailable [phone] Tamara Diane Unavailable Encounter Details Date Type Department Care Team (Late st Contact Info) Description 01/08/2023 Abstract [facility] [address] [place] [phone] Justice Conde DO [address] [facility] [address] [place] [id number] Social History Tobacco Use Types Packs/Day Years [...] Description 01/13/2026 10:15 AM EDT Office Visit [facility] [address] [place] [phone] Flores Wesley MD [address] [place] [address] documented as of this encounter Visit Diagnoses Not on filedocumented in this encounter Care Teams Real Estate Sales Agent Relationship Specialty Start Date End Date Samantha Posey MD PCP - General Family Medicine 01/09/23 Samantha Posey MD PCP - Medical [place] [employer] 07/30/12 01/27/24 Tamara Diane PA [address] [place] [address] [place] [address] PCP - Medical [place] [employer] 01/28/24 07/29/99 documented as of this encounter
--- OUTSIDE RECORDS SUMMARY | 2025-05-02 08:56 | XMS_ITS | Encounter Summary ---
Author Organization [facility] Address [address] [place] [address] Care Team Providers Care Geothermal System Installer Name Role Phone Samantha Posey MD Primary Care Provider [phone] Tamara Diane Unavailable Encounter Details Date Type Department Care Team (Late st Contact Info) Description 04/02/2024 Abstract [facility] [address] [address] Tamara Diane PA [address] [place], [place] [id number] Social History Tobacco Use Types Packs/Day Years [...] 01/13/2026 10:15 AM EDT Office Visit [facility] [place] [facility] [address] [place] [phone] Flores Wesley MD [address] [place] [address] documented as of this encounter Visit Diagnoses Not on filedocumented in this encounter Additional Health Concerns Assessment Noted Time PHQ-9 Depression Total Score: 6 11/13/19 24 5:12 PM EDT documented as of this encounter Care Teams Geothermal System Installer Relationship Specialty Start Date End Date Kalpesh, Samantha Lopez MD PCP - General Family Medicine 01/09/23 Tamara Diane PA [address] [place] [address] [place] [address] PCP - Medical [place] [employer] 01/28/24 07/29/99 documented as of this encounter
--- OUTSIDE RECORDS SUMMARY | 2025-05-02 08:56 | XMS_ITS | Encounter Summary ---
Author Organization [facility] Address [address] [place] [address] Care Team Providers Care Hourly Sign Language Interpreter Name Role Phone Samantha Posey MD Primary Care Provider [phone] Tamara Diane Unavailable Encounter Details Date Type Department Care Team (Late st Contact Info) Description 03/17/2024 Abstract [facility] [address] [facility] [address] [address] Tamara Diane PA [address] [facility] [address] [place], [place] [id number] Social History Tobacco Use Types Packs/Day Years [...] [address] [place] [phone] Flores Wesley MD [address] [place] [address] documented as of this encounter Visit Diagnoses Not on filedocumented in this encounter Additional Health Concerns Assessment Noted Time PHQ-9 Depression Total Score: 6 11/13/19 24 5:12 PM EDT documented as of this encounter Care Teams Hourly Sign Language Interpreter Relationship Specialty Start Date End Date Kalpesh, Samantha Lopez MD PCP - General Family Medicine 01/09/23 Tamara Diane PA [address] [place] [address] [place] [address] PCP - Medical [place] [employer] 01/28/24 07/29/99 documented as of this encounter
--- OUTSIDE RECORDS SUMMARY | 2025-05-02 08:56 | XMS_ITS | Encounter Summary ---
Author Organization [facility] Address [address] [place] [address] Care Team Providers Care Sand Technologist Name Role Phone Samantha Posey MD Primary Care Provider [phone] Samantha Posey MD Unavailable [phone] Tamara Diane Unavailable Reason for Visit * Reason Comments Med Refill Encounter Details Date Type Department Care Team (Late st Contact Info) Description 11/08/2023 Refill [facility] Medicine [address] [place] [address] Samantha Posey MD Major depressive [...] Cardoza MA - 11/21/2023 3:23 PM EDT [employer] message sent to pt documented in this encounter Plan of Treatment Upcoming Encounters Date Type Department Care Team (Late st Contact Info) Description 01/13/2026 10:15 AM EDT Office Visit [facility] [address] [place] [address] Flores Wesley MD [address] [place] [address] documented as of this encounter Visit Diagnoses Diagnosis Major depressive disorder, single episode, moderate (HCC) Major depressive disorder, single episode, moderate documented in this encounter Care Teams Sand Technologist Relationship Specialty Start Date End Date Samantha Posey MD PCP - General Family Medicine 01/09/23 Samantha Posey MD PCP - Medical [place] [employer] 07/30/12 01/27/24 Tamara Diane PA [address] [place] [address] [place] [address] PCP - Medical [place] [employer] 01/28/24 07/29/99 documented as of this encounter
--- OUTSIDE RECORDS SUMMARY | 2025-05-02 08:56 | XMS_ITS | CCD ---
Author Organization [facility] CliniSywy Care Team Providers Care Ladle Puller Name Role Phone RAMON BULLARD Unavailable Unavailable RAMON BULLARD Unavailable Unavailable NONE, XXXX Unavailable Unavailable MD Agustín Jha Attending Provider DONTRELL .RAMON Primary Care Unavailable [facility] DR BERNSTEIN Consulting Unavailable LILY JAVIER Admitting Unavailable LILY JAVIER Attending Unavailable AMAYA ., DR ANTOINE Consulting Unavailable AMAYA ., DR ANTONIE Admitting Unavailable AMAYA ., DR ANTOINE Attending Unavailable BULLARD ., RAMON Primary Care Unavailable AMAYA ., DR ANTOINE Consulting Unavailable AMAYA ., DR ANTOINE Admitting Unavailable AMAYA ., DR ANTOINE Attending Unavailable BULLARD ., RAMON Primary Care Unavailable ENDERER, DR VALENTINA Oliveira Consulting Unavailable DONTRELL ., RAMON Primary Care Unavailable LILY JAVIER Attending Unavailable DANIEL, DR BERNSTEIN Consulting Unavailable LILY JAVIER Admitting Unavailable Catia Mcdowell Unavailable Filomena Delgado Unavailable Samantha Posey MD Primary Care Provider Samantha Posey MD Unavailable [phone] Samantha Posey MD Primary Care Provider Samantha Posey MD Primary Care Provider Samantha Posey MD Unavailable [phone] Samantha Posey MD Primary Care Provider Samantha Posey MD Primary Care Provider LILIA JOSHI Attending Unavailable AGUSTÍN JHA Attending Unavailable TAMARA GALLAGHER Attending Unavailable TAMARA GALLAGHER Attending Unavailable TAMARA GALLAGHER Attending Unavailable TAMARA GALLAGHER Attending Unavailable LILY JAVIER Attending Unavailable LILY JAVIER Referring Unavailable LILY JAVIER Attending Unavailable TAMARA GALLAGHER Attending Unavailable Kalpesh ALANIZ Samantha Jessica Unavailable Tamara Gallagher PA-C Attending Provider Lily Maciel Primary Care Provider Tamara Gallagher Admitting Unavailable Tamara Gallagher Attending Unavailable Lily Javier Primary Care Unavailable SY CARL Attending Unavailable WONDERLY, SAMANTHA B Referring Unavailable WONDERLY, SAMANTHA B Primary Care Unavailable VERHOFFSY Attending Unavailable WONDERLY, SAMANTHA B Referring Unavailable WONDERLY, SAMANTHA B Primary Care Unavailable ARIEL BEAVERS Admitting Unavailable BEAVERSARIEL Attending Unavailable WONDERLY, SAMANTHA B Referring Unavailable WONDERLY, SAMANTHA B Primary Care Unavailable BEAVERS, ARIEL E Attending Unavailable BEAVERS, ARIEL E Referring Unavailable WONDERLY, SAMANTHA B Primary Care Unavailable VERHOSY BRITT Attending Unavailable WONDERLY, SAMANTHA B Referring Unavailable WONDERLY, SAMANTHA B Primary Care Unavailable Allergies Allergy Classification Reported Allergen(s) Allergy Type Date of Onset Reaction(s) Facility (3 sources) Prochlorperazine Drug Allergy 24 hour [facility] Repository (20 sources) Doxycycline Drug Allergy 01-14-20 24 GI intolerance [facility] (20 sources) Prochlorperazine; Translations: [PROCHLORPERAZINE] Drug Allergy 05-20-20 19 Other (See Comments) [facility] (20 sources) Wound Dressing Adhesive Propensity to adverse reactions 01-10-20 23 [facility] (3 sources) methyl salicylate; Translations: [methyl salicylate] [facility] alcohol; Translations: [alcohol] All[facility] to substance [facility] ([facility]) gum mastic; Translations: [gum mastic] Allergy to substance 07-31-19 [facility] (3 sources) storax; Translations: [storax] Allergy to substance 07-31-19 [facility] (7 sources) Gum Tmrnrw-Ydetgm-Spbt- Alcohol; Translations: [GUM YOJHDY-QVHGQN-KWMS- ALCOHOL] Propensity to adverse reactions to drug 05-20-20 19 Rash [facility] (7 sources) Other; Translations: [OTHER] Propensity to adverse reactions [facility]-19 [facility] Prochlorperazine Drug Allergy 07-31-19 25 [facility] Repository Medications Current Medications Medication Drug Class(es) [...] 08/03/2024 Active aspirin 81 mg chewable tablet (6 sources) Platelet Aggregation Inhibitor, Nonsteroidal Anti-inflammatory Drug [...] capsule by mouth once daily as needed take 1 tablet by mouth in the mo rning cetirizine (ZyrTEC) 5 mg tablet Take 1 tablet (5 mg total) by mouth in the morning. Active take 2 tablets by mouth once devendra ly cetirizine (ZyrTEC) 5 MG tablet Take 10 mg by mouth Daily Active take 1 tablet by mouth once asuncion y ZyrTEC 10 MG 1 tablet Orally Once a day Active chlorhexidine gluconate 40 mg/ml medicated liquid soap (20 sources) Start: 01-14-2024 End: 01-13-2025 Chlorhexidine Gluconate (Hibiclens) 4 % solution Indications: Bacterial folliculitis Apply from the neck down as body wash, use 2-3 times a weeks, 30 day supply 473 mL 11 01/13/2025 Active clindamycin 10 mg/ml topical lotion (20 sources) Lincosamide Antibacterial Start: 01-14-2024 End: 01-13-2025 clindamycin (Cleocin T) 1 % lotion Indications: Bacterial folliculitis Apply thin later to affected areas on the body during flares, 30 day supply 60 mL 11 01/13/2025 Active diphenhydrAMINE hydrochloride 25 mg oral tablet (20 sources) Histamine-1 Receptor Antagonist Start: 05-17-2024 End: 02-02-2025 take 1 tablet by mouth every eight hours as needed diphenhydrAMINE (BENADryl) 25 MG tablet Take 25 mg by mouth every 8 (eight) hours if needed 05/17/2024 02/02/2025 Discontinued docusate sodium 100 mg oral capsule (6 sources) take 1 capsule by mouth once docusate sodium (COLACE) 100 mg capsule Take 1 capsule (100 mg total) by mouth once. Active escitalopram 20 mg oral tablet (20 sources) Serotonin Reuptake Inhibitor Start: 07-31-2024 take 1 tablet by mouth once daily Start: 02-10-2024 End: 05-27-2024 take 1 tablet by mouth once daily escitalopram (Lexapro) 20 MG tablet Indications: Major depressive disorder, single episode, moderate (HCC) Take 1 tablet (20 mg) by mouth Daily 90 tablet 3 05/27/2024 Active famotidine 20 mg oral tablet (20 sources) Histamine-2 Receptor Antagonist Start: 11-03-2024 famotidine (PEPCID) 20 mg tablet Take 1 tablet (20 mg total) by mouth. TAKE 1 TABLET BY MOUTH TWICE DAILY (IN THE MORNING AND BEFORE BEDTIME) 11/03/2024 Active Start: 05-17-2024 End: 08-25-2024 take 1 tablet by mouth twice daily at bedtime famotidine (Pepcid) 20 MG tablet Indications: Gastroesophageal reflux disease without esophagitis TAKE 1 TABLET BY MOUTH TWICE DAILY (IN THE MORNING and BEFORE bedtime) 180 tablet 11/03/2024 Active labetalol hydrochloride 200 mg oral tablet (6 sources) beta-Adrenergic Surjit take 1 tablet by mouth in the morning, then take 1 tablet by mouth at bedtime labetalol (NORMODYNE) 200 mg tablet Take 1 tablet (200 mg total) by mouth in the morning and 1 tablet (200 mg total) before bedtime. Active loratadine 5 mg chewable tablet (8 sources) loratadine (CLARITIN) 5 mg chewable tablet Chew 2 tablets (10 mg total) and swallow in the morning. Active take 1 tablet by mouth once asuncion y Loratadine 10 MG 1 tablet Orally Once a day for 30 day(s) Not-Taking metFORMIN hydrochloride 500 mg oral tablet (20 sources) Biguanide Start: 07-31-2024 take 1 tablet by momo th once daily Start: 03-11-2024 End: 08-18-2024 take 1 tablet by mouth once daily metFORMIN XR (Glucophage-XR) 500 MG 24 hr tablet Indications: Insulin resistance Take 1 tablet by mouth daily 30 tablet 11 03/11/2024 08/18/2024 Discontinued montelukast 10 mg oral tablet (20 sources) Leukotriene Receptor Antagonist Start: 07-31-2024 take 1 tablet by mouth once daily Singulair Active olopatadine 2 mg/ml ophthalmic solution [...] Apr, Active VIT CALC,IRON,FOLIC ( VITAMIN ORAL) (6 sources) take 1 tablet by mouth in the morning VIT CALC,IRON,FOLIC ( VITAMIN ORAL) Take 1 tablet by mouth in the morning. Active take 1 tablet by mouth once asuncion y VIT CALC,IRON,FOLIC ( VITAMIN ORAL) Take 1 tablet by mouth daily. Active vit37/iron/folic ac id (PRENATA ORAL) (6 sources) take 1 tablet by mouth in the morning vit37/iron/folic acid (PRENATA ORAL) Take 1 tablet by mouth in the morning. Active take 1 tablet by mouth once asuncion y vit37/iron/folic acid (PRENATA ORAL) Take 1 tablet by mouth daily. Active raNITIdine 150 mg oral tablet (6 sources) Histamine-2 Receptor Antagonist take 1 tablet by mouth in the morning, then take 1 tablet by mouth at bedtime raNITIdine (ZANTAC) 150 mg tablet Take 1 tablet (150 mg total) by mouth in the morning and 1 tablet (150 mg total) before bedtime. Active Semaglutide (Weight Loss) (2 sources) Start: Start: 07-31-2024 Semaglutide (W eight Loss) (Wegovy) 2.4 mg/0.75 mL pen injector Active 2.4 MG SUBCUT every week July 31, 2024 12:00am semaglutide, weight loss, (WEGOVY) 0.5 mg/0.5 mL pen injector (6 sources) Start: 01-01-2024 inject 1.2 mL by subcutaneous injection every week semaglutide, weight loss, (WEGOVY) 0.5 mg/0.5 mL pen injector Inject 1.2 mL (1.2 mg total) under the skin once a week. 01/01/2024 Active Start: 01-01-2024 inject 0.5 mL by sub cutaneous injection every week semaglutide, weight loss, (WEGOVY) 0.5 mg/0.5 mL pen injector Inject 0.5 mL (0.5 mg total) under the skin once a week. 01/01/2024 Active Semaglutide-Weight Management (Wegovy) 1 MG/0.5ML solution auto-injector (8 sources) Start: 04-29-2024 inject 1 mg by subcutaneous injection every week Semaglutide-Weight Management (Wegovy) 1 MG/0.5ML solution auto-injector Indications: Encounter for weight management Inject 1 mg under the skin 1 (one) time per week 4 mL 04/29/2024 Active Semaglutide-Weight Management (Wegovy) 1.7 MG/0.75ML solution auto-injector (6 sources) Start: 06-20-2024 End: 08-18-2024 inject 1.7 mg by subcutaneous injection every [...] 08/15/2024 Active sertraline 50 mg oral tablet (8 sources) Serotonin Reuptake Inhibitor take 1 tablet by mouth in the morning sertraline (ZOLOFT) 50 mg tablet Take 1 tablet (50 mg total) by mouth in the morning. Active Zepbound 2.5 MG/0.5ML solution auto-injector (6 sources) Start: 11-14-19 End: 02-03-20 inject 0.5 mL by subcutaneous injection every week Zepbound 2.5 MG/0.5ML solution auto-injector Indications: Obesity , Obstructive Sleep Apnea Syndrome Inject 0.5 mL under the skin 1 (one) time per week 2 mL 11/13/2024 02/02/2025 Discontinued Start: 11-13-2024 inject 0.5 mL by sub cutaneous injection every week Zepbound 2.5 MG/0.5ML solution auto-injector Indications: Obesity , Obstructive Sleep Apnea Syndrome Inject 0.5 mL under the skin 1 (one) time per week 2 mL 11/13/2024 Active Zepbound 5 MG/0.5ML solution (6 sources) Start: 12-09-2024 End: 02-02-2025 inject 5 mg by subcutaneous injection every week Zepbound 5 MG/0.5ML solution Indications: Obstructive sleep apnea , Insulin resistance , Encounter for long-term (current) use of medications , Encounter for weight management , Metabolic syndrome Inject 5 mg under the skin 1 (one) time per week 2 mL 12/09/2024 02/02/2025 Discontinued Start: 12-09-2024 inject 5 mg by subcu taneous injection every week Zepbound 5 MG/0.5ML solution Indications: Obstructive sleep apnea , Insulin resistance , Encounter for long-term (current) use of medications , Encounter for weight management , Metabolic syndrome Inject 5 mg under the skin 1 (one) time per week 2 mL 12/09/2024 Active Zepbound 7.5 MG/0.5ML solution (5 sources) Start: 01-02-2025 End: 02-02-2025 inject 0.5 mL by subcutaneous injection every week Zepbound 7.5 MG/0.5ML solution Indications: Chronic hypertension , Encounter for weight management , Metabolic syndrome , Insulin resistance , Obstructive sleep apnea Inject 0.5 mL under the skin 1 (one) time per week for 28 days 2 mL 01/02/2025 02/02/2025 Discontinued Start: 01-02-2025 End: 01-30-2025 inject 0.5 mL by subcutaneous injection every week Zepbound 7.5 MG/0.5ML solution Indications: Chronic hypertension , Encounter for weight management , Metabolic syndrome , Insulin resistance , Obstructive sleep apnea Inject 0.5 mL under the skin 1 (one) time per week for 28 days 2 mL 01/02/2025 01/30/2025 Active Completed/Discontinued Medications Medication Drug Class(es) Dates Sig (Normalized) Sig (Original) [id number] 200 actuat albuterol 0.09 mg/actuat metered dose [...] Classification Problem Date Documented Da te Episodic/Chronic Anxiety disorders (20 sources) Generalized anxiety disorder; Translations: [Generalized anxiety disorder] Onset: 4 11-13-2023 Chronic Asthma (20 sources) Unspecified asthma, uncomplicated; Translations: [Asthma] Onset: 2 05-16-2023 Chronic Esophageal disorders (20 sources) Gastroesophageal reflux disease; Translations: [Gastro-esophageal reflux disease without esophagitis] Onset: 3 05-16-2023 Chronic Essential hypertension (20 sources) Hypertensive disorder; Translations: [Essential (primary) hypertension] Onset: 8 05-16-2023 Chronic Hypertension complicating ; childbirth and the puerperium (6 sources) Chronic hypertension in obstetric context; Translations: [...] Onset: 3 05-16-2023 Chronic Nausea and vomiting (3 sources) Nausea; Translations: [Nausea] 07-31-2024 Episodic Other aftercare (4 sources) Long-term current use of drug therapy; Translations: [Other terminal supervisor (current) drug therapy] 08-18-2024 Episodic Other and unspecified benign neoplasm (2 sources) Melanocytic nevus of trunk; Translations: [Melanocytic nevi of trunk] 01-13-2025 Episodic Other circulatory disease (2 sources) Spider nevus; Translations: [Nevus, non-neoplastic] 01-13-2025 Episodic Other complications of (6 sources) Maternal obesity complicating , childbirth and the puerperium, antepartum; Translations: [Obesity complicating , second trimester] Onset: 9 12-09-2018 Chronic Other gastrointestinal disorders (2 sources) Irritable bowel syndrome; Translations: [Irritable bowel syndrome] Chronic Other gastrointestinal disorders (2 sources) Constipation; Translations: [Constipation] Episodic Other gastrointestinal disorders (3 sources) Diarrhea; Translations: [Diarrhea] 07-31-2024 Episodic Other gastrointestinal disorders (5 sources) Burping; Translations: [Eructation] 05-27-2024 Episodic Other lower respiratory disease (2 sources) Cough; Translations: [Acute cough] 07-24-2024 Episodic Other nutritional; endocrine; and metabolic disorders (1 source) Obesity, unspecified; Translations: [OBESITY UNSPECIFIED] Onset: 2 Chronic Other nutritional; endocrine; and metabolic disorders (4 sources) Insulin resistance; Translations: [Insulin resistance] 08-18-2024 Chronic Other nutritional; endocrine; and metabolic disorders (4 sources) Metabolic syndrome X; Translations: [Metabolic syndrome] 08-18-2024 Chronic Other nutritional; endocrine; and metabolic disorders (2 sources) Weight increased; Translations: [Abnormal weight gain] 05-14-2024 Episodic Other screening for suspected conditions (not mental disorders or infectious disease) (7 sources) Encounter for screening for malignant neoplasm of cervix; Translations: [Patient encounter status] Onset: 3 Episodic Other skin disorders (2 sources) Bacterial folliculitis; Translations: [Other specified follicular disorders] 01-13-2025 Episodic Other skin disorders (2 sources) Lentiginosis; Translations: [Other melanin hyperpigmentation] 01-13-2025 Episodic Other upper respiratory disease (20 sources) Allergic rhinitis; Translations: [Allergic rhinitis, unspecified] Onset: 3 11-02-2023 Chronic Other upper respiratory disease (20 sources) Chronic rhinitis; Translations: [Chronic rhinitis] Onset: [...] APNEA] Onset: 2 Chronic Residual codes; unclassified (20 sources) Obstructive sleep apnea syndrome; Translations: [Obstructive sleep apnea (adult) (pediatric)] Onset: 3 05-16-2023 Chronic Spondylosis; intervertebral disc disorders; other back problems (13 sources) Pain in the coccyx; Translations: [Sacrococcygeal disorders, not elsewhere classified] Onset: 3 01-02-2024 Episodic Unclassified (20 sources) Patient on antidepressant monitoring plan Onset: 4 05-27-2024 Unclassified (1 source) Coccydynia [M53.3] Onset: 5 Unclassified (1 source) Tailbone Pain Onset: 5 Viral infection (1 source) Other viral agents as the cause of diseases classified elsewhere Episodic Past or Other Problems Problem Classification Problem Date Documented Da te Episodic/Chronic Abdominal pain (14 sources) Abdominal pain; Translations: [Abdominal pain] Onset: 03-08-2023 05-27-2024 Episodic Cancer of cervix (20 sources) Atypical squamous cells of undetermined significance on cervical Papanicolaou smear; Translations: [Atypical squamous cells of undetermined significance on cytologic smear of cervix (ASC-US)] Onset: 05-16-2023 05-16-2023 Episodic Contraceptive and procreative management (12 sources) Patient encounter status; Translations: [Persons encountering health services in other specified circumstances] Onset: 11-23-2017 08-18-2024 Episodic Hemorrhage during ; abruptio placenta; placenta previa (6 sources) Low lying placenta; Translations: [Low lying placenta NOS or without hemorrhage, second trimester] Onset: 12-09-2018 12-09-2018 Episodic Hemorrhoids (12 sources) Bleeding external hemorrhoids; Translations: [Residual hemorrhoidal skin tags] Onset: 05-20-2019 05-20-2019 Episodic Hypertension complicating ; childbirth and the puerperium (6 sources) Pre-eclampsia; Translations: [Unspecified pre-eclampsia, third trimester] Onset: 11-21-2017 11-21-2017 Episodic Mood disorders (20 sources) Mood disorders Onset: 11-13-2023 11-13-2023 Other complications of (6 sources) History of pre-eclampsia; Translations: [Supervision of with other poor reproductive or obstetric history, second trimester] Onset: 12-09-2018 12-09-2018 Episodic Other complications of (6 sources) High risk ; Translations: [Supervision of other high risk pregnancies, second trimester] Onset: 12-09-2018 12-09-2018 Episodic Other complications of (6 sources) Single umbilical artery; Translations: [Supervision of other high risk pregnancies, unspecified trimester] Onset: 12-09-2018 12-09-2018 Episodic Other complications of (6 sources) Poor growth affecting management; Translations: [Maternal care for other known or suspected poor growth, third trimester, not applicable or unspecified] Onset: 11-21-2017 Resolved: 11-29-2017 11-29-2017 Episodic Other lower respiratory disease (1 source) Snoring; Translations: [SNORING] Onset: 01-07-2022 Episodic Other and delivery including normal (6 sources) care status; Translations: [Encounter for routine follow-up] Onset: 11-23-2017 11-23-2017 Episodic Polyhydramnios and other problems of amniotic cavity (20 sources) Oligohydramnios; Translations: [Oligohydramnios, unspecified trimester, not applicable or unspecified] Onset: 11-20-2017 05-16-2023 Episodic Unclassified (6 sources) Onset: 05-20-2019 05-20-2019 Results Test Name Value Interpretation Reference Range Facility MM screening mammo BI w/CADo n 02-25-2025 MM screening mammo BI w/CAD [facility] [address] [place], [place] [id number] Mammography Report Signed Patient: Mariya Orosco MR#: [id number] : 1985 Acct:[id number] Age/Sex: 39 / F Adm Date: 02/25/25 Loc: [place] Room: Type: [facility] Attending Dr: Tamara Gallagher PA-C Ordering Provider: Tmaara JOHANSEN Date of Service: 02/25/25 Procedure(s): MM screening mammo BI w/CAD Accession Number(s): ([id number]) MM/MM screening mammo BI w/CAD: SCREENING Copies to: Tamara Javier CNP CLINICAL DATA: Screening for malignancy. SCREENING MAMMOGRAM - FULL FIELD DIGITAL WITH TOMOSYNTHESIS AND CAD COMPARISON:Baseline study Tomosynthesis craniocaudal and mediolateral oblique views of both breasts were obtained using low- dose digital technique. This examination was reviewed with the aid of CAD. FINDINGS: The breast tissue is composed of scattered fibroglandular densities. There are no dominant masses, typically malignant calcifications or architectural distortion. MM/MM screening mammo BI w/CAD IMPRESSION: NO MAMMOGRAPHIC EVIDENCE OF MALIGNANCY. ROUTINE FOLLOW-UP IS RECOMMENDED IN ONE YEAR. RESULT CODE: 1 Negative DENSITY CODE: 2 (approximately 25-50% glandular) There are scattered areas of fibroglandular density. FOLLOW UP: 1YR The false-negative rate of mammography is approximately 10-percent. Management of a palpable abnormality must be based on clinical grounds. Patient was entered into a reminder system with a target due date for the next mammogram. Impression dictated by: Edmond Rasmussen Jr., D.O. 02/25/2025 9:34 AM Dictation Location: D[facility]01 Dictated By: Edmond Rasmussen Jr, DO 02/25/25 0933 Signed By: 02/25/25 0934 Normal [facility] Mammography reportOrdered By : Edmond Rasmussen on 02-25-2025 Diagnostic imaging study [facility] [address] [place] [address] Mammography Report Signed Patient: Mariya Orosco MR#: [id number] : 1985 Acct:[id number] Age/Sex: 39 / F Adm Date: 5 Loc: [place] Room: Type: [facility] Attending Dr: Tamara Gallagher PA-C Ordering Provider: Tamara JOHANSEN Date of Service: 02/25/25 Procedure(s): MM screening mammo BI w/CAD Accession Number(s): ([id number]) MM/MM screening mammo BI w/CAD: SCREENING Copies to: Tamara Javier CYTOTECHNOLOGIST~ CLINICAL DATA: Screening for malignancy. SCREENING MAMMOGRAM - FULL FIELD DIGITAL WITH TOMOSYNTHESIS AND CAD COMPARISON:Baseline study Tomosynthesis craniocaudal and mediolateral oblique views of both breasts were obtained using low-dose digital technique. This examination was reviewed with the aid of CAD. FINDINGS: The breast tissue is composed of scattered fibroglandular densities. There are no dominant masses, typically malignant calcifications or architectural distortion. MM/MM screening mammo BI w/CAD IMPRESSION: NO MAMMOGRAPHIC EVIDENCE OF MALIGNANCY. ROUTINE FOLLOW-UP IS RECOMMENDED IN ONE YEAR. RESULT CODE: 1 Negative DENSITY CODE: 2 (approximately 25-50% glandular) There are scattered areas of fibroglandular density. FOLLOW UP: 1YR The false-negative rate of mammography is approximately 10-percent. Management of a palpable abnormality must be based on clinical grounds. Patient was entered into a reminder system with a target due date for the next mammogram. Impression dictated by: Edmond Rasmussen Jr., D.O. 02/25/2025 9:34 AM Dictation Location: [facility] Dictated By: Edmond Rasmussen Jr, DO 02/25/2533 Signed By: 02/25/25 0934 [facility] IGP,APTIMA HPV,AGE GDLNon AGE GDLN ACOG TESTING Note . [facility] Comment on above: TESTS RESULT FLAG UN ITS REF RANGE LAB Clinician Provided Cytology Information Source.............Cervix;Endocervix No. of containers..01 ThinPrep Vial Age Jose JOHNSTON Vilma... 30 FLAG LEGEND: L-Low Normal,H-High Normal,LL-Alert Low,HH-Alert High <-Panic Low,>-Panic High,A-Abnormal,AA-Critical Abnormal Performed at: 01 =G [facility] [place] [address] Lizette Florence MD, HPV APTIMA Negative Negative [facility] [employer] Comment on above: This nucleic acid am plification test detects fourteen high- risk HPV types (16,18,31,33,35,39,45,51,52,56,58,59,66,68) without differentiation. Performed at: =G - [facility] [id number] Top Collar Maker: Lizette Florence MD, Phone: [phone] Performed at: - [facility] [id number] Top Collar Maker: Lizette Florence MD, Phone: [phone] IGP, APTIMA HPV, RFX 16/18,45 Note . [facility] Comment on above: TESTS RESULT FLAG UN ITS REF RANGE LAB DIAGNOSIS: 02 NEGATIVE FOR INTRAEPITHELIAL LESION OR MALIGNANCY. Specimen adequacy: 02 Satisfactory for evaluation. No endocervical component is identified. Performed by: Julio Forde, Mathematics Department Chair ([facility]) . 02 Note: Note 02 The Pap smear is a screening test designed to aid in the detection of premalignant and malignant conditions of the uterine cervix. It is not a diagnostic procedure and should not be used as the sole means of detecting cervical cancer. Both false-positive and false-negative reports do occur. Test Methodology: Note 02 This liquid based ThinPrep(R) pap test was screened with the use of an image guided system. HPV Genotype Reflex Note 02 Criteria not met, HPV Genotype not performed. FLAG LEGEND: L-Low Normal,H-High Normal,LL-Alert Low,HH-Alert High <-Panic Low,>-Panic High,A-Abnormal,AA-Critical Abnormal Performed at: [address] [id number] Lizette Florence MD, BRUSH-SPATULA CERVIX ENDOCERVIX [facility] e ALL CBC WITH AUTO DIFFon BASOPHILS ABSOLUTE AUTO 0.1 [facility] Basophils/100 WBC (Bld) 0.9 % 0.2 - 2.0 % [facility] Eosinophils/100 WBC (Bld) 2.9 % 0.9 - 7.0 % [facility] Erythrocyte distribution width (RBC) [Ratio] 11.8 % 11.0 - 15.0 % [facility] Hematocrit (Bld) [Volume fraction] 41 % 36.0 - 48.0 % [facility] Hemoglobin (Bld) [Mass/Vol] 13.5 g/dL 12.0 - 16.0 g/dL [facility] IMMATURE GRANULOCYTES ABS AUTO 0.02 [facility] Immature granulocytes/100 WBC (Bld) 0.4 % 0.0 - 0.5 % [facility] LYMPHOCYTES ABSOLUTE AUTO 2.2 [facility] Lymphocytes/100 WBC (Bld) 39.9 % 20.5 - 60.0 % [facility] MCH (RBC) [Entitic mass] 29.1 pg 26.7 - 34.0 pg [facility] MCHC (RBC) [Mass/Vol] 32.9 g/dL 29.9 - 35.2 g/dL [facility] MCV (RBC) [Entitic vol] 88.4 fL 81.0 - 99.0 fL [facility] MONOCYTES ABSOLUTE AUTO 0.5 [facility] Monocytes/100 WBC (Bld) 8.2 % 1.7 - 12.0 % [facility] NEUTROPHILS ABSOLUTE AUTO 2.7 [facility] Neutrophils/100 WBC (Bld) 47.7 % 43.0 - 75.0 % [facility] Platelet mean volume (Bld) [Entitic vol] 10 fL 9.5 - 13.5 fL [facility] are TBH EO # 0.2 [facility] TB PLT 191 [facility] TB RBC 4.64 [facility] TB WBC 5.6 [facility] CMP (CMP) (FOR REMOTE FH C USE)on 08-18-2024 Albumin [Mass/Vol] 3.7 g/dL 3.4 - 5.0 g/dL [facility] ALBUMIN GLOBULIN RATIO 1.1 [facility] ALP [Catalytic activity/Vol] 49 U/L 46 - 116 U/L [facility] ALT [Catalytic activity/Vol] 28 U/L 14 - 59 U/L [facility] Anion gap [Moles/Vol] 10.5 mmol/L [facility] AST [Catalytic activity/Vol] 14 U/L Low 15 - 37 U/L [facility] Bilirubin [Mass/Vol] 0.3 mg/dL 0.2 - 1 .0 mg/dL [facility] Calcium [Mass/Vol] 8.9 mg/dL 8.5 - 10. 1 mg/dL [facility] Chloride [Moles/Vol] 102 mmol/L 98 - 10 7 mmol/L [facility] CO2 [Moles/Vol] 30.7 mmol/L 21.0 - 32.0 mmol/L [facility] Creatinine [Mass/Vol] 0.91 mg/dL 0.55 - 1.02 mg/dL [facility] GFR/1.73 sq M.predicted CKD-EPI (S/P/Bld) [Vol rate/Area] >60 >=60 mL/min/1.73m 2 [facility] Globulin (S) [Mass/Vol] 3.3 g/dL [facility] Glucose [Mass/Vol] 94 mg/dL 74 - 106 mg/dL [facility] Interpretation and review of laboratory results Abnormal [facility] Potassium [Moles/Vol] 4.2 mmol/L 3.5 - 5.1 mmol/L [facility] Protein [Mass/Vol] 7 g/dL 6.4 - 8.2 g/dL [facility] Sodium [Moles/Vol] 139 mmol/L 136 - 145 mmol/L [facility] TBH EGFR-NON AF CHADIAN >60 >=60 mL/min/1.73m 2 [facility] Urea nitrogen [Mass/Vol] 15 mg/dL 7.0 - 18.0 mg/dL [facility] Urea nitrogen/Creatinine [Mass ratio] 16.5 mg/mg [facility] PELVIS WO IV CONT [...] AIN, NAUSEA, VOMITING, DIARRHEA X 3 MOS Quick Strepon 05-08-2023 S. pyogenes Org specific cx Ql (Throat) Negative [facility] Other Quick Strep [facility] Other PAP ACOG PANEL 2: 30 to 65on 11-06-2022 . . Normal [facility] Comment on above: Result Comment: Perf ormed at: WB Performed By: #### [id number] #### [facility] [address] [address] [address] Emanuel Castillo Age Gdln ACOG Testing 30-65 Normal [facility] Comment on above: Performed By: #### [id number] #### [facility] [address] [address] [address] Emanuel Castillo DIAGNOSIS: Comment Normal [facility] Comment on above: Result Comment: NEGA TIVE FOR INTRAEPITHELIAL LESION OR MALIGNANCY. Performed at: WB Performed By: #### [id number] #### [facility] [address] [address] [address] Emanuel Castillo HPV Aptima Negative Normal Negative [facility] Comment on above: Result Comment: This nucleic acid amplification test detects fourteen high-risk HPV types (16,18,31,33,35,39,45,51,52,56,58,59,66,68) without differentiation. Performed at: =G Performed By: #### [id number] #### [facility] [address] [place] [address] Dr. Emanuel Castillo HPV Genotype Reflex Comment Normal [facility] Comment on above: Result Comment: Crit eria not met, HPV Genotype not performed. Performed at: WB Performed By: #### [id number] #### [facility] [address] [place] [address] Dr. Emanuel Castillo Methodology: Comment Normal [facility] Comment on above: Result Comment: This liquid based ThinPrep(R) pap test was screened with the use of an image guided system. Performed at: WB Performed By: #### [id number] #### [facility] [address] [place] [address] Dr. Emanuel Castillo Note: Comment Normal [facility] Comment on above: Result [...] Performed at: WB Performed By: #### [id number] #### [facility] [address] [place] [address] Dr. Emanuel Castillo Performed by: Comment Normal [facility] Comment on above: Result Comment: Jennifer Vallecillo, Master Lay Out Specialist (ASCP) Performed at: WB Performed By: #### [id number] #### [facility] [address] [place] [address] Dr. Emanuel Castillo Specimen adequacy: Comment Normal [facility] Comment on above: Result Comment: Sati sfactory for evaluation. Performed at: WB Performed By: #### [id number] #### [facility] [address] [place] [address] Dr. Emanuel Castillo CBC AUTO DIFFon 11-01-2022 BASO # 0.0 103/ul Normal 0.0-0.1 [facility] Comment on above: Performed By: #### C BC #### [facility] [address] [place] [address] Dr. Emanuel Castillo Basophils/100 WBC (Bld) 0.6 % Normal 0.2-2.0 [facility] Comment on above: Performed By: #### C BC #### [facility] [address] [place] [address] Dr. Emanuel Castillo EO # 0.3 103/ul Normal 0.0-0.7 [facility] Comment on above: Performed By: #### C BC #### [facility] [address] [place] [address] Dr. Emanuel Castillo Eosinophils/100 WBC (Bld) 3.7 % Normal 0.9-7.0 [facility] Comment on above: Performed By: #### C BC #### [facility] [address] [place] [address] Dr. Emanuel Castillo Erythrocyte distribution width (RBC) [Ratio] 12.9 % Normal 11.0-15.0 [facility] Comment on above: Performed By: #### C BC #### [facility] [address] [place] [address] Dr. Emanuel Castillo Hematocrit (Bld) [Volume fraction] 42.1 % Normal 36.0-48.0 [facility] Comment on above: Performed By: #### C BC #### [facility] [address] [place] [address] Dr. Emanuel Castillo Hemoglobin (Bld) [Mass/Vol] 13.8 g/dL Normal 12.0-16.0 [facility] Comment on above: Performed By: #### C BC #### [facility] [address] [place] [address] Dr. Emanuel Castillo IG # 0.02 10e3/ul Normal 0.00-0.03 [facility] Comment on above: Performed By: #### C BC #### [facility] [address] [place] [address] Dr. Emanuel Castillo IG % 0.3 % Normal 0.0-0.5 [facility] Comment on above: Performed By: #### C BC #### [facility] [address] [place] [address] Dr. Emanuel Castillo LYMPH # 2.4 103/ul Normal 1.2-3.8 [facility] Comment on above: Performed By: #### C BC #### [facility] [address] [place] [address] Dr. Emanuel Castillo Lymphocytes/100 WBC (Bld) 35.0 % Normal 20.5-60.0 [facility] Comment on above: Performed By: #### C BC #### [facility] [address] [place] [address] Dr. Emanuel Castillo MANUAL DIFF REQ NO Normal [facility] Comment on above: Performed By: #### C BC #### [facility] [address] [place] [address] Dr. Emanuel Castillo MCH (RBC) [Entitic mass] 27.8 pg Normal 26.7-34.0 [facility] Comment on above: Performed By: #### C BC #### [facility] [address] [place] [address] Dr. Emanuel Castillo MCHC (RBC) [Mass/Vol] 32.8 g/dL Normal 29.9-35.2 [facility] Comment on above: Performed By: #### C BC #### [facility] [address] [place] [address] Dr. Emanuel Castillo MCV (RBC) [Entitic vol] 84.9 fL Normal 81.0-99.0 [facility] Comment on above: Performed By: #### C BC #### [facility] [address] [place] [address] Dr. Emanuel Castillo MONO # 0.6 103/ul Normal 0.3-0.8 [facility] Comment on above: Performed By: #### C BC #### [facility] [address] [place] [address] Dr. Emanuel Castillo Monocytes/100 WBC (Bld) 9.2 % Normal 1.7-12.0 [facility] Comment on above: Performed By: #### C BC #### [facility] [address] [address] [address] Emanuel Castillo NEUT # 3.4 103/ul Normal 1.4-6.5 [facility] Comment on above: Performed By: #### C BC #### [facility] [address] [place] [address] Dr. Emanuel Castillo Neutrophils/100 WBC (Bld) 51.2 % Normal 43.0-75.0 [facility] Comment on above: Performed By: #### C BC #### [facility] [address] [place] [address] Dr. Emanuel Castillo Platelet mean volume (Bld) [Entitic vol] 10.0 fL Normal 9.5-13.5 [facility] Comment on above: Performed By: #### C BC #### [facility] [address] [place] [address] Dr. Emanuel Castillo PLT 214 103/ul Normal 150-450 [facility] Comment on above: Performed By: #### C BC #### [facility] [address] [place] [address] Dr. Emanuel Castillo RBC 4.96 106/ul Normal 4.20-5.40 [facility] Comment on above: Performed By: #### C BC #### [facility] [address] [place] [address] Dr. Emanuel Castillo WBC 6.7 103/ul Normal 4.0-11.0 [facility] Comment on above: Performed By: #### C BC #### [facility] [address] [place] [address] Dr. Emanuel Castillo FREE T4on 11-01-2022 Free T4 [Mass/Vol] 0.72 ng/dL Critically low 0.76-1.46 [facility] Comment on above: Performed By: #### F T4 #### [facility] [address] [place] [address] Dr. Emanuel Castillo GLYCOHEMOGLOBIN A1Con 2022 ADA RECOMMENDATION SEE BELOW Normal [facility] Comment on above: Result Comment: ADA RECOMMENDED LIMIT 4.0 - 6.0 ADA THERAPEUTIC TARGET < 7.0 ACTION SUGGESTED > 7.0 Performed By: #### A 1C #### [facility] [address] [place] [address] Dr. Emanuel Castillo Glucose [Mass/Vol] 108 mg/dL Normal [facility] Comment on above: Performed By: #### A 1C #### [facility] [address] [place] [address] Dr. Emanuel Castillo HbA1c (Bld) [Mass fraction] 5.4 % Normal 4.5-6.2 [facility] Comment on above: Performed By: #### A 1C #### [facility] [address] [place] [address] Dr. Emanuel Castillo PREG QUANT HCGon 11-01-2022 HCG QUANT <1 Normal [facility] Comment on above: Performed By: #### T SH, PREGQNT #### [facility] [address] [place] [address] Dr. Emanuel Castillo HCG RANGE SEE BELOW Normal [facility] Comment on above: Result Comment: 5-50 0.2-1 WEEK 50-500 1-2 WEEKS 100-5,000 2-3 WEEKS 500-10,000 3-4 WEEKS 1,000-50,000 4-5 WEEKS 10,000-100,000 5-6 WEEKS 15,000-200,000 6-8 WEEKS 10,000-100,000 2-3 MONTHS Performed By: #### T SH, PREGQNT #### [facility] [address] [place] [address] Dr. Emanuel Castillo PROTIMEon 11-01-2022 INR Coag (PPP) [Relative time] 0.95 {INR} Normal [facility] Comment on above: Performed By: #### P TT, PT #### [facility] [address] [place] [address] Dr. Emanuel Castillo INR GUIDELINES SEE BELOW Normal [facility] Comment on above: Result Comment: DOT RED INR: 2.0 - 3.0 CONDITIONS NOT LISTED BELOW 2.5 - 3.5 FOR PROSTHETIC HEART VALVE REPLACEMENT 2.5 - 3.5 RECURRENT THROMBOSIS Performed By: #### P TT, PT #### [facility] [address] [address] [address] Emanuel Castillo PT Coag (PPP) [Time] 10.1 s Normal 9.0-11.6 [facility] Comment on above: Performed By: #### P TT, PT #### [facility] [address] [address] [address] Emanuel Castillo PTTon 11-01-2022 aPTT Coag (Bld) [Time] 31.3 s Normal 22.3-36.2 [facility] Comment on above: Performed By: #### P TT, PT #### [facility] [address] [place] [address] Dr. Emanuel Castillo TSHon 11-01-2022 TSH 2.217 uIU/mL Normal 0.358-3.740 [facility] Comment on above: Performed By: #### T SH, PREGQNT #### [facility] [address] [place] [address] Dr. Emanuel Castillo US PELVIS AND TRANSVAGon [...] VALENTINA SCHULTZ Date: 2022-11-01 10:40 Normal [facility] Complete Blood Counton 11-11 Erythrocyte distribution width (RBC) [Ratio] 12.2 % Normal 11.0-15.0 [facility] Comment on above: Performed By: #### F T4, CMP, TSH, LIPD, CBC #### [facility] [address], [place] [id number] Hematocrit (Bld) [Volume fraction] 43.6 % Normal 35.0-47.0 [facility] Comment on above: Performed By: #### F T4, CMP, TSH, LIPD, CBC #### [facility] [address] [place], [place] [id number] Hemoglobin (Bld) [Mass/Vol] 13.8 g/dL Normal 11.6-15.5 [facility] Comment on above: Performed By: #### F T4, CMP, TSH, LIPD, CBC #### [facility] [address] [place], [place] [id number] MCH (RBC) [Entitic mass] 27.5 pg Normal 27.0-33.0 [facility] Comment on above: Performed By: #### F T4, CMP, TSH, LIPD, CBC #### [facility] [address] [place], [place] [id number] MCHC (RBC) [Mass/Vol] 31.7 g/dL Low 32.0-36.0 [facility] Comment on above: Performed By: #### F T4, CMP, TSH, LIPD, CBC #### [facility] [address] [place], [place] [id number] MCV (RBC) [Entitic vol] 87 fL Normal 80-100 [facility] Comment on above: Performed By: #### F T4, CMP, TSH, LIPD, CBC #### [facility] [address] [place], [place] [id number] Platelet mean volume (Bld) [Entitic vol] 10.70 fL Normal 7.50-12.50 [facility] Comment on above: Performed By: #### F T4, CMP, TSH, LIPD, CBC #### [facility] [address] [place], [place] [id number] Platelets (Bld) [#/Vol] 206 10*3/uL Normal 140-400 [facility] Comment on above: Performed By: #### F T4, CMP, TSH, LIPD, CBC #### [facility] [address] [place], [place] [id number] RBC (Bld) [#/Vol] 5.02 10*6/uL Normal 3.90-5.20 [facility] Comment on above: Performed By: #### F T4, CMP, TSH, LIPD, CBC #### [facility] [address], [place] [id number] RDW-SD 39.0 fL Normal 37.0-50.0 [facility] Comment on above: Performed By: #### F T4, CMP, TSH, LIPD, CBC #### [facility] [address], [place] [id number] WBC (Bld) [#/Vol] 5.8 10*3/uL Normal 3.8-11.0 [facility] Comment on above: Performed By: #### F T4, CMP, TSH, LIPD, CBC #### [facility] [address] [place], [place] [id number] [facility] 11-11-2021 Albumin [Mass/Vol] 4.7 g/dL Normal 3.6-5.1 [facility] Comment on above: Performed By: #### F T4, CMP, TSH, LIPD, CBC #### [facility] [address], [place] [id number] Albumin/Globulin [Mass ratio] 2.4 {ratio} Normal 1.0-2.5 [facility] Comment on above: Performed By: #### F T4, CMP, TSH, LIPD, CBC #### [facility] [address] [place], [place] [id number] ALP [Catalytic activity/Vol] 48 U/L Normal 35-119 [facility] Comment on above: Performed By: #### F T4, CMP, TSH, LIPD, CBC #### [facility] [address] [place], [place] [id number] ALT [Catalytic activity/Vol] 19 U/L Normal 6-33 [facility] Comment on above: Result Comment: 06/29 Female reference range changed. Performed By: #### F T4, CMP, TSH, LIPD, CBC #### [facility] [address] [place], [place] [id number] Anion gap [Moles/Vol] 17 mmol/L Normal 12-20 [facility] Comment on above: Result Comment: Effclaudio ctive 08/04/2019 reference range changed. Performed By: #### F T4, CMP, TSH, LIPD, CBC #### [facility] [address], [place] [id number] AST [Catalytic activity/Vol] 17 U/L Normal 9-34 [facility] Comment on above: Performed By: #### F T4, CMP, TSH, LIPD, CBC #### [facility] [address], [place] [id number] BUN/CREA 16 Ratio Normal 6-22 [facility] Comment on above: Performed By: #### F T4, CMP, TSH, LIPD, CBC #### [facility] [address] [place], [place] [id number] Calcium [Mass/Vol] 9.5 mg/dL Normal 8.6-10.2 [facility] Comment on above: Performed By: #### F T4, CMP, TSH, LIPD, CBC #### [facility] [address] [place] [address], [place] [id number] Chloride [Moles/Vol] 104 mmol/L Normal 98-107 [facility] Comment on above: Performed By: #### F T4, CMP, TSH, LIPD, CBC #### [facility] [address], [place] [id number] CO2 [Moles/Vol] 23 mmol/L Normal 20-31 [facility] Comment on above: Performed By: #### F T4, CMP, TSH, LIPD, CBC #### [facility] [address] [place], [place] [id number] Creatinine [Mass/Vol] 0.6 mg/dL Normal 0.6-1.4 [facility] Comment on above: Performed By: #### F T4, CMP, TSH, LIPD, CBC #### [facility] [address] [place], [place] [id number] eGFRAA 137 mL/min/1.73m2 Normal >60 [facility] Comment on above: Performed By: #### F T4, CMP, TSH, LIPD, CBC #### [facility] [address], [place] [id number] eGFRNAA 113 mL/min/1.73m2 Normal >60 [facility] Comment on above: Performed By: #### F T4, CMP, TSH, LIPD, CBC #### [facility] [address] [place], [place] [id number] Globulin (S) [Mass/Vol] 2.0 g/dL Normal 1.9-3.7 [facility] Comment on above: Performed By: #### F T4, CMP, TSH, LIPD, CBC #### [facility] [address] [place] [address], [place] [id number] Glucose [Mass/Vol] 95 mg/dL Normal 65-99 Yoselin hernandez [place] [facility] Comment on above: Result Comment: For FASTING Glucose --- ADA reference ranges: Normal 65-99 mg/dl Prediabetes 100-125 Diabetes >/= 126 Performed By: #### F T4, CMP, TSH, LIPD, CBC #### [facility] [address], [place] [id number] Potassium [Moles/Vol] 4.4 mmol/L Normal 3.5-5.5 [facility] Comment on above: Performed By: #### F T4, CMP, TSH, LIPD, CBC #### [facility] [address] [place] [address], [place] [id number] Protein [Mass/Vol] 6.7 g/dL Normal 6.1-8.1 Yoselin hernandez [place] [facility] Comment on above: Performed By: #### F T4, CMP, TSH, LIPD, CBC #### [facility] [address] [place], [place] [id number] Sodium [Moles/Vol] 140 mmol/L Normal 135-146 Yoselin hernandez [place] [facility] Comment on above: Performed By: #### F T4, CMP, TSH, LIPD, CBC #### [facility] [address], [place] [id number] TBIL <0.3 Normal [facility] Comment on above: Performed By: #### F T4, CMP, TSH, LIPD, CBC #### [facility] [address] [place] [address], [place] [id number] Urea nitrogen [Mass/Vol] 10 mg/dL Normal 7-25 [facility] Comment on above: Performed By: #### F T4, CMP, TSH, LIPD, CBC #### [facility] [address], [place] [id number] Free T4on 11-11-2021 Free T4 [Mass/Vol] 0.98 ng/dL Normal 0.80-1.80 [facility] Comment on above: Performed By: #### F T4, CMP, TSH, LIPD, CBC #### [facility] [address] [place] [address], [place] [id number] Lipid Panelon 11-11-2021 Cholesterol [Mass/Vol] 189 mg/dL Normal 125-200 [facility] Comment on above: Result Comment: Low risk < 200mg/dL Borderline risk 201-239 mg/dl High risk > or equal to 240 Performed By: #### F T4, CMP, TSH, LIPD, CBC #### [facility] [address], [place] [id number] Cholesterol in HDL [Mass/Vol] 55 mg/dL Normal >40 [facility] Comment on above: Result Comment: High Cardiovascular Risk HDL <40 mg/dL Low Cardiovascular Risk HDL > or equal to 60 mg/dl Performed By: #### F T4, CMP, TSH, LIPD, CBC #### [facility] [address] [place], [place] [id number] Cholesterol in LDL [Mass/Vol] 110 mg/dL Normal [facility] Comment on above: Result Comment: LDL ATP III CLASSIFICATION LDL less than 100 mg/dl Optimal LDL 100-129 mg/dl Near or above optimal LDL 130-159 Borderline high LDL 160-189 High LDL greater than 189 mg/dl Very High Performed By: #### F T4, CMP, TSH, LIPD, CBC #### [facility] [address] [place] [address], [place] [id number] Cholesterol in VLDL [Mass/Vol] 24 mg/dL Normal [place] [facility] Comment on above: Performed By: #### F T4, CMP, TSH, LIPD, CBC #### [facility] [address], [place] [id number] Cholesterol.total/Ch olesterol in HDL [Mass ratio] 3 {ratio} Normal [facility] Comment on above: Performed By: #### F T4, CMP, TSH, LIPD, CBC #### [facility] [address], [place] [id number] Triglyceride [Mass/Vol] 120 mg/dL Normal 30-150 [facility] Comment on above: Result Comment: TRIG ATPIII CLASSIFICATIONS TRIG less than 150 mg/dl Normal TRIG 150-199 mg/dl Borderline High TRIG 200-500 mg/dl High TRIG greather than 500 mg/dl Very High Performed By: #### F T4, CMP, TSH, LIPD, CBC #### [facility] [address] [place], [place] [id number] TSHon 11-11-2021 TSH 2.100 uIU/mL Normal 0.400-4.500 [facility] Comment on above: Performed By: #### F T4, CMP, TSH, LIPD, CBC #### [facility] [address] [place], [place] [id number] Vital Signs Date Time Vital Sign Value Performing Clinician Facility 03-04-2025 10:36-0400 Body height 162.6 cm [facility] Work Phone: [facility] 03-04-2025 10:36-0400 Body mass index (BMI) [Ratio] 30.21 kg/m2 [facility] PA-C Work Phone: [facility] 03-04-2025 10:36-0400 Body weight 79.83 kg [facility] PA-C Work Phone: [facility] 03-04-2025 10:36-0400 Diastolic blood pressure 95 mm[Hg] Sy JolieBoxhoff PA-C Work Phone: [facility] 03-04-2025 10:36-0400 Heart rate 78 /min Sy Verhoff PA-C Work Phone: [facility] 03-04-2025 10:36-0400 SaO2% (BldA) [Mass fraction] 96 % Sy Verhoff PA-C Work Phone: [facility] 03-04-2025 10:36-0400 Systolic blood pressure 116 mm[Hg] Sy Verhoff PA-C Work Phone: [facility] 02-02-2025 08:29-0400 Body mass index (BMI) [Ratio] 30.52 kg/m2 Tamara Roxi PA Work Phone: [facility] 02-02-2025 08:29-0400 Body weight 80.65 kg Tamara [place] PA Work Phone: [facility] 02-02-2025 08:29-0400 Diastolic blood pressure 70 mm[Hg] Tamara Roxi PA Work Phone: [facility] 02-02-2025 08:29-0400 Systolic blood pressure 120 mm[Hg] Tamara [place] PA Work Phone: [facility] 01-14-2025 13:41-0400 Body height 162.6 cm Sy Verhoff PA-C Work Phone: [facility] 01-14-2025 13:41-0400 Body mass index (BMI) [Ratio] 28.84 kg/m2 Sy Verhoff PA-C Work Phone: [facility] 01-14-2025 13:41-0400 Body weight 76.2 kg Sy Verhoff PA-C Work Phone: [facility] 01-14-2025 13:41-0400 Diastolic blood pressure 85 mm[Hg] Sy Verhoff PA-C Work Phone: [facility] 01-14-2025 13:41-0400 Heart rate 71 /min Sy Verhoff PA-C Work Phone: [facility] 01-14-2025 13:41-0400 Respiratory rate 20 /min Sy Salazarraizaff PA-C Work Phone: [facility] 01-14-2025 13:41-0400 Systolic blood pressure 126 mm[Hg] Sy Sernaff PA-C Work Phone: [facility] 11-10-2024 08:44-0400 Body mass index (BMI) [Ratio] 29.08 kg/m2 Lilia Vaughnerly [employer] Work Phone: [facility] 11-10-2024 08:44-0400 Body weight 76.84 kg Lilia Joshi [employer] Work Phone: [facility] 11-10-2024 08:44-0400 Diastolic blood pressure 74 mm[Hg] Lilia Seayly [employer] Work Phone: [facility] 11-10-2024 08:44-0400 Systolic blood pressure 116 mm[Hg] Lilia Joshi [employer] Work Phone: [facility] 08-18-2024 08:42-0500 Body mass index (BMI) [Ratio] 28.46 kg/m2 Tamara Roxi PA Work Phone: [facility] 08-18-2024 08:42-0500 Body weight 75.21 kg Tamara [place] PA Work Phone: [facility] 08-18-2024 08:42-0500 Diastolic blood pressure 76 mm[Hg] Tamara Roxi PA Work Phone: [facility] 08-18-2024 08:42-0500 Systolic blood pressure 120 mm[Hg] Tamara [place] PA Work Phone: [facility] 07-31-2024 11:45-0500 Body height 162.56 cm [facility] 07-31-2024 11:45-0500 Body mass index (BMI) [Ratio] 28.6 kg/m2 [facility] 07-31-2024 11:45-0500 Body weight 75.74 kg [facility] 07-24-2024 11:03-0500 Body mass index (BMI) [Ratio] 28.67 kg/m2 Lily Javier [employer] Work Phone: [facility] 07-24-2024 11:03-0500 Body weight 75.75 kg Lily Javier [employer] Work Phone: [facility] 07-24-2024 11:03-0500 Diastolic blood pressure 84 mm[Hg] Lily Javier [employer] Work Phone: [facility] 07-24-2024 11:03-0500 Heart rate 84 /min Lily Javier [employer] Work Phone: [facility] 07-24-2024 11:03-0500 Systolic blood pressure 110 mm[Hg] Lily Javier [employer] Work Phone: [facility] 05-27-2024 16:12-0400 Body mass index (BMI) [Ratio] 30.55 kg/m2 Lily Javier [employer] Work Phone: [facility] 05-27-2024 16:12-0400 Body weight 80.74 kg Lily Javier [employer] Work Phone: [facility] 05-27-2024 16:12-0400 Diastolic blood pressure 92 mm[Hg] Lily Javier [employer] Work Phone: [facility] 05-27-2024 16:12-0400 Heart rate 76 /min Lily Javier [employer] Work Phone: [facility] 05-27-2024 16:12-0400 Systolic blood pressure 134 mm[Hg] Lily Delacruzman [employer] Work Phone: [facility] 05-12-2024 16:22-0400 Body mass index (BMI) [Ratio] 31.41 kg/m2 Tamara TAYLOR Work Phone: [facility] 05-12-2024 16:22-0400 Body weight 83.01 kg Tamara TAYLOR Work Phone: [facility] 05-12-2024 16:22-0400 Diastolic blood pressure 76 mm[Hg] Tamara TAYLOR Work Phone: [facility] 05-12-2024 16:22-0400 Systolic blood pressure 122 mm[Hg] Tamara Gallagher PA Work Phone: [facility] 03-12-2024 09:00-0400 Diastolic blood pressure 108 mm[Hg] Sy Verhoff PA-C Work Phone: [facility] 03-12-2024 09:00-0400 Heart rate 83 /min Sy Verhoff PA-C Work Phone: [facility] 03-12-2024 09:00-0400 Respiratory rate 18 /min Sy Verhoff PA-C Work Phone: [facility] 03-12-2024 09:00-0400 SaO2% (BldA) [Mass fraction] 98 % Sy Verhoff PA-C Work Phone: [facility] 03-12-2024 09:00-0400 Systolic blood pressure 135 mm[Hg] Sy Verhoff PA-C Work Phone: [facility] 01-02-2024 09:44-0400 Body height 162.6 cm Sy Verhoff PA-C Work Phone: [facility] 01-02-2024 09:44-0400 Body mass index (BMI) [Ratio] 32.1 kg/m2 Sy Verhoff PA-C Work Phone: [facility] 01-02-2024 09:44-0400 Body weight 84.82 kg Sy Verhoff PA-C Work Phone: [facility] 01-02-2024 09:44-0400 Diastolic blood pressure 92 mm[Hg] Sy Verhoff PA-C Work Phone: [facility] 01-02-2024 09:44-0400 Heart rate 95 /min Sy Verhoff PA-C Work Phone: [facility] 01-02-2024 09:44-0400 Respiratory rate 16 /min Sy Verhoff PA-C Work Phone: [facility] 01-02-2024 09:44-0400 SaO2% (BldA) [Mass fraction] 98 % Sy Carl PA-C Work Phone: [facility] 01-02-2024 09:44-0400 Systolic blood pressure 121 mm[Hg] Sy Carl PA-C Work Phone: [facility] 05-08-2023 18:00-0400 Body height 162.56 cm Filomena Delgado Other [facility] Other 05-08-2023 18:00-0400 Body mass index (BMI) [Ratio] 33.33 kg/m2 Filomena Delgado Other [facility] Other 05-08-2023 18:00-0400 Body temperature 98 [degF] Filomena Delgado Other [facility] Other 05-08-2023 18:00-0400 Body weight 88.09 kg Filomena Delgado Other [facility] Other 05-08-2023 18:00-0400 Respiratory rate 18 /min Filomena Delgado Other [facility] Other 05-08-2023 18:00-0400 SaO2% (BldA) [Mass fraction] 97 % Filomena Delgado Other [facility] Other 05-02-2023 15:45-0400 Body height 162.56 cm Catia Mcdowell Other [facility] Other 05-02-2023 15:45-0400 Body mass index (BMI) [Ratio] 33.47 kg/m2 Catia Mcdowell Other [facility] Other 05-02-2023 15:45-0400 Body temperature 97.4 [degF] Catia Mcdowell Other [facility] Other 05-02-2023 15:45-0400 Body weight 88.45 kg Catia Mcdowell Other [facility] Other 05-02-2023 15:45-0400 Respiratory rate 18 /min Catia Mcdowell Other [facility] Other 05-02-2023 15:45-0400 SaO2% (BldA) [Mass fraction] 98 % Catia Mcdowell Other [facility] Other Encounters Encounter Date Encounter Type Care Provider Facility Start: 03-04-2025 End: 03-04-2025 Office outpatient visit 15 minutes Sy Carl PA-C Work Phone: [facility] Comment on above: Coccydynia (Primary Dx) Start: 03-04-2025 End: 03-04-2025 ambulatory SY CARL [facility] Start: 02-25-2025 End: 02-25-2025 Patient encounter procedure [facility] Work Phone: Start: 02-25-2025 End: 02-25-2025 ambulatory Lily JOHANSEN Work Phone: [facility] Work Phone: Start: 02-18-2025 End: 02-18-2025 Bamboo flowsheet Tamara TAYLOR Work Phone: [facility] Start: 02-18-2025 End: 02-20-2025 Bamboo flowsheet Tamara TAYLOR Work Phone: [facility] Start: 02-18-2025 End: 02-20-2025 Clinisync Result Encounter Tamara TAYLOR Work Phone: [facility] Unsolicited Start: 02-18-2025 End: 02-18-2025 Patient encounter procedure Tamara TAYLOR Work Phone: [facility] Work Phone: Start: 02-18-2025 End: 02-18-2025 Periodic preventive med est patient 18-39 yrs Tamara TAYLOR Work Phone: [facility] Comment on above: Well woman exam with routine gynecological exam; Breast cancer screening by mammogram Start: 02-18-2025 End: 02-18-2025 ambulatory TAMARA GALLAGHER Not Available Start: 02-06-2025 End: 02-06-2025 ambulatory [facility] Start: 02-02-2025 End: 02-02-2025 Bamboo flowsheet Tamara TAYLOR Work Phone: [facility] Start: 02-02-2025 End: 02-02-2025 Bamboo flowsheet Tamara TAYLOR Work Phone: [facility] Start: 02-02-2025 End: 02-02-2025 Office outpatient visit 15 minutes Tamara TAYLOR Work Phone: [facility] Comment on above: Encounter for weight management Start: 02-02-2025 End: 02-02-2025 ambulatory TAMARA GALLAGHER Not Available Start: 01-28-2025 End: 02-11-2025 Telephone encounter Bev Damon RN [facility] Start: 01-14-2025 End: 01-14-2025 ambulatory SY CARL [facility] Start: 01-14-2025 End: 01-14-2025 Office outpatient visit 15 minutes Sy Carl PA-C Work Phone: [facility] Comment on above: Coccydynia (Primary Dx) Start: 01-13-2025 End: 06-17-2025 Bamboo flowsheet Agustín Jha MD Work Phone: [facility] Start: 01-13-2025 End: 01-13-2025 Bamboo flowsheet Agustín Jha MD Work Phone: [facility] Start: 01-13-2025 End: 01-13-2025 Office outpatient visit 15 minutes Agustín Jha MD Work Phone: [facility] Comment on above: Melanocytic nevus of trunk (Primary Dx); Bacterial folliculitis; Lentigines; Capillary angioma; History of nevus excision Start: 01-13-2025 End: 01-13-2025 ambulatory AGUSTÍN JHA Not Available Start: 11-10-2024 End: 11-10-2024 Bamboo flowsheet Tamara TAYLOR Work Phone: [facility] Start: 11-10-2024 End: 11-10-2024 Bamboo flowsheet Tamara TAYLOR Work Phone: [facility] Start: 11-10-2024 End: 11-10-2024 Clinisync Result Encounter Generic External Data Provider [facility] External Department Unsolicited Start: 11-10-2024 End: 11-10-2024 Office outpatient visit 15 minutes Lilia Joshi NP Work Phone: [facility] Comment on above: Insulin resistance ( Primary Dx); Encounter for weight management; Encounter for long-term (current) use of medications; Metabolic syndrome; Obstructive sleep apnea Start: 11-10-2024 End: 11-10-2024 ambulatory LILIA JOSHI Not Available Start: 11-01-2024 End: 11-03-2024 Refill Lily Javier [employer] Work Phone: [facility] Comment on above: Gastroesophageal ref lux disease without esophagitis Start: 11-01-2024 End: 11-03-2024 Refill Lily Javier NP Work Phone: [facility] [...] Metabolic syndrome Start: 07-31-2024 End: 07-31-2024 ambulatory [facility] Work Phone: Start: 07-31-2024 End: 07-31-2024 Patient encounter procedure [facility] Work Phone: Start: 07-24-2024 End: [...] visit 15 minutes Tamara TAYLOR Work Phone: [facility] Comment on above: Weight gain (Primary Dx) Start: 05-12-2024 End: 05-12-2024 ambulatory TAMARA GALLAGHER Not Available Start: 05-12-2024 End: 05-12-2024 Bamboo flowsheet Tamara TAYLOR Work Phone: [facility] Start: 05-12-2024 End: 05-12-2024 Bamboo flowsheet Tamara TAYLOR Work Phone: [facility] Start: 03-17-2024 End: 03-17-2024 ambulatory TAMARA GALLAGHER Not Available Start: 03-12-2024 End: 03-12-2024 ambulatory SY CARL [facility] Start: 03-12-2024 End: 03-12-2024 Office outpatient visit 15 minutes Sy Carl PA-C Work Phone: [facility] Comment on above: Coccydynia (Primary Dx) Start: 01-11-2024 End: 02-26-2024 Telephone encounter Xochilt Horne RN [facility] Start: 01-02-2024 End: 01-02-2024 Office outpatient visit 15 minutes Sy Carl PA-C Work Phone: [facility] Comment on above: Pelvic pain (Primary Dx); Coccydynia Start: 05-08-2023 End: 05-08-2023 ambulatory Filomena Delgado Other [facility] Other Start: 05-08-2023 Office outpatient vi sit 25 minutes Filomena Delgado [facility] Start: 05-02-2023 End: 05-02-2023 ambulatory Catia Mcdowell Other [facility] Other Start: 05-02-2023 Office outpatient ne w 20 minutes Catia Mcdowell [facility] Start: 11-01-2022 End: 11-02-[address] JUSTICE BARBOSA . Facility: Start: 10-30-2022 End: 10-30-[address] JUSTICE BARBOSA . Facility: Start: 01-31-2022 End: 02-01-2022 ambulatory RAMON BULLARD . Facility: Start: 01-04-2022 End: 01-05-2022 ambulatory RAMON BULLARD . Facility: Start: 03-10-2021 End: 03-10-2021 Departed Referred MD Agustín Jha Work Phone: [facility] Start: 10-21-2017 End: 10-22-2017 Ambulatory RAMON BULLARD Facility:[facility] Start: 10-14-2017 End: 10-15-2017 Ambulatory RAMON BULLARD Facility:[facility] Procedures Date Procedure Procedure Detail Performing Clinician Start: 02-25-2025 Screening mammograph y of bilateral breasts Lily JOHANSEN Work Phone: Start: 02-18-2025 IGP,APTIMA HPV,AGE GDLN Tamara TAYLOR Work Phone: Start: 02-18-2025 Microscopic observat ion [Identifier] in Cervix by Cyto stain Sy Carl PA-C Work Phone: Start: 11-10-2024 ALL CBC WITH AUTO DIFF Justice Amaya DO Work Phone: Start: 08-18-2024 [facility] CMP (CMP) (FOR REMOTE [facility] USE) Tamara TAYLOR Work Phone: Start: 01-31-2023 Microscopic observat ion [Identifier] in Cervix by Cyto stain Sy Carl PA-C Work Phone: Start: 12-08-2018 H/O: section Previous delivery affecting , antepartum Sy Carl PA-C Work Phone: H/O: surgery History of nevus excision Agustín Jha MD Work Phone: Plan of Treatment Date Care Activity Detail Author Start: 02-19-2028 Screening for malign ant neoplasm of cervix Pap Smear [facility] Start: 11-23-2027 DTaP,Tdap and Td Vaccines (2 - Td or Tdap) DTaP,Tdap and Td Vaccines (2 - Td or Tdap) [facility] Start: 10-31-2027 Screening for malign ant neoplasm of cervix [facility] Start: 03-04-2026 Adult BMI Screening Adult BMI Screen [facility] Start: 03-04-2026 Tobacco Screening Tobacco Screening [facility] Start: 02-06-2026 Tobacco Screening Tobacco Screening [facility] Start: 01-31-2026 Screening for malign ant neoplasm of cervix Pap Smear [facility] Start: 01-14-2026 Adult BMI Screening Adult BMI Screen [facility] Start: 01-14-2026 Tobacco Screening Tobacco Screening [facility] Start: 01-13-2026 End: 01-13-2026 Patient encounter procedure [facility] Start: 06-10-2025 End: 06-10-2025 Patient encounter procedure 06/10/2025 8:15 AM EST Office Visit [facility] [address] [place] [address] Sy Carl PA-C [address] [place] [address] [facility] Start: 03-30-2025 Influenza [facility] Start: 03-12-2025 Tobacco Screening Tobacco Screening [facility] Start: 03-04-2025 End: 03-04-2025 Patient encounter procedure 03/04/2025 10:30 AM EDT Office Visit [facility] [address] [place] [phone] Sy Carl, NATHALY [address] [place], [place] [id number] [facility] Start: 02-21-2025 Tobacco Screening Tobacco Screening [facility] Start: 02-18-2025 End: 04-21-2026 MG Breast - bilateral Screening Bilateral screening mammogram Imaging Routine Breast cancer screening by mammogram Expected: 02/18/2025 (Approximate), Expires: 04/21/2026 [facility] Comment on above: Expected: 02/18/2025 (Approximate), Expires: 04/21/2026 Start: 02-18-2025 End: 02-18-2025 Patient encounter procedure [facility] Comment on above: Arrived Start: 02-13-2025 End: 02-13-2025 Admission to same day surgery center 02/13/2025 9:00 AM EDT - 02/13/2025 9:09 AM EDT Surgery [facility] [address] [place] [phone] Ariel Beavers MD [address] [place], [place] [id number] INJECTION HYPOGASTRIC [facility] Comment on above: INJECTION HYPOGASTRI C Start: 02-13-2025 End: 02-13-2025 INJECTION HYPOGASTRIC INJECTION HYPOGASTRIC Coccydynia 02/13/2025 9:00 AM EDT [facility] Start: 02-13-2025 Subsequent hospital visit by physician 02/13/2025 9:00 AM EDT Hospital Encounter [facility] [address] [place] [phone] Ariel Beavers MD [address] [facility] [place] [phone] [facility] Start: 02-02-2025 End: 02-02-2026 Comprehensive metabolic 2000 panel - Serum or Plasma Comprehensive metabolic panel Lab Routine Encounter for weight management Expected: 02/02/2025 (Approximate), Expires: 02/02/2026 [facility] Work Phone: Comment on above: Expected: 02/02/2025 (Approximate), Expires: 02/02/2026 Start: 02-02-2025 End: 02-02-2025 Patient encounter procedure [facility] Comment on above: Arrived Start: 01-13-2025 End: 01-13-2025 Patient encounter procedure [facility] Comment on above: Arrived Start: 01-01-2025 Adult BMI Screening Adult BMI Screen [facility] Start: 01-01-2025 Tobacco Screening Tobacco Screening [facility] Start: 11-10-2024 End: 11-10-2024 Patient encounter procedure [facility] Comment on above: Arrived Start: 09-18-2024 Influenza vaccination Influenza Vacc ine (#1) [facility] Comment on above: Postponed from 03/30 (Patient Refused) Start: 08-18-2024 End: 08-18-2024 Patient encounter procedure 08/18/2024 8:30 AM EST Office Visit [facility] [address] [place] [phone] Tamara Gallagher PA [address] [place] [address] [facility] Start: 07-24-2024 End: 07-24-2024 Patient encounter procedure 07/24/2024 11:00 AM EST Office Visit [facility] [address] [place] [phone] Lily Javier NP [address] [place] [address] Arrived [facility] Comment on above: Arrived Start: 05-27-2024 End: 05-27-2025 CT Abdomen and Pelvis WO contrast CT abdomen pelvis wo IV contrast Imaging Routine RUQ pain Belching Expected: 05/27/2024, Expires: 05/27/2025 [facility] Work Phone: Comment on above: Expected: 05/27/2024 , Expires: 05/27/2025 Start: 05-12-2024 End: 05-12-2024 Patient encounter procedure 05/12/2024 4:00 PM EDT Office Visit [facility] [address] [place] [phone] Tamara Gallagher PA [address] [address] Arrived [facility] Comment on above: Arrived Start: 03-30-2024 COVID-19 Vaccine ( season) COVID-19 Vaccine ( season) [facility] Start: 03-30-2024 Influenza vaccination N [facility] Start: 03-12-2024 End: 03-12-2024 Patient encounter procedure 03/12/2024 8:45 AM EDT Office Visit [facility] [address] [place] [phone] Sy Carl, PAHortenciaC [address] [place] [address] [facility] Start: 10-31-2023 Screening for malign ant neoplasm of cervix [facility] Start: 03-30-2023 COVID-19 Vaccine ( season) COVID-19 Vaccine () [facility] Start: 03-10-2021 Superficial Wound Culture Superficial Wound Culture [facility] Start: 2003 Adult BMI Follow Up Plan Adult BMI Follow Up Plan [facility] Start: 1997 Depression Screening Depression Scre ening [facility] Start: 1986 Skin Cancer Screening Skin Cancer Sc reening [facility] CBC panel - Blood by Automated count CBC Lab Routine Encounter for weight management Encounter for long-term (current) use of medications Ordered: 11/10/2024 [facility] Comment on above: Ordered: 11/10/2024 Comprehensive metabo lic 2000 panel - Serum or Plasma Comprehensive metabolic panel Lab Routine Encounter for long-term (current) use of medications Ordered: 08/18/2024 [facility] Work Phone: Comment on above: Ordered: 08/18/2024 Cytology Cervical or vaginal smear or scraping study Pap Smear Pathology and Cytology Routine Well woman exam with routine gynecological exam Ordered: 02/18/2025 [facility] Work Phone: Comment on above: Ordered: 02/18/2025 Human papilloma viru s DNA [Presence] in Unspecified specimen by Probe with amplification HPV DNA probe, amplified Microbiology Routine Well woman exam with routine gynecological exam Ordered: 02/18/2025 [facility] Comment on above: Ordered: 02/18/2025 Injection anes super ior hypogastric plexus INJECTION HYPOGASTRIC Pelvic pain Coccydynia [facility] Thyrotropin [Units/volume] in Serum or Plasma TSH Lab Routine Encounter for weight management Encounter for long-term (current) use of medications Ordered: 11/10/2024 [facility] Comment on above: Ordered: 11/10/2024 Thyroxine (T4) free [Mass/volume] in Serum or Plasma T4, free Lab Routine Encounter for weight management Encounter for long-term (current) use of medications Ordered: 11/10/2024 [facility] Work Phone: Comment on above: Ordered: 11/10/2024 Immunizations Immunization Date Immunization Notes Care Provider Diego clinton 02-12-2024 Hepatitis B vaccine (recombinant), CpG adjuvanted Lily Cory [employer] Work Phone: [facility] 12-23-2023 Hepatitis B vaccine (recombinant), CpG adjuvanted Lily Javier [employer] Work Phone: [facility] 07-22-2018 influenza, injectable, quadrivalent, preservative free Tamara Gallagher PA Work Phone: [facility] 07-22-2018 influenza virus vaccine, unspecified formulation Sy Verhoff PA-C Work Phone: [facility] 11-22-2017 tetanus toxoid, reduced diphtheria toxoid, and acellular pertussis vaccine, adsorbed Sy Verhoff PA-C Work Phone: [facility] [employer] NEGATED: Highlighted row has not occurred!11-21-2017 measles, mumps and rubella virus vaccine Sy Verhoff PA-C Work Phone: [facility] NEGATED: Highlighted row has not occurred!11-21-2017 varicella virus vaccine Sy Verhoff PA-C Work Phone: [facility] Payers Date Payer Category Payer Self-pay [id number] 2024 Managed Care Other (unspecified) [employer] [id number] 2022 Private Health Insurance [id number] 2021 Private Health Insurance [id number] 2016 Unknown [employer] M ELISHA OLSON [id number] 2016-Present [phone] [address] [place] [address] [id number] 1985 Unknown [id number] 93 1985 Unknown [id number] 93 1985 Unknown [id number] 93 1985 Unknown [id number] 93 1985 Unknown [id number] 1985 Unknown [id number] 259 1985 Unknown [id number] 259 1985 Unknown [id number] [id number] 259 1985 Unknown [id number] 2.16.840.1.486606.3.579.2.1 259 1985 Unknown [id number] 2.16.840.1.673102.3.579.2.1 259 1985 Unknown [id number] 2.16.840.1.724546.3.579.2.1 259 1985 Unknown [id number] 2.16.840.1.511438.3.579.2.1 259 1985 Unknown [id number] 2.16.840.1.021230.3.579.2.1 259 1985 Unknown [id number] 2.16.840.1.978311.3.579.2.1 259 1985 Unknown [id number] 2.16.840.1.099749.3.579.2.1 286 1985 Unknown [id number] 2.16.840.1.576002.3.579.2.1 286 1985 Unknown [id number] 2.16.840.1.681876.3.579.2.1 286 1985 Unknown [id number] 2.16.840.1.495072.3.579.2.1 286 1985 Unknown [id number] 2.16.840.1.267793.3.579.2.1 286 1959 Unknown [id number] Unknown [id number] 31 Social History Date Type Detail Facility Tobacco smoking status NHIS Unknown if ever smoked [facility] Start: 1985 Sex Assigned At Female [facility] Start: 09-09-2020 End: 06-25-2023 Sex Assigned At [facility] Start: 03-08-2023 End: 05-16-2023 Tobacco smoking status TXIS Never smoked tobacco [facility] Start: 03-08-2023 End: 05-16-2023 Tobacco use and exposure Smokeless tobacco non-user [facility] Start: 03-17-2024 End: 03-04-2025 Alcoholic beverage intake Current drinker of alcohol (finding) [facility] Start: 09-09-2020 End: 06-25-2023 History of Social function [facility] How [...] Sex assigned at Not on file P [facility] Start: 03-04-2015 End: 07-31-2024 Sex Female (finding) [facility] Unknown [facility] Start: 01-02-2024 Alcohol Comment rarely [facility] NEGATED: Highlighted rowStart: ADWOAF History of tobacco use Passive smoker [facility] Goals Date Patient Goal Desired Activity /State Personal health goal Clinical Notes 05-02-2023 to 03-04-2025 Sy Carl PA-C - 03/04/2025 10:30 AM BRANDON Lama - 02/18/2025 1:00 PM Dl Lange LPN - 02/02/2025 8:30 AM EDTTelephone Encounter - Bev Damon RN - 01/28/2025 10:13 AM EDT Note Date & Type Note Facility 03-04-2025 History of Presen t illness Narrative [facility] [address] [place] [address] Patient: Mariya Orosco Sex: female : 1985 Age: 39 y.o. PCP: Samantha Posey MD 03/04/2025 Mariya Orosco is here for a(n) post procedure follow up 02/13/25 SHPB w/98% relief continued. Date of onset of pain: 2022 , pain has lasted greater than 3 months. Pain scale before treatment: 9/10 Percentage and duration of relief after treatment: 98% relief continued Pain scale after treatment: 0-1/10 Chief Complaint Patient presents with Back Pain HPI: Patient goes for monthly massages and Chiropractor to Dr Mckeon that provides relief. 03/23/23 Superior Hyper Plexus Block with 85% 02/22/2024 Superior Hyper Plexus Block with 95%-100% relief continuing. Pre procedure pain 7/10. Post procedure pain 0/10 until late November 2024 02/13/25 SHPB w/98% relief continued (after 1 week) Back Pain This is a chronic problem. The current episode started more than 1 year ago (07/2022, fell and hit tailbone). The problem occurs rarely. The problem has been gradually improving since onset. The pain is present in the lumbar spine and gluteal (coccyx). The quality of the pain is described as aching. The pain does not radiate. Pain scale: 0-1/10. The pain is mild. The pain is Worse during the day. The symptoms are aggravated by sitting, standing, bending and lying down (walking, lifting, pushing, pulling). Stiffness is present All day. Pertinent negatives include no bladder incontinence, bowel incontinence, chest pain, fever, leg pain, numbness, tingling or weakness. Risk factors include obesity. She has tried chiropractic manipulation, NSAIDs, ice, heat and home exercises (Ibuprofen) for the symptoms. The treatment provided significant relief. The effect of pain on patient's ADLS: Minimal Impairment. Past Medical History: Diagnosis Date Abnormal Pap smear of cervix Anxiety CPAP (continuous positive airway pressure) dependence Depression Depression H/O pre-eclampsia in prior , currently H/O delivery, currently Hemorrhoids History of colposcopy Hypertension Irritable bowel syndrome (IBS) Low back pain Palpitations Sleep apnea Past Surgical History: Procedure Laterality Date N/A 11/21/2017 Performed by Negra Harrington MD at [facility] OR SECTION [address] aNncy Barber [place] ENDOMETRIAL ABLATION W/ TANG 01/31/2023 GUM SURGERY INJECTION HYPOGASTRIC Bilat SHPB Bilateral 03/23/2023 Performed by Ariel Beavers MD at [facility] INJECTION HYPOGASTRIC SHPB Bilateral 02/22/2024 Performed by Ariel Beavers MD at [facility] INJECTION HYPOGASTRIC SHPB Bilateral 02/06/2025 Performed by Ariel Beavers MD at [facility] SKIN LESION EXCISION 2016 Dr. Magdaleno TUBAL LIGATION 2018 Dr. Dontrell Melgoza [place] WISDOM TOOTH EXTRACTION Allergies Allergen Reactions Compazine [Prochlorperazine] Other (See Comments) Tremors, shaking Seasonal Allergy [Other] Mastisol Adhesive [Gum Dtubkr-Bsbkcg-Gcsq-Alcohol] Rash Family History Problem Relation Age of [...] on file Food Insecurity: No Food Insecurity (03/04/2025) Hunger Screening Food Insecurity - Worry: Never True Food Insecurity - Inability: Never True Transportation Needs: Not on file Physical Activity: Not on file Stress: Not on file Social Connections: Not on file Interpersonal Safety: Not on file Housing Instability: Not on file Review of Systems Constitutional: Negative for chills and fever. HENT: Negative. Eyes: Negative. Respiratory: Negative for cough and shortness of breath. Cardiovascular: Negative for chest pain. Gastrointestinal: Negative. Negative for bowel incontinence. Endocrine: Negative. Genitourinary: Negative. Negative for bladder incontinence. Musculoskeletal: Positive for back pain. Skin: Negative. Allergic/Immunologic: Negative. Neurological: Negative for tingling, weakness and numbness. Psychiatric/Behavioral: Negative. Vital Signs: BP (!) 116/95 (BP Site: Left Arm) Pulse 78 Ht 162.6 cm (5' 4 ) Wt 79.8 kg (176 lb) LMP (LMP Unknown) SpO2 96% BMI 30.21 kg/m Physical Exam: GENERAL - Healthy patient [...] distributions. Straight Leg Raise is negative bilaterally. No Notable point tenderness at the sacro-coccygeal ligament and coccyx. Gait is normal. Assessment/Treatment Plan: Mariya was seen today for back pain. Diagnoses and all orders for this visit: Coccydynia Monitor Follow up 3 months The medications prescribed have been reviewed for [...] explain the condition. OARRS: Reviewed. Scribe Statement: Perri Chan CNA, scribed for and in the presence of SY CARL PA-C who performed the above service. Perri Patel CNA 03/04/25 1301 Sy Carl PA-C 03/04/25 1336 documented in this encounter [facility] 02-18-2025 History of Presen t illness Narrative Reason [...] SKIN BIOPSY TUBAL LIGATION WISDOM TOOTH EXTRACTION Ulysses teeth REVIEW OF SYSTEMS Review of Systems: [...] nursing note reviewed. Exam conducted with a senior training and development rep present. Vitals: Estimated body mass index is 30.52 kg/m as calculated from the following: Height [...] of: BRANDON Christina documented in this encounter [facility] 02-02-2025 History of Presen t illness Narrative Reason for Appointment: Patient ID: Mariya Orosco is a 39 y.o. female who presents for Encounter for weight loss management Patient presents today for Encounter for follow up to weight loss meds. MEDICATIONS Current Outpatient Medications Medication Instructions cetirizine [...] SKIN BIOPSY TUBAL LIGATION WISDOM TOOTH EXTRACTION Ulysses teeth REVIEW OF SYSTEMS Review of Systems: Review of Systems All other systems reviewed and are negative. OBJECTIVE Objective: Physical Exam Constitutional: Appearance: Normal appearance. She is well-developed. Cardiovascular: Rate and Rhythm: Normal rate and regular rhythm. Pulmonary: Effort: Pulmonary effort is normal. Breath sounds: Normal breath sounds. Abdominal: General: Bowel sounds are normal. There is no distension. Palpations: Abdomen is soft. Tenderness: There is no abdominal tenderness. There is no guarding or rebound. Musculoskeletal: General: No swelling. Normal range of motion. Right lower leg: No edema. Left lower leg: No edema. Neurological: Mental Status: She is alert and oriented to person, place, and time. Skin: General: Skin is warm and dry. Psychiatric: Mood and Affect: Mood normal. Behavior: Behavior normal. Vitals and nursing note reviewed. Exam conducted with a senior training and development rep present. Vitals: Estimated body mass index is 30.52 kg/m as calculated from the following: Height as of 05/30/23: 5' 4 . Weight as of this encounter: 177 lb 12.8 oz. BP: 120/70 No LMP recorded. Patient has had an ablation. ASSESSMENT & PLAN ICD-10-CM 1. Encounter for weight management Z76.89 Comprehensive metabolic panel Comprehensive metabolic panel Patient presents to follow up on Semaglutide. Orders given for lab work to be completed. Patient states that she does notice she has been off the medication for 1 month due to upcoming injection. Patient had orders sent for starter and increase dose to [facility]. Documented by Vidhya Lange LPN on behalf of: BRANDON Christina documented in this encounter [facility] 01-28-2025 Miscellaneous Notes Approval received for patient to hold Wegovy x 14 days prior to ordered hypogastric SHBP with MAC sedation . Patient is scheduled for 02/13/2025. No auth required per [employer] 01/14/2025. Last dose wegovy was 01/03/25 and is aware she is not to take any additional doses until 02/13/2025 procedure. Reminder, if there are any cancellations pt would like to be moved up because of her pain. Upon review, pt was moved up to 02/06/25 documented in this encounter [facility] 01-28-2025 Telephone encounter Note Approval received for patient to hold Wegovy x 14 days prior to ordered hypogastric SHBP with MAC sedation . Patient is scheduled for 02/13/2025. No auth required per [employer] 01/14/2025. [facility] 01-28-2025 Telephone encounter Note Last dose wegovy was 01/03/25 and is aware she is not to take any additional doses until 02/13/2025 procedure. Reminder, if there are any cancellations pt would like to be moved up because of her pain. [facility] 01-28-2025 Telephone encounter Note Upon review, pt was moved up to 02/06/25 [facility] 01-14-2025 History of Presen t illness Narrative [facility] [address] [place] [address] Patient: Mariya Orosco Sex: female : 1985 Age: 39 y.o. PCP: Samantha Posey MD 01/14/2025 Mariya Orosco is here for a(n) follow up with increased tailbone pain. Patient reports her pain began to return recently. Chief Complaint Patient presents [...] 11/21/2017 Performed by Negra Harrington MD at [facility] OR SECTION [address] Nancy Barber [place] ENDOMETRIAL ABLATION W/ NOVASURE 01/31/2023 GUM SURGERY INJECTION HYPOGASTRIC Bilat SHPB Bilateral 03/23/2023 Performed by Ariel Beavers MD at [facility] INJECTION HYPOGASTRIC SHPB Bilateral 02/22/2024 Performed by Ariel Beavers MD at [facility] SKIN LESION EXCISION 2016 Dr. Magdaleno TUBAL LIGATION 2018 Dr. Bullard Abad [place] WISDOM TOOTH EXTRACTION Allergies Allergen Reactions Compazine [Prochlorperazine] Other (See Comments) Tremors, shaking Seasonal Allergy [Other] Mastisol Adhesive [Gum Agomtq-Xmunxj-Vmxb-Alcohol] Rash Family History Problem Relation Age of [...] Wt 76.2 kg (168 lb) BMI 28.84 kg/m Physical Exam: GENERAL - Healthy patient [...] any controlled substance from this practice. It is [...] would also help these symptoms. The patient is optimistic about the treatment plan we have laid [...] for further evaluation. OARRS: Reviewed. Scribe Statement: I, Perri Patel CNA, scribed for and in the presence of SY CARL PA-C who performed the above service. Perri Patel CNA 01/14/25 1404 Sy Carl PA-C 01/14/25 1440 documented in this encounter [facility] [employer] 01-14-2025 Instructions Perri Patel CNA - 01/14/2025 1:30 PM EDT Epidural Steroid Injection (RAFI) / Nerve [...] a safety precaution, you must have a dumpster driver after a lumbar nerve root injection, [...] back to normal. documented in this encounter [facility] 01-13-2025 History of Presen t illness Narrative Skin Check Location: Patient requests a full body skin examination Dermatologic history: history of atypical mole(s) Last visit: 1 year ago Follow up Diagnosis: Folliculitis Location: thighs Symptoms: flares with heat Status: stable at this time Current treatment: clindamycin lotion every day prn, Hibiclens 2-3/week Established patient All pertinent medical history, medications, and allergies were reviewed. General Exam: alert, oriented to person, place, and time, normal affect, well appearing Unaccompanied Scalp, Examined , exam limited by hair Right leg Examined Head, Face Examined Left leg Examined Neck Examined Right foot Examined Chest Examined Left foot Examined Back Examined Buttocks Examined Patient kept underwear on Abdomen Examined Digits,nails: Examined Right arm Examined Left arm Examined Lymphatics: Not examined Hands Examined Skin Exam 1. BACTERIAL FOLLICULITIS Left Thigh - Posterior, Right Thigh - Posterior Clear today with treatment. Continue clindamycin lotion daily prn for flares and hibiclens body wash from the neck down during showers 1-2 times weekly to help prevent flares. Notify office if failing to improve despite treatment. Related Medications clindamycin (Cleocin T) 1 % lotion Apply thin later to affected areas on the body during flares, 30 day supply Chlorhexidine Gluconate (Hibiclens) 4 % solution Apply from the neck down as body wash, use 2-3 times a weeks, 30 day supply 2. LENTIGINES Generalized Scattered roper macules in sun-exposed areas. The patient was informed that lentigines are benign pigmented lesions that occur on sun-exposed and sun-damaged skin. No treatment is necessary. Recommended regular use of broad spectrum sunscreen SPF 30 or higher 3. 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 Rarely, a nevus can develop into malignant melanoma, so any changing nevi should be promptly re-evaluated. 4. CAPILLARY ANGIOMA (2) Abdomen (Lower Torso, Anterior), Torso - Posterior (Back) Scattered luther-red papule(s). The patient was informed that angiomas are benign growths on the the skin. No treatment is necessary. 5. HISTORY OF NEVUS EXCISION Right Thigh No evidence of recurrence in scar from atypical mole excision. Notify office for any recurrence at surgery site or for any new or changing lesions. Next Visit: 1 year documented in this encounter [facility] 11-10-2024 History of Presen t illness Narrative Reason [...] Diagnosis Date Noted Allergic rhinitis 05/16/2023 Asthma 05/16/2023 Atypical squamous cells of undetermined significance (ASCUS) on Papanicolaou smear of cervix 05/16/2023 Chronic hypertension (CMS/HCC) 10/27/2017 Gastroesophageal reflux disease 05/16/2023 Major depressive disorder, single episode, moderate (HCC) (CMS/HCC) 05/16/2023 Obstructive sleep apnea 05/16/2023 Oligohydramnios 11/20/2017 [...] SKIN BIOPSY TUBAL LIGATION WISDOM TOOTH EXTRACTION Ulysses teeth REVIEW OF SYSTEMS Review of Systems: Review of Systems Constitutional: Negative. HENT: Negative. Eyes: Negative. Respiratory: Negative. Cardiovascular: Negative. Gastrointestinal: Negative. Genitourinary: Negative. Musculoskeletal: Negative. Skin: Negative. Neurological: Negative. All other systems reviewed and are negative. Hematological: Negative. Endocrine: Negative. Allergic/Immunologic: Negative. OBJECTIVE Objective: Physical Exam Constitutional: Appearance: Normal appearance. She is well-developed. Cardiovascular: Rate and Rhythm: Normal rate and regular rhythm. Pulmonary: Effort: Pulmonary effort is normal. Breath sounds: Normal breath sounds. Abdominal: General: Bowel sounds are normal. There is no distension. Palpations: Abdomen is soft. Tenderness: There is no abdominal tenderness. There is no guarding or rebound. Musculoskeletal: General: No swelling. Normal range of motion. Right lower leg: No edema. Left lower leg: No edema. Neurological: Mental Status: She is alert and oriented to person, place, and time. Skin: General: Skin is warm and dry. Psychiatric: Mood and Affect: Mood normal. Behavior: Behavior normal. Vitals and nursing note reviewed. Exam conducted with a senior training and development rep present. Vitals: Estimated body mass index is 29.08 kg/m as calculated from the following: Height as of 05/30/23: 5' 4 . Weight as of this encounter: 169 lb 6.4 oz. BP: 116/74 No LMP recorded. ASSESSMENT & PLAN ICD-10-CM 1. Insulin resistance E88.819 2. Encounter for weight management Z76.89 T4, free TSH CBC 3. Encounter for long-term (current) use of medications Z79.899 T4, free TSH CBC 4. Metabolic syndrome E88.810 5. Obstructive sleep apnea G47.33 Patient presents today for weight management and is currently on semagludtide compound and we will send this months prescription to [facility]. She continues to be happy with her weight loss and has no medication side effects at this time. She would like to trial Trizepatide /Zepbound and we will review labs and send Zepbound after this months semaglutide. She reports that her insurance will cover Trizepatide with her current diagnosis and treatment with [facility]. Baseline labs will be sent to lab today (CBC, CMP, TSH, Free T4). Discussed compounded Semaglutide with Methyl B12 and Niacinamide added for better absorption. Patient prefers to have Methyl B12 and Niacinamide added to Semaglutide by injection for better absorption. Prescription will be sent to [facility] to be compounded and dispensed to patient. Patient is aware that she will need to have follow up labs drawn every 3 months in order to be compliant with medication therapy. Documented by Lilia Joshi NP on behalf of: Lilia Joshi NP documented in this encounter [facility] 08-18-2024 History of Presen t illness Narrative [...] Diagnosis Date Noted Allergic rhinitis 05/16/2023 Asthma ([facility]) 05/16/2023 Atypical squamous cells of undetermined significance (ASCUS) on Papanicolaou smear of cervix 05/16/2023 Chronic hypertension ([facility]) 10/27/2017 Gastroesophageal reflux disease 05/16/2023 Major depressive disorder, single episode, moderate (HCC) ([facility]) 05/16/2023 Obstructive sleep apnea 05/16/2023 Oligohydramnios 11/20/2017 Chronic rhinitis 11/02/2023 AVA (generalized anxiety disorder) ([facility]) 11/13/2023 Resolved Ambulatory Problems Diagnosis Date Noted No Resolved Ambulatory Problems Past Medical History: Diagnosis Date Asthma, chronic, unspecified asthma severity, uncomplicated ([facility]) Atypical nevi Chronic allergic rhinitis Elevated BP without diagnosis of hypertension Generalized anxiety disorder ([facility]) History of section History of melanoma excision 03/07/2017 Major depression, chronic ([facility]) Major depression, chronic ([facility]) Nonintractable migraine, unspecified migraine type ([facility]) Other abnormal findings in specimens from [...] SKIN BIOPSY TUBAL LIGATION WISDOM TOOTH EXTRACTION Ulysses teeth REVIEW OF SYSTEMS Review of Systems: [...] of: BRANDON Christina documented in this encounter [facility] 07-24-2024 History of Presen t illness Narrative [...] SKIN BIOPSY TUBAL LIGATION WISDOM TOOTH EXTRACTION Ulysses teeth Family History Problem Relation Name Age [...] Insecurity: No Food Insecurity (03/12/2024) Received from [facility] Hunger Screening Within the past [...] fail to improve. documented in this encounter [facility] 06-20-2024 Telephone encounter Note Patient called to let you know that her stomach is still cramping and she is having diarrhea again. Ty [facility] 06-20-2024 Miscellaneous Notes Patient called to let you know that her stomach is still cramping and she is having diarrhea again. Ty documented in this encounter [facility] 06-06-2024 Telephone encounter Note Please let patient know other than some stool to right colon, CT is negative. I do recommend staying away from pork and high fatty foods. If she continues to have issues, she may benefit from seeing GI. [facility] 06-06-2024 Miscellaneous Notes Please let patient know other than some stool to right colon, CT is negative. I do recommend staying away from pork and high fatty foods. If she continues to have issues, she may benefit from seeing GI. documented in this encounter [facility] 05-27-2024 History of Presen t illness Narrative Images from the original note were not included. Mariya Orosco is a 39 y.o. female presents with chief complaint of Follow-up (Cramping abdominal pain, yeasty burps . Projectile vomited, diarrhea 04/09/24. Had again 05/15/24, had rash in addition to pain/vomiting. Went to [place] ER 05/17/24) HPI: HPI Patient presents to [...] SKIN BIOPSY TUBAL LIGATION WISDOM TOOTH EXTRACTION Ulysses teeth Family History Problem Relation Name Age [...] Insecurity: No Food Insecurity (03/12/2024) Received from [facility] Hunger Screening Within the past 12 [...] pending test results. documented in this encounter [facility] 05-19-2024 Telephone encounter Note Pt was in [facility] ER and patient spoke with you this weekend. Patient needs a follow up visit, but can only come at 345 or 4pm, and you don't have those openings. Suggestions, she wanted this note sent for your opionon. I did offer at 2:30 but patient said she was at work and could not come then. [facility] 05-19-2024 Miscellaneous Notes Pt was in [facility] ER and patient spoke with you this weekend. Patient needs a follow up visit, but can only come at 345 or 4pm, and you don't have those openings. Suggestions, she wanted this note sent for your opionon. I did offer at 2:30 but patient said she was at work and could not come then. documented in this encounter [facility] 05-12-2024 History of Presen t illness Narrative [...] Diagnosis Date Noted Allergic rhinitis 05/16/2023 Asthma ([facility]) 05/16/2023 Atypical squamous cells of undetermined significance (ASCUS) on Papanicolaou smear of cervix 05/16/2023 Chronic hypertension ([facility]) 10/27/2017 Gastroesophageal reflux disease 05/16/2023 Major depressive disorder, single episode, moderate (HCC) ([facility]) 05/16/2023 Obstructive sleep apnea 05/16/2023 Oligohydramnios 11/20/2017 Chronic rhinitis 11/02/2023 AVA (generalized anxiety disorder) ([facility]) 11/13/2023 Resolved Ambulatory Problems Diagnosis Date [...] SKIN BIOPSY TUBAL LIGATION WISDOM TOOTH EXTRACTION U[place]es teeth REVIEW OF SYSTEMS Review of Systems: [...] of: BRANDON Christina documented in this encounter [facility] 03-12-2024 History of Presen t illness Narrative [facility] [address] [place] [address] Patient: Mariya Orosco Sex: female : 1985 [...] 11/21/2017 Performed by Negra Harrington MD at [facility] OR SECTION [address] Nancy Barber [place] ENDOMETRIAL ABLATION W/ NOVCJ 01/31/2023 GUM SURGERY INJECTION HYPOGASTRIC Bilat SHPB Bilateral 03/23/2023 Performed by Ariel Beavers MD at [facility] INJECTION HYPOGASTRIC SHPB Bilateral 02/22/2024 Performed by Ariel Beavers MD at [facility] SKIN LESION EXCISION 2016 Dr. Magdaleno TUBAL LIGATION 2018 Dr. Bullard [place] WISDOM TOOTH EXTRACTION Allergies Allergen Reactions Compazine [Prochlorperazine] Other (See Comments) Tremors, shaking Seasonal Allergy [Other] Mastisol Adhesive [Gum Qtfgfy-Qkpudp-Jhuw-Alcohol] Rash Family History Problem Relation Age of [...] described in the documentation, as scribed by Preri Patel CNA in my presence, and it is both accurate and complete. Perri Patel CNA 03/12/24 0938 Sy Carl PA-C 03/12/24 0955 documented in this encounter [facility] 01-11-2024 Miscellaneous Notes Received approval to hold [...] procedure on 02/22/2024. documented in this encounter [facility] 01-11-2024 Telephone encounter Note Received approval to hold wegovy x14 days Needs insurance auth Needs scheduled [facility] 01-11-2024 Telephone encounter Note Maryia is scheduled for 02/21. She will hold her 02/15 dose of Wegovy [facility] 01-11-2024 Telephone encounter Note Wegovy is for weight loss. Patient is to hold for 14 days prior to ordered procedure. Her last dose prior to procedure will have to be on or before 02/07/2024. [facility] 01-11-2024 Telephone encounter Note Call placed to patient to inform her that she is not to take Wegovy for 14 days prior to 02/22/2024 procedure with sedation. Patient informed that she is not to take any Wegovy after 02/07/2024. Patient verbalized understanding and states that she has it marked on her calendar. She may resume Wegovy post procedure on 02/22/2024. [facility] 01-02-2024 History of Presen t illness Narrative [facility] [address] [place] [address] Patient: Mariya Orosco Sex: female : 1985 [...] 11/21/2017 Performed by Negra Harrington MD at [facility] OR SECTION [address] Nancy Barber [place] ENDOMETRIAL ABLATION W/ NOVCJ 01/31/2023 GUM SURGERY INJECTION HYPOGASTRIC Bilat SHPB Bilateral 03/23/2023 Performed by Ariel Beavers MD at [facility] SKIN LESION EXCISION 2016 Dr. Magdaleno TUBAL LIGATION 2018 Dr. Dontrell Melgoza [place] WISDOM TOOTH EXTRACTION Allergies Allergen Reactions Compazine [Prochlorperazine] Other (See Comments) Tremors, shaking Seasonal Allergy [Other] Mastisol Adhesive [Gum Vsvaqk-Quxmvw-Quin-Alcohol] Rash Family History Problem Relation Age of [...] PA-C 01/02/24 1039 documented in this encounter [facility] 01-02-2024 Instructions Perri Patel CNA - 01/02/2024 [...] a safety precaution, you must have a dumpster driver after a lumbar nerve root injection, [...] back to normal. documented in this encounter [facility] [employer] [facility] 05-08-2023 Evaluation note Encounter Date Diagnosis Assessment [...] of diseases classified elsewhere (ICD-10 - B97.89) [facility] Other 10-04-2023 Evaluation note* Encounter Date Diagnosis [...] no improvement in 2 to 3 days [facility] Other Evaluation noteNo assessment information available [facility] Diagnosis Weight gain- Primary Other symptoms concerning nutrition, metabolism, and development documented in this encounter [facility]* Diagnosis RUQ pain- Primary Abdominal pain, right upper quadrant Belching Flatulence, eructation, and gas pain Major depressive disorder, single episode, moderate (HCC) (CMS/HCC) Major depressive disorder, single episode, moderate Gastroesophageal reflux disease without esophagitis Esophageal reflux documented in this encounter [facility]* Diagnosis Acute non-recurrent pansinusitis- Primary Sinus pressure Other diseases of nasal cavity and sinuses Acute cough Other fatigue Sore throat Acute pharyngitis documented in this encounter [facility]* Diagnosis Encounter for weight management Encounter for long-term (current) use of medications Encounter for long-term (current) use of other medications Insulin resistance Other abnormal glucose Metabolic syndrome Dysmetabolic Syndrome X documented in this encounter [facility]* Diagnosis Pelvic pain- Primary Coccydynia Other disorder of coccyx documented in this encounter [facility]* Diagnosis Coccydynia- Primary Other disorder of coccyx documented in this encounter [facility]* Diagnosis Gastroesophageal reflux disease without esophagitis Esophageal reflux documented in this encounter [facility]* Diagnosis Insulin resistance- Primary Other abnormal glucose Encounter for weight management Encounter for long-term (current) use of medications Encounter for long-term (current) use of other medications Metabolic syndrome Dysmetabolic Syndrome X Obstructive sleep apnea Obstructive sleep apnea (adult) (pediatric) documented in this encounter [facility]* Diagnosis Melanocytic nevus of trunk- Primary Benign neoplasm of skin of trunk, except scrotum Bacterial folliculitis Other specified disease of hair and hair follicles Lentigines Capillary angioma Nevus, non-neoplastic History of nevus excision documented in this encounter [facility]* Diagnosis Coccydynia- Primary Other disorder of coccyx Coccydynia- Primary Other disorder of coccyx Coccydynia Other disorder of coccyx [facility] Diagnosis Encounter for weight management documented in this encounter [facility]* Diagnosis Well woman exam with routine gynecological exam Routine gynecological examination Breast cancer screening by mammogram documented in this encounter [facility]* Diagnosis Coccydynia- Primary Other disorder of coccyx documented in this encounter [facility] general Narrative - Reported* Type Description Date Medical History depression Medical History IBS Medical History seasonal allergies Medical History insulin resistant Surgical History C section x2 Surgical History tubal ligation Surgical History uterine ablation [facility] Other InstructionsNot on filedocumented in this encounter [facility] filedocumented in this encounter [facility] SystemReason for referral (narrative)No reason for referral information [facility] Work Phone: Summary Purpose Family History No Family History Records Found Relationship Condition Age at Onset Recorded Date/T mary father Diabetes mellitus Unknown mother Depression Unknown Advance Directives No Advanced Directives Records Found Advance Directive Response Recorded Date/ Time Advance Directives No March 11, 2021 9:56am Advance Directive Response Recorded Date/ Time Advance Directives No March 11, 2021 10:56am Chief Complaint and Reason for Visit Chief Complaint Admit Date Refer: RUQ pain, belching, diarrhea Jonathan romy 2024 11:38am Chief Complaint Admit Date z12.31 February 25, 2025 8:28 am Reason for Referral Specialty Diagnoses / Procedures Referred By Arabella seals Referred To Contact Diagnoses Pelvic pain Coccydynia Procedures Case request operating room: INJECTION HYPOGASTRIC SHPB Sy Carl PA-C [address] [place] [address] Referral ID Status Reason Start Date Expiration Date V isits Requested Visits Authorized [id number] Pending Review 01/02/2024 01/01/2025 1 1 Additional Source Comments INFORMATION SOURCE (unrecogn ized section and content) DATE CREATED AUTHOR 01/31/2018 Juwan Yap [facility] DATE CREATED AUTHOR AUTHOR'S ORGANIZ ATION 11/12/2021 [facility] dical Specialist DATE CREATED AUTHOR AUTHOR'S ORGANIZ ATION 11/11/2022 [facility] DATE CREATED AUTHOR AUTHOR'S ORGANIZ ATION 02/20/2025 [facility] dical Specialists EPIC DATE CREATED AUTHOR AUTHOR'S ORGANIZ ATION 03/02/2025 [facility] DATE CREATED AUTHOR AUTHOR'S ORGANIZ ATION 03/07/2025 [facility] Goals (unrecognized section and content) Goals may be documented in a n alternate sectionNo InformationNo InformationGoals may be documented in an alternate sectionNot on filedocumented as of this encounterNot on filedocumented as of this encounterNot on filedocumented as of this encounterNot on filedocumented as of this encounterNot on filedocumented as of this encounterGoals may be documented in an alternate sectionNot on filedocumented as of this encounter REASON FOR VISIT (unrecogniz ed section and content) Reason Comments Weight Management Reason Comments Follow-up Cramping abdominal p ain, yeasty burps . Projectile vomited, diarrhea 04/09/24. Had again 05/15/24, had rash in addition to pain/vomiting. Went to [place] [facility] 05/17/24 Reason Onset Date Comments Results 06/06/2024 Reason Comments Sinus Problem Pressure, thick gree n mucous Sore Throat In mornings Reason Comments Back Pain Reason Comments Back Pain Reason Comments Med Refill Reason Onset Date Comments Med Refill 11/01/2024 Reason Comments Skin Check Reason Comments Tailbone Pain Reason Comments Encounter for weight loss management Reason Comments Well Women Visit Care Teams (unrecognized sec tion and content) Ladle Puller Relationship Specialty Start Date End Date Samantha Posey MD [address] [place] [address] PCP - General Family Medicine 01/09/23 Samantha Posey MD [address] [place] [address] PCP - Medical [place] [employer] 07/30/12 07/29/99 Ladle Puller Relationship Specialty Start Date End Date Samantha Posey MD [address] [facility] [place] [address] PCP - General Family Medicine 01/09/23 Samantha Posey MD [address] [facility] [place] [address] PCP - Medical [place] [employer] 07/30/12 07/29/99 Ladle Puller Relationship Specialty Start Date End Date Samantha Posey MD [address] [facility] [place] [address] PCP - General Family Medicine 01/09/23 Samantha Posey MD [address] [facility] [place] [address] PCP - Medical [place] [employer] 07/30/12 07/29/99 Ladle Puller Relationship Specialty Start Date End Date Samantha Posey MD [address] [facility] [place] [address] PCP - General Family Medicine 01/09/23 Samantha Posey MD [address] [facility] [place] [address] PCP - Medical [place] [employer] 07/30/12 07/29/99 Ladle Puller Relationship Specialty Start Date End Date Samantha Posey MD [address] [facility] [place] [address] PCP - General Family Medicine 01/09/23 Samantha Posey MD [address] [facility] [place] [address] PCP - Medical [place] [employer] 07/30/12 07/29/99 Ladle Puller Relationship Specialty Start Date End Date Samantha Posey MD [address] [facility] [place] [address] PCP - General Family Medicine 01/09/23 Samantha Posey MD [address] [facility] [place] [address] PCP - Medical [place] [employer] 07/30/12 07/29/99 Ladle Puller Relationship Specialty Start Date End Date Samantha Posey MD [address] [facility] [place] [address] PCP - General Family Medicine 01/09/23 Samantha Posey MD [address] [place] [address] PCP - Medical [place] [employer] 07/30/12 07/29/99 Ladle Puller Relationship Specialty Start Date End Date Samantha Posey MD [address] [facility] [place] [address] PCP - General Family Medicine 01/09/23 Samantha Posey MD [address] [facility] [place] [address] PCP - Medical [employer] [employer] 07/30/12 07/29/99 Team Status: Active Member Role Status Dates Samantha Posey MD Primary Care Provider Active Team Status: Inactive Member Role Status Dates Samantha Posey MD Primary Care Provider Active Start: July 31, 2024 End: July 31, 2024 Cecy Mak DO Attending Provider Active St art: July 31, 2024 End: July 31, 2024 Lily Javier NP-C Referring Provider Active Start: July 31, 2024 End: July 31, 2024 Ladle Puller Relationship Specialty Start Date End Date Samantha Posey MD [address] [place] [address] PCP - General Family Medicine 01/09/23 Samantha Posey MD [address] [place] [address] PCP - Medical [employer] [employer] 07/30/12 07/29/99 Ladle Puller Relationship Specialty Start Date End Date Samantha Posey MD [address] [place] [address] PCP - General Family Medicine 01/09/23 Samantha Posey MD [address] [place] [address] PCP - Medical [employer] 07/30/12 07/29/99 Ladle Puller Relationship Specialty Start Date End Date Samantha Posey MD [address] [place] [address] PCP - General Family Medicine 12/07/17 Ladle Puller Relationship Specialty Start Date End Date Samantha Posey MD [address] [place] [address] PCP - General Family Medicine 12/07/17 Ladle Puller Relationship Specialty Start Date End Date Samantha Posey MD [address] [place] [address] PCP - General Family Medicine 12/07/17 Ladle Puller Relationship Specialty Start Date End Date Samantha Poesy MD [address] [place] [address] PCP - General Family Medicine 01/09/23 Samantha Posey MD [address] [place] [address] PCP - Medical [place] [employer] 07/30/12 07/29/99 Ladle Puller Relationship Specialty Start Date End Date Samantha Posey MD [address] [place] [address] PCP - General Family Medicine 01/09/23 Samantha Posey MD [address] [place] [address] PCP - Medical [place] [employer] 07/30/12 07/29/99 Ladle Puller Relationship Specialty Start Date End Date Samantha Posey MD [address] [place] [address] PCP - General Family Medicine 01/09/23 Samantha Posey MD [address] [place] [address] PCP - Medical [place] [employer] 07/30/12 07/29/99 Ladle Puller Relationship Specialty Start Date End Date Samantha Posey MD PCP - General Family Medicine 01/09/23 Samantha Posey MD PCP - Medical [place] [employer] 07/30/12 07/29/99 Ladle Puller Relationship Specialty Start Date End Date Samantha Posey MD PCP - General Family Medicine 01/09/23 Samantha Posey MD PCP - Medical [place] [employer] 07/30/12 07/29/99 Ladle Puller Relationship Specialty Start Date End Date Samantha Posey MD [address] [place] [address] PCP - General Family Medicine 12/07/17 Ladle Puller Relationship Specialty Start Date End Date WonderSamantha mak MD PCP - General Family Medicine 01/09/23 WonderSamantha mak MD PCP - Medical [place] [employer] 07/30/12 07/29/99 Ladle Puller Relationship Specialty Start Date End Date WonderSamantha mak MD PCP - General Family Medicine 01/09/23 WonderSamantha mak MD PCP - Medical [place] [employer] 07/30/12 07/29/99 Ladle Puller Relationship Specialty Start Date End Date WonderSamantha mak MD [address] [place] [address] PCP - General Family Medicine 12/07/17 Ladle Puller Relationship Specialty Start Date End Date WonderSamantha mak MD PCP - General Family Medicine 01/09/23 WonderSamantha mak MD PCP - Medical [place] [employer] 07/30/12 07/29/99 Ladle Puller Relationship Specialty Start Date End Date Samantha Posey MD PCP - General Family Medicine 01/09/23 WonderSamantha mak MD PCP - Medical [place] [employer] 07/30/12 07/29/99 Ladle Puller Relationship Specialty Start Date End Date WonderSamantha mak MD PCP - General Family Medicine 01/09/23 WonderSamantha mak MD PCP - Medical [place] [employer] 07/30/12 02/19/25 Team Status: Active Member Role Status Dates ELENO Davila Primary Care Provider Active Team Status: Inactive Member Role Status Dates Tamara Gallagher PA-C Attending Provider Active Sta rt: February 25, 2025 End: February 25, 2025 ELENO Davila Primary Care Provider Active Start: February 25, 2025 End: February 25, 2025 Ladle Puller Relationship Specialty Start Date End Date Samantha Posey MD [address] [place] [address] PCP - General Family Medicine 12/07/17 FOR RECORDS PERTAINING TO PATIENTS WHO ARE [...] BE BASED ON THE PRIMARY CLINICAL RECORDS. [employer] [facility]. provides no warranty or guarantee of the accuracy or completeness of information in this document.
--- OUTSIDE RECORDS SUMMARY | 2025-05-02 08:56 | XMS_ITS | Encounter Summary ---
Author Organization [facility] Address [address] [place] [address] Care Team Providers Care Spool Salvager Name Role Phone Samantha Posey MD Primary Care Provider [phone] Tamara Diane Unavailable Reason for Visit * Reason Comments Med Refill Encounter Details Date Type Department Care Team (Late st Contact Info) Description 02/10/2024 Refill [facility] Medicine [address] [place] [address] Samantha Posey MD Major depressive [...] Dermatology [address] [place] [address] Flores Wesley MD [address] [place] [address] documented as of this encounter Visit Diagnoses Diagnosis Major depressive disorder, single episode, moderate (HCC) Major depressive disorder, single episode, moderate documented in this encounter Additional Health Concerns Assessment Noted Time PHQ-9 Depression Total Score: 6 11/13/19 24 5:12 PM EDT documented as of this encounter Care Teams Spool Salvager Relationship Specialty Start Date End Date Samantha Posey MD PCP - General Family Medicine 01/09/23 Tamara Diane PA [address] [place] [address] [place] [address] PCP - Medical [place] [employer] 01/28/24 07/29/99 documented as of this encounter
--- OUTSIDE RECORDS SUMMARY | 2025-05-02 08:56 | XMS_ITS | Encounter Summary ---
Author Organization [facility] Address [address] [place] [address] Care Team Providers Care Strap Making Machine Operator Name Role Phone Samantha Posey MD Primary Care Provider [phone] Tamara Diane Unavailable Encounter Details Date Type Department Care Team (Late st Contact Info) Description 03/19/2024 Abstract [facility] [address] [facility] [place] [address] Tamara Diane PA [address] [facility] [address] [place], [place] [id number] Social History Tobacco Use Types Packs/Day Years [...] [address] [place] [phone] Flores Wesley MD [address] [place] [address] documented as of this encounter Visit Diagnoses Not on filedocumented in this encounter Additional Health Concerns Assessment Noted Time PHQ-9 Depression Total Score: 6 11/13/19 24 5:12 PM EDT documented as of this encounter Care Teams Strap Making Machine Operator Relationship Specialty Start Date End Date Kalpesh, Samantha Lopez MD PCP - General Family Medicine 01/09/23 Tamara Diane PA [address] [place] [address] [place] [address] PCP - Medical [place] [employer] 01/28/24 07/29/99 documented as of this encounter
--- OUTSIDE RECORDS SUMMARY | 2025-05-02 08:56 | XMS_ITS | Encounter Summary ---
Author Organization [facility] Address [address] [place] [address] Care Team Providers Care Group Segment Consultant Name Role Phone Samantha Posey MD Primary Care Provider [phone] Tamara Diane Unavailable Encounter Details Date Type Department Care Team (Late st Contact Info) Description 03/19/2024 Abstract [facility] [address] [facility] [place] [address] Tamara Diane PA [address] [facility] [address] [place], [place] [id number] Social History Tobacco Use Types Packs/Day Years [...] [address] [place] [phone] Flores [place] MD [address] [place] [address] documented as of this encounter Visit Diagnoses Not on filedocumented in this encounter Additional Health Concerns Assessment Noted Time PHQ-9 Depression Total Score: 6 11/13/19 24 5:12 PM EDT documented as of this encounter Care Teams Group Segment Consultant Relationship Specialty Start Date End Date Kalpesh, Samantha Lopez MD PCP - General Family Medicine 01/09/23 Tamara Diane PA [address] [place] [address] [place] [address] PCP - Medical [place] [employer] 01/28/24 07/29/99 documented as of this encounter
--- OUTSIDE RECORDS SUMMARY | 2025-05-02 08:56 | XMS_ITS | Encounter Summary ---
Author Organization [facility] Address [address] [place] [place] [address] Care Team Providers Care Hvac Mechanic Name Role Phone Samantha Posey MD Primary Care Provider [phone] Tamara Diane Unavailable Encounter Details Date Type Department Care Team (Late st Contact Info) Description 03/18/2024 Abstract [facility] [address] [facility] [place] [address] Tamara Diane PA [address] [facility] [address] [place], [place] [id number] Social History Tobacco Use Types Packs/Day Years [...] [address] [place] [phone] Flores Wesley MD [address] [place] [address] documented as of this encounter Visit Diagnoses Not on filedocumented in this encounter Additional Health Concerns Assessment Noted Time PHQ-9 Depression Total Score: 6 11/13/19 24 5:12 PM EDT documented as of this encounter Care Teams Hvac Mechanic Relationship Specialty Start Date End Date Kalpesh, Samantha Lopez MD PCP - General Family Medicine 01/09/23 Tamara Diane PA [address] [place] [address] [place] [address] PCP - Medical [place] [employer] 01/28/24 07/29/99 documented as of this encounter
--- OUTSIDE RECORDS SUMMARY | 2025-05-02 08:56 | XMS_ITS | Encounter Summary ---
Author Organization [facility] Address [address] [place] [address] Care Team Providers Care School Physical Therapist Name Role Phone Samantha Posey MD Primary Care Provider [phone] Samantha Posey MD Unavailable [phone] Tamara Diane Unavailable Encounter Details Date Type Department Care Team (Late st Contact Info) Description 08/08/2023 Abstract [facility] Medicine [address] [place] [phone] Samantha Posey MD Social History Tobacco Use [...] Dermatology [address] [place] [address] Flores Wesley MD [address] [place] [address] documented as of this encounter Visit Diagnoses Not on filedocumented in this encounter Care Teams School Physical Therapist Relationship Specialty Start Date End Date Samantha Posey MD PCP - General Family Medicine 01/09/23 Samantha Posey MD PCP - Medical [place] [employer] 07/30/12 01/27/24 Tamara Diane PA [address] [place] [address] [place] [address] PCP - Medical [place] [employer] 01/28/24 07/29/99 documented as of this encounter
--- OUTSIDE RECORDS SUMMARY | 2025-05-02 08:56 | XMS_ITS | Encounter Summary ---
Author Organization [facility] Address [address] [place] [address] Care Team Providers Care Breaker Off Name Role Phone Samantha Posey MD Primary Care Provider [phone] Samantha Posey MD Unavailable [phone] Tamara Diane Unavailable Encounter Details Date Type Department Care Team (Late st Contact Info) Description 02/07/2023 Abstract COLLIN Melgoza OBMARCIO [address] [facility] [address] Justice Conde DO [address] [facility] [address] [place] [id number] Social History Tobacco Use Types Packs/Day Years [...] Office Visit [facility] [address] [place] [address] Flores Wesley MD [address] [facility] [address] [place] [address] documented as of this encounter Visit Diagnoses Not on filedocumented in this encounter Care Teams Breaker Off Relationship Specialty Start Date End Date Samantha Posey MD PCP - General Family Medicine 01/09/23 Samantha Posey MD PCP - Medical [place] [employer] 07/30/12 01/27/24 Tamara Diane PA [address] [place] [address] Dr [place] [id number] PCP - Medical [place] [employer] 01/28/24 07/29/99 documented as of this encounter
--- OUTSIDE RECORDS SUMMARY | 2025-05-02 08:56 | XMS_ITS | Encounter Summary ---
Author Organization [facility] Address [address] [place] [address] Care Team Providers Care Public Relations Intern Name Role Phone Samantha Posey MD Primary Care Provider [phone] Tamara Diane Unavailable Encounter Details Date Type Department Care Team (Late st Contact Info) Description 03/17/2024 Abstract COLLIN LEGER [address] [facility] [place] [address] Tamara Diane PA [address] [facility] [address] [place], [place] [id number] Social History Tobacco Use Types Packs/Day Years [...] [address] [place] [address] Flores Wesley MD [address] [place] [address] documented as of this encounter Visit Diagnoses Not on filedocumented in this encounter Additional Health Concerns Assessment Noted Time PHQ-9 Depression Total Score: 6 11/13/19 24 5:12 PM EDT documented as of this encounter Care Teams Public Relations Intern Relationship Specialty Start Date End Date Kalpesh, Samantha Lopez MD PCP - General Family Medicine 01/09/23 Tamara Diane PA [address] [place] [address] [place] [address] PCP - Medical [place] [employer] 01/28/24 07/29/99 documented as of this encounter
--- OUTSIDE RECORDS SUMMARY | 2025-05-02 08:56 | XMS_ITS | Encounter Summary ---
Author Organization [facility] Address [address] [place] [address] Care Team Providers Care Marine Steam Fitter Name Role Phone Samantha Posey MD Primary Care Provider [phone] Samantha Posey MD Unavailable [phone] Tamara Diane Unavailable Encounter Details Date Type Department Care Team (Late st Contact Info) Description 09/11/2023 Abstract COLLIN LEGER [address] [place] [address] Vidhya Lange LPN [address] [place] [address] Social History Tobacco Use Types Packs/Day Years [...] Description 01/13/2026 10:15 AM EDT Office Visit [facility] [address] [place] [address] Flores Wesley MD [address] [place] [address] documented as of this encounter Visit Diagnoses Not on filedocumented in this encounter Care Teams Marine Steam Fitter Relationship Specialty Start Date End Date Samantha Posey MD PCP - General Family Medicine 01/09/23 Samantha Posey MD PCP - Medical [place] [employer] 07/30/12 01/27/24 Tamara Diane PA [address] [place] [address] [place] [address] PCP - Medical [place] [employer] 01/28/24 07/29/99 documented as of this encounter
--- OUTSIDE RECORDS SUMMARY | 2025-05-02 08:57 | XMS_ITS | Encounter Summary ---
Author Organization [facility] Address [address] [place] [address] Care Team Providers Care Message Clerk Name Role Phone Samantha Posey MD Primary Care Provider [phone] Tamara Diane Unavailable Encounter Details Date Type Department Care Team (Late st Contact Info) Description 01/14/2025 Abstract [facility]IN [facility]BGYN [address] [place] [address] Justice Conde DO 102 [facility] [address] [place], [place] [id number] Social History Tobacco Use Types Packs/Day Years [...] Dermatology [address] [place] [address] Flores Wesley MD [address] [place] [address] documented as of this encounter Goals Goal [...] documented as of this encounter Care Teams Message Clerk Relationship Specialty Start Date End Date Kalpesh, Samantha Lopez MD PCP - General Family Medicine 01/09/23 Tamara Diane PA [address] [place] [address] [place] [address] PCP - Medical [place] [employer] 01/28/24 07/29/99 documented as of this encounter
--- OUTSIDE RECORDS SUMMARY | 2025-05-02 08:57 | XMS_ITS | Encounter Summary ---
Author Organization [facility] Address [address] [place] [address] Care Team Providers Care Line Staker Name Role Phone Samantha Posey MD Primary Care Provider [phone] Tamara Diane Unavailable Encounter Details Date Type Department Care Team (Late st Contact Info) Description 10/14/2024 Abstract [facility]ipe [facility] [address] [place] [address] [place] [address] Asha Ball LPN Social History Tobacco [...] [facility] [address] [place] [address] Flores Wesley MD [address] [facility] 350 [place] [address] documented as of this encounter Goals Goal Patient Goal Type Associated Problems Recent Progress Patient-Stated? Author Help patient manage antidepressant medication Care Plan Patient on antidepressant monitoring plan No Lily Ray LENS MOLD SETTER documented as of this encounter Visit Diagnoses Not on filedocumented in this encounter Additional Health Concerns Active Problems Noted Date Diagnosed Date Patient on antidepressant monitoring plan 2023 Assessment Noted Time PHQ-9 Depression Total Score: 6 11/13/19 24 5:12 PM EDT documented as of this encounter Care Teams Line Staker Relationship Specialty Start Date End Date Samantha Posey MD PCP - General Family Medicine 01/09/23 Tamara Diane PA [address] [place] [address] [place] [address] PCP - Medical [place] [employer] 01/28/24 07/29/99 documented as of this encounter
--- OUTSIDE RECORDS SUMMARY | 2025-05-02 08:57 | XMS_ITS | Encounter Summary ---
Author Organization [facility] Address [address] [place] [address] Care Team Providers Care Process Specialist Name Role Phone Samantha Posey MD Primary Care Provider [phone] Tamara Diane Unavailable Encounter Details Date Type Department Care Team (Late st Contact Info) Description 01/27/2025 Abstract [facility]Felipe [facility] [address] [place] [address] [place] [address] Asha Ball LPN Social History [...] Dermatology [address] [place] [address] Flores Wesley MD [address] [facility] 350 [place] [address] documented as of this encounter Goals Goal Patient Goal Type Associated Problems Recent Progress Patient-Stated? Author Help patient manage antidepressant medication Care Plan Patient on antidepressant monitoring plan No Lily Ray TANK WASHER documented as of this encounter Visit Diagnoses Not on filedocumented in this encounter Additional Health Concerns Active Problems Noted Date Diagnosed Date Patient on antidepressant monitoring plan 2023 Assessment Noted Time PHQ-9 Depression Total Score: 6 11/13/19 24 5:12 PM EDT documented as of this encounter Care Teams Process Specialist Relationship Specialty Start Date End Date Samantha Posey MD PCP - General Family Medicine 01/09/23 Tamara Diane PA [address] [place] [address] [place] [address] PCP - Medical [place] [employer] 01/28/24 07/29/99 documented as of this encounter
--- OUTSIDE RECORDS SUMMARY | 2025-05-02 08:57 | XMS_ITS | Encounter Summary ---
Author Organization [facility] Address [address] [place] [address] Care Team Providers Care Mirror Department Supervisor Name Role Phone Samantha Posey MD Primary Care Provider [phone] Tamara Diane Unavailable Encounter Details Date Type Department Care Team ([facility] Contact Info) Description 11/28/2024 Abstract [facility] [address] [facility] [place] [address] Randa Joshi, SHIP BOSS [address] [facility] [place] [address] Social History Tobacco Use Types Packs/Day [...] Upcoming Encounters Date Type Department Care Team ([facility] Contact Info) Description 01/13/2026 10:15 AM EDT Office Visit [facility] [address] [place] [address] Flores Wesley MD [address] [place] [address] documented as of this encounter Goals Goal [...] documented as of this encounter Care Teams Mirror Department Supervisor Relationship Specialty Start Date End Date Samantha Posey MD PCP - General Family Medicine 01/09/23 Tamara Diane PA [address] [place] [address] [place] [address] PCP - Medical [place] Commercial 01/28/24 07/29/99 documented as of this encounter
--- OUTSIDE RECORDS SUMMARY | 2025-05-02 08:57 | XMS_ITS | Encounter Summary ---
Author Organization [facility] Address [address] [place] [address] Care Team Providers Care Fire Equipment Inspector Name Role Phone Samantha Posey MD Primary Care Provider [phone] Samantha Posey MD Unavailable [phone] Tamara Diane Unavailable Encounter Details Date Type Department Care Team (Late st Contact Info) Description 05/16/2023 Abstract [facility] [address] [place] [address] Filomena Gregory NP [address] [place], [place] [address] Social History Tobacco Use Types Packs/Day Years [...] Office Visit [facility] [address] [facility] [address] [place] [address] Flores Wesley MD [address] [facility] [address] [place] [address] documented as of this encounter Visit Diagnoses Not on filedocumented in this encounter Care Teams Fire Equipment Inspector Relationship Specialty Start Date End Date Samantha Posey MD PCP - General Family Medicine 01/09/23 WonderSamantha mak MD PCP - Medical [place] Commercial 07/30/12 01/27/24 Tamara Diane PA [address] [place] [address] [place] [address] PCP - Medical [place] [employer] 01/28/24 07/29/99 documented as of this encounter
--- OUTSIDE RECORDS SUMMARY | 2025-05-02 08:57 | XMS_ITS | Encounter Summary ---
Author Organization [facility] Address [address] [place] [address] Care Team Providers Care Commodity Loan Clerk Name Role Phone Samantha Posey MD Primary Care Provider [phone] Tamara Diane Unavailable Encounter Details Date Type Department Care Team (Late st Contact Info) Description 02/25/2025 Orders Only COLLIN [facility] OBGYN [address] [place] [address] [place] [address] Nacho Palacios, [place] Social History Tobacco Use Types Packs/Day Years [...] [facility] [address] [place] [place] [address] Flores Wesley MD [address] [place] [address] documented as of this encounter Goals Goal Patient Goal Type Associated Problems Recent Progress Patient-Stated? Author Help patient manage antidepressant medication Care Plan Patient on antidepressant monitoring plan No Lily Ray NP documented as of this encounter Procedures Procedure Name Priority Date/Time Associated Diagnosis Comments PAP SMEAR Routine 02/18/2025 12:00 AM EDT documented in this encounter Results * Pap Smear (02/18/2025 12:00 AM EDT) Swab Cervical swab / Unknown Tamara [place] [facility] ORDERABLES Final Re sult [facility] documented in this encounter Visit Diagnoses Not on filedocumented in this encounter Additional Health Concerns Active Problems Noted Date Diagnosed Date Patient on antidepressant monitoring plan 2023 Assessment Noted Time PHQ-9 Depression Total Score: 6 11/13/19 24 5:12 PM EDT documented as of this encounter Care Teams Commodity Loan Clerk Relationship Specialty Start Date End Date Samantha Posey MD PCP - General Family Medicine 01/09/23 Tamara Diane PA [address] [place] [address] [place] [address] PCP - Medical [place] Commercial 01/28/24 07/29/99 documented as of this encounter
--- OUTSIDE RECORDS SUMMARY | 2025-05-02 08:57 | XMS_ITS | Encounter Summary ---
Author Organization [facility] Address [address] [place] [address] Care Team Providers Care Victorian Literature Professor Name Role Phone Samantha Posey MD Primary Care Provider [phone] Tamara Diane Unavailable Encounter Details Date Type Department Care Team (Late st Contact Info) Description 09/02/2024 Abstract COLLIN LEGER [address] [facility] [place] [address] Tamara Diane PA [address] [facility] [address] [place], [place] [phone] Social History Tobacco Use Types Packs/Day Years [...] [address] [place] [address] Flores Wesley MD [address] [place] [address] documented as of this encounter Goals Goal Patient Goal Type Associated Problems Recent Progress Patient-Stated? Author Help patient manage antidepressant medication Care Plan Patient on antidepressant monitoring plan Lily Mcallister NP documented as of this encounter Visit Diagnoses Not on filedocumented in this encounter Additional Health Concerns Active Problems Noted Date Diagnosed Date Patient on antidepressant monitoring plan 2023 Assessment Noted Time PHQ-9 Depression Total Score: 6 11/13/19 24 5:12 PM EDT documented as of this encounter Care Teams Victorian Literature Professor Relationship Specialty Start Date End Date Kalpesh, Samantha Lopez MD PCP - General Family Medicine 01/09/23 Tamara Diane PA [address] [place] [address] [place] [address] PCP - Medical [place] [employer] 01/28/24 07/29/99 documented as of this encounter
--- OUTSIDE RECORDS SUMMARY | 2025-05-02 08:57 | XMS_ITS | Encounter Summary ---
Author Organization [facility] Address [address] [place] [address] Care Team Providers Care Casino Dealer Name Role Phone Samantha Posey MD Primary Care Provider [phone] Tamara Diane Unavailable Encounter Details Date Type Department Care Team (Late st Contact Info) Description 09/09/2024 Abstract [facility]Felipe [facility] [address] [place] [address] [place] [address] Asha Ball LPN Social History [...] Dermatology [address] [place] [address] Flores Wesley MD [address] [facility] 350 [place] [address] documented as of this encounter Goals Goal Patient Goal Type Associated Problems Recent Progress Patient-Stated? Author Help patient manage antidepressant medication Care Plan Patient on antidepressant monitoring plan No Lily Ray OYSTER PICKER documented as of this encounter Visit Diagnoses Not on filedocumented in this encounter Additional Health Concerns Active Problems Noted Date Diagnosed Date Patient on antidepressant monitoring plan 2023 Assessment Noted Time PHQ-9 Depression Total Score: 6 11/13/19 24 5:12 PM EDT documented as of this encounter Care Teams Casino Dealer Relationship Specialty Start Date End Date Samantha Posey MD PCP - General Family Medicine 01/09/23 Tamara Diane PA [address] [place] [address] [place] [address] PCP - Medical [place] [employer] 01/28/24 07/29/99 documented as of this encounter
--- OUTSIDE RECORDS SUMMARY | 2025-05-02 08:57 | XMS_ITS | Encounter Summary ---
Author Organization [facility] Address [address] [place] [address] Care Team Providers Care Clinical Project Manager Name Role Phone Samantha Posey MD Primary Care Provider [phone] Tamara Diane Unavailable Encounter Details Date Type Department Care Team (Late st Contact Info) Description 04/29/2024 Abstract CO[facility]IN Melgoza OBGYN [address] [facility] [place] [address] Justice Conde DO [address] [facility] [address] [place], [place] [id number] Social History Tobacco Use Types Packs/Day Years [...] [address] [place] [address] Flores Wesley MD [address] [place] [address] documented as of this encounter Visit Diagnoses Not on filedocumented in this encounter Additional Health Concerns Assessment Noted Time PHQ-9 Depression Total Score: 6 11/13/19 24 5:12 PM EDT documented as of this encounter Care Teams Clinical Project Manager Relationship Specialty Start Date End Date Samantha Posey MD PCP - General Family Medicine 01/09/23 Tamara Diane PA [address] [place] [address] [place] [address] PCP - Medical [place] [employer] 01/28/24 07/29/99 documented as of this encounter
--- OUTSIDE RECORDS SUMMARY | 2025-05-02 08:57 | XMS_ITS | Encounter Summary ---
Author Organization [facility] Address [address] [place] [address] Care Team Providers Care Pipe Organ Mechanic Name Role Phone Samantha Posey MD Primary Care Provider [phone] Tamara Diane Unavailable Encounter Details Date Type Department Care Team (Late st Contact Info) Description 08/28/2024 Abstract COLLIN Melgoza OBGYN [address] [facility] [address] Justice Conde DO [address] [facility] [address] [place], [place] [id number] Social History Tobacco Use Types Packs/Day Years [...] Dermatology [address] [place] [address] Flores Wesley MD [address] [place] [address] documented as of this encounter Goals Goal [...] documented as of this encounter Care Teams Pipe Organ Mechanic Relationship Specialty Start Date End Date Kalpesh, Samantha Lopez MD PCP - General Family Medicine 01/09/23 Tamara Diane PA [address] [place] [address] [place] [address] PCP - Medical [place] Commercial 01/28/24 07/29/99 documented as of this encounter
--- OUTSIDE RECORDS SUMMARY | 2025-05-02 08:57 | XMS_ITS | Encounter Summary ---
Author Organization [facility] Address [address] [place] [address] Care Team Providers Care Change Consultant Name Role Phone Samantha Posey MD Primary Care Provider [phone] Tamara Diane Unavailable Encounter Details Date Type Department Care Team (Late st Contact Info) Description 12/02/2024 Abstract COLLIN Melgoza OBGYN [address] [place] [address] Justice Conde DO [address] [facility] [address] [place], [place] [address] Social History Tobacco Use Types Packs/Day Years [...] Dermatology [address] [place] [address] Flores Wesley MD [address] [place] [address] documented as of this encounter Goals Goal [...] documented as of this encounter Care Teams Change Consultant Relationship Specialty Start Date End Date Kalpesh, Samantha Lopez MD PCP - General Family Medicine 01/09/23 Tamara Diane PA [address] [place] [address] [place] [address] PCP - Medical [place] [employer] 01/28/24 07/29/99 documented as of this encounter
--- OUTSIDE RECORDS SUMMARY | 2025-05-02 08:57 | XMS_ITS | Encounter Summary ---
Author Organization [facility] Address [address] [place] [place] [address] Care Team Providers Care Content Engineer Name Role Phone Samantha Posey MD Primary Care Provider [phone] Tamara Diane Unavailable Encounter Details Date Type Department Care Team (Late st Contact Info) Description 09/29/2024 Abstract COLLIN LEGER [address] [facility] [place] [address] Tamara Diane PA [address] [facility] [address] [place], [place] [id number] Social History Tobacco Use Types Packs/Day Years [...] [address] [place] [address] Flores Wesley MD [address] [place] [address] documented as of this encounter Goals Goal [...] documented as of this encounter Care Teams Content Engineer Relationship Specialty Start Date End Date Kalpesh, Samantha Lopez MD PCP - General Family Medicine 01/09/23 Tamara Diane PA [address] [place] [address] [place] [address] PCP - Medical [place] Commercial 01/28/24 07/29/99 documented as of this encounter
--- OUTSIDE RECORDS SUMMARY | 2025-05-02 08:57 | XMS_ITS | Encounter Summary ---
Author Organization [facility] Address [address] [place] [address] Care Team Providers Care Security Agent Name Role Phone Samantha Posey MD Primary Care Provider [phone] Tamara Diane Unavailable Encounter Details Date Type Department Care Team (Late st Contact Info) Description 08/18/2024 Abstract COLLIN LEGER [address] [facility] [place] [address] Tamara Diane PA [address] [facility] [address] [place], [place] [address] Social History Tobacco Use Types Packs/Day Years [...] [address] [place] [address] Flores Wesley MD [address] [place] [address] documented as of this encounter Goals Goal [...] documented as of this encounter Care Teams Security Agent Relationship Specialty Start Date End Date Kalpesh, Samantha Lopez MD PCP - General Family Medicine 01/09/23 Tamara Diane PA [address] [place] [address] [place] [address] PCP - Medical [place] Commercial 01/28/24 07/29/99 documented as of this encounter
--- OUTSIDE RECORDS SUMMARY | 2025-05-02 08:57 | XMS_ITS | Encounter Summary ---
Author Organization [facility] Address [address] [place] [address] Care Team Providers Care Die Sinker Name Role Phone Samantha Posey MD Primary Care Provider [phone] Samantha Posey MD Unavailable [phone] Tamara Diane Unavailable Encounter Details Date Type Department Care Team (Late Contact Info) Description 02/12/2023 Abstract COLLIN LEGER [address] [facility] [place] [address] Tamara Diane PA [address] [facility] [address] [place], [facility] Social History Tobacco Use Types Packs/Day Years [...] Encounters Date Type Department Care Team (Late Contact Info) Description 01/13/2026 10:15 AM EDT Office Visit [facility] [address] [place] [address] Flores Wesley MD [address] [place], [place] [address] documented as of this encounter Visit Diagnoses Not on filedocumented in this encounter Care Teams Die Sinker Relationship Specialty Start Date End Date Samantha Posey MD PCP - General Family Medicine 01/09/23 Samantha Posey MD PCP - Medical [place] [employer] 07/30/12 01/27/24 Tamara Diane PA [address] [place] [address] [place] [address] PCP - Medical [place] Commercial 01/28/24 07/29/99 documented as of this encounter
--- OUTSIDE RECORDS SUMMARY | 2025-05-02 08:57 | XMS_ITS | Encounter Summary ---
Author Organization [facility] Address [address] [place] [address] Care Team Providers Care Operational Meteorologist Name Role Phone Samantha Posey MD Primary Care Provider [phone] Tamara Diane Unavailable Encounter Details Date Type Department Care Team (Late st Contact Info) Description 02/25/2025 External Result Encounter [facility] External Department Unsolicited Tamara Diane PA [address] [place] [address] Dr [place] [id number] Social History Tobacco Use Types Packs/Day Years [...] Dermatology [address] [place] [address] Flores Wesley MD [address] [place] [address] documented as of this encounter Goals Goal Patient Goal Type Associated Problems Recent Progress Patient-Stated? Author Help patient manage antidepressant medication Care Plan Patient on antidepressant monitoring plan No Lily Ray NP documented as of this encounter Procedures Procedure Name Priority Date/Time Associated Diagnosis Comments BI MAMMOGRAM SCREENING TOMOSYNTHESIS BILATERAL 02/25/2025 9:33 AM EDT documented in this encounter Results * Bilateral screening mammogram with tomosynthesis (02/25/2025 9:33 AM EDT) Anatomical Region Laterality Modality Breast Bilateral Mammography 02/25/2025 9:33 AM EDT Impressions 02/25/2025 9:37 AM EDT NO MAMMOGRAPHIC EVIDENCE OF MALIGNANCY. ROUTINE FOLLOW-UP [...] mammogram. Impression dictated by: Edmond Rasmussen Jr., D.OThomas 02/25/2025 9:34 AM Dictation Location: [facility] Dictated By: Edmond Rasmussen Jr, DO 02/25/2533 Signed By: <Electronically signed by Edmond Rasmussen Jr, DO in OV> 02/25/25 0934 Narrative 02/25/2025 9:37 AM EDT [facility] [address] [place] [address] [address] [place] [address] Mammography Report Signed Patient: Mariya Orosco MR#: [id number] 69 : 1985 Acct:[id number] Age/Sex: 39 / F Adm Date: 02/25/25 Loc: [place] Room: Type: REG CLI Attending Dr: Tamara Diane PA-C Ordering Provider: Tamara JOHANSEN Date of Service: 02/25/25 Procedure(s): MM screening mammo BI w/CAD Accession Number(s): ([id number]) MM/MM screening mammo BI w/CAD: SCREENING Copies to: Tamara Ray CNP CLINICAL DATA: Screening for malignancy. SCREENING [...] architectural distortion. MM/MM screening mammo BI w/CAD Procedure Note Edmond Rasmussen Jr., DO - 02/25/2025 [place] [address] Mammography Report Signed Patient: Mariya Orosco LMR#: [id number] 69 : 1985Acct:[id number] Age/Sex: 39 / FAdm Date: 02/25/25 Loc: [place] Room:Type: [facility] Attending Dr: Tamara Diane PA-C Ordering Provider: Tamara JOHANSEN Date of Service: 02/25/25 Procedure(s): MM screening mammo BI w/CAD Accession Number(s): ([id number]) MM/MM screening mammo BI w/CAD:SCREENING Copies to: Tamara Ray CNP CLINICAL DATA: Screening for malignancy. SCREENING MAMMOGRAM - FULL FIELD DIGITAL WITH TOMOSYNTHESIS AND CAD COMPARISON:Baseline study Tomosynthesis craniocaudal and mediolateral oblique views of both breastswere obtained using low- dose digital technique. This examination was reviewed with the aid ofCAD. FINDINGS: The breast tissue is composed of scattered fibroglandular densities.There are no dominant masses, typically malignant calcifications or architectural distortion. MM/MM screening mammo BI w/CAD IMPRESSION: NO MAMMOGRAPHIC EVIDENCE OF MALIGNANCY. ROUTINE FOLLOW-UP IS RECOMMENDED IN ONE YEAR. RESULT CODE: 1 Negative DENSITY CODE: 2 (approximately 25-50% glandular) There are scattered areasof fibroglandular density. FOLLOW UP: 1YR The false-negative rate of mammography is approximately 10-percent. Management of a palpable abnormality must be based on clinical grounds. Patient was entered into a reminder system with a target due date for thenext mammogram. Impression dictated by: Edmond Rasmussen Jr., D.OThomas 02/25/2025 9:34 AM Dictation Location: DW01 Dictated By: Edmond Rasmussen Jr, DO 02/25/25 0933 Signed By: <Electronically signed by Edmond Rasmussen Jr, DO inOV> 02/25/25 0934 Tamara [place] IMG BI PROCEDURES Final Result documented in this encounter Visit Diagnoses Not on filedocumented in this encounter Additional Health Concerns Active Problems Noted Date Diagnosed Date Patient on antidepressant monitoring plan 2023 Assessment Noted Time PHQ-9 Depression Total Score: 6 11/13/19 24 5:12 PM EDT documented as of this encounter Care Teams Operational Meteorologist Relationship Specialty Start Date End Date Samantha Posey MD PCP - General Family Medicine 01/09/23 Tamara Diane PA [address] [place] [address] [place] [address] PCP - Medical [place] [employer] 01/28/24 07/29/99 documented as of this encounter
--- OUTSIDE RECORDS SUMMARY | 2025-05-02 08:57 | XMS_ITS | Encounter Summary ---
Author Organization [facility] Address [address] [place] [address] Care Team Providers Care Spring Tester Name Role Phone Samantha Posey MD Primary Care Provider [phone] Samantha Posey MD Unavailable [phone] Tamara Diane Unavailable Encounter Details Date Type Department Care Team (Late Contact Info) Description 02/14/2023 Abstract [facility] [place] OBMARCIO [address] [facility] [place] [address] Justice Conde DO [address] [facility] [address] [place] [id number] Social History Tobacco Use Types Packs/Day Years [...] Dermatology [address] [place] [address] Flores Wesley MD [address] [place] [address] documented as of this encounter Visit Diagnoses Not on filedocumented in this encounter Care Teams Spring Tester Relationship Specialty Start Date End Date Samantha Posey MD PCP - General Family Medicine 01/09/23 Samantha Posey MD PCP - Medical [place] [employer] 07/30/12 01/27/24 Tamara Diaen PA [address] [place] [address] [place] [address] PCP - Medical [place] [employer] 01/28/24 07/29/99 documented as of this encounter
--- OUTSIDE RECORDS SUMMARY | 2025-05-02 08:57 | XMS_ITS | Encounter Summary ---
Author Organization [facility] Address [address] [place] [address] Care Team Providers Care Casing Tier Name Role Phone Samantha Posey MD Primary Care Provider [phone] Tamara iDane Unavailable Encounter Details Date Type Department Care Team (Late st Contact Info) Description 01/28/2025 Abstract [facility] [address] [facility] [place] [address] Tamara Diane PA [address] [facility] [address] [place], [place] [phone] Social History Tobacco Use Types Packs/Day Years [...] [address] [place] [phone] Flores Wesley MD [address] [place] [address] documented as of this encounter Goals Goal [...] documented as of this encounter Care Teams Casing Tier Relationship Specialty Start Date End Date Kalpesh, Samantha Lopez MD PCP - General Family Medicine 01/09/23 Tamara Diane PA [address] [place] [address] [place] [address] PCP - Medical [place] [employer] 01/28/24 07/29/99 documented as of this encounter
--- OUTSIDE RECORDS SUMMARY | 2025-05-02 08:57 | XMS_ITS | Encounter Summary ---
Author Organization [facility] Address [address] [place] [address] Care Team Providers Care Powerhouse Mechanic Helper Name Role Phone Samantha Posey MD Primary Care Provider [phone] Tamara Diane Unavailable Encounter Details Date Type Department Care Team (Late st Contact Info) Description 04/28/2024 Abstract [facility] [place] [facility] [address] [facility] [place] [address] Justice Conde DO [address] [facility] [address] [place], [place] [phone] Social History Tobacco Use Types Packs/Day Years [...] [address] [place] [phone] Flores Wesley MD [address] [place] [address] documented as of this encounter Visit Diagnoses Not on filedocumented in this encounter Additional Health Concerns Assessment Noted Time PHQ-9 Depression Total Score: 6 11/13/19 24 5:12 PM EDT documented as of this encounter Care Teams Powerhouse Mechanic Helper Relationship Specialty Start Date End Date Samantha Posey MD PCP - General Family Medicine 01/09/23 Tamara Diane PA [address] [place] [address] [place] [address] PCP - Medical [place] [employer] 01/28/24 07/29/99 documented as of this encounter
--- OUTSIDE RECORDS SUMMARY | 2025-05-02 08:57 | XMS_ITS | Clinical Summary ---
Author Organization [employer] Address [id number] [address] [place] [address] Care Team Providers Care Test Technician Name Role Phone Samantha Posey MD Primary Care Provider [phone] Allergies Active Allergy Reactions Criticality Noted Date Comments Prochlorperazine Other (See Comments) 05/20/2019 Tremors, shaking Gum Dfnsok-Ktutwv-Uazz-Alcohol Rash Low 05/20/2019 Other 11/29/2017 Medications vit37/iron/foli [...] Encounters Date Type Department Care Team Description 03/04/2025 10:30 AM EDT Office Visit [facility] [address] [place] [address] Regine Carl, NATHALY Coccydynia (Primary Dx) 03/04/2025 Travel 02/06/2025 12:37 PM EDT - 02/06/2025 12:46 PM EDT Surgery [facility] [address] [facility] [place] [address] Ariel Beavers MD INJECTION HYPOGASTRIC SHPB [[id number] (CPT )] 02/06/2025 12:27 PM EDT Anesthesia Event [facility] [address] [place] [address] Akshat Meza, Eleazar Muñoz, SUPERVISOR HAND WORKERS-MARKER MACHINE 02/06/2025 11:19 AM EDT - 02/06/2025 11:59 PM EDT Hospital Encounter [facility] [address] [place] [address] Ariel Beavers MD Discharge Disposition: Home 02/06/2025 8:00 AM EDT - 02/06/2025 11:18 AM EDT Hospital Encounter [facility] - Radiology [address] [place] [address] Ariel Beavers MD Coccyxdynia Discharge Disposition: Home from Last 3 Months Immunizations Immunization Administration [...] got money to buy more. Never True 03/04/2025 Within the past 12 months th e food we bought just didn't last and we didn't have money to get more. Never True 03/04/2025 Purpose - Life Answer Date Recorded Purpose and direction in life Unknown Comments No Sex and Gender Information Value Date Recorded Sex Assigned at Not on file Legal Sex Female 11:27 AM EDT Gender Identity Not on file Sexual Orientation Not on file Last Filed Vital Signs Vital Sign Reading Time Taken Comments Blood Pressure 116/95 03/04/2025 10:36 AM EDT Pulse 78 03/04/2025 10:36 AM EDT Temperature 36.4 C (97.5 F) 02/06/2025 11:38 AM EDT Respiratory Rate 16 02/06/2025 12:38 PM EDT Oxygen Saturation 96% 03/04/2025 10:36 AM EDT Inhaled Oxygen Concentration - - Weight 79.8 kg (176 lb) 03/04/2025 10:36 AM EDT Height 162.6 cm (5' 4 ) 03/04/2025 10:36 AM EDT Body Mass Index 30.21 03/04/2025 10:36 AM EDT Plan of Treatment Upcoming Encounters Date Type Department Care Team (Late st Contact Info) Description 06/10/2025 8:15 AM EST Office Visit [facility] [address] [place] [address] Regine Carl, PA-C [address] [place], [place] [phone] Health Maintenance Due Date Last Done Comments Depression Screening 1997 Adult BMI Follow Up Plan 2003 COVID-19 Vaccine (2024-2 6 season) 2025 07/15/2021, 10/22/2020, 09/22/2020 Influenza Vaccine 03/30/2025 07/22/2018 Adult BMI Screening 03/04/2026 03/04/2025 Tobacco Screening 03/04/2026 03/04/2025 DTaP,Tdap and Td Vaccines (2 - Td or Tdap) 11/23/2027 11/22/2017 Pap Smear 02/19/2028 02/18/2025, 01/31/2023 Medical Devices Not on file Procedures Procedure Name Priority Date/Time Associated Diagnosis Comments FL FLUOROSCOPY UP TO 1 HOUR Routine 02/06/2025 12:31 PM EDT Coccyxdynia MN N BLOCK INJ, HYPOGAS PLXS 02/06/2025 12:27 [...] 3 Months Insurance [employer] Care Teams Test Technician Relationship Specialty Start Date End Date Samantha Posey MD [address] [place] [address] PCP - General Family Medicine 12/07/17
--- OUTSIDE RECORDS SUMMARY | 2025-05-02 08:57 | XMS_ITS | Clinical Summary ---
Author Organization [facility] Address [address] [place] [address] Care Team Providers Care Merchandise Planner Name Role Phone Samantha Posey MD Primary Care Provider [phone] Tamara Diane Unavailable Allergies Active Allergy Reactions Criticality Noted Date Comments Prochlorperazine 01/09/2023 Doxycycline GI intolerance 01/14/2024 Wound Dressing Adhesive 01/09/2023 Medications montelukast (Singulair) 10 MG tablet Take 10 mg by mouth in the morning. Active cetirizine (ZyrTEC) 5 MG tablet Take 10 mg by mouth Daily Active escitalopram (Lexapro) 20 MG tabletIndications :Major depressive disorder, single episode, moderate (HCC) Take 1 tablet (20 mg) by mouth Daily 90 tablet 3 4 Active famotidine (Pepcid) 20 MG tabletIndications :Gastroesophageal reflux disease without esophagitis TAKE 1 TABLET BY MOUTH TWICE DAILY (IN THE MORNING and BEFORE bedtime) 180 tablet 5 Active clindamycin (Cleocin T) 1 % lotionIndications :Bacterial folliculitis Apply thin later to affected areas on the body during flares, 30 day supply 60 mL 11 5 Active Chlorhexidine Gluconate (Hibiclens) 4 % solutionIndicatio ns:Bacterial folliculitis Apply from the neck down as body wash, use 2-3 times a weeks, 30 day supply 473 mL 11 5 Active Active Problems Problem Noted Date Diagnosed [...] ate 05/16/2023 Obstructive sleep apnea 05/16/2023 Oligohydramnios ([facility]) 11/20/2017 Chronic hypertension 10/27/2017 Encounters Date Type Department Care Team Description 04/20/2025 Telephone [facility] [address] [place] [address] Asha Ball LPN 02/25/2025 [place] [address] Amena Griffith MA 02/25/2025 External Result Encounter NOMS External Department Unsolicited Tamara Diane PA 02/18/2025 1:00 PM EDT Office Visit [facility] [address] [place] [address] Tamara Diane PA Well woman exam with routine gynecological exam; Breast cancer screening by mammogram 02/18/2025 Clinisync Result Encounter [facility]S External Department Unsolicited Tamara Diane PA 02/18/2025 Bamboo flowsheet [facility] [address] [place] [address] Tamara Diane PA 02/02/2025 8:30 AM EDT Office Visit [facility] [address] [place] [address] Tamara Diane PA Encounter for weight management 02/02/2025 Bamboo flowsheet [facility] [address] [place] [address] Tamara Diane PA from Last 3 Months Immunizations Immunization Administration [...] Dermatology [address] [place] [address] Flores Wesley MD [address] [place] [address] Health Maintenance Due Date Last Done Comments Skin Cancer Screening 1986 HPV/Cotest 10/31/2023 Influenza Vaccine (#1) 2025 07/22/2018 Mammogram 02/25/2026 02/25/2025 Cervical Cancer Screening 02/19/2028 Pap Smear 02/19/2028 02/18/2025, 07/0 11/2022, 10/30/2022, Additional history exists Goals Goal Patient Goal Type Associated Problems Recent Progress Patient-Stated? Author Help patient manage antidepressant medication Care Plan Patient on antidepressant monitoring plan Lily Mcallister NP Procedures Procedure Name Priority Date/Time Associated Diagnosis Comments BI MAMMOGRAM SCREENING TOMOSYNTHESIS BILATERAL 02/25/2025 9:33 AM EDT IGP,APTIMA HPV,AGE GDLN Routine 02/18/2025 12:53 PM EDT PAP SMEAR Routine 02/18/2025 12:00 AM EDT from Last 3 Months Results * Bilateral screening mammogram with tomosynthesis [...] Dictation Location: DW[facility] Dictated By: Edmond Rasmussen Jr DO 02/25/25 0933 Signed By: <Electronically signed by Edmond Rasmussen Jr, DO in OV> 02/25/25 0934 Narrative 02/25/2025 9:37 AM EDT [facility] [address] [place] [address] Mammography Report Signed Patient: Mariya Orosco MR#: [id number] 69 : 1985 Acct:[id number] Age/Sex: 39 / F Adm Date: 02/25/25 Loc: [place] Room: Type: REG CLI Attending Dr: Tamara Diane PA-C Ordering Provider: Tamara JOHANSEN Date of Service: 02/25/25 Procedure(s): MM screening mammo BI w/CAD Accession Number(s): ([id number]) MM/MM screening mammo BI w/CAD: SCREENING Copies [...] Note Edmond Rasmussen Jr., DO - 02/25/2025 [facility] [address] [place] [address] Mammography Report Signed Patient: Mariya Orosco LMR#: [id number] 69 : 1985Acct:[id number] Age/Sex: 39 / FAdm Date: 02/25/25 Loc: ND Room:Type: REG CLI Attending Dr: Tamara Diane PA-C Ordering Provider: Tamara JOHANSEN Date of Service: 02/25/25 Procedure(s): MM screening mammo BI w/CAD Accession Number(s): ([id number]) MM/MM screening mammo BI w/CAD:SCREENING Copies to: [...] date for thenext mammogram. Impression dictated by: Chelsie Gannon Jr.OThomas 02/25/2025 9:34 AM Dictation Location: [facility] Dictated By: Edmond Rasmussen Jr, DO 02/25/25 0933 Signed By: <Electronically signed by Edmond Rasmussen Jr, DO inOV> 02/25/25 0934 Tamara [place] IMG BI PROCEDURES Final Result * IGP,APTIMA HPV,AGE GDLN (02/18/2025 12:53 PM EDT) AGE GDLN ACOG TESTING Note . [facility] Comment: TESTS RESULT FLAG UNITS REF RANGE LAB Clinician Provided Cytology Information Source.............Cervix;Endocervix No. of containers..01 ThinPrep Vial Age Algo ACOG Vilma... 30 FLAG LEGEND: L-Low Normal,H-High Normal,LL-Alert Low,HH-Alert High <-Panic Low,>-Panic High,A-Abnormal,AA-Critical Abnormal Performed at: 01 =[facility] [place] [address] Lizette [place] MD, IGP, APTIMA HPV, RFX 16/18,45 Note . [facility] Comment: TESTS RESULT FLAG UNITS REF RANGE LAB DIAGNOSIS: 02 NEGATIVE FOR INTRAEPITHELIAL LESION OR MALIGNANCY. Specimen adequacy: 02 Satisfactory for evaluation. No endocervical component is identified. Performed by: Julio Forde, Mud Worker ([facility]) . 02 Note: Note 02 The Pap [...] <-Panic Low,>-Panic High,A-Abnormal,AA-Critical Abnormal Performed at: [address] [address] Lizette [place] MD, HPV APTIMA Negative Negative [facility] Comment: This nucleic acid amplification test detects fourteen high- risk HPV types (16,18,31,33,35,39,45,51,52,56,58,59,66,68) without differentiation. Performed at: =[address] [id number] Training And Development Specialist: Lizette [place] MD, Phone: [phone] Performed at: [address] [id number] Training And Development Specialist: Lizette [place] MD, Phone: [phone] 02/18/2025 12:5 3 PM EDT 02/18/2025 3:27 PM EDT Narrative [facility] - 02/20/2025 4:09 PM EDT BRUSH-SPATULA CERVIX ENDOCERVIX Tamara [place] LAB BLOOD ORDERABLES Final Resul t Performing Organization Address [facility] Co de Phone Number [facility] * Pap Smear (02/18/2025 12:00 AM EDT) Swab Cervical swab / Unknown Tamara [facility] LAB CYTOLOGY ORDERABLES Final Re sult Performing Organization Address [facility] Co de Phone Number EXTERNAL LAB from Last 3 Months Additional Health Concerns Active Problems Noted Date Diagnosed Date Patient on antidepressant monitoring plan 2023 Insurance [employer] Care Teams Merchandise Planner Relationship Specialty Start Date End Date Samantha Posey MD PCP - General Family Medicine 01/09/23 Tamara Diane PA [address] [place] [address] [place] [address] PCP - Medical [place] [employer] 01/28/24 07/29/99
--- OUTSIDE RECORDS SUMMARY | 2025-05-02 08:57 | XMS_ITS | Encounter Summary ---
Author Organization [facility] Address [address] [place] [address] Care Team Providers Care Orthopedic Rn Name Role Phone Samantha Posey MD Primary Care Provider [phone] Tamara Diane Unavailable Encounter Details Date Type Department Care Team ([facility] Contact Info) Description 12/02/2024 Abstract [facility] [address] [place] [address] Randa Joshi, SOLE SCRAPER [address] [facility] [place] [address] Social History Tobacco Use Types Packs/Day [...] Upcoming Encounters Date Type Department Care Team ([facility] Contact Info) Description 01/13/2026 10:15 AM EDT Office Visit [facility] [address] [place] [address] Flores Wesley MD [address] [place] [address] documented as of this encounter Goals Goal [...] documented as of this encounter Care Teams Orthopedic Rn Relationship Specialty Start Date End Date Samantha Posey MD PCP - General Family Medicine 01/09/23 Tamara Diane PA [address] [place] [address] [place] [address] PCP - Medical [place] [employer] 01/28/24 07/29/99 documented as of this encounter
--- OUTSIDE RECORDS SUMMARY | 2025-05-02 08:57 | XMS_ITS | Encounter Summary ---
Author Organization [facility] Address [address] [place] [address] Care Team Providers Care Geotechnical Intern Name Role Phone Samantha Posey MD Primary Care Provider Tamara Diane Unavailable Encounter Details Date Type Department Care Team (Late st Contact Info) Description 04/23/2024 Abstract [facility] [place] [facility] [address] [facility] [place] [address] Justice Conde DO [address] [facility] [address] [place], [place] [phone] Social History Tobacco Use Types Packs/Day Years [...] [address] [place] [phone] Flores Wesley MD [address] [place] [address] documented as of this encounter Visit Diagnoses Not on filedocumented in this encounter Additional Health Concerns Assessment Noted Time PHQ-9 Depression Total Score: 6 11/13/19 24 5:12 PM EDT documented as of this encounter Care Teams Geotechnical Intern Relationship Specialty Start Date End Date Samantha Posey MD PCP - General Family Medicine 01/09/23 Tamara Diane PA [address] [place] [address] [place] [address] PCP - Medical [place] [employer] 01/28/24 07/29/99 documented as of this encounter
--- OUTSIDE RECORDS SUMMARY | 2025-05-02 08:57 | XMS_ITS | Encounter Summary ---
Author Organization [facility] Address [address] [place] [address] Care Team Providers Care Speech Language Pathologist Name Role Phone Samantha Posey MD Primary Care Provider [phone] Tamara Diane Unavailable Encounter Details Date Type Department Care Team (Late st Contact Info) Description 2024 Abstract [facility] [place] [facility] [address] [facility] [place] [address] Justice Conde DO [address] [facility] [address] [place], [place] [id number] Social History Tobacco Use Types Packs/Day Years [...] [address] [place] [phone] Flores Wesley MD [address] [place] [address] documented as of this encounter Visit Diagnoses Not on filedocumented in this encounter Additional Health Concerns Assessment Noted Time PHQ-9 Depression Total Score: 6 11/13/19 24 5:12 PM EDT documented as of this encounter Care Teams Speech Language Pathologist Relationship Specialty Start Date End Date Samantha Posey MD PCP - General Family Medicine 01/09/23 Tamara Diane PA [address] [place] [address] [place] [address] PCP - Medical [place] [employer] 01/28/24 07/29/99 documented as of this encounter
--- OUTSIDE RECORDS SUMMARY | 2025-05-02 08:57 | XMS_ITS | Encounter Summary ---
Author Organization [facility] Address [address] [place] [address] Care Team Providers Care Graphic User Interface Designer Name Role Phone Samantha Posey MD Primary Care Provider [phone] Tamara Diane Unavailable Encounter Details Date Type Department Care Team (Late st Contact Info) Description 04/20/2025 Telephone [facility] [address] [place] [address] [place] [address] Asha Ball LPN Social History Tobacco [...] encounter Miscellaneous Notes * Telephone Encounter - Asha Ball LPN - 04/20/2025 8:22 AM EDT Sent [facility] Rx and letter to patient informing her it is time to obtain lab results. --ss documented in this encounter Plan of Treatment Upcoming Encounters Date Type Department Care Team (Late st Contact Info) Description 01/13/2026 10:15 AM EDT Office Visit [facility] [address] [place] [address] Flores Wesley MD [address] [place] [address] Scheduled Orders Name Type Priority Associated Diagnoses Orde r Schedule Comprehensive metabolic panel Lab Routine Follow-up encounter involving medication Expected: 04/20/2025 (Approximate), Expires: 04/20/2026 documented as of this encounter Goals Goal Patient Goal Type Associated Problems Recent Progress Patient-Stated? Author Help patient manage antidepressant medication Care Plan Patient on antidepressant monitoring plan No Lily Ray NP documented as of this encounter Visit Diagnoses Diagnosis Follow-up encounter involving medication documented in this encounter Additional Health Concerns Active Problems Noted Date Diagnosed Date Patient on antidepressant monitoring plan 2023 Assessment Noted Time PHQ-9 Depression Total Score: 6 11/13/19 24 5:12 PM EDT documented as of this encounter Care Teams Graphic User Interface Designer Relationship Specialty Start Date End Date Samantha Posey MD PCP - General Family Medicine 01/09/23 Tamara Diane PA [address] [place] [address] [place] [address] PCP - Medical [place] [employer] 01/28/24 07/29/99 documented as of this encounter
--- OUTSIDE RECORDS SUMMARY | 2025-05-02 08:57 | XMS_ITS | Encounter Summary ---
Author Organization [facility] Address [address] [place] [address] Care Team Providers Care Laborer Livestock Name Role Phone Samantha Posey MD Primary Care Provider Tamara Diane Unavailable Encounter Details Date Type Department Care Team (Late st Contact Info) Description 10/14/2024 Abstract [facility] [address] [place] [address] [place] [address] Asha Ball LPN Social History [...] Dermatology [address] [place] [address] [place] MD [address] [facility] [address] [place] [address] documented as of this encounter Goals Goal Patient Goal Type Associated Problems Recent Progress Patient-Stated? Author Help patient manage antidepressant medication Care Plan Patient on antidepressant monitoring plan No Lily Ray HOUSEKEEPER/LAUNDRY ASSISTANT documented as of this encounter Visit Diagnoses Not on filedocumented in this encounter Additional Health Concerns Active Problems Noted Date Diagnosed Date Patient on antidepressant monitoring plan 2023 Assessment Noted Time PHQ-9 Depression Total Score: 6 11/13/19 24 5:12 PM EDT documented as of this encounter Care Teams Laborer Livestock Relationship Specialty Start Date End Date Samantha Posey MD PCP - General Family Medicine 01/09/23 Tamara Diane PA [address] [place] [address] [place] [address] PCP - Medical [place] [employer] 01/28/24 07/29/99 documented as of this encounter
--- OUTSIDE RECORDS SUMMARY | 2025-05-02 08:57 | XMS_ITS | Encounter Summary ---
Author Organization [facility] Address [address] [place] [place] [address] Care Team Providers Care Refrigerator Glazier Name Role Phone Samantha Posey MD Primary Care Provider [phone] Tamara Diane Unavailable Encounter Details Date Type Department Care Team (Late st Contact Info) Description 01/28/2025 Abstract [facility] [address] [facility] [place] [address] Tamara Diane PA [address] [facility] [address] [place], [place] [id number] Social History Tobacco Use Types Packs/Day Years [...] [address] [place] [id number] Flores [place] MD [address] [place] [address] documented as of this encounter Goals Goal [...] documented as of this encounter Care Teams Refrigerator Glazier Relationship Specialty Start Date End Date Kalpesh, Samantha Lopez MD PCP - General Family Medicine 01/09/23 Tamara Diane PA [address] [place] [address] [place] [address] PCP - Medical [place] [employer] 01/28/24 07/29/99 documented as of this encounter
[2025-05-02 10:13] LABS: Alanine Aminotransferase 28 U/L (14-59); Albumin Globulin Ratio 1.0; Albumin Level 3.3 g/dL (3.4-5.0); Alkaline Phosphatase 45 U/L (46-116); Anion Gap 9.9; Aspartate Amino Transferase 16 U/L (15-37); Blood Urea Nitrogen 13.0 mg/dL (7.0-18.0); Calcium 8.3 mg/dL (8.5-10.1); Carbon Dioxide 30.3 mmol/L (21.0-32.0); Chloride 106 mmol/L (98-107); Estimated GFR (African America >60 (>=60 mL/min/1.73m^2); Estimated GFR (Non-African Ame >60 (>=60 mL/min/1.73m^2); Globulin 3.4 g/dL; Glucose 83 mg/dL (74-106); Potassium 4.2 mmol/L (3.5-5.1); Sodium 142 mmol/L (136-145); Total Protein 6.7 g/dL (6.4-8.2)
== END 2025-05-02 08:54 | disposition home or self-care (01) ==
LOC: LAB 08:54
PROVIDERS: PCP Family Medicine; Visit Provider Obstetrics & Gynecology
DX: Z79.899 Other long term (current) drug therapy (principal)
CPT/HCPCS: 36415; 80053